=== PATIENT | female | born 1965 | race Caucasian/White ===

== ENCOUNTER 2024-01-19 21:48 | Observation (INO) ==
--- NOTE | 2024-01-19 23:55 | Emergency Department Note ---
Impression & Plan Low back pain, Lumbar radiculopathy, Hypokalemia ED Provider Note ED Provider Note NAME: SHEREEN LADD AGE:58 SEX: Female : 1965 ARRIVES VIA: EMS INFORMANT: Patient ED PROVIDER(s): Alicia Bishop DO CHIEF COMPLAINT: Back pain HPI: This is a 58-year-old female presents emergency department with complaint of worsening back pain. Patient states she has had back pain since a fall 1 year ago. It became worse, worse 3 weeks ago after carrying vacuum up steps. She did see an orthopedic doctor and had xray recently. She states has been taking ibuprofen and baclofen without any significant improvement. She states she has pain radiating down bilateral lower extremities although it is worse on the left. She occasionally has numbness into the left lower extremity additionally. She states she is able to walk although has pain with walking. She has worse pain trying to go up and down steps. She denies fevers or chills, nausea or vomiting. She states going to the bathroom has been difficult due to the pain of getting up and down. PAST MEDICAL HISTORY:See Below PAST SURGICAL HISTORY:See Below FAMILY HISTORY:See Below SOCIAL HISTORY:See Below HOME MEDICATIONS:See Below ALLERGIES:See Below VITALS:See Below PHYSICAL EXAMINATION: GENERAL: alert, well appearing, well nourished, no distress, non-toxic EYE EXAM: normal conjunctiva, PERRL and EOM's grossly intact OROPHARYNX: no exudate, no erythema, lips, buccal mucosa, and tongue normal and mucous membranes are dry NECK: supple, no nuchal rigidity, no adenopathy, non-tender LUNGS: Clear to auscultation. Normal chest wall mechanics, no w/r/r HEART: no murmurs, S1 normal and S2 normal ABDOMEN: abdomen soft, non-tender, normo-active bowel sounds, no masses, no rebound or guarding. BACK: Back is symmetrical on inspection and there is no deformity, mild left lateral lumbar tenderness, no CVA tenderness. SKIN: no rashes, petechiae, orbruising UPPER EXTREMITIES: upper extremities are grossly normal. FROM, nml pulses b/l. LOWER EXTREMITIES: No pitting edema. FROM, nml pulses b/l. 2+/4 patellar reflexes bilaterally NEURO EXAM: Normal sensorium, cranial nerves II-XII grossly intact, normal speech, no facial droop,nogross weakness of arms, no gross weakness of legs. Gross sensation intact. No ataxia. Vital Signs: reviewed and remarkable Differential Diagnosis: lumbar radiculopathy, muscle strain, facture, cauda equina, mass, and disc herniation. MEDICAL DECISION MAKING: This is a 58-year-old female who presents with concern for worsening low back pain and radicular symptoms into the lower extremities. Patient was afebrile vital signs stable. She had no acute neurologic deficits. Labs drawn and sent, IV established, patient sent for CT of the lumbar spine. Patient given IV fluids, IV Tylenol, oral gabapentin, IV Toradol, and a dose of her usual oral baclofen additionally. A Lidoderm patch was also applied to the left low back. Patient was able to ambulate to the bathroom here with an antalgic gait but otherwise reported no significant improvement in her pain. Patient states she has "bad reactions" to other stronger pain medications and wished to avoid them which I felt was reasonable. After several medications and no significant improvement, we discussed options for medications and disposition. Patient does live alone and states does not have family who could come stay with her. She has not yet seen a economic development specialist regarding her pain. Due to concern for her ability to even ambulate around her own house that she has found it hard to get to the bathroom on the second floor, and my concern for her risk of an adverse reaction if she is placed on a stronger pain medication while living alone, we discussed potential additional inpatient evaluation with spine consultation. Case discussed with hospitalist team for additional evaluation and management. Consultation: [id number]: Discussed with Dr. Zapata, [facility] hospitalist for additional evaluation and management. ER Treatment Provided: See below Diagnostics Interpreted By Me: -ECG: Normal sinus at 67, normal axis, normal intervals, no acute ST/T wave changes -Cardiac Monitoring: An order was placed for continuous cardiac monitoring. The monitor shows a rate of 56 with sinus bradycardia rhythm. -Laboratory studies: As stated above and show below. -Imaging studies: CT lumbar spine: no acute fx Triage Nursing Note Reviewed Prior/Outside Records Reviewed Past Med/Surg History Social History Smoking Status: Current every day smoker Tobacco Type: Cigarettes Preferred Language: Yoruba Feels Safe at Home: Yes Allergies Allergies Allergy/AdvReac Type Severity Reaction Status Date / Time codeine Allergy Intermediate HIVES Verified 01/20/24 00:49 meperidine AdvReac Intermediate RAPID Verified 01/20/24 00:49 HEARTRATE oxycodone AdvReac Intermediate VOMITING Verified 01/20/24 00:49 propoxyphene AdvReac Intermediate FAINTED Verified 01/20/24 00:49 STEROID INJECTION Allergy Intermediate HIVES Uncoded 01/20/24 00:49 Home Meds Home Medications Medication Instructions Recorded Confirmed albuterol sulfate 2.5 mg/3 mL 2.5 mg inhalation DIRECTED PRN 01/20/24 01/20/24 (0.083 %) solution for nebulization Shortness Of Breath Or Wheezing albuterol sulfate 90 mcg/actuation 1 puff inhalation DIRECTED PRN 01/20/24 01/20/24 aerosol inhaler Shortness Of Breath Or Wheezing baclofen 10 mg tablet 10 mg PO BID 01/20/24 01/20/24 budesonide-formoterol HFA 160 1 puff inhalation BID 01/20/24 01/20/24 mcg-4.5 mcg/actuation aerosol inhaler (Symbicort) diazepam 5 mg tablet 5 mg PO Q12H PRN Anxiety 01/20/24 01/20/24 duloxetine 60 mg capsule,delayed 60 mg PO BID 01/20/24 01/20/24 release montelukast 10 mg tablet 10 mg PO DAILY 01/20/24 01/20/24 ondansetron 4 mg disintegrating 4 mg PO Q8H PRN NAUSEA/VOMITING 01/20/24 01/20/24 tablet ropinirole 2 mg tablet 2 mg PO BID 01/20/24 01/20/24 Results & Data (ED) Vital Signs Vital Signs - 24 hr 01/19/24 21:59 01/19/24 21:59 01/19/24 21:59 Temperature 36.8 C 36.8 C Temperature Source Oral Oral Pulse Rate 67 69 Pulse Rate [Apical] 73 Pulse Rate from SpO2 Sensor Pulse Rhythm Regular Pulse Rhythm [Apical] Regular Pulse Strength Normal Pulse Strength [Apical] Normal Respiratory Rate 17 17 Respiratory Effort / Characteristics Non-Labored Spontaneous Non-Labored Spontaneous Respiratory Depth Normal Normal Respiratory Pattern Regular Regular Blood Pressure 176/98 H Blood Pressure [Right Arm] 176/98 H Blood Pressure Mean 124 Blood Pressure Mean [Right Arm] 124 Blood Pressure Position Semi-fowlers Blood Pressure Position [Right Arm] Semi-fowlers Pulse Oximetry 96 97 Oxygen Delivery Method Room Air Room Air Sepsis Recent Fever Within 48 Hours No Sepsis New/Unexplained Change in Mental Status N/A Sepsis Action Taken by Nursing No Action Required 01/19/24 22:00 01/19/24 22:30 01/19/24 23:00 Temperature Temperature Source Pulse Rate 72 73 71 Pulse Rate [Apical] Pulse Rate from SpO2 Sensor 72 74 70 Pulse Rhythm Pulse Rhythm [Apical] Pulse Strength Pulse Strength [Apical] Respiratory Rate 14 16 17 Respiratory Effort / Characteristics Respiratory Depth Respiratory Pattern Blood Pressure 176/98 H 172/101 H 163/98 H Blood Pressure [Right Arm] Blood Pressure Mean 124 124 119 Blood Pressure Mean [Right Arm] Blood Pressure Position Blood Pressure Position [Right Arm] Pulse Oximetry 97 96 95 Oxygen Delivery Method Sepsis Recent Fever Within 48 Hours Sepsis New/Unexplained Change in Mental Status Sepsis Action Taken by Nursing 01/19/24 23:30 01/20/24 00:12 01/20/24 00:30 Temperature Temperature Source Pulse Rate 75 70 64 Pulse Rate [Apical] Pulse Rate from SpO2 Sensor 77 63 Pulse Rhythm Pulse Rhythm [Apical] Pulse Strength Pulse Strength [Apical] Respiratory Rate 22 20 14 Respiratory Effort / Characteristics Respiratory Depth Respiratory Pattern Blood Pressure 152/95 H 163/81 H Blood Pressure [Right Arm] Blood Pressure Mean 114 108 Blood Pressure Mean [Right Arm] Blood Pressure Position Blood Pressure Position [Right Arm] Pulse Oximetry 98 96 Oxygen Delivery Method Sepsis Recent Fever Within 48 Hours Sepsis New/Unexplained Change in Mental Status Sepsis Action Taken by Nursing 01/20/24 01:00 01/20/24 01:31 01/20/24 01:59 Temperature Temperature Source Pulse Rate 63 83 65 Pulse Rate [Apical] Pulse Rate from SpO2 Sensor 63 84 Pulse Rhythm Pulse Rhythm [Apical] Pulse Strength Pulse Strength [Apical] Respiratory Rate 12 17 Respiratory Effort / Characteristics Respiratory Depth Respiratory Pattern Blood Pressure 149/82 H 180/103 H Blood Pressure [Right Arm] Blood Pressure Mean 104 128 Blood Pressure Mean [Right Arm] Blood Pressure Position Blood Pressure Position [Right Arm] Pulse Oximetry 96 96 Oxygen Delivery Method Sepsis Recent Fever Within 48 Hours Sepsis New/Unexplained Change in Mental Status Sepsis Action Taken by Nursing 01/20/24 02:00 01/20/24 02:30 01/20/24 03:00 Temperature Temperature Source Pulse Rate 80 63 74 Pulse Rate [Apical] Pulse Rate from SpO2 Sensor 78 63 75 Pulse Rhythm Pulse Rhythm [Apical] Pulse Strength Pulse Strength [Apical] Respiratory Rate 16 17 16 Respiratory Effort / Characteristics Respiratory Depth Respiratory Pattern Blood Pressure 156/92 H 149/87 H 159/87 H Blood Pressure [Right Arm] Blood Pressure Mean 113 107 111 Blood Pressure Mean [Right Arm] Blood Pressure Position Blood Pressure Position [Right Arm] Pulse Oximetry 97 96 97 Oxygen Delivery Method Sepsis Recent Fever Within 48 Hours Sepsis New/Unexplained Change in Mental Status Sepsis Action Taken by Nursing 01/20/24 04:00 01/20/24 04:30 01/20/24 05:00 Temperature Temperature Source Pulse Rate 54 L 74 63 Pulse Rate [Apical] Pulse Rate from SpO2 Sensor 55 L 73 54 L Pulse Rhythm Pulse Rhythm [Apical] Pulse Strength Pulse Strength [Apical] Respiratory Rate 17 15 14 Respiratory Effort / Characteristics Respiratory Depth Respiratory Pattern Blood Pressure 153/91 H 136/91 180/103 H Blood Pressure [Right Arm] Blood Pressure Mean 111 106 128 Blood Pressure Mean [Right Arm] Blood Pressure Position Blood Pressure Position [Right Arm] Pulse Oximetry 96 96 96 Oxygen Delivery Method Sepsis Recent Fever Within 48 Hours Sepsis New/Unexplained Change in Mental Status Sepsis Action Taken by Nursing 01/20/24 05:00 01/20/24 05:30 01/20/24 05:53 Temperature Temperature Source Pulse Rate 52 L 54 L Pulse Rate [Apical] Pulse Rate from SpO2 Sensor 52 L Pulse Rhythm Pulse Rhythm [Apical] Pulse Strength Pulse Strength [Apical] Respiratory Rate 17 Respiratory Effort / Characteristics Respiratory Depth Respiratory Pattern Blood Pressure 180/103 H 174/93 H Blood Pressure [Right Arm] Blood Pressure Mean 133 120 Blood Pressure Mean [Right Arm] Blood Pressure Position Blood Pressure Position [Right Arm] Pulse Oximetry 97 Oxygen Delivery Method Sepsis Recent Fever Within 48 Hours Sepsis New/Unexplained Change in Mental Status Sepsis Action Taken by Nursing 01/20/24 06:00 01/20/24 06:30 Temperature Temperature Source Pulse Rate 51 L 54 L Pulse Rate [Apical] Pulse Rate from SpO2 Sensor 51 L 54 L Pulse Rhythm Pulse Rhythm [Apical] Pulse Strength Pulse Strength [Apical] Respiratory Rate 17 16 Respiratory Effort / Characteristics Respiratory Depth Respiratory Pattern Blood Pressure 167/92 H 156/89 H Blood Pressure [Right Arm] Blood Pressure Mean 117 111 Blood Pressure Mean [Right Arm] Blood Pressure Position Blood Pressure Position [Right Arm] Pulse Oximetry 97 95 Oxygen Delivery Method Sepsis Recent Fever Within 48 Hours Sepsis New/Unexplained Change in Mental Status Sepsis Action Taken by Nursing Laboratory Data 01/19/24 22:10 01/19/24 22:10 Lab Results 01/19/24 01/20/24 Range/Units 22:10 03:35 WBC 8.86 (4.8-10.8) K/ul RBC 4.20 (4.20-5.40) M/uL Hgb 13.7 (12.0-16.0) g/dl Hct 40.0 (37.0-47.0) % MCV 95.2 (80.0-100.0) fL MCH 32.6 (25.0-34.0) pg MCHC 34.3 (32.0-36.0) g/dL RDW Std Deviation 45.2 (36.4-46.3) fL RDW Coeff of Scarlet 12.9 (11.5-14.5) % Plt Count 365 (130-400) K/uL MPV 9.2 L (9.4-12.4) fL Immature Gran % (Auto) 0.2 % Neut % (Auto) 57.2 % Lymph % (Auto) 31.6 % [place] % (Auto) 8.2 % Eos % (Auto) 1.7 % Baso % (Auto) 1.1 % Neut # (Auto) 5.06 (1.40-6.50) K/uL Lymph # (Auto) 2.80 (1.20-3.40) K/uL [place] # (Auto) 0.73 H (0.11-0.59) K/uL Eos # (Auto) 0.15 (0.00-0.50) K/uL Baso # (Auto) 0.10 (0.00-0.20) K/uL Immature Gran # (Auto) 0.02 (0.01-0.20) K/uL Sodium 139 (136-145) mmol/L Potassium 2.9 L (3.5-5.1) mmol/L Chloride 107 (98-107) mmol/L Carbon Dioxide 23 (21-32) mmol/L Anion Gap 9 (3-11) BUN 6 (6-23) mg/dl Creatinine 0.70 (0.6-1.2) mg/dl Est Cr Clr Drug Dosing 67.1 ml/min Est GFR ( Amer) 109.1 ml/min Est GFR (Non-Af Amer) 94.2 ml/min BUN/Creatinine Ratio 8.6 L (10-20) Glucose 81 (70-99(Fasting)) mg/dl Calcium 9.0 (8.6-10.3) mg/dl Magnesium 2.0 (1.7-2.4) mg/dl Total Bilirubin 0.6 (0.2-1.0) mg/dl AST 12 L (13-39) U/L ALT 8 (7-52) U/L Alkaline Phosphatase 62 (34-104) U/L Troponin I High Sens 6.1 (0-14) pg/ml Total Protein 6.3 (6.0-8.3) gm/dl Albumin 4.0 (3.4-5.0) gm/dl Globulin 2.3 L (2.5-4.0) gm/dl Albumin/Globulin Ratio 1.7 (0.9-2) Urine Color Yellow Urine Appearance Cloudy A (Clear) Urine pH 8.0 H (4.5-7.5) Ur Specific [place] 1.006 (1.000-1.030) Urine Protein Negative (Negative) Urine Glucose (UA) Negative (Negative) Urine Ketones Negative (Negative) Urine Blood Negative (Negative) Urine Nitrite Negative (Negative) Urine Bilirubin Negative (Negative) Urine Urobilinogen Negative (Negative) Ur Leukocyte Esterase Trace H (Negative) Urine WBC (Auto) 10-30 H (0-5) /hpf Urine RBC (Auto) 0-4 (0-4) /hpf U Hyaline Cast (Auto) 5-10 H (0-5) /lpf U Epithel Cells (Auto) >30 H (0-5) /lpf Urine Bacteria (Auto) 1+ H (Negative) Administered Medications Nicotine (Nicotine 21 Mg/24 Hr Tdsy) 21 mg TD QAM TOMY Stop: 02/19/24 05:59 Last Admin: 01/20/24 06:48 Dose: 21 mg Documented By: CELESTINO Discontinued Medications Baclofen (Baclofen 10 Mg Tab) 10 mg PO NOW STA Stop: 01/20/24 02:32 Last Admin: 01/20/24 02:57 Dose: 10 mg Documented By: CELESTINO Clonidine HCl (Clonidine Hcl 0.1 Mg Tab) 0.1 mg PO NOW ONE Stop: 01/20/24 05:56 Last Admin: 01/20/24 06:48 Dose: 0.1 mg Documented By: CELESTINO Dexamethasone Sodium Phosphate (DexamethasonePf 10 Mg/Ml Vial) 10 mg IV NOW ONE Stop: 01/20/24 04:23 Last Admin: 01/20/24 04:56 Dose: 10 mg Documented By: CELESTINO Gabapentin (Gabapentin 100 Mg Cap) 100 mg PO NOW STA Stop: 01/19/24 23:50 Last Admin: 01/20/24 00:25 Dose: 100 mg Documented By: CELESTINO Acetaminophen 745 mg/ EMPTY (BAG) 74.5 mls @ 298 mls/hr IV NOW STA Stop: 01/19/24 23:50 Last Infusion: 01/20/24 00:45 Dose: Infused Documented By: Admin: 01/20/24 00:25 Dose: 298 mls/hr Documented By: CELESTINO Sodium Chloride (Nss) 1,000 mls @ 125 mls/hr IV .Q8H TOMY Stop: 02/18/24 23:44 Last Infusion: 01/20/24 06:22 Dose: Infused Documented By: Admin: 01/20/24 00:26 Dose: 125 mls/hr Documented By: CELESTINO Magnesium Sulfate/Dextrose (Magnesium Sulfate / D5w) 1 gm in 100 mls @ 100 mls/hr IV NOW STA Stop: 01/20/24 01:41 Last Infusion: 01/20/24 02:01 Dose: Infused Documented By: Admin: 01/20/24 00:59 Dose: 100 mls/hr Documented By: TITO Promethazine HCl 6.25 mg/ (Sodium Chloride) 50.25 mls @ 201 mls/hr IV NOW STA Stop: 01/20/24 06:03 Last Admin: 01/20/24 06:48 Dose: 201 mls/hr Documented By: CELESTINO Ketorolac Tromethamine (Ketorolac Tromethamine 15 Mg/Ml Vial) 10 mg IV NOW ONE Stop: 01/20/24 01:28 Last Admin: 01/20/24 01:34 Dose: 10 mg Documented By: CELESTINO Ketorolac Tromethamine (Ketorolac Tromethamine 15 Mg/Ml Vial) 15 mg IV NOW ONE Stop: 01/20/24 05:51 Last Admin: 01/20/24 07:05 Dose: Not Given Documented By: TITO Lidocaine (Lidocaine 5% 1 Patch) 1 patch TD NOW STA Stop: 01/19/24 23:50 Last Admin: 01/20/24 00:25 Dose: 1 patch Documented By: CELESTINO Potassium Chloride (Potassium Chloride Crtab 20 Meq Tabcr) 40 meq PO NOW STA Stop: 01/20/24 00:43 Last Admin: 01/20/24 01:26 Dose: Not Given Documented By: CELESTINO Potassium Chloride (Potassium Chloride Pwd 20 Meq Pack) 40 meq PO NOW STA Stop: 01/20/24 01:04 Last Admin: 01/20/24 01:28 Dose: 40 meq Documented By: CELESTINO Tramadol HCl (Tramadol Hcl 50 Mg Tablet) 25 mg PO NOW STA Stop: 01/20/24 05:50 Last Admin: 01/20/24 07:05 Dose: Not Given Documented By: TITO Imaging Data Radiologist's Impression: Lumbar Spine CT 01/19/24 23:52 Exam(s): CT L SPINE EXAM: CT Lumbar Spine Without Intravenous Contrast CLINICAL HISTORY: incr low back pain. TECHNIQUE: Axial computed tomography images of the lumbar spine without intravenous contrast. CTDI is 13.36 mGy and DLP is 355.1 mGy-cm. Automated exposure control was utilized for the study. A dose lowering technique was utilized adhering to the principles of ALARA. COMPARISON: No relevant prior studies available. FINDINGS: Vertebrae: There is chronic loss of height involving the left lateral superior endplate at L3 level. There is a mild concave appearance of the superior endplates at L1 and L2 levels. No acute vertebral body fracture identified. No anterolisthesis or retrolisthesis. The pedicles, facet joints, spinous processes and transverse processes are intact. Discs/spinal canal/neural foramina: Evaluation of the central canal is limited without intrathecal contrast. However, there appears to be disc space narrowing at all levels of the lumbar spine with annular bulge at L3-L4 and L4-L5 levels. No obvious posterior disc protrusion. Facet hypertrophic changes most notable at L4-L5 and L5-S1 levels. No significant osseous neural foraminal encroachment. Soft tissues: No acute traumatic paraspinal soft tissue abnormality identified. IMPRESSION: 1. No acute osseous traumatic injury or significant abnormal alignment involving the lumbar spine. Chronic loss of height involving the left lateral superior endplate at L3 and minimally involving the superior endplates at L1 and L2 levels. 2. Diffuse and disc bulge with disc space narrowing at L3-L4 and L4-L5. No osseous central canal stenosis or significant osseous neural foraminal encroachment. Electronically signed by: Patricio Zavaleta MD 01/20/24 01:16 AM Chest X-Ray 01/20/24 05:50 XR chest 1V portable CLINICAL HISTORY: Chest pain. COMPARISON STUDY: No previous studies for comparison. FINDINGS: Postoperative findings within the spine are incidentally noted. There is no pneumothorax or pleural effusion. No consolidation is present. Pulmonary vascularity is normal. Cardiomediastinal silhouette is unremarkable. IMPRESSION: No acute cardiopulmonary findings. ACT 112: Negative or not required by law. Electronically signed by: Eduin Maguire M.D. 01/20/2024 6:39 AM Discharge Plan Visit Data Chief Complaint: Back Injury/Pain Stated Complaint: SEVERE BACK PAIN ED Provider: Alicia Bishop Discharge Problem: Low back pain, Lumbar radiculopathy, Hypokalemia Patient Disposition: Home - Self-Care Condition: Good Discharge Instructions [facility]/Other Patient Handouts: Common Spine and Disk Problems, ED Back Care Tips, ED Sciatica, ED Herniated Intervertebral Disk Activity Restrictions/Additional Instructions: Please continue your routine medications as prescribed. Please limit any heavy lifting or strenuous activity. Please call and follow-up with your family doctor to discuss your worsening symptoms and please try to arrange follow-up with a economic development specialist. It appears that you were referred to a economic development specialist. If you are unable to see them you may seek evaluation from one of our local economic development specialist. Their names are listed below. Please do not drive or consume alcohol while taking the baclofen. You may use the gabapentin as needed for your back pain additionally. Please note it can sometimes make you dizzy. Please stay well-hydrated and drink plenty of water. You may eat as tolerated. You may apply the topical lidocaine patch known by the [id number] name brand of Salonpas. Please follow the package instructions for this. You may try the supportive back belt you were previously given if you feel it provides support. If you find you have increased pain while wearing this please do not use it. If you develop worsening pain, are unable to walk, develop fevers, abdominal pain, incontinence of urine or stool, or you have any other new concerns, please return to the ER immediately. Forms Stand Alone Forms: My [facility], Important Visit Information Prescriptions Prescriptions: No Action albuterol sulfate 2.5 mg /3 mL (0.083 %) Solution For Nebulization 2.5 mg INHALATION DIRECTED PRN (Reason: Shortness Of Breath Or Wheezing) baclofen 10 mg tablet 10 mg PO BID ropinirole 2 mg tablet 2 mg PO BID montelukast 10 mg tablet 10 mg PO DAILY albuterol sulfate 90 mcg/actuation Hfa Aerosol Inhaler 1 puff INHALATION DIRECTED PRN (Reason: Shortness Of Breath Or Wheezing) ondansetron 4 mg tablet,disintegrating 4 mg PO Q8H PRN (Reason: NAUSEA/VOMITING) diazepam 5 mg tablet 5 mg PO Q12H PRN (Reason: Anxiety) duloxetine 60 mg capsule,delayed release(DR/EC) 60 mg PO BID budesonide-formoterol [Symbicort] 160-4.5 mcg/actuation Hfa Aerosol Inhaler 1 puff INHALATION BID Referrals Referrals: Samy Olmstead DO [Surgeon] - Talon Orourke MD [Outside Practitioners] - (2-3 days) Gene Tejeda MD [Surgeon] -
[2024-01-20 00:19] LABS: Albumin Globulin Ratio 1.7 (0.9-2); BUN Creatinine Ratio 8.6 (10-20); Bilirubin,Total 0.6 mg/dl (0.2-1.0); Creatinine Clr Calc Pharmacy 67.1 ml/min; Est GFR (African American) 109.1 ml/min; Est GFR (Non-African American) 94.2 ml/min; Globulin 2.3 gm/dl (2.5-4.0); Potassium 2.9 mmol/L (3.5-5.1); Total Protein 6.3 gm/dl (6.0-8.3)
[2024-01-20 00:22] LABS: Basophils % (auto) 1.1 %; Eosinophils # (auto) 0.15 K/uL (0.00-0.50); Eosinophils % (auto) 1.7 %; Hemoglobin 13.7 g/dl (12.0-16.0); Immature Granulocytes # (auto) 0.02 K/uL (0.01-0.20); Immature Granulocytes % (auto) 0.2 %; Lymphocytes % (auto) 31.6 %; Mean Corpuscular Hemoglobin 32.6 pg (25.0-34.0); Mean Corpuscular Hgb Conc 34.3 g/dL (32.0-36.0); Mean Corpuscular Volume 95.2 fL (80.0-100.0); Mean Platelet Volume 9.2 fL (9.4-12.4); Monocytes # (auto) 0.73 K/uL (0.11-0.59); Monocytes % (auto) 8.2 %; Neutrophils # (auto) 5.06 K/uL (1.40-6.50); Neutrophils % (auto) 57.2 %; Platelet Count 365 K/uL (130-400); RDW Coefficient of Variation 12.9 % (11.5-14.5); RDW Standard Deviation 45.2 fL (36.4-46.3); White Blood Count 8.86 K/ul (4.8-10.8)
[2024-01-20] MEDS: GABAPENTIN 100 MG CAP PO STA (00:25)
[2024-01-20] MEDS: LIDOCAINE 5% 1 PATCH TD STA (00:25)
[2024-01-20] MEDS: ACETAMINOPHEN IV STA (00:25)
[2024-01-20] MEDS: SODIUM CHLORIDE 0.9% 1,000 ML IV SCH (00:26)
[2024-01-20] MEDS: MAGNESIUM SULFATE / D5W 1 GM/100 ML BAG IV STA (00:59)
--- NOTE | 2024-01-20 01:17 | CT Scan Report ---
Exam(s): CT L SPINE EXAM: CT Lumbar Spine Without Intravenous Contrast CLINICAL HISTORY: incr low back pain. TECHNIQUE: Axial computed tomography images of the lumbar spine without intravenous contrast. CTDI is 13.36 mGy and DLP is 355.1 mGy-cm. Automated exposure control was utilized for the study. A dose lowering technique was utilized adhering to the principles of ALARA. COMPARISON: No relevant prior studies available. FINDINGS: Vertebrae: There is chronic loss of height involving the left lateral superior endplate at L3 level. There is a mild concave appearance of the superior endplates at L1 and L2 levels. No acute vertebral body fracture identified. No anterolisthesis or retrolisthesis. The pedicles, facet joints, spinous processes and transverse processes are intact. Discs/spinal canal/neural foramina: Evaluation of the central canal is limited without intrathecal contrast. However, there appears to be disc space narrowing at all levels of the lumbar spine with annular bulge at L3-L4 and L4-L5 levels. No obvious posterior disc protrusion. Facet hypertrophic changes most notable at L4-L5 and L5-S1 levels. No significant osseous neural foraminal encroachment. Soft tissues: No acute traumatic paraspinal soft tissue abnormality identified. IMPRESSION: 1. No acute osseous traumatic injury or significant abnormal alignment involving the lumbar spine. Chronic loss of height involving the left lateral superior endplate at L3 and minimally involving the superior endplates at L1 and L2 levels. 2. Diffuse and disc bulge with disc space narrowing at L3-L4 and L4-L5. No osseous central canal stenosis or significant osseous neural foraminal encroachment. Electronically signed by: Patricio Zavaleta MD 01/20/24 01:16 AM
[2024-01-20] MEDS: POTASSIUM CHLORIDE CRTAB 20 MEQ TABCR PO STA (01:26)
[2024-01-20] MEDS: POTASSIUM CHLORIDE PWD 20 MEQ PACK PO STA (01:28)
[2024-01-20] MEDS: KETOROLAC TROMETHAMINE 15 MG/ML VIAL IV ONE ×2 (01:34→07:05)
[2024-01-20] MEDS: BACLOFEN 10 MG TAB PO STA (02:57)
[2024-01-20 03:48] LABS: Appearance Urine Cloudy (Clear); Bacteria Urine Automated 1+ (Negative); Bilirubin Urine Negative (Negative); Blood Urine Negative (Negative); Color Urine Yellow; Epithelial Cell Urine Auto >30 /lpf (0-5); Glucose Urine UA Negative (Negative); Ketones Urine Negative (Negative); Leukocyte Esterase Urine Trace (Negative); Nitrite Urine Negative (Negative); Protein Urine Negative (Negative); RBC Urine Automated 0-4 /hpf (0-4); Specific Gravity Urine 1.006 (1.000-1.030); Urobilinogen Urine Negative (Negative)
[2024-01-20] MEDS: dexAMETHasone**PF** 10 MG/ML VIAL IV ONE (04:56)
[2024-01-20] MEDS ORDERED: KETOROLAC TROMETHAMINE 15 MG/ML VIAL IV PRN (05:02)
[2024-01-20] MEDS ORDERED: traMADol HCL 50 MG TABLET PO PRN (05:02)
--- NOTE | 2024-01-20 05:56 | History & Physical Report ---
Date of Service January 20, 2024 Assessment & Plan (1) Atypical chest pain: Plan: Possibly from situational hypertension and anxiety due to uncontrolled back pain History traumatic lumbar compression fractures Rule out PE given decreased mobility the last few weeks Hypokalemia secondary to emesis COPD, not in acute exacerbation hyperlipidemia, not on statin Rx hx fibromyalgia history of cerebral concussion anxiety/mood disorder, patient anxious and somewhat distractible during exam ongoing tobacco abuse OBS PCU Analgesia Anxiolytic as needed Clonidine as needed SBP greater than 160 CT chest PE study if D-dimer abnormal LS MRI worsening back pain, Orthopedics spine consult Further management contingent on workup results Replace potassium Nicotine patch DVT prophylaxis. SCDs Re: Possible procedure for back issues Full code Text document was generated using [employer] voice recognition software. It may contain grammatical or spelling errors. Kindly contact undersigned for clarification of any documentation item in question. History of Present Illness Chief Complaint: Worsening back pain Primary Care Provider: Krupa Hardy DO History obtained from patient and records. Medical history significant for COPD, hyperlipidemia, chronic back pain, fibromyalgia, migraine, history of cerebral concussion, IBS, anxiety/mood disorder, RLS, ongoing tobacco abuse. Patient has had low back pain for about about 2 years following a fall. Outpatient lumbar MRI April 2023 showed Mild chronic superior endplate compression fracture L3. No acute osseous abnormality. Mild multilevel degenerative changes lumbar spine. Likely active facet atrophy L4-L5. Conservative management recommended by [facility] orthopedics spine surgeon on evaluation last May 2023. Worsening back pain noted in the last 3 weeks worse on ambulation. Some radiation to the legs. No incontinence symptoms. No fever, no chills. Unquantified weight loss from the pain as per patient. Patient seen at PCPs office 3 weeks ago. Outpatient plain LS XR done at [facility] showed no acute osseous abnormality. Stable mild chronic compression deformities involving L2 and L3. No evidence of acute vertebral body compression fracture. Mild multilevel degenerative spondylosis. Patient called EMS last night due to worsening symptoms. Unable to move as much as per patient. Transient substernal pain with some SOB prior to EMS arrival which patient attributes to anxiety. Nausea, emesis at home without abdominal pain. No cough symptoms. Denies headache symptoms. Highest SBP of 180s documented at the ER. Medical History as above Surgical History : Cholecystectomy, BTL, D&C, neck surgery Family History : Breast cancer, dementia, heart disease, lung cancer, stroke, parkinsonism Personal/Social history : 2 packs daily, rare EtOH intake, disabled Allergies Allergy/AdvReac Type Severity Reaction Status Date / Time codeine Allergy Intermediate HIVES Verified 01/20/24 00:49 meperidine AdvReac Intermediate RAPID Verified 01/20/24 00:49 HEARTRATE oxycodone AdvReac Intermediate VOMITING Verified 01/20/24 00:49 propoxyphene AdvReac Intermediate FAINTED Verified 01/20/24 00:49 STEROID INJECTION Allergy Intermediate HIVES Uncoded 01/20/24 00:49 Home Medications Medication Instructions Recorded Confirmed Type albuterol sulfate 2.5 mg/3 mL 2.5 mg inhalation DIRECTED PRN 01/20/24 01/20/24 History (0.083 %) solution for nebulization Shortness Of Breath Or Wheezing albuterol sulfate 90 mcg/actuation 1 puff inhalation DIRECTED PRN 01/20/24 01/20/24 History aerosol inhaler Shortness Of Breath Or Wheezing baclofen 10 mg tablet 10 mg PO BID 01/20/24 01/20/24 History budesonide-formoterol HFA 160 1 puff inhalation BID 01/20/24 01/20/24 History mcg-4.5 mcg/actuation aerosol inhaler (Symbicort) diazepam 5 mg tablet 5 mg PO Q12H PRN Anxiety 01/20/24 01/20/24 History duloxetine 60 mg capsule,delayed 60 mg PO BID 01/20/24 01/20/24 History release montelukast 10 mg tablet 10 mg PO DAILY 01/20/24 01/20/24 History ondansetron 4 mg disintegrating 4 mg PO Q8H PRN NAUSEA/VOMITING 01/20/24 01/20/24 History tablet ropinirole 2 mg tablet 2 mg PO BID 01/20/24 01/20/24 History Past Med/Surg History Social History Smoking Status: Current every day smoker Tobacco Type: Cigarettes Preferred Language: Chinese Feels Safe at Home: Yes Review of Systems Review of Systems: As per HPI, all other systems reviewed and negative Physical Exam Physical Exam: GENERAL: uncomfortable, anxious, underweight, no respiratory distress SKIN: Normal color, warm HEENT: [place] palpebral conjunctivae, no ptosis, dry buccal mucosa NECK : Supple, no tenderness CHEST : Decreased breath sounds, no tenderness HEART : RRR, no obvious murmurs ABDOMEN: no distention, nontender BACK : Low back tenderness, negative straight leg raise test EXTREMITIES : No LE swelling/tenderness, no other conspicuous deformities noted NEUROLOGIC : Coherent, no facial asymmetry, no other gross focality Results & Data Results & Data Vital Signs (Past 12 Hours) Vital Signs Temp Pulse Pulse Resp BP BP Pulse Ox 01/20/24 04:30 74 15 136/91 96 01/20/24 04:00 54 L 17 153/91 H 96 01/20/24 03:00 74 16 159/87 H 97 01/20/24 02:30 63 17 149/87 H 96 01/20/24 02:00 80 16 156/92 H 97 01/20/24 01:59 65 01/20/24 01:31 83 17 180/103 H 96 01/20/24 01:00 63 12 149/82 H 96 01/20/24 00:30 64 14 163/81 H 96 01/20/24 00:12 70 20 01/19/24 23:30 75 22 152/95 H 98 01/19/24 23:00 71 17 163/98 H 95 01/19/24 22:30 73 16 172/101 H 96 01/19/24 22:00 72 14 176/98 H 97 01/19/24 21:59 69 01/19/24 21:59 36.8 C 73 17 176/98 H 97 01/19/24 21:59 36.8 C 67 17 176/98 H 96 O2 Del Method 01/20/24 04:30 01/20/24 04:00 01/20/24 03:00 01/20/24 02:30 01/20/24 02:00 01/20/24 01:59 01/20/24 01:31 01/20/24 01:00 01/20/24 00:30 01/20/24 00:12 01/19/24 23:30 01/19/24 23:00 01/19/24 22:30 01/19/24 22:00 01/19/24 21:59 01/19/24 21:59 Room Air 01/19/24 21:59 Room Air Laboratory Results Laboratory Results WBC 8.86 K/ul (4.8-10.8) 01/19/24 22:10 RBC 4.20 M/uL (4.20-5.40) 01/19/24 22:10 Hgb 13.7 g/dl (12.0-16.0) 01/19/24 22:10 Hct 40.0 % (37.0-47.0) 01/19/24 22:10 MCV 95.2 fL (80.0-100.0) 01/19/24 22:10 MCH 32.6 pg (25.0-34.0) 01/19/24 22:10 MCHC 34.3 g/dL (32.0-36.0) 01/19/24 22:10 RDW Std Deviation 45.2 fL (36.4-46.3) 01/19/24 22:10 RDW Coeff of Scarlet 12.9 % (11.5-14.5) 01/19/24 22:10 Plt Count 365 K/uL (130-400) 01/19/24 22:10 MPV 9.2 fL (9.4-12.4) L 01/19/24 22:10 Immature Gran % (Auto) 0.2 % 01/19/24 22:10 Neut % (Auto) 57.2 % 01/19/24 22:10 Lymph % (Auto) 31.6 % 01/19/24 22:10 [place] % (Auto) 8.2 % 01/19/24 22:10 Eos % (Auto) 1.7 % 01/19/24 22:10 Baso % (Auto) 1.1 % 01/19/24 22:10 Neut # (Auto) 5.06 K/uL (1.40-6.50) 01/19/24 22:10 Lymph # (Auto) 2.80 K/uL (1.20-3.40) 01/19/24 22:10 [place] # (Auto) 0.73 K/uL (0.11-0.59) H 01/19/24 22:10 Eos # (Auto) 0.15 K/uL (0.00-0.50) 01/19/24 22:10 Baso # (Auto) 0.10 K/uL (0.00-0.20) 01/19/24 22:10 Immature Gran # (Auto) 0.02 K/uL (0.01-0.20) 01/19/24 22:10 Sodium 139 mmol/L (136-145) 01/19/24 22:10 Potassium 2.9 mmol/L (3.5-5.1) L 01/19/24 22:10 Chloride 107 mmol/L (98-107) 01/19/24 22:10 Carbon Dioxide 23 mmol/L (21-32) 01/19/24 22:10 Anion Gap 9 (3-11) 01/19/24 22:10 BUN 6 mg/dl (6-23) 01/19/24 22:10 Creatinine 0.70 mg/dl (0.6-1.2) 01/19/24 22:10 Est Cr Clr Drug Dosing 67.1 ml/min 01/19/24 22:10 Est GFR ( Amer) 109.1 ml/min 01/19/24 22:10 Est GFR (Non-Af Amer) 94.2 ml/min 01/19/24 22:10 BUN/Creatinine Ratio 8.6 (10-20) L 01/19/24 22:10 Glucose 81 mg/dl (70-99(Fasting)) 01/19/24 22:10 Calcium 9.0 mg/dl (8.6-10.3) 01/19/24 22:10 Magnesium 2.0 mg/dl (1.7-2.4) 01/19/24 22:10 Total Bilirubin 0.6 mg/dl (0.2-1.0) 01/19/24 22:10 AST 12 U/L (13-39) L 01/19/24 22:10 ALT 8 U/L (7-52) 01/19/24 22:10 Alkaline Phosphatase 62 U/L (34-104) 01/19/24 22:10 Total Protein 6.3 gm/dl (6.0-8.3) 01/19/24 22:10 Albumin 4.0 gm/dl (3.4-5.0) 01/19/24 22:10 Globulin 2.3 gm/dl (2.5-4.0) L 01/19/24 22:10 Albumin/Globulin Ratio 1.7 (0.9-2) 01/19/24 22:10 Urine Color Yellow 01/20/24 03:35 Urine Appearance Cloudy (Clear) A 01/20/24 03:35 Urine pH 8.0 (4.5-7.5) H 01/20/24 03:35 Ur Specific [place] 1.006 (1.000-1.030) 01/20/24 03:35 Urine Protein Negative (Negative) 01/20/24 03:35 Urine Glucose (UA) Negative (Negative) 01/20/24 03:35 Urine Ketones Negative (Negative) 01/20/24 03:35 Urine Blood Negative (Negative) 01/20/24 03:35 Urine Nitrite Negative (Negative) 01/20/24 03:35 Urine Bilirubin Negative (Negative) 01/20/24 03:35 Urine Urobilinogen Negative (Negative) 01/20/24 03:35 Ur Leukocyte Esterase Trace (Negative) H 01/20/24 03:35 Urine WBC (Auto) 10-30 /hpf (0-5) H 01/20/24 03:35 Urine RBC (Auto) 0-4 /hpf (0-4) 01/20/24 03:35 U Hyaline Cast (Auto) 5-10 /lpf (0-5) H 01/20/24 03:35 U Epithel Cells (Auto) >30 /lpf (0-5) H 01/20/24 03:35 Urine Bacteria (Auto) 1+ (Negative) H 01/20/24 03:[address] 01/19/24 23:52 Exam(s): CT L SPINE EXAM: CT Lumbar Spine Without Intravenous Contrast CLINICAL HISTORY: incr low back pain. TECHNIQUE: Axial computed tomography images of the lumbar spine without intravenous contrast. CTDI is 13.36 mGy and DLP is 355.1 mGy-cm. Automated exposure control was utilized for the study. A dose lowering technique was utilized adhering to the principles of ALARA. COMPARISON: No relevant prior studies available. FINDINGS: Vertebrae: There is chronic loss of height involving the left lateral superior endplate at L3 level. There is a mild concave appearance of the superior endplates at L1 and L2 levels. No acute vertebral body fracture identified. No anterolisthesis or retrolisthesis. The pedicles, facet joints, spinous processes and transverse processes are intact. Discs/spinal canal/neural foramina: Evaluation of the central canal is limited without intrathecal contrast. However, there appears to be disc space narrowing at all levels of the lumbar spine with annular bulge at L3-L4 and L4-L5 levels. No obvious posterior disc protrusion. Facet hypertrophic changes most notable at L4-L5 and L5-S1 levels. No significant osseous neural foraminal encroachment. Soft tissues: No acute traumatic paraspinal soft tissue abnormality identified. IMPRESSION: 1. No acute osseous traumatic injury or significant abnormal alignment involving the lumbar spine. Chronic loss of height involving the left lateral superior endplate at L3 and minimally involving the superior endplates at L1 and L2 levels. 2. Diffuse and disc bulge with disc space narrowing at L3-L4 and L4-L5. No osseous central canal stenosis or significant osseous neural foraminal encroachment. Electronically signed by: Patricio Zavaleta MD 01/20/24 01:16 AM Diagnostic Findings Chest x-ray as per my interpretation no congestion EKG as per my interpretation : Rate 65, NSR, normal axis, no ischemia
[2024-01-20] MEDS ORDERED: LORazepam 0.5 MG TAB PO PRN (05:58)
[2024-01-20] MEDS ORDERED: tiZANidine HCL 4 MG TABLET PO PRN (06:01)
[2024-01-20] MEDS ORDERED: HYDROmorphone INJ 0.5 MG/0.5 ML SYR IV PRN (06:01)
[2024-01-20] MEDS ORDERED: ACETAMINOPHEN 325 MG TAB PO PRN (06:03)
[2024-01-20 06:09] LABS: Troponin I High Sensitivity 6.1 pg/ml (0-14)
--- NOTE | 2024-01-20 06:40 | XRay Report ---
XR chest 1V portable CLINICAL HISTORY: Chest pain. COMPARISON STUDY: No previous studies for comparison. FINDINGS: Postoperative findings within the spine are incidentally noted. There is no pneumothorax or pleural effusion. No consolidation is present. Pulmonary vascularity is normal. Cardiomediastinal si lhouette is unremarkable. IMPRESSION: No acute cardiopulmonary findings. ACT 112: Negative or not required by law. Electronically signed by: Eduin Maguire M.D. 01/20/2024 6:39 AM
[2024-01-20] MEDS: cloNIDine HCL 0.1 MG TAB PO ONE (06:48)
[2024-01-20] MEDS: NICOTINE 21 MG/24 HR TDSY TD SCH (06:48)
[2024-01-20] MEDS: PROMETHAZINE HCL 6.25 MG in SODIUM CHLORIDE 0.9% 50 ML IV STA (06:48)
[2024-01-20] MEDS: traMADol HCL 50 MG TABLET PO STA ×2 (07:05→07:31)
[2024-01-20 07:17] LABS: Basophils # (auto) 0.07 K/uL (0.00-0.20); Basophils % (auto) 0.7 %; Eosinophils # (auto) 0.18 K/uL (0.00-0.50); Eosinophils % (auto) 1.8 %; Hematocrit (blood only) 41.2 % (37.0-47.0); Hemoglobin 13.9 g/dl (12.0-16.0); Immature Granulocytes # (auto) 0.05 K/uL (0.01-0.20); Immature Granulocytes % (auto) 0.5 %; Lymphocytes # (auto) 1.69 K/uL (1.20-3.40); Lymphocytes % (auto) 16.7 %; Mean Corpuscular Hemoglobin 32.5 pg (25.0-34.0); Mean Corpuscular Hgb Conc 33.7 g/dL (32.0-36.0); Mean Corpuscular Volume 96.3 fL (80.0-100.0); Mean Platelet Volume 8.7 fL (9.4-12.4); Monocytes # (auto) 0.33 K/uL (0.11-0.59); Monocytes % (auto) 3.3 %; Neutrophils # (auto) 7.83 K/uL (1.40-6.50); Platelet Count 337 K/uL (130-400); RDW Standard Deviation 45.9 fL (36.4-46.3); Red Blood Count 4.28 M/uL (4.20-5.40); White Blood Count 10.15 K/ul (4.8-10.8)
[2024-01-20 07:34] LABS: Blood Urea Nitrogen 6 mg/dl (6-23); Calcium 8.7 mg/dl (8.6-10.3); Carbon Dioxide 21 mmol/L (21-32); Chloride 110 mmol/L (98-107); Creatinine Clr Calc Pharmacy 70.1 ml/min; Est GFR (African American) 110.7 ml/min; Est GFR (Non-African American) 95.5 ml/min; Glucose 92 mg/dl (70-99(Fasting))
[2024-01-20 07:36] LABS: Troponin I High Sensitivity 6.5 pg/ml (0-14)
[2024-01-20 08:17] LABS: D Dimer 380 ug/L FEU (0-500); Partial Thromboplastin Time 29 Seconds (21-31)
[2024-01-20 08:39] LABS: Potassium 3.6 mmol/L (3.5-5.1)
[2024-01-20] MEDS: NSS + 20MEQ KCL 20 MEQ/1,000 ML BAG IV ONE (09:18)
[2024-01-20] MEDS: DULoxetine HCL 60 MG CAP PO SCH (10:15)
[2024-01-20] MEDS: FLUTICASONE/VILANTEROL 100/25MCG 14 PUFFS/INHALER INH SCH (10:15)
[2024-01-20] MEDS: MONTELUKAST SODIUM 10 MG TABLET PO SCH (10:15)
[2024-01-20] MEDS: rOPINIRole HCL 2 MG TABLET PO SCH (10:16)
--- NOTE | 2024-01-20 11:44 | Magnetic Resonance Report ---
MR lumbar spine wo con CLINICAL HISTORY: worsening back pain TECHNIQUE: Multiplanar sequences through the lumbar spine were obtained, without intravenous contrast . Comparison: Comparison is made to MRI lumbar spine 05/29/[address] lumbar spine 01/20/2024 FINDINGS: Redemonstration of minimal loss of height in the superior endplate of L3 as well as the superior endp late of L1-L2. L1-L2: No significant abnormality. L2-L3: No significant abnormality. L3-L4: No significant abnormality. L4-L5: No significant abnormality. L5-S1: No significant abnormality. The spinal ligaments are intact, without evidence of disruption or abnormal signal intensity. The spi nal cord is normal in signal intensity and there is no evidence of cord contusion. There is no eviden ce of an extradural, intradural, extramedullary or intramedullary lesion. Visualized soft tissues are normal. IMPRESSION: 1. No evidence of cord compression or significant neuroforaminal narrowing. No evidence of acute fra cture. 2. Old loss of height as above. ACT 112: Negative or not required by law. Electronically signed by: Gene Olmstead M.D. 01/20/2024 11:42 AM
--- NOTE | 2024-01-20 12:55 | Communication Note ---
Date of Service: January 20, 2024 Pt was seen while still down in the emergency room. Thin on exam. Noting pain present in lower back and goes down her legs. Also left thigh. MRI spine with no acute changes Ortho spine previously consulted on admission. Pain Control. For further information related to the above, please see the History and Physical from the same date of service.
--- NOTE | 2024-01-20 13:02 | Electrocardiogram Report ---
Test Reason : Blood Pressure : / mmHG Vent. Rate : 067 BPM Atrial Rate : 067 BPM P-R Int : 140 ms QRS Dur : 088 ms QT Int : 466 ms P-R-T Axes : 069 067 059 degrees QTc Int : 492 ms Poor data quality, interpretation may be adversely affected Normal sinus rhythm Normal ECG No previous ECGs available Confirmed by Tavon Lemos ([id number]) on 01/20/2024 1:02:50 PM Referred By: REFERRED SELF Confirmed By:Tavon Lemos
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
--- OUTSIDE RECORDS SUMMARY | 2024-01-20 14:43 | External Medical Summary | Summary of Care ---
Author Name Unknown Organization [facility] Address [address] [place] [address] Phone [phone] Care Team Providers Care Gum Scoring Machine Operator Name Role Phone Krupa Hardy Primary Care Provider +1- [phone] Reason for Visit * Reason Onset Date Comments Test Results 01/06/2024 Imaging Fax 01/06/2024 Encounter Details Date Type Department Care Team (Late st Contact Info) Description 01/06/2024 Telephone Access Center, [place] [address] [facility] *DO NOT REMOVE THIS DEPARTMENT* [place], [place] [id number] Services, Scheduling [address] [place] [address] Test Results (Imaging ); Fax Allergies Active Allergy Reactions Criticality Noted Date [...] as of this encounter (statuses as of 01/13/2024) Medications Medication Sig Dispensed Refills Start Date End Date Status Budesonide-Formotero l Fumarate 160-4.5 MCG/ACT Inhalation Aerosol (Symbicort)Indicatio ns:COVID-19 Inhale 2 Puffs by mouth 2 times a day. 10.2 g 12 11/19/2021 Active Spiriva Respimat 2.5 MCG/ACT Inhalation Aerosol Solution (Tiotropium [place] Monohydrate)Indicati ons:COPD (chronic obstructive pulmonary disease) with chronic bronchitis inhale 2 puffs by mouth and INTO THE LUNGS once daily 4 g 5 06/05/2022 Active Albuterol Sulfate HFA 108 (90 Base) MCG/ACT Inhalation Aerosol SolutionIndications: Complicated acute bronchitis inhale 2 puffs by mouth four times a day if needed for wheezing 54 g 1 10/31/2022 Active Montelukast Sodium 10 MG Oral Tablet (Singulair)Indicatio ns:Allergic rhinitis,Asthma, mild persistent take 1 tablet by mouth every morning 90 Tablet 3 04/26/2023 Active Topiramate 200 MG Oral Tablet (topAMAX)Indications :Intractable migraine with aura without status migrainosus take 1 tablet by mouth twice a day 180 Tablet 1 09/01/2023 Active rOPINIRole HCl 2 MG Oral Tablet (Requip)Indications: Restless legs syndrome take 1 tablet by mouth twice a day 180 Tablet 1 09/01/2023 Active Triamcinolone Acetonide 0.1 % External Cream (Aristocort) Apply topically to affected area 2 times a day. To affected area. 15 g 5 10/29/2023 Active DULoxetine HCl 60 MG Oral Capsule Delayed Release Particles (Cymbalta)Indication s:Recurrent major depressive disorder, in partial remission (HCC),DHIRAJ (generalized anxiety disorder) Take 1 Capsule by mouth in the morning and 1 Capsule before bedtime. 60 Capsule 5 11/07/2023 Active diazePAM 5 MG Oral Tablet (Valium)Indications: DHIRAJ (generalized anxiety disorder),Recurrent major depressive disorder, in partial remission (HCC) take 1 tablet by mouth every 12 hours if needed for anxiety 60 Tablet 0 12/18/2023 Active Ondansetron 4 MG Oral Tablet Disintegrating (Zofran)Indications: Irritable bowel syndrome with diarrhea,Intractable migraine with aura without status migrainosus dissolve 1 tablet ON TONGUE every 8 hours if needed for nausea OR vomiting 30 Tablet 1 12/19/2023 Active Baclofen 10 MG Oral Tablet (Lioresal) take 1 tablet by mouth every morning and BEFORE BEDTIME 30 Tablet 0 08/26/2023 Discontinue d(Refill) documented as of this encounter (statuses as of 01/13/2024) Active Problems Problem Noted Date Diagnosed Date [...] as of this encounter (statuses as of 01/13/2024) Resolved Problems Problem Noted Date Diagnosed Date Resolved Date Food insecurity 06/04/2021 03/28/2022 Overview: Per [facility] Protocol Pleuritic chest pain 06/23/2019 019 Overview: 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 Right sided abdominal pain 10/22/2018 0 11/06/2018 Functional diarrhea 10/22/2018 11/06/19 19 DEPRESSION 08/24/2018 08/24/2018 Yeast infection 08/24/2018 10/22/2018 Bronchitis, complicated 11/03/201706/29 BPV (benign positional vertigo) 07/16/2017 10/28/2017 Cerebral [...] as of this encounter (statuses as of 01/13/2024) Immunizations Name Administration Dates Next Due Pneumococcal Conjugate Vacci ne, 20-valent ([id number]) 09/19/2023 Pneumococcal Polysaccharide PPV23 (Pneumovax) 12/17/2013 Seasonal [...] encounter Miscellaneous Notes * Telephone Encounter - Jeni Pa OSA - 01/13/2024 2:42 PM EDT This is a [employer] provider. He will have access to results. * Telephone Encounter - Sima Fermin OSA - 01/13/2024 2:36 PM EDT Caller requesting the following information to be faxed: Name/Company of caller: patient Information requested to be faxed: xray results Fax number: [phone] Attention to Name/Company: Dr. Hi Any additional information?: * Telephone Encounter - Lidia Pan LPN - 01/07/2024 4:17 PM EDT Attempted to contact patient and unable to leave voicemail. Contacted patients sister Lizzy per message below and made her aware that there are no acute changes on Xray. * Telephone Encounter - Carmen Chisholm OSA - 01/07/2024 3:45 PM EDT Patient calling in to check on the status of previous message. Patient Called within 48 hour timeframe. Reminded patient of 48 hour turn-around time. * Telephone Encounter - Pam Echols LPN - 01/07/2024 12:10 PM EDT Patient is calling. Feels like her x-rays results are taking too long to get results. She wants a phone call today and if you can't get hold of her, then call her sister. Wants called back today either way. * Telephone Encounter - Saba Wadsworth OSA - 01/07/2024 12:03 PM EDT Reason for patient's call: Pt wants her xray results now, she knows that they have been sent and does will not want to come in to review the results wants them over the phone now. Caller was transferred to Pam at the nurse line. * Telephone Encounter - Abeba Gannon OSA - 01/07/2024 9:25 AM EDT Spoke with patient, she does not want an appointment and she just wants someone to call her with results. Informed her that provider will review results and somebody would contact her. * Telephone Encounter - Lidia Pan LPN - 01/07/2024 8:34 AM EDT Imaging received and placed on providers desk for review * Telephone Encounter - Lidia Pan LPN - 01/07/2024 7:55 AM EDT Spoke with Marifer from [facility] she will be faxing over results. Please see second encounter. * Telephone Encounter - Saba Wadsworth OSA - 01/06/2024 4:06 PM EDT Who is Requesting Test Results: Socorro Avery Primary Care Provider : Krupa Hardy DO Tests Results Requested : Xrays Date of Test : 01/06/24 Location of Test: Urgent Care, [place] Ordering Provider: Dr. Hardy Please provide return call to Pt sister, Lizzy Wick [phone]; Pt is having trouble with her telephone Patient has been made aware that the turnaround time for test results are typically as follows: Laboratory results = within 2-3 days ([facility]), 3-5 days (Non[facility], ie. [facility]) Urine Cultures = within 2-3 days depending on growth within the culture Pathology results (biopsy results/PAP) = 1-2 weeks Radiology results = about 1 week Cologuard results = within 2 weeks from the shipment date COVID testing = about 24 hours documented in this encounter Plan of Treatment Upcoming Encounters Date Type Department Care Team (Late st Contact Info) Description 01/28/2024 10:30 AM EDT NeuroDiagnostic Study Neurophysiology [facility] [place] [address] [facility] [place] [address] Sp, Neurophys Tech [address] [facility] [place] [address] 03/24/2024 10:40 AM EDT Office Visit Neurology [facility] [place] [address] [place] [address] Soila Redding MD [address] [facility] [place] [address] 05/12/2024 1:20 PM EDT Office Visit Family Practice [place] [address] [place] [address] Krupa Hardy DO [address] [place] [address] 05/21/2024 1:00 PM EDT Office Visit Neurology [facility] [place] [address] [place] [address] Santo Christian, DO [address] [place] [address] Scheduled Procedures Name Priority Associated Diagnoses Date/Ti me COLONOSCOPY FLEXIBLE PROXIMA L DIAGNOSTIC Recall Special screening for malignant neoplasms, colon Health Maintenance Due Date Last Done Comments DISCUSS TOBACCO CESSATION (REFER TO SMARTSET #7801) 1963 Alpha-1 Antitrypsin 1981 HPV/Co-Test 1993 Cologuard [...] 04/11/2011 LUNG CANCER SCREENING - USE SMARTSET 89071 Completed 06/30/2020 Influenza Vaccine (FLU shot) Completed [...] this encounter Medical Devices Implanted Type Area Proposal Engineer Device Identifier Shelf Expiration Date Model / Serial / Lot Vitoss Bimodal Foam Pack 1.2cc - [id number] Implanted:Qty : 1 on 01/19/2016 by Burke Vazquez DO at OR [facility] N/A: Spine Cervical DANIEL : SPINE 11/26/2016 [id number] / / [id number] 4.0 X 8mm Self Drilling Screw Implanted:Qty : 1 on 01/19/2016 by Burke Vazquez DO at OR [facility] N/A: Spine Cervical [id number] / / Description:From set Cage Avs [id number] - [id number] Implanted:Qty : 1 on 01/19/2016 by Burke Vazquez DO at OR [facility] N/A: Spine Cervical DANIEL : SPINE [id number] / / Description:From set [place] W/Screw - [id number] Implanted:Qty : 1 on 01/19/2016 by Burke Vazquez DO at OR [facility] N/A: Spine Cervical DANIEL : SPINE [id number] / / Description:From set documented as of [...] the patient have Health Care Power of Director Sports? No Code Status History Code Status Date Activated Date Inactivated Comments Full Code 01/19/2016 6:12 AM 01/19/2016 11:06 AM This order reflects the patients wishes and were consensually agreed upon. Question Answer Comments Discussion of Advance Directives occurred with: Family Does the patient have a Living Will? No Does the patient have Health Care Power of Director Sports? No Care Teams Gum Scoring Machine Operator Relationship Specialty Start Date End Date Krupa Hardy DO [address] [facility] [place] [address] PCP - General Family Medicine 07/21/23 documented as of this encounter
--- OUTSIDE RECORDS SUMMARY | 2024-01-20 14:43 | External Medical Summary | Summary of Care ---
Author Name Unknown Organization [facility] Address [address] [place] [address] Phone [phone] Care Team Providers Care Mycologist Name Role Phone Krupa Hardy Primary Care Provider +1- [phone] Reason for Visit * Reason Onset Date Comments Test Results 01/06/2024 Imaging Encounter Details Date Type Department Care Team (Late st Contact Info) Description 01/06/2024 Telephone Access Center, [place] [address] [facility] *DO NOT REMOVE THIS DEPARTMENT* [place], [place] [id number] Services, Scheduling [address] [place] [address] Test Results (Imaging ) Allergies Active Allergy Reactions Criticality Noted Date [...] as of this encounter (statuses as of 01/07/2024) Medications Medication Sig Dispensed Refills Start Date End Date Status Budesonide-Formoterol Fumarate 160-4.5 MCG/ACT Inhalation Aerosol (Symbicort)Indication s:COVID-19 Inhale 2 Puffs by mouth 2 times a day. 10.2 g 12 11/19/2021 Active Spiriva Respimat 2.5 MCG/ACT Inhalation Aerosol Solution (Tiotropium [place] Monohydrate)Indicatio ns:COPD (chronic obstructive pulmonary disease) with [...] every morning 90 Tablet 3 04/26/2023 Active Baclofen 10 MG Oral Tablet (Lioresal) take 1 tablet by mouth every morning and BEFORE BEDTIME 30 Tablet 0 08/26/2023 Active Topiramate 200 MG Oral Tablet (topAMAX)Indications: [...] OR vomiting 30 Tablet 1 12/19/2023 Active documented as of this encounter (statuses as of 01/07/2024) Active Problems Problem Noted Date Diagnosed Date [...] as of this encounter (statuses as of 01/07/2024) Resolved Problems Problem Noted Date Diagnosed Date Resolved Date Food insecurity 06/04/2021 03/28/2022 Overview: Per [facility] Protocol Pleuritic chest pain 06/23/2019 019 Overview: 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 Right sided abdominal pain 10/22/2018 0 11/06/2018 Functional diarrhea 10/22/2018 11/06/19 19 DEPRESSION 08/24/2018 08/24/2018 Yeast infection 08/24/2018 10/22/2018 Bronchitis, complicated 11/03/2017 09/3 BPV (benign positional vertigo) 07/16/2017 10/28/2017 Cerebral [...] disc disease 11/30/2015 04/25/2016 Sacroiliac inflammation 04/26/2015 1206/2015 Overview: Bilateral Grief reaction 01/25/2015 08/02/2015 Candidal vulvovaginitis 06/14/2014 100 04/2015 Pelvic pain in female 06/14/20142014 Diverticulosis [...] as of this encounter (statuses as of 01/07/2024) Immunizations Name Administration Dates Next Due Pneumococcal Conjugate Vacci ne, 20-valent ([id number]) 09/19/2023 Pneumococcal Polysaccharide PPV23 (Pneumovax) 12/17/2013 Seasonal Influenza Virus Vac cine, Unspecified Formulation 09/18/2020,07/26/2019,11/17/2018,06/28,07/17/2016,09/02/2014,07/28/20 12,08/29/2011,08/13/2010,09/26/2009,11/12/2008 Seasonal Influenza, PF, 6 M & above, [...] encounter Miscellaneous Notes * Telephone Encounter - Carmen Chisholm OSA [...] the phone now. Caller was transferred to [facility] at the nurse line. * Telephone Encounter [...] 7:55 AM EDT Spoke with Marifer from [facility] she will be faxing over results. Please see second encounter. * Telephone Encounter - Saba Wadsworth OSA - 01/06/2024 4:06 PM EDT Who is Requesting Test Results: Socorro Avery Primary Care Provider : Krupa Hardy, DO Tests Results Requested : Xrays Date of Test : 01/06/24 Location of Test: Urgent Care, [place] Ordering Provider: Dr. Hardy Please provide return call to Pt sister, Lizzy Wick [phone]; Pt is having trouble with her telephone [...] 01/28/2024 10:30 AM EDT NeuroDiagnostic Study Neurophysiology Ile[facility] [place] [address] [place] [address] Sp, Neurophys Tech 200 [facility] [place] [address] 03/24/2024 10:40 AM EDT Office Visit Neurology [facility] [address] [place] [address] Soila Redding MD [address] [place] [address] 05/12/2024 1:20 PM EDT Office Visit Family Practice [address], [place] [address] [place] [address] Krupa Hardy, [address] [place] [address] 05/21/2024 1:00 PM EDT Office Visit Neurology [facility]le[facility] [place] [address] [place] [address] Santo Christian, DO [address] [place] [address] Scheduled Procedures Name Priority Associated Diagnoses Date/Ti me COLONOSCOPY FLEXIBLE PROXIMA L DIAGNOSTIC Recall Special screening for malignant neoplasms, colon Health Maintenance Due Date Last Done Comments DISCUSS TOBACCO CESSATION (REFER TO SMARTSET #0767) 1965 Alpha-1 Antitrypsin 1981 HPV/Co-Test 1993 Cologuard [...] 04/11/2011 LUNG CANCER SCREENING - USE SMARTSET 69169 Completed 06/30/2020 Influenza Vaccine (FLU shot) Completed [...] this encounter Medical Devices Implanted Type Area Courtesy Booth Cashier Device Identifier Shelf Expiration Date Model / Serial / Lot Vitoss Bimodal Foam Pack 1.2cc - [id number] Implanted:Qty : 1 on 01/19/2016 by Burke Vazquez DO at OR [facility] N/A: Spine Cervical DANIEL : SPINE 11/26/[id number] / / [id number] 4.0 X 8mm Self Drilling Screw Implanted:Qty : 1 on 01/19/2016 by Burke Vazquez DO at OR [facility] N/A: Spine Cervical [id number] / / Description:From set Cage Avs [id number] - [id number] Implanted:Qty : 1 on 01/19/2016 by Burke Vazquez DO at OR [facility] N/A: Spine Cervical DANIEL : SPINE [id number] / / Description:From set [place] W/Screw - [id number] Implanted:Qty : 1 on 01/19/2016 by Burke Vazquez DO at OR [facility] N/A: Spine Cervical DANIEL : SPINE [id number] / / Description:From set documented as of [...] the patient have Health Care Power of Synthetic Department Supervisor? No Code Status History Code Status Date Activated Date Inactivated Comments Full Code 01/19/2016 6:12 AM 01/19/2016 11:06 AM This order reflects the patients wishes and were consensually agreed upon. Question Answer Comments Discussion of Advance Directives occurred with: Family Does the patient have a Living Will? No Does the patient have Health Care Power of Synthetic Department Supervisor? No Care Teams Mycologist Relationship Specialty Start Date End Date Krupa Hardy DO [address] [facility] [place] [address] PCP - General Family Medicine 07/21/23 documented as of this encounter
--- OUTSIDE RECORDS SUMMARY | 2024-01-20 14:43 | External Medical Summary | Summary of Care ---
Author Name Unknown Organization [facility] Address [address] [place] [address] Phone [phone] Care Team Providers Care Hostess Party Sales Representative Name Role Phone Krupa Hardy DO Primary Care Provider +1- [phone] Encounter Details Date Type Department Care Team (Late st Contact Info) Description 01/15/2024 Telephone Family Practice [facility] [address] [place] [address] Krupa Hardy DO [address] [place] [address] Allergies Active Allergy Reactions Criticality [...] as of this encounter (statuses as of 01/15/2024) Medications Medication Sig Dispensed Refills Start Date End Date Status Budesonide-Formoterol Fumarate 160-4.5 MCG/ACT Inhalation Aerosol (Symbicort)Indication s:COVID-19 Inhale 2 Puffs by mouth 2 times a day. 10.2 g 12 11/19/2021 Active Spiriva Respimat 2.5 MCG/ACT Inhalation Aerosol Solution (Tiotropium [place] Monohydrate)Indicatio ns:COPD (chronic obstructive pulmonary disease) with [...] as of this encounter (statuses as of 01/15/2024) Active Problems Problem Noted Date Diagnosed Date [...] as of this encounter (statuses as of 01/15/2024) Resolved Problems Problem Noted Date Diagnosed Date [...] as of this encounter (statuses as of 01/15/2024) Immunizations Name Administration Dates Next Due Pneumococcal Conjugate Vacci ne, 20-valent ([id number]) 09/19/2023 Pneumococcal Polysaccharide PPV23 (Pneumovax) 12/17/2013 Seasonal [...] supposed to do. Please advise pt at [phone] or pt's sister-Lizzy Wick as alternate phone at [phone]. documented in this encounter Plan of Treatment Upcoming Encounters Date Type Department Care Team (Late st Contact Info) Description 01/28/2024 10:30 AM EDT NeuroDiagnostic Study Neurophysiology Ileana Garcia [place] [address] [place], [place] [address] Sp, Neurophys Tech [address] [place], [place] [address] 03/24/2024 10:40 AM EDT Office Visit Neurology Ile[facility] [place] [address] [place] [address] Soila Redding MD [address] [facility] [place] [address] 05/12/2024 1:20 PM EDT Office Visit Family Practice [address], [place] [address] [place] [address] Krupa Hardy, [address] [place] [address] 05/21/2024 1:00 PM EDT Office Visit Neurology [facility] [address] [place], [place] [address] Santo Christian, DO [address] [place], [place] [id number] Scheduled Procedures Name Priority Associated Diagnoses Date/Ti me COLONOSCOPY FLEXIBLE PROXIMA L DIAGNOSTIC Recall Special screening for malignant neoplasms, colon Health Maintenance Due Date Last Done Comments DISCUSS TOBACCO CESSATION (REFER TO SMARTSET #9873) 1965 Alpha-1 Antitrypsin 1981 HPV/Co-Test 1993 Cologuard [...] 04/11/2011 LUNG CANCER SCREENING - USE SMARTSET 58672 Completed 06/30/2020 Influenza Vaccine (FLU shot) Completed [...] this encounter Medical Devices Implanted Type Area Jacquard Card Cutter Device Identifier Shelf Expiration Date Model / Serial / Lot Vitoss Bimodal Foam Pack 1.2cc - [id number] Implanted:Qty : 1 on 01/19/2016 by Burke Vazquez DO at OR [facility] N/A: Spine Cervical DANIEL : SPINE 11/26/2016 [id number] / / [id number] 4.0 X 8mm Self Drilling Screw Implanted:Qty : 1 on 01/19/2016 by Burke Vazquez DO at OR [facility] N/A: Spine Cervical [id number] / / Description:From set Cage Avs [id number] - [id number] Implanted:Qty : 1 on 01/19/2016 by Burke Vazquez DO at OR [facility] N/A: Spine Cervical DANIEL : SPINE [id number] / / Description:From set [place] W/Screw - [id number] Implanted:Qty : 1 on 01/19/2016 by Burke Vazquez DO at OR [facility] N/A: Spine Cervical DANIEL : SPINE [id number] / / Description:From set documented as of [...] the patient have Health Care Power of Valet Cashier? No Code Status History Code Status Date Activated Date Inactivated Comments Full Code 01/19/2016 6:12 AM 01/19/2016 11:06 AM This order reflects the patients wishes and were consensually agreed upon. Question Answer Comments Discussion of Advance Directives occurred with: Family Does the patient have a Living Will? No Does the patient have Health Care Power of Valet Cashier? No Care Teams Hostess Party Sales Representative Relationship Specialty Start Date End Date Krupa Hardy DO [address] [facility] [place] [address] PCP - General Family Medicine 07/21/23 documented as of this encounter
--- OUTSIDE RECORDS SUMMARY | 2024-01-20 14:43 | External Medical Summary | Summary of Care ---
Author Name Unknown Organization [facility] Address [address] [place] [address] Phone [phone] Care Team Providers Care Beam Worker Name Role Phone Krupa Hardy Primary Care Provider +1- [phone] Reason for Visit * Reason Onset Date Comments Test Results 01/06/2024 Imaging Fax 01/06/2024 Encounter Details Date Type Department Care Team (Late st Contact Info) Description 01/06/2024 Telephone Access Center, [place] [address] [facility] *DO NOT REMOVE THIS DEPARTMENT* [place], [place] [id number] Services, Scheduling [address] [place] [address] Test Results (Imaging ); Fax Allergies Active [...] Respimat 2.5 MCG/ACT Inhalation Aerosol Solution (Tiotropium [place] Monohydrate)Indicati ons:COPD (chronic obstructive pulmonary disease) with [...] Next Due Pneumococcal Conjugate Vacci ne, 20-valent ([id number]) 09/19/2023 Pneumococcal Polysaccharide PPV23 (Pneumovax) 12/17/2013 Seasonal [...] encounter Miscellaneous Notes * Telephone Encounter - Sima Fermin OSA - 01/13/2024 2:36 PM EDT Caller requesting the following information to be faxed: Name/Company of caller: patient Information requested to be faxed: xray results Fax number: [phone] Attention to Name/Company: Dr. Hi Any additional [...] the phone now. Caller was transferred to [facility] at the nurse line. * Telephone Encounter - Abeba Gannon OSA - 01/07/2024 9:25 AM EDT Spoke with patient, she does not want an appointment and she just wants someone to call her with results. Informed her that provider will review results and somebody would contact her. * Telephone Encounter - Lidia Pna LPN - 01/07/2024 8:34 AM EDT Imaging received and placed on providers desk for review * Telephone Encounter - Lidia Pan LPN - 01/07/2024 7:55 AM EDT Spoke with Marifer from [facility] Radiology she will be faxing over results. Please see second encounter. * Telephone Encounter - Saba Wadsworth OSA - 01/06/2024 4:06 PM EDT Who is Requesting Test Results: Socorro Avery Primary Care Provider : Krupa Hardy, DO Tests Results Requested : Xrays Date of Test : 01/06/24 [facility]: Dr. Hardy Please provide return call to Pt sister, Lizzy Wick [phone]; Pt is having trouble with her telephone [...] 01/28/2024 10:30 AM EDT NeuroDiagnostic Study Neurophysiology [facility] [place] [address] [facility] [place] [address] Sp, Neurophys Tech [address] [facility] [place] [address] 03/24/2024 10:40 AM EDT Office Visit Neurology [facility] [place] [address] [place] [address] Soila Redidng MD [address] [facility] [place] [address] 05/12/2024 1:20 PM EDT Office Visit [facility] Denia Mckeon [address] [place] [address] Krupa Hardy, [address] [place] [address] 05/21/2024 1:00 PM EDT Office Visit Neurology [facility] [place] [address] [facility] [place] [address] Santo Christian, DO [address] [place] [address] Scheduled Procedures Name Priority Associated Diagnoses Date/Ti me COLONOSCOPY FLEXIBLE PROXIMA L DIAGNOSTIC Recall Special screening for malignant neoplasms, colon Health Maintenance Due Date Last Done Comments DISCUSS TOBACCO CESSATION (REFER TO SMARTSET #8955) 1963 Alpha-1 Antitrypsin 1981 HPV/Co-Test 1993 Cologuard [...] 04/11/2011 LUNG CANCER SCREENING - USE SMARTSET 21646 Completed 06/30/2020 Influenza Vaccine (FLU shot) Completed [...] this encounter Medical Devices Implanted Type Area Chef De Froid Device Identifier Shelf Expiration Date Model / Serial / Lot Vitoss Bimodal Foam Pack 1.2cc - [id number] Implanted:Qty : 1 on [place]19/2016 [place] [facility] [place] Spine Cervical DANIEL : SPINE 11/26/2016 [id number] / / [id number] 4.0 X 8mm Self Drilling Screw Implanted:Qty : 1 on 01/19/2016 [place] Burke Vazquez DO [place] [facility] [place]: Spine Cervical [id number] / / Description:From set Cage Avs [id number] - [id number] Implanted:Qty : 1 on 01/19/2016 [place] Burke Vaz[place] DO [place] [facility] [place] [place] Spine Cervical DANIEL : SPINE [id number] / / Description:From set [place] W/Screw - [id number] Implanted:Qty : 1 on 01/19/2016 by Burke Vazquez DO [place] [facility] [place]: Spine Cervical DANIEL : SPINE [id number] / / Description:From set documented as of [...] the patient have Health Care Power of Ginseng Farmer? No Code Status History Code Status Date Activated Date Inactivated Comments Full Code 01/19/2016 6:12 AM 01/19/2016 11:06 AM This order reflects the patients wishes and were consensually agreed upon. Question Answer Comments Discussion of Advance Directives occurred with: Family Does the patient have a Living Will? No Does the patient have Health Care Power of Ginseng Farmer? No Care Teams Beam Worker Relationship Specialty Start Date End Date Krupa Hardy DO [address] [facility] [place] [address] PCP - General Family Medicine 07/21/23 documented as of this encounter
--- OUTSIDE RECORDS SUMMARY | 2024-01-20 14:43 | External Medical Summary | Summary of Care ---
Author Name Unknown Organization [facility] Address [address] [place] [address] Phone [phone] Care Team Providers Care Generating Station Mechanic Name Role Phone Krupa Hardy DO Primary Care Provider +1- [phone] Reason for Visit * Reason Onset Date Comments Medication Refill 01/09/2024 Encounter Details Date Type Department Care Team (Late st Contact Info) Description 01/09/2024 Refill [facility] [address] [place] [address] Krupa Hardy DO [address] [place], [place] [id number] Allergies Active Allergy Reactions Criticality Noted Date [...] as of this encounter (statuses as of 01/12/2024) Medications Medication Sig Dispensed Refills Start Date End Date Status Budesonide-Formotero l Fumarate 160-4.5 MCG/ACT Inhalation Aerosol (Symbicort)Indicatio ns:COVID-19 Inhale 2 Puffs by mouth 2 times a day. 10.2 g 12 11/19/2021 Active Spiriva Respimat 2.5 MCG/ACT Inhalation Aerosol Solution (Tiotropium [place] Monohydrate)Indicati ons:COPD (chronic obstructive pulmonary disease) with [...] BEFORE BEDTIME 30 Tablet 0 01/12/2024 Active Baclofen 10 MG Oral Tablet (Lioresal) take 1 tablet by mouth every morning and BEFORE BEDTIME 30 Tablet 0 08/26/2023 Discontinue d(Refill) documented as of this encounter (statuses as of 01/12/2024) Active Problems Problem Noted Date Diagnosed Date [...] as of this encounter (statuses as of 01/12/2024) Resolved Problems Problem Noted Date Diagnosed Date [...] of disc disease 11/30/2015 04/25/2016 Sacroiliac inflammation 04/26/201506/2015 Overview: Bilateral Grief reaction 01/25/2015 08/02/2015 Candidal [...] bowel syndrome) 04/11/2013 04/25/2016 Candidal vulvovaginitis 03/25/2013 06/03/2013 Complicated acute bronchitis 03/12/2013 04/01/2013 Adhesion of [...] as of this encounter (statuses as of 01/12/2024) Immunizations Name Administration Dates Next Due Pneumococcal Conjugate Vacci ne, 20-valent ([id number]) 09/19/2023 Pneumococcal Polysaccharide PPV23 (Pneumovax) 12/17/2013 Seasonal [...] Telephone Encounter - Krupa Hardy DO - 01/12/2024 8:58 AM EDTSigned Prescriptions: Disp Refills Baclofen 10 MG Oral Tablet (Lioresal) 30 Tab*0 Sig: take 1 tablet by mouth every morning and BEFORE BEDTIME Authorizing Provider: KRUPA HARDY * Telephone Encounter - Rosy Lopez CPhT - 01/09/2024 11:38 AM EDT Did you pend patient's preferred pharmacy and medication before forwarding?yes Pharmacy: [id number] [facility] Pending Prescriptions: Disp Refills Baclofen 10 MG Oral Tablet (Lioresal) 30 Tab*0 Sig: take 1 tablet by mouth every morning and BEFORE BEDTIME Last Visit: 01/01/2024 (in office), 02/18/2020 (telemedicine) Next Visit: 05/12/2024 If no future appointments scheduled, and last appointment is greater than a year ago, please schedule patient for a follow-up appointment Last date the medication was ordered: 08/26/2023 Is this request for a controlled substance?No Urine Drug Screen: Results for orders placed or performed in visit on 09/19/23 TOXICOLOGY, URINE SCREEN W/ CONFIRMATION Result Value Amphetamines Screen, U Negative Benzodiazepines Screen, U Positive (A) Cannabinoids Screen, U Positive (A) Cocaine Metabolite Screen, U Negative Fentanyl Screen, U Negative Hydrocodone Screen, U Negative Methadone Metabolite Screen, U Negative Morphine/Codeine Screen, U Negative Oxycodone Screen, U Negative Narrative Cutoff Concentrations: Drug Level Amphetamines 500 ng/mL Benzodiazepines 100 ng/mL Cannabinoids 50 ng/mL Cocaine Metabolite 150 ng/mL Fentanyl 1 ng/mL Hydrocodone / Hydromorphone 300 ng/mL Methadone Metabolite 100 ng/mL Morphine / Codeine 300 ng/mL Oxycodone / Oxymorphone 100 ng/mL Screening results are presumptive and can only be used for medical purposes. Positive screening results are reflexed to confirmatory testing. *Note: Due to a large number of results and/or encounters for the requested time period, some results have not been displayed. A complete set of results can be found in Results Review. Patient Phone Numbers Labs: Lab Results Component Value Date/Time CREAT 0.8 12/23/2023 01:58 PM CREAT 0.8 11/21/2020 09:16 AM POTASSIUM 3.8 12/23/2023 01:58 PM POTASSIUM 4.6 11/21/2020 09:16 AM TSH 1.56 10/29/2023 01:29 PM TSH 2.02 11/21/2020 09:16 AM LDLCALC 134 (H) 12/10/2022 03:11 PM LDLCALC 144 (H) 11/21/2020 09:16 AM LDLDIRECT 97 10/29/2023 01:29 PM LDLDIRECT NOT APPLICABLE 11/21/2020 09:16 AM LDLDIRECT 104 03/04/2017 08:39 AM ALT 17 10/29/2023 01:29 PM ALT 20 11/21/2020 09:16 AM HGBA1C 5.3 12/10/2022 03:11 PM documented in this encounter Plan of Treatment Upcoming Encounters Date Type Department Care Team (Late st Contact Info) Description 01/28/2024 10:30 AM EDT NeuroDiagnostic Study Neurophysiology [facility] [address] [place], [place] [address] Sp, Neurophys Tech 200 [facility] [place] [address] 03/24/2024 10:40 AM EDT Office Visit Neurology [facility] [address] [place] [address] Soila Redding MD [address] [facility] [place] [address] 05/12/2024 1:20 PM EDT Office Visit Family Practice [address], [place] [address] [place] [address] Krupa Hardy, [address] [facility] [place] [address] 05/21/2024 1:00 PM EDT Office Visit Neurology [facility] [address] [place], [place] [address] Santo Christian, DO [address] [place] [address] Scheduled Procedures Name Priority Associated Diagnoses Date/Ti me COLONOSCOPY FLEXIBLE PROXIMA L DIAGNOSTIC Recall Special screening for malignant neoplasms, colon Health Maintenance Due Date Last Done Comments DISCUSS TOBACCO CESSATION (REFER TO SMARTSET #4840) 1965 Alpha-1 Antitrypsin 1981 HPV/Co-Test 1993 Cologuard [...] 04/11/2011 LUNG CANCER SCREENING - USE SMARTSET 61277 Completed 06/30/2020 Influenza Vaccine (FLU shot) Completed [...] this encounter Medical Devices Implanted Type Area Pugger Helper Device Identifier Shelf Expiration Date Model / Serial / Lot Vitoss Bimodal Foam Pack 1.2cc - [id number] Implanted:Qty : 1 on 01/19/2016 by Burke Vazquez DO [place] [facility] [place]/A: Spine Cervical DANIEL : SPINE 11/26/2016 [id number] / / [id number] 4.0 X 8mm Self Drilling Screw Implanted:Qty : 1 on 01/19/2016 by Burke Vazquez DO at [place] [facility] [place] N/A: Spine Cervical [id number] / / Description:From set Cage Avs [id number] - [id number] Implanted:Qty : 1 on 01/19/2016 by Burke Vazquez DO at [place] [facility] [place] N/A: Spine Cervical DANIEL : SPINE [id number] / / Description:From set [place] W/Screw - [id number] Implanted:Qty : 1 on 01/19/2016 by Burke Vazquez DO at [place] [facility] [place] N/A: Spine Cervical DANIEL : SPINE [id number] / / Description:From set documented as of [...] the patient have Health Care Power of Waterproof Bag Sewer? No Code Status History Code Status Date Activated Date Inactivated Comments Full Code 01/19/2016 6:12 AM 01/19/2016 11:06 AM This order reflects the patients wishes and were consensually agreed upon. Question Answer Comments Discussion of Advance Directives occurred with: Family Does the patient have a Living Will? No Does the patient have Health Care Power of Waterproof Bag Sewer? No Care Teams Generating Station Mechanic Relationship Specialty Start Date End Date Krupa Hardy DO [address] [facility] [place] [address] PCP - General Family Medicine 07/21/23 documented as of this encounter
--- OUTSIDE RECORDS SUMMARY | 2024-01-20 14:43 | External Medical Summary | Summary of Care ---
Author Name Unknown Organization [facility] Address [address] [place] [address] Phone [phone] Care Team Providers Care Shoe Shiner Name Role Phone Krupa Hardy DO Primary Care Provider +1- [phone] Encounter Details Date Type Department Care Team (Late st Contact Info) Description 01/15/2024 Telephone Family Practice [facility] [address] [place] [address] Krupa Hardy DO [address] [place] [address] Allergies Active Allergy Reactions Criticality [...] Respimat 2.5 MCG/ACT Inhalation Aerosol Solution (Tiotropium [place] Monohydrate)Indicatio ns:COPD (chronic obstructive pulmonary disease) with [...] Next Due Pneumococcal Conjugate Vacci ne, 20-valent ([id number]) 09/19/2023 Pneumococcal Polysaccharide PPV23 (Pneumovax) 12/17/2013 Seasonal [...] encounter Miscellaneous Notes * Telephone Encounter - Carolina Sales LPN [...] supposed to do. Please advise pt at [phone] or pt's sister-Lizzy Wick as alternate phone at [phone]. documented in this encounter Plan of Treatment Upcoming Encounters Date Type Department Care Team (Late st Contact Info) Description 01/28/2024 10:30 AM EDT NeuroDiagnostic Study Neurophysiology [facility] [address] [facility] [place] [address] Sp, Neurophys Tech [address] [facility] [place] [address] 03/24/2024 10:40 AM EDT Office Visit Neurology [facility] [place] [address] [facility] [place] [address] Soila Redding MD [address] [facility] [place] [address] 05/12/2024 1:20 PM EDT Office Visit Family Practice [address], [place] [address] [facility] [place] [address] Krupa Hardy, [address] [place] [address] 05/21/2024 1:00 PM EDT Office Visit Neurology [facility] [address] [facility] [place] [address] Santo Christian, DO [address] [place], [place] [address] Scheduled Procedures Name Priority Associated Diagnoses Date/Ti me COLONOSCOPY FLEXIBLE PROXIMA L DIAGNOSTIC Recall Special screening for malignant neoplasms, colon Health Maintenance Due Date Last Done Comments DISCUSS TOBACCO CESSATION (REFER TO SMARTSET #3291) 1965 Alpha-1 Antitrypsin 1981 HPV/Co-Test 1993 Cologuard [...] 04/11/2011 LUNG CANCER SCREENING - USE SMARTSET 22600 Completed 06/30/2020 Influenza Vaccine (FLU shot) Completed [...] this encounter Medical Devices Implanted Type Area Battery Container Inspector Device Identifier Shelf Expiration Date Model / Serial / Lot Vitoss Bimodal Foam Pack 1.2cc - [id number] Implanted:Qty : 1 [place]/19/[place] [facility] [place] Sp[place] Cervical DANIEL : SPINE 11/26/2016 [id number] / / [id number] 4.0 X 8mm Self Drilling Screw Implanted:Qty : 1 on 01/19/2016 [place] [facility] [place] Spine Cervical [id number] / / Description:From set Cage Avs [id number] - [id number] Implanted:Qty : 1 on 01/19/2016 by Burke Vazquez, [place] [facility] [place]: Spine Cervical DANIEL : SPINE [id number] / / Description:From set [place] W/Screw - [id number] Implanted:Qty : 1 on 01/19/2016 by Burke Vazquez, [place] [facility] [place]: Spine Cervical DANIEL : SPINE [id number] / / Description:From set documented as of [...] the patient have Health Care Power of Measurement Supervisor? No Code Status History Code Status Date Activated Date Inactivated Comments Full Code 01/19/2016 6:12 AM 01/19/2016 11:06 AM This order reflects the patients wishes and were consensually agreed upon. Question Answer Comments Discussion of Advance Directives occurred with: Family Does the patient have a Living Will? No Does the patient have Health Care Power of Measurement Supervisor? No Care Teams Shoe Shiner Relationship Specialty Start Date End Date Krupa Hardy DO [address] [facility] [place] [address] PCP - General Family Medicine 07/21/23 documented as of this encounter
--- OUTSIDE RECORDS SUMMARY | 2024-01-20 14:43 | External Medical Summary | Summary of Care ---
Author Name Unknown Organization [facility] Address [address] [place] [address] Phone [phone] Care Team Providers Care Payment Rep Name Role Phone Krupa Hardy Primary Care Provider +1- [phone] Reason for Visit * Reason Onset Date Comments Test Results 01/06/2024 Imaging Encounter Details Date Type Department Care Team (Late st Contact Info) Description 01/06/2024 Telephone Access Center, [place] [address] [facility] *DO NOT REMOVE THIS DEPARTMENT* [place], [place] [id number] Services, Scheduling [address] [place] [address] Test Results (Imaging ) Allergies Active Allergy [...] Respimat 2.5 MCG/ACT Inhalation Aerosol Solution (Tiotropium [place] Monohydrate)Indicatio ns:COPD (chronic obstructive pulmonary disease) with [...] Next Due Pneumococcal Conjugate Vacci ne, 20-valent ([id number]) 09/19/2023 Pneumococcal Polysaccharide PPV23 (Pneumovax) 12/17/2013 Seasonal [...] encounter Miscellaneous Notes * Telephone Encounter - Lidia Pan LPN [...] the phone now. Caller was transferred to [facility] at the nurse line. * [...] 7:55 AM EDT Spoke with Marifer from [facility] she will be faxing over results. Please see second encounter. * Telephone Encounter - Saba Wadsworth OSA - 01/06/2024 4:06 PM EDT Who is Requesting Test Results: Socorro Avery Primary Care Provider : Krupa Hardy, DO Tests Results Requested : Xrays Date of Test : 01/06/24 [facility]: Dr. Hardy Please provide return call to Pt sister, Lizzy Wick [phone]; Pt is having trouble with her telephone [...] 01/28/2024 10:30 AM EDT NeuroDiagnostic Study Neurophysiology [facility] [place] [address] [place] [address] Sp, Neurophys Tech 200 [facility] [place] [address] 03/24/2024 10:40 AM EDT Office Visit Neurology Ileana Garcia [place] [address] [place] [address] Soila Redding MD [address] [place] [address] 05/12/2024 1:20 PM EDT Office Visit Family Practice [facility] [place] [address] [place] [address] Krupa Hardy, [address] [place] [address] 05/21/2024 1:00 PM EDT [facility] [place] [address] [place] [address] Santo Christian, DO [address] [place] [address] Scheduled Procedures Name Priority Associated Diagnoses Date/Ti [...] 04/11/2011 LUNG CANCER SCREENING - USE SMARTSET 06205 Completed 06/30/2020 Influenza Vaccine (FLU shot) Completed [...] this encounter Medical Devices Implanted Type Area Trouble Dispatcher Device Identifier Shelf Expiration Date Model / Serial / Lot Vitoss Bimodal Foam Pack 1.2cc - [id number] Implanted:Qty : 1 on 01/19/2016 by Burke Vazquez DO [place] [facility] [place]A: Spine Cervical DANIEL : SPINE 11/26/2016 [id number] / / [id number] 4.0 X 8mm Self Drilling Screw Implanted:Qty : 1 on 01/19/2016 by Burke Vazquez DO [place] [facility] [place]/A: Spine Cervical [id number] / / Description:From set Cage Avs [id number] - [id number] Implanted:Qty : 1 on 01/19/2016 by Burke Vazquez DO [place] [facility] [place]/A: Spine Cervical DANIEL : SPINE [id number] / / Description:From set [place] W/Screw - [id number] Implanted:Qty : 1 on 01/19/2016 by Burke Vazquez DO [place] [facility] [place]/A: Spine Cervical DANIEL : SPINE [id number] / / Description:From set documented as of [...] the patient have Health Care Power of Body Technician/Painter? No Code Status History Code Status Date Activated Date Inactivated Comments Full Code 01/19/2016 6:12 AM 01/19/2016 11:06 AM This order reflects the patients wishes and were consensually agreed upon. Question Answer Comments Discussion of Advance Directives occurred with: Family Does the patient have a Living Will? No Does the patient have Health Care Power of Body Technician/Painter? No Care Teams Payment Rep Relationship Specialty Start Date End Date Krupa Hardy DO [address] [facility] [place] [address] PCP - General Family Medicine 07/21/23 documented as of this encounter
--- OUTSIDE RECORDS SUMMARY | 2024-01-20 14:44 | External Medical Summary | Summary of Care ---
Author Name Unknown Organization [facility] Address [address] [place] [address] Phone [phone] Care Team Providers Care Dross Skimmer Name Role Phone Krupa Hardy Primary Care Provider +1- [phone] Reason for Visit * Reason Onset Date Comments Test Results 01/06/2024 Imaging Encounter Details Date Type Department Care Team (Late st Contact Info) Description 01/06/2024 Telephone Access Center, [place] [address] [facility] *DO NOT REMOVE THIS DEPARTMENT* [place], [place] [id number] Services, Scheduling [address] [place] [address] Test Results (Imaging ) Allergies Active Allergy [...] Respimat 2.5 MCG/ACT Inhalation Aerosol Solution (Tiotropium [place] Monohydrate)Indicatio ns:COPD (chronic obstructive pulmonary disease) with [...] Next Due Pneumococcal Conjugate Vacci ne, 20-valent ([id number]) 09/19/2023 Pneumococcal Polysaccharide PPV23 (Pneumovax) 12/17/2013 Seasonal [...] encounter Miscellaneous Notes * Telephone Encounter - Saba Wadsworth OSA - 01/07/2024 12:03 PM EDT Reason for patient's call: Pt wants her xray results now, she knows that they have been sent and does will not want to come in to review the results wants them over the phone now. Caller was transferred to [facility] at the nurse line. * Telephone Encounter [...] 7:55 AM EDT Spoke with Marifer from [facility] Radiology she will be faxing over [...] return call to Pt sister, Lizzy Wick [phone]; Pt is having trouble with her telephone [...] 01/28/2024 10:30 AM EDT NeuroDiagnostic Study Neurophysiology [facility] [place] [address] [place] [address] Sp, Neurophys Tech [address] [facility] [place] [address] 03/24/2024 10:40 AM EDT Office Visit Neurology [facility] [place] [address] [facility] [place] [address] Soila Redding MD [address] [facility] [place] [address] 05/12/2024 1:20 PM EDT Office Visit Family Practice [place] Mckeon [address] [place] [address] Krupa Hardy DO [address] [place] [address] 05/21/2024 1:00 PM EDT Office Visit Neurology [facility] [address] [place] [address] Santo Christian, DO [address] [place] [address] Scheduled Procedures Name Priority Associated Diagnoses Date/Ti me COLONOSCOPY FLEXIBLE PROXIMA L DIAGNOSTIC Recall Special screening for malignant neoplasms, colon Health Maintenance Due Date Last Done Comments DISCUSS TOBACCO CESSATION (REFER TO SMARTSET #4279) 1963 Alpha-1 Antitrypsin 1981 HPV/Co-Test 1993 Cologuard [...] 04/11/2011 LUNG CANCER SCREENING - USE SMARTSET 40932 Completed 06/30/2020 Influenza Vaccine (FLU shot) Completed [...] this encounter Medical Devices Implanted Type Area Supervisor Molding Device Identifier Shelf Expiration Date Model / Serial / Lot Vitoss Bimodal Foam Pack 1.2cc - [id number] Implanted:Qty : 1 on 01/19/2016 by Burke Vazquez DO [place] [facility] [place]A: Spine Cervical DANIEL : SPINE 11/26/2016 [id number] / / [id number] 4.0 X 8mm Self Drilling Screw Implanted:Qty : 1 on 01/19/2016 by Burke Vazquez DO [place] [facility] [place]/A: Spine Cervical [id number] / / Description:From set Cage Avs [id number] - [id number] Implanted:Qty : 1 on 01/19/2016 by Burke Vazquez DO at [place] [facility] [place] N/A: Spine Cervical DANIEL : SPINE [id number] / / Description:From set [place] W/Screw - [id number] Implanted:Qty : 1 on 01/19/2016 by Burke Vazquez DO at [place] [facility] [place] N/A: Spine Cervical DANIEL : SPINE [id number] / / Description:From set documented as of [...] the patient have Health Care Power of Clinical Programmer? No Code Status History Code Status Date Activated Date Inactivated Comments Full Code 01/19/2016 6:12 AM 01/19/2016 11:06 AM This order reflects the patients wishes and were consensually agreed upon. Question Answer Comments Discussion of Advance Directives occurred with: Family Does the patient have a Living Will? No Does the patient have Health Care Power of Clinical Programmer? No Care Teams Dross Skimmer Relationship Specialty Start Date End Date Krupa Hardy DO [address] [facility] [place] [address] PCP - General Family Medicine 07/21/23 documented as of this encounter
--- OUTSIDE RECORDS SUMMARY | 2024-01-20 14:44 | External Medical Summary | Summary of Care ---
Author Name Unknown Organization [facility] Address [address] [place] [address] Phone [phone] Care Team Providers Care Fuel Cell Builder Name Role Phone Krupa Hardy Primary Care Provider +1- [phone] Reason for Visit * Reason Onset Date Comments Test Results 01/06/2024 Imaging Encounter Details Date Type Department Care Team (Late st Contact Info) Description 01/06/2024 Telephone Access Center, [place] [address] [facility] *DO NOT REMOVE THIS DEPARTMENT* [place], [place] [phone] Services, Scheduling [address] [place] [address] Test Results (Imaging ) Allergies Active Allergy [...] Respimat 2.5 MCG/ACT Inhalation Aerosol Solution (Tiotropium [place] Monohydrate)Indicatio ns:COPD (chronic obstructive pulmonary disease) with [...] Next Due Pneumococcal Conjugate Vacci ne, 20-valent ([id number]) 09/19/2023 Pneumococcal Polysaccharide PPV23 (Pneumovax) 12/17/2013 Seasonal [...] encounter Miscellaneous Notes * Telephone Encounter - Pam Echols LPN [...] the phone now. Caller was transferred to [facility] at the nurse line. * Telephone [...] 7:55 AM EDT Spoke with Marifer from [facility] Radiology she will be faxing over results. Please see second encounter. * Telephone Encounter - Saba Wadsworth OSA - 01/06/2024 4:06 PM EDT Who is Requesting Test Results: Socorro Avery Primary Care Provider : Krupa Hardy, DO Tests Results Requested : Xrays Date of Test : 01/06/24 Location of Test: Urgent Care, [place] Ordering Provider: Dr. Hardy Please provide return call to Pt sister, Lizzy Wick [phone]; Pt is having trouble with her telephone [...] 01/28/2024 10:30 AM EDT NeuroDiagnostic Study Neurophysiology [place] [address] [place] [address] Sp, Neurophys Tech [address] [place] [address] [address] 03/24/2024 10:40 AM EDT Office Visit Neurology [place] [address] [place] [address] [address] Soial Redding MD [address] [place] [address] [address] 05/12/2024 1:20 PM EDT Office Visit Family Practice [address], [place] [address] [place] [address] Krupa Hardy, [address] [place] [address] 05/21/2024 1:00 PM EDT Office Visit Neurology Ileana Garcia [place] [address] [place] [address] Santo Christian, DO [address] [place] [address] Scheduled Procedures Name Priority Associated Diagnoses Date/Ti me COLONOSCOPY FLEXIBLE PROXIMA L DIAGNOSTIC Recall Special screening for malignant neoplasms, colon Health Maintenance Due Date Last Done Comments DISCUSS TOBACCO CESSATION (REFER TO SMARTSET #8992) 1965 Alpha-1 Antitrypsin 1981 HPV/Co-Test 1993 Cologuard [...] 04/11/2011 LUNG CANCER SCREENING - USE SMARTSET 29303 Completed 06/30/2020 Influenza Vaccine (FLU shot) Completed [...] this encounter Medical Devices Implanted Type Area Warehouse Distribution Manager Device Identifier Shelf Expiration Date Model / Serial / Lot Vitoss Bimodal Foam Pack 1.2cc - [id number] Implanted:Qty : 1 on 01/19/2016 by Burke Vazquez DO at [place] [facility] [place] N/A: Spine Cervical DANIEL : SPINE 11/26/2016 [id number] / / [id number] 4.0 X 8mm Self Drilling Screw Implanted:Qty : 1 on 01/19/2016 by Burke Vazquez DO at [place] [facility] [place] N/A: Spine Cervical [id number] / / Description:From set Cage Avs [id number] - [id number] Implanted:Qty : 1 on 01/19/2016 by Burke Vazquez DO at [place] [facility] [place] N/A: Spine Cervical DANIEL : SPINE [id number] / / Description:From set [place] W/Screw - [id number] Implanted:Qty : 1 on 01/19/2016 by Burke Vazquez DO at [place] [facility] [place] N/A: Spine Cervical DANIEL : SPINE [id number] / / Description:From set documented as of [...] the patient have Health Care Power of Phlebotomy Instructor? No Code Status History Code Status Date Activated Date Inactivated Comments Full Code 01/19/2016 6:12 AM 01/19/2016 11:06 AM This order reflects the patients wishes and were consensually agreed upon. Question Answer Comments Discussion of Advance Directives occurred with: Family Does the patient have a Living Will? No Does the patient have Health Care Power of Phlebotomy Instructor? No Care Teams Fuel Cell Builder Relationship Specialty Start Date End Date Krupa Hardy DO [address] [facility] [place] [address] PCP - General Family Medicine 07/21/23 documented as of this encounter
--- OUTSIDE RECORDS SUMMARY | 2024-01-20 14:44 | External Medical Summary | Summary of Care ---
Author Name Unknown Organization [facility] Address [address] [place] [address] Phone [phone] Care Team Providers Care Counter Maker Name Role Phone Krupa Hardy Primary Care Provider +1- [phone] Reason for Visit * Reason Onset Date Comments Test Results 01/06/2024 Imaging Encounter Details Date Type Department Care Team (Late st Contact Info) Description 01/06/2024 Telephone Access Center, [place] Region [address] [facility] *DO NOT REMOVE THIS DEPARTMENT* [place], [place] [phone] Services, Scheduling [address] [place] [address] Test Results (Imaging ) Allergies Active Allergy [...] Respimat 2.5 MCG/ACT Inhalation Aerosol Solution (Tiotropium [place] Monohydrate)Indicatio ns:COPD (chronic obstructive pulmonary disease) with [...] Next Due Pneumococcal Conjugate Vacci ne, 20-valent (Hraxcwq00) 09/19/2023 Pneumococcal Polysaccharide PPV23 (Pneumovax) 12/17/2013 Seasonal [...] 7:55 AM EDT Spoke with Marifer from [facility] Radiology she will be faxing over results. Please see second encounter. * Telephone Encounter - Saba Wadsworth OSA - 01/06/2024 4:06 PM EDT Who is Requesting Test Results: Socorro Avery Primary Care Provider : Krupa Hardy, DO Tests Results Requested : Xrays Date of Test : 01/06/24 Location of Test: Urgent Care, [place] Ordering Provider: Dr. Hardy Please provide return call to Pt sister, Lizzy Wick [phone]; Pt is having trouble with her telephone [...] 01/28/2024 10:30 AM EDT NeuroDiagnostic Study Neurophysiology [facility] [place] [address] [facility] [place] [address] Sp, Neurophys Tech [address] [facility] [place] [address] 03/24/2024 10:40 AM EDT Office Visit Neurology [facility] [place] [address] [facility] [place] [address] Soila Redding MD [address] [facility] [place] [address] 05/12/2024 1:20 PM EDT Office Visit Family Practice [address], [place] [address] [place] [address] Krupa Hardy, [address] [place] [address] 05/21/2024 1:00 PM EDT Office Visit Neurology [facility] [place] [address] [facility] [place] [address] Santo Christian, DO [address] [place], [place] [address] Scheduled Procedures Name Priority Associated Diagnoses Date/Ti [...] 04/11/2011 LUNG CANCER SCREENING - USE SMARTSET 27929 Completed 06/30/2020 Influenza Vaccine (FLU shot) Completed [...] this encounter Medical Devices Implanted Type Area Law Office Manager Device Identifier Shelf Expiration Date Model / Serial / Lot Vitoss Bimodal Foam Pack 1.2cc - [id number] Implanted:Qty : 1 on 01/19/2016 [place] [facility] [place] Spine Cervical DANIEL : SPINE 11/26/2016 [id number] / / [id number] 4.0 X 8mm Self Drilling Screw Implanted:Qty : 1 on 01/19/2016 [place] Burke Vaz[place] [facility] [place]: Spine Cervical [id number] / / Description:From set Cage Avs [id number] - [id number] Implanted:Qty : 1 on 01/19/2016 by Burke Vazquez [place] [facility] [place]A: Spine Cervical DANIEL : SPINE [id number] / / Description:From set [place] W/Screw - [id number] Implanted:Qty : 1 on 01/19/2016 by Burke Vazquez [place] [facility] [place]A: Spine Cervical DANIEL : SPINE [id number] / / Description:From set documented as of [...] the patient have Health Care Power of Digital Music Instructor? No Code Status History Code Status Date Activated Date Inactivated Comments Full Code 01/19/2016 6:12 AM 01/19/2016 11:06 AM This order reflects the patients wishes and were consensually agreed upon. Question Answer Comments Discussion of Advance Directives occurred with: Family Does the patient have a Living Will? No Does the patient have Health Care Power of Digital Music Instructor? No Care Teams Counter Maker Relationship Specialty Start Date End Date Krupa Hardy DO [address] [facility] [place] [address] PCP - General Family Medicine 07/21/23 documented as of this encounter
--- OUTSIDE RECORDS SUMMARY | 2024-01-20 14:44 | External Medical Summary | Summary of Care ---
Author Name Unknown Organization [facility] Address [address] [place] [address] Phone [phone] Care Team Providers Care Floor Worker Well Service Name Role Phone Krupa Hardy Primary Care Provider +1- [phone] Reason for Visit * Reason Onset Date Comments Test Results 01/06/2024 Imaging Encounter Details Date Type Department Care Team (Late st Contact Info) Description 01/06/2024 Telephone Access Center, [place] [address] [facility] *DO NOT REMOVE THIS DEPARTMENT* [place], [place] [phone] Services, Scheduling [address] [place] [address] Test Results (Imaging ) Allergies Active Allergy [...] Respimat 2.5 MCG/ACT Inhalation Aerosol Solution (Tiotropium [place] Monohydrate)Indicatio ns:COPD (chronic obstructive pulmonary disease) with [...] Next Due Pneumococcal Conjugate Vacci ne, 20-valent (Vqcywom35) 09/19/2023 Pneumococcal Polysaccharide PPV23 (Pneumovax) 12/17/2013 Seasonal [...] encounter Miscellaneous Notes * Telephone Encounter - Abeba Gannon OSA [...] - 01/07/2024 7:55 AM EDT Spoke with Marifre from [facility] Radiology she will be faxing over results. Please see second encounter. * Telephone Encounter - Saba Wadsworth OSA - 01/06/2024 4:06 PM EDT Who is Requesting Test Results: Socorro Avery Primary Care Provider : Krupa Hardy, DO Tests Results Requested : Xrays Date of Test : 01/06/24 Location of Test: Urgent Care, [place] Ordering Provider: Dr. Hardy Please provide return call to Pt sister, Lizzy Wick [phone]; Pt is having trouble with her telephone [...] 01/28/2024 10:30 AM EDT NeuroDiagnostic Study Neurophysiology [facility] [place] [address] [facility] [place] [address] Sp, Neurophys Tech [address] [facility] [place] [address] 03/24/2024 10:40 AM EDT Office Visit Neurology [facility] [place] [address] [facility] [place] [address] Soila Redding MD [address] [facility] [place] [address] 05/12/2024 1:20 PM EDT Office Visit Family Practice [address], [place] [address] [facility] [place] [address] Krupa Hardy, [address] [facility] [place] [address] 05/21/2024 1:00 PM EDT Office Visit Neurology [facility] [address] [facility] [place] [address] aSnto Christian, DO [address] [place], [place] [address] Scheduled Procedures Name Priority Associated Diagnoses Date/Ti me COLONOSCOPY FLEXIBLE PROXIMA L DIAGNOSTIC Recall Special screening for malignant neoplasms, colon Health Maintenance Due Date Last Done Comments DISCUSS TOBACCO CESSATION (REFER TO SMARTSET #1145) 1963 Alpha-1 Antitrypsin 1981 HPV/Co-Test 1993 Cologuard [...] 04/11/2011 LUNG CANCER SCREENING - USE SMARTSET 41961 Completed 06/30/2020 Influenza Vaccine (FLU shot) Completed [...] this encounter Medical Devices Implanted Type Area Weather Forecaster Device Identifier Shelf Expiration Date Model / Serial / Lot Vitoss Bimodal Foam Pack 1.2cc - [id number] Implanted:Qty : 1 on 01/19/2016 by Burke Vazquez DO [place] [facility] [place]: Spine Cervical DANIEL : SPINE 11/26/2016 [id number] / / [id number] 4.0 X 8mm Self Drilling Screw Implanted:Qty : 1 on 01/19/2016 by Burke Vazquez DO [place] [facility] [place]/A: Spine Cervical [id number] / / Description:From set Cage Avs [id number] - [id number] Implanted:Qty : 1 on 01/19/2016 by Burke Vazquez DO [place] [facility] [place]/A: Spine Cervical DANIEL : SPINE [id number] / / Description:From set [place] W/Screw - [id number] Implanted:Qty : 1 on 01/19/2016 by Burke Vazquez, at [place] [facility] [place]/A: Spine Cervical DANIEL : SPINE [id number] / / Description:From set documented as of [...] the patient have Health Care Power of Rehanger? No Code Status History Code Status Date Activated Date Inactivated Comments Full Code 01/19/2016 6:12 AM 01/19/2016 11:06 AM This order reflects the patients wishes and were consensually agreed upon. Question Answer Comments Discussion of Advance Directives occurred with: Family Does the patient have a Living Will? No Does the patient have Health Care Power of Rehanger? No Care Teams Floor Worker Well Service Relationship Specialty Start Date End Date Krupa Hardy DO [address] [facility] [place] [address] PCP - General Family Medicine 07/21/23 documented as of this encounter
--- OUTSIDE RECORDS SUMMARY | 2024-01-20 14:44 | External Medical Summary | Summary of Care ---
Author Name Unknown Organization [facility] Address [address] [place] [address] Phone [phone] Care Team Providers Care Bias Cutting Machine Operator Name Role Phone Krupa Hardy DO Primary Care Provider +1- [phone] Reason for Visit * Reason Onset Date Comments Appointment 01/05/2024 X-ray results Encounter Details Date Type Department Care Team (Late st Contact Info) Description 01/05/2024 Telephone Family Practice [facility] [address] [place] [address] Krupa Hardy DO [address] [place] [address] Appointment (X-ray results) Allergies Active Allergy Reactions Criticality Noted Date [...] Respimat 2.5 MCG/ACT Inhalation Aerosol Solution (Tiotropium [place] Monohydrate)Indicatio ns:COPD (chronic obstructive pulmonary disease) with [...] Bilateral Grief reaction 01/25/2015 08/02/2015 Candidal vulvovaginitis 06/14/201404/2015 Pelvic pain in female 06/14/20142014 Diverticulosis of colon 06/13/201410/2014 Knee pain, left 06/01/2014 08/02/2015 BV (bacterial [...] Next Due Pneumococcal Conjugate Vacci ne, 20-valent (Bnfuopf80) 09/19/2023 Pneumococcal Polysaccharide PPV23 (Pneumovax) 12/17/2013 Seasonal [...] Encounter - Abeba Gannon OSA - 01/07/2024 9:27 AM EDT Spoke with patient, she does not want an appointment and she just wants someone to call her with results. Informed her that provider will review results and somebody would contact her. * Telephone Encounter - Jeni Pa OSA - 01/06/2024 2:58 PM EDT Requested results * Telephone Encounter - Pretty Roblero OSA - 01/05/2024 4:02 PM EDT No Appointments Available Patient declined appointments?: No What Visit Type is needed? Return If Acute Visit Type is needed, were surrounding clinics offered to patient (Yes/No)? N/A Was patient offered appointments with other available providers (Yes/No)? N/A See Call Details? (Yes or No): No Patient states she is going for xray ordered by Krupa Hardy on 01/06/24 and would like to have a scheduled follow up to review xray results documented in this encounter Plan of Treatment Upcoming Encounters Date Type Department Care Team (Late st Contact Info) Description 01/28/2024 10:30 AM EDT NeuroDiagnostic Study Neurophysiology [facility]le[facility] Garcia [place] [address] [facility] [place] [address] Sp, Neurophys Tech [address] [facility] [place] [address] 03/24/2024 10:40 AM EDT Office Visit Neurology Ileana Garcia [place] [address] [place] [address] Soila Redding MD [address] [place] [address] 05/12/2024 1:20 PM EDT Office Visit Family Practice [address], [place] [address] [place] [address] Krupa Hardy, [address] [place] [address] 05/21/2024 1:00 PM EDT Office Visit Neurology Ileana Garcia [place] [address] [place] [address] Santo Christian, DO [address] [place], [place] [address] Scheduled Procedures Name Priority Associated Diagnoses Date/Ti me COLONOSCOPY FLEXIBLE PROXIMA L DIAGNOSTIC Recall Special screening for malignant neoplasms, colon Health Maintenance Due Date Last Done Comments DISCUSS TOBACCO CESSATION (REFER TO SMARTSET #1131) 1963 Alpha-1 Antitrypsin 1981 HPV/Co-Test 1993 Cologuard [...] 04/11/2011 LUNG CANCER SCREENING - USE SMARTSET 68267 Completed 06/30/2020 Influenza Vaccine (FLU shot) Completed [...] this encounter Medical Devices Implanted Type Area Firmware Test Engineer Device Identifier Shelf Expiration Date Model / Serial / Lot Vitoss Bimodal Foam Pack 1.2cc - [id number] Implanted:Qty : 1 on 01/19/2016 by Burke Vazquez DO [place] [facility] N/A: Spine Cervical DANIEL : SPINE 11/26/2016 [id number] / / [id number] 4.0 X 8mm Self Drilling Screw Implanted:Qty : 1 on 01/19/2016 by Burke Vazquez DO at [place] [facility] N/A: Spine Cervical [id number] / / Description:From set Cage Avs [id number] - [id number] Implanted:Qty : 1 on 01/19/2016 by Burke Vazquez DO [place] [facility] [place] N/A: Spine Cervical DANIEL : SPINE [id number] / / Description:From set [place] W/Screw - [id number] Implanted:Qty : 1 on 01/19/2016 by Burke Vazquez DO at [place] [facility] N/A: Spine Cervical DANIEL : SPINE [id number] / / Description:From set documented as of [...] the patient have Health Care Power of Nurse Staff? No Code Status History Code Status Date Activated Date Inactivated Comments Full Code 01/19/2016 6:12 AM 01/19/2016 11:06 AM This order reflects the patients wishes and were consensually agreed upon. Question Answer Comments Discussion of Advance Directives occurred with: Family Does the patient have a Living Will? No Does the patient have Health Care Power of Nurse Staff? No Care Teams Bias Cutting Machine Operator Relationship Specialty Start Date End Date Krupa Hardy DO [address] [facility] [place] [address] PCP - General Family Medicine 07/21/23 documented as of this encounter
--- OUTSIDE RECORDS SUMMARY | 2024-01-20 14:45 | External Medical Summary | Summary of Care ---
Author Name Unknown Organization [facility] Address [address] [place] [address] Phone [phone] Care Team Providers Care Financial Aid Director Name Role Phone Krupa Hardy Primary Care Provider +1- [phone] Reason for Visit * Reason Onset Date Comments Test Results 01/06/2024 Encounter Details Date Type Department Care Team (Late st Contact Info) Description 01/06/2024 Telephone [facility] Practice [facility] [place] [address] [place] [address] Lynette Pablo, [place] [address] Test Results Allergies Active Allergy Reactions Criticality Noted Date [...] as of this encounter (statuses as of 01/06/2024) Medications Medication Sig Dispensed Refills Start Date End Date Status Budesonide-Formoterol Fumarate 160-4.5 MCG/ACT Inhalation Aerosol (Symbicort)Indication s:COVID-19 Inhale 2 Puffs by mouth 2 times a day. 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 Right sided abdominal pain 10/22/2018 0 11/06/2018 Functional diarrhea 10/22/2018 11/06/19 19 DEPRESSION 08/24/2018 08/24/2018 Yeast infection 08/24/2018 10/22/2018 Bronchitis, complicated 11/03/2017 09/ BPV (benign positional vertigo) 07/16/2017 10/28/2017 Cerebral [...] 012 DEPRESSION 01/08/2010 04/08/2017 CERVICAL DISC DISEASE 01/08/2010 03/28/ 2016 Overview: Laminectomy 09/15/13 FAMILY HX,CARDIOVASCULAR DISEASE 01/08/2010 04/08/2017 Tobacco user 11/05/2013 documented as of this encounter (statuses as of 01/06/2024) Immunizations Name Administration Dates Next Due Pneumococcal Conjugate Vacci ne, 20-valent ([id number]) 09/19/2023 Pneumococcal Polysaccharide PPV23 (Pneumovax) 12/17/2013 Seasonal [...] encounter Miscellaneous Notes * Telephone Encounter - Lynette Pablo RN - 01/06/2024 8:41 PM EDT This is a nurse triage encounter. If additional action is needed, do not route to nurse triage. Please route encounter to the applicable clinic pool. Pt calling to get the results of her xray. Results not in chart. Please call pt back on verónica Wick [phone] documented in this encounter Plan of Treatment Upcoming Encounters Date Type Department Care Team (Late st Contact Info) Description 01/28/2024 10:30 AM EDT NeuroDiagnostic Study Neurophysiology [facility] [place] [address] [facility] [place] [address] Sp, Neurophys Tech [address] [facility] [place] [address] 03/24/2024 10:40 AM EDT Office Visit Neurology [facility] [place] [address] [facility] [place] [address] Soila Redding MD [address] [facility] [place] [address] 05/12/2024 1:20 PM EDT Office Visit Family Practice [place] Denia Mckeon [address] [place] [address] Krupa Hardy, [address] [place] [address] 05/21/2024 1:00 PM EDT Office Visit Neurology [facility] [address] [facility] [place] [address] Santo Christian, DO [address] [place] [address] Scheduled Procedures Name Priority Associated Diagnoses Date/Ti me COLONOSCOPY FLEXIBLE PROXIMA L DIAGNOSTIC Recall Special screening for malignant neoplasms, colon Health Maintenance Due Date Last Done Comments DISCUSS TOBACCO CESSATION (REFER TO SMARTSET #9383) 1963 Alpha-1 Antitrypsin 1981 HPV/Co-Test 1993 Cologuard [...] 04/11/2011 LUNG CANCER SCREENING - USE SMARTSET 18042 Completed 06/30/2020 Influenza Vaccine (FLU shot) Completed [...] this encounter Medical Devices Implanted Type Area Boiler Room Helper Device Identifier Shelf Expiration Date Model / Serial / Lot Vitoss Bimodal Foam Pack 1.2cc - [id number] Implanted:Qty : 1 on 01/19/2016 by Burke Vazquez DO at OR [facility] N/A: Spine Cervical DANIEL : SPINE 11/26/2016 [id number] / / [id number] 4.0 X 8mm Self Drilling Screw Implanted:Qty : 1 on 01/19/2016 by Burke Vazquez DO at OR [facility] N/A: Spine Cervical [id number] / / Description:From set Cage Avs [id number] - [id number] Implanted:Qty : 1 on 01/19/2016 by Burke Vazquez DO at OR [facility] N/A: Spine Cervical DANIEL : SPINE [id number] / / Description:From set [place] W/Screw - [id number] Implanted:Qty : 1 on 01/19/2016 by Burke Vazquez DO at OR [facility] N/A: Spine Cervical DANIEL : SPINE [id number] / / Description:From set documented as of [...] the patient have Health Care Power of Core Measures Abstractor? No Code Status History Code Status Date Activated Date Inactivated Comments Full Code 01/19/2016 6:12 AM 01/19/2016 11:06 AM This order reflects the patients wishes and were consensually agreed upon. Question Answer Comments Discussion of Advance Directives occurred with: Family Does the patient have a Living Will? No Does the patient have Health Care Power of Core Measures Abstractor? No Care Teams Financial Aid Director Relationship Specialty Start Date End Date Krupa Hardy DO [address] [facility] [place] [address] PCP - General Family Medicine 07/21/23 documented as of this encounter
--- OUTSIDE RECORDS SUMMARY | 2024-01-20 14:45 | External Medical Summary | Summary of Care ---
Author Name Unknown Organization [facility] Address [address] [place] [address] Phone [phone] Care Team Providers Care Director Of Student Affairs Name Role Phone Krupa Hardy Primary Care Provider +1- [phone] Reason for Visit * Reason Onset Date Comments Test Results 01/06/2024 Encounter Details Date Type Department Care Team (Late st Contact Info) Description 01/06/2024 Telephone [facility] Practice [facility] [place] [address] [place] [address] Lynette Pablo, [place] [address] Test Results Allergies Active Allergy Reactions Criticality [...] Respimat 2.5 MCG/ACT Inhalation Aerosol Solution (Tiotropium [place] Monohydrate)Indicatio ns:COPD (chronic obstructive pulmonary disease) with [...] Next Due Pneumococcal Conjugate Vacci ne, 20-valent ([id number]) 09/19/2023 Pneumococcal Polysaccharide PPV23 (Pneumovax) 12/17/2013 Seasonal [...] 7:55 AM EDT Spoke with Marifer from Radiology, she will fax over results. Please see second encounter. * Telephone Encounter - Lynette Pablo RN - 01/06/2024 8:41 PM EDT This is a nurse triage encounter. If additional action is needed, do not route to nurse triage. Please route encounter to the applicable clinic pool. Pt calling to get the results of her xray. Results not in chart. Please call pt back on sisterniraj Wick [phone] documented in this encounter Plan of Treatment Upcoming Encounters Date Type Department Care Team (Late st Contact Info) Description 01/28/2024 10:30 AM EDT NeuroDiagnostic Study Neurophysiology [facility] [address] [facility] [place] [address] Sp, Neurophys Tech [address] [facility] [place] [address] 03/24/2024 10:40 AM EDT Office Visit Neurology [facility] [place] [address] [facility] [place] [address] Soila Redding MD [address] [facility] [place] [address] 05/12/2024 1:20 PM EDT Office Visit Family Practice [address] [place] [address] Krupa Hardy DO [address] [place] [address] 05/21/2024 1:00 PM EDT Office Visit Neurology Ileana Garcia [place] [address] [place] [address] Santo Christian Lara, DO [address] [place] [facility] [place] [address] Scheduled Procedures Name Priority Associated Diagnoses Date/Ti me COLONOSCOPY FLEXIBLE PROXIMA L DIAGNOSTIC Recall Special screening for malignant neoplasms, colon Health Maintenance Due Date Last Done Comments DISCUSS TOBACCO CESSATION (REFER TO SMARTSET #0464) 1965 Alpha-1 Antitrypsin 1981 HPV/Co-Test 1993 Cologuard [...] 04/11/2011 LUNG CANCER SCREENING - USE SMARTSET 09556 Completed 06/30/2020 Influenza Vaccine (FLU shot) Completed [...] this encounter Medical Devices Implanted Type Area Pipe Turner Device Identifier Shelf Expiration Date Model / Serial / Lot Vitoss Bimodal Foam Pack 1.2cc - [id number] Implanted:Qty : 1 on 01/19/2016 by Burke Vazquez DO [place] [facility] [place]A: Spine Cervical DANIEL : SPINE 11/26/2016 [id number] / / [id number] 4.0 X 8mm Self Drilling Screw Implanted:Qty : 1 on 01/19/2016 by Burke Vazquez DO [place] [facility] [place]/A: Spine Cervical [id number] / / Description:From set Cage Avs [id number] - [id number] Implanted:Qty : 1 on 01/19/2016 by Burke Vazquez DO [place] [facility] N/A: Spine Cervical DANIEL : SPINE [id number] / / Description:From set [place] W/Screw - [id number] Implanted:Qty : 1 on 01/19/2016 by Burke Vazquez DO at [place] [facility] N/A: Spine Cervical DANIEL : SPINE [id number] / / Description:From set documented as of [...] the patient have Health Care Power of Wallpaper Inspector And Shipper? No Code Status History Code Status Date Activated Date Inactivated Comments Full Code 01/19/2016 6:12 AM 01/19/2016 11:06 AM This order reflects the patients wishes and were consensually agreed upon. Question Answer Comments Discussion of Advance Directives occurred with: Family Does the patient have a Living Will? No Does the patient have Health Care Power of Wallpaper Inspector And Shipper? No Care Teams Director Of Student Affairs Relationship Specialty Start Date End Date Krupa Hardy DO [address] [facility] [place] [address] PCP - General Family Medicine 07/21/23 documented as of this encounter
--- OUTSIDE RECORDS SUMMARY | 2024-01-20 14:45 | External Medical Summary | Summary of Care ---
Author Name Unknown Organization [facility] Address [address] [place] [address] Phone [phone] Care Team Providers Care Rackman Name Role Phone Krupa Hardy DO Primary Care Provider +1- [phone] Reason for Visit * Reason Onset Date Comments Appointment 12/19/2023 Acute/Head, Back of neck pain Encounter Details Date Type Department Care Team (Late st Contact Info) Description 12/19/2023 Telephone Family Practice [facility] [place], [place] [address] [place] [address] Krupa Hardy DO [address] [place] [address] Appointment (Acute/Head, Back of neck pain) Allergies Active Allergy Reactions Criticality Noted Date [...] as of this encounter (statuses as of 12/25/2023) Medications Medication Sig Dispensed Refills Start Date End Date Status Budesonide-Formoterol Fumarate 160-4.5 MCG/ACT Inhalation Aerosol (Symbicort)Indication s:COVID-19 Inhale 2 Puffs by mouth 2 times a day. 10.2 g 12 11/19/2021 Active Spiriva Respimat 2.5 MCG/ACT Inhalation Aerosol Solution (Tiotropium [place] Monohydrate)Indicatio ns:COPD (chronic obstructive pulmonary disease) with [...] as of this encounter (statuses as of 12/25/2023) Active Problems Problem Noted Date Diagnosed Date [...] as of this encounter (statuses as of 12/25/2023) Resolved Problems Problem Noted Date Diagnosed Date [...] as of this encounter (statuses as of 12/25/2023) Immunizations Name Administration Dates Next Due Pneumococcal Conjugate Vacci ne, 20-valent ([id number]) 09/19/2023 Pneumococcal Polysaccharide PPV23 (Pneumovax) 12/17/2013 Seasonal [...] money to get more. Often true 10/09/2020 Sex and Gender Information Value Date Recorded Sex Assigned at Not on file Gender Identity Not on file Sexual Orientation Not on file Job Start Date Occupation Industry Not on file Not on file Not on file documented as of this encounter Miscellaneous Notes * Telephone Encounter - Jeni Pa OSA - 12/25/2023 8:13 AM EST Spoke to pts sister. Appt scheduled. * Telephone Encounter - Pushpa Gonsalves OSA - 12/25/2023 8:00 AM EST Pt called back, she can't make appt today. Can you please call her sister to re- arrange another appointment. Please advise. * Telephone Encounter - Jeni Pa OSA - 12/24/2023 9:30 AM EST Called to offer appt. No answer, no VM. * Telephone Encounter - Jeni Pa OSA - 12/22/2023 11:34 AM EST Called to offer 12/23 opening. Pt declined due to another appt. * Telephone Encounter - nAgela Beltre TECH - 12/19/2023 11:38 AM EST No Appointments Available Patient declined appointments?: No What Visit Type is needed? Acute If Acute Visit Type is needed, were surrounding clinics offered to patient (Yes/No)? Yes Was patient offered appointments with other available providers (Yes/No)? Yes See Call Details? (Yes or No): Yes documented in this encounter Plan of Treatment Upcoming Encounters Date Type Department Care Team (Late st Contact Info) Description 12/26/2023 1:00 PM EST Office Visit Family Practice Edy Altman [place] [address] [place] [address] Socorro Gutierrez PA-C [address] [facility] [place] [place] [address] 01/28/2024 10:30 AM EDT NeuroDiagnostic Study Neurophysiology [facility] [place] [address] [facility] [place] [address] Sp, Neurophys Tech [address] [facility] [place] [address] 03/24/2024 10:40 AM EDT Office Visit Neurology [facility] [place] [address] [facility] [place] [address] Soila Redding MD [address] [facility] [place] [address] 05/12/2024 1:20 PM EDT Office Visit [facility] Edy Altman [place] [address] [place] [address] Krupa Hardy DO [address] [place] [address] 05/21/2024 1:00 PM EDT Office Visit Neurology [facility] [place] [address] [facility] [place] [address] Santo Christian, DO [address] [place] [address] Scheduled Procedures Name Priority Associated Diagnoses Date/Ti me COLONOSCOPY FLEXIBLE PROXIMA L DIAGNOSTIC Recall Special screening for malignant neoplasms, colon Health Maintenance Due Date Last Done Comments DISCUSS TOBACCO CESSATION (REFER TO SMARTSET #0288) 1965 Alpha-1 Antitrypsin 1981 HPV/Co-Test 1993 Cologuard 02/21/2008 Sigmoidoscopy 02/21/2008 Zoster Vaccines (1 of 2) 2013 Mammogram 05/08/2017 05/08/2016, 12/26, 02/16/2010 Cervical Cancer Screening 05/07/2020 Pap Smear 05/07/2020 05/07/2017, 04/26, 02/08/2014 Depression Screening 10/09/2021 10/09/2020 COVID-19 Vaccine ( season) 2023 Fecal Occult Blood Test 08/26/2023 08/26/2022 Colonoscopy 07/11/2024 07/11/2014, 06/27, 10/08/2012 Colorectal Cancer Screening 07/11/2024 O2 ASSESSMENT COMPLETED IN PAST YEAR FOR COPD 12/23/2024 12/23/2023 Lipid Panel 10/29/2028 10/29/2023, 11/27, 12/07/2021, Additional history exists DTaP,Tdap,and Td Vaccines (3 - Td or Tdap) 09/19/2033 09/19/2023, 04/11/2011 LUNG CANCER SCREENING - USE SMARTSET 08311 Completed 06/30/2020 Influenza Vaccine (FLU shot) Completed [...] this encounter Medical Devices Implanted Type Area Tonal Regulator Device Identifier Shelf Expiration Date Model / Serial / Lot Vitoss Bimodal Foam Pack 1.2cc - [id number] Implanted:Qty : 1 on 01/19/2016 by Burke Vazquez DO [place] [facility] [place]/A: Spine Cervical DANIEL : SPINE 11/26/2016 [id number] / / [id number] 4.0 X 8mm Self Drilling Screw Implanted:Qty : 1 on 01/19/2016 by Burke Vazquez, DO at [place] [facility] [place] N/A: Spine Cervical [id number] / / Description:From set Cage Avs [id number] - [id number] Implanted:Qty : 1 on 01/19/2016 by Burke Vazquez, DO at [place] [facility] [place] N/A: Spine Cervical DANIEL : SPINE [id number] / / Description:From set [place] W/Screw - [id number] Implanted:Qty : 1 on 01/19/2016 by Burke Vazquez, DO at [place] [facility] [place] N/A: Spine Cervical DANIEL : SPINE [id number] / / Description:From set documented as of [...] the patient have Health Care Power of Rugby Union Footballer? No Code Status History Code Status Date Activated Date Inactivated Comments Full Code 01/19/2016 6:12 AM 01/19/2016 11:06 AM This order reflects the patients wishes and were consensually agreed upon. Question Answer Comments Discussion of Advance Directives occurred with: Family Does the patient have a Living Will? No Does the patient have Health Care Power of Rugby Union Footballer? No Care Teams Rackman Relationship Specialty Start Date End Date Krupa Hardy DO [address] [facility] [place] [address] PCP - General Family Medicine 07/21/23 documented as of this encounter
--- OUTSIDE RECORDS SUMMARY | 2024-01-20 14:45 | External Medical Summary | Summary of Care ---
Author Name Unknown Organization [facility] Address [address] [place] [address] Phone [phone] Care Team Providers Care Laborer Chemical Processing Name Role Phone Krupa Hardybozena VILLELA Primary Care Provider [phone]- [phone] Reason for Visit * Reason Onset Date Comments Test Results 01/06/2024 Imaging Encounter Details Date Type Department Care Team (Late st Contact Info) Description 01/06/2024 Telephone Family Practice [facility] [place] [address] [place] [address] Lynette Pablo, [place] [address] Test Results (Imaging ) Allergies Active Allergy [...] Respimat 2.5 MCG/ACT Inhalation Aerosol Solution (Tiotropium [place] Monohydrate)Indicatio ns:COPD (chronic obstructive pulmonary disease) with [...] Next Due Pneumococcal Conjugate Vacci ne, 20-valent ([id number]) 09/19/2023 Pneumococcal Polysaccharide PPV23 (Pneumovax) 12/17/2013 Seasonal [...] Please call pt back on sisterniraj Wick [phone] documented in this encounter Plan of Treatment Upcoming Encounters Date Type Department Care Team (Late st Contact Info) Description 01/28/2024 10:30 AM EDT NeuroDiagnostic Study Neurophysiology [facility] [place] [address] [facility] [place] [address] Sp, Neurophys Tech [address] [facility] [place] [address] 03/24/2024 10:40 AM EDT Office Visit Neurology [facility] [place] [address] [facility] [place] [address] Soila Redding MD [address] [facility] [place] [address] 05/12/2024 1:20 PM EDT Office Visit Family Practice [address], [place] [address] [place] [address] Krupa Hardy DO [address] [facility] [place] [address] 05/21/2024 1:00 PM EDT Office Visit Neurology Ileana Garcia [place] [address] [facility] [address] Santo Christian, DO [address] [place] [facility] [place] [address] Scheduled Procedures Name Priority Associated Diagnoses Date/Ti me COLONOSCOPY FLEXIBLE PROXIMA L DIAGNOSTIC Recall Special screening for malignant neoplasms, colon Health Maintenance Due Date Last Done Comments DISCUSS TOBACCO CESSATION (REFER TO SMARTSET #5243) 1965 Alpha-1 Antitrypsin 1981 HPV/Co-Test 1993 Cologuard [...] 04/11/2011 LUNG CANCER SCREENING - USE SMARTSET 86596 Completed 06/30/2020 Influenza Vaccine (FLU shot) Completed [...] this encounter Medical Devices Implanted Type Area Grievance Manager Device Identifier Shelf Expiration Date Model / Serial / Lot Vitoss Bimodal Foam Pack 1.2cc - [id number] Implanted:Qty : 1 on 01/19/2016 by Burke Vazquez, at [place] [facility] [place]/A: Spine Cervical DANIEL : SPINE 11/26/2016 [id number] / / [id number] 4.0 X 8mm Self Drilling Screw Implanted:Qty : 1 on 01/19/2016 by Burke Vazquez DO at [place] [facility] [place] N/A: Spine Cervical [id number] / / Description:From set Cage Avs [id number] - [id number] Implanted:Qty : 1 on 01/19/2016 by Burke Vazquez DO at [place] [facility] [place] N/A: Spine Cervical DANIEL : SPINE [id number] / / Description:From set [place] W/Screw - [id number] Implanted:Qty : 1 on 01/19/2016 by Burke Vazquez DO at [place] [facility] [place] N/A: Spine Cervical DANIEL : SPINE [id number] / / Description:From set documented as of [...] the patient have Health Care Power of Hydrography Teacher? No Code Status History Code Status Date Activated Date Inactivated Comments Full Code 01/19/2016 6:12 AM 01/19/2016 11:06 AM This order reflects the patients wishes and were consensually agreed upon. Question Answer Comments Discussion of Advance Directives occurred with: Family Does the patient have a Living Will? No Does the patient have Health Care Power of Hydrography Teacher? No Care Teams Laborer Chemical Processing Relationship Specialty Start Date End Date Krupa Hardy DO [address] [facility] [place] [address] PCP - General Family Medicine 07/21/23 documented as of this encounter
--- OUTSIDE RECORDS SUMMARY | 2024-01-20 14:45 | External Medical Summary | Summary of Care ---
Author Name Unknown Organization [facility] Address [address] [place] [address] Phone [phone] Care Team Providers Care Job Coaching Name Role Phone Krupa Hardy DO Primary Care Provider +1- [phone] Reason for Visit * Reason Onset Date Comments Appointment 12/19/2023 Acute/Head, Back of neck pain Encounter Details Date Type Department Care Team (Late st Contact Info) Description 12/19/[address] [facility], [place] [address] [place] [address] Krupa Hardy DO [address] [facility] [place] [address] Appointment (Acute/Head, Back of neck pain) [...] Respimat 2.5 MCG/ACT Inhalation Aerosol Solution (Tiotropium [place] Monohydrate)Indicatio ns:COPD (chronic obstructive pulmonary disease) with [...] Next Due Pneumococcal Conjugate Vacci ne, 20-valent ([id number]) 09/19/2023 Pneumococcal Polysaccharide PPV23 (Pneumovax) 12/17/2013 Seasonal [...] encounter Miscellaneous Notes * Telephone Encounter - Pushpa Gonsalves OSA [...] to another appt. * Telephone Encounter - Angela Beltre TECH - 12/19/2023 11:38 AM EST [...] AM EDT NeuroDiagnostic Study Neurophysiology Ileana Garcia [place] [address] [place] [address] Sp, Neurophys Tech [address] [facility] [place] [address] 03/24/2024 10:40 AM EDT Office Visit Neurology [facility] [address] [place] [address] Soila Redding MD [address] [facility] [place] [address] 05/12/2024 1:20 PM EDT Office Visit Family Practice [address], [place] [address] [place] [address] Krupa Hardy, [address] [facility] [place] [address] 05/21/2024 1:00 PM EDT Office Visit Neurology [facility] [address] [facility] [place] [address] Santo Christian, DO [address] [place], [place] [id number] Scheduled Procedures Name Priority Associated Diagnoses Date/Ti me COLONOSCOPY FLEXIBLE PROXIMA L DIAGNOSTIC Recall Special screening for malignant neoplasms, colon Health Maintenance Due Date Last Done Comments DISCUSS TOBACCO CESSATION (REFER TO SMARTSET #5379) 1963 Alpha-1 Antitrypsin 1981 HPV/Co-Test 1993 Cologuard [...] 04/11/2011 LUNG CANCER SCREENING - USE SMARTSET 49082 Completed 06/30/2020 Influenza Vaccine (FLU shot) Completed [...] this encounter Medical Devices Implanted Type Area Steerer Device Identifier Shelf Expiration Date Model / Serial / Lot Vitoss Bimodal Foam Pack 1.2cc - [id number] Implanted:Qty : 1 on 01/19/2016 by Burke Vazquez DO at OR [facility] [facility] N/A: Spine Cervical DANIEL : SPINE 11/26/2016 [id number] / / [id number] 4.0 X 8mm Self Drilling Screw Implanted:Qty : 1 on 01/19/2016 by Burke Vazquez DO at OR [facility] N/A: Spine Cervical [id number] / / Description:From set Cage Avs [id number] - [id number] Implanted:Qty : 1 on 01/19/2016 by Burke Vazquez DO at OR [facility] N/A: Spine Cervical DANIEL : SPINE [id number] / / Description:From set [place] W/Screw - [id number] Implanted:Qty : 1 on 01/19/2016 by Burke Vazquez DO at OR [facility] N/A: Spine Cervical DANIEL : SPINE [id number] / / Description:From set documented as of [...] the patient have Health Care Power of Vp Integration? No Code Status History Code Status Date Activated Date Inactivated Comments Full Code 01/19/2016 6:12 AM 01/19/2016 11:06 AM This order reflects the patients wishes and were consensually agreed upon. Question Answer Comments Discussion of Advance Directives occurred with: Family Does the patient have a Living Will? No Does the patient have Health Care Power of Vp Integration? No Care Teams Job Coaching Relationship Specialty Start Date End Date Krupa Hardy DO [address] [facility] [place] [address] PCP - General Family Medicine 07/21/23 documented as of this encounter
--- OUTSIDE RECORDS SUMMARY | 2024-01-20 14:45 | External Medical Summary | Summary of Care ---
Author Name Unknown Organization [facility] Address [address] [place] [address] Phone [phone] Care Team Providers Care Returned Goods Sorter Name Role Phone Krupa Hardy DO Primary Care Provider +1- [phone] Reason for Visit * Reason Onset Date Comments Appointment 01/05/2024 X-ray results Encounter Details Date Type Department Care Team (Late st Contact Info) Description 01/05/2024 Telephone Family Practice [facility] [address] [place] [address] Krupa Hardy DO [address] [place] [address] Appointment (X-ray results) Allergies Active [...] Respimat 2.5 MCG/ACT Inhalation Aerosol Solution (Tiotropium [place] Monohydrate)Indicatio ns:COPD (chronic obstructive pulmonary disease) [...] Next Due Pneumococcal Conjugate Vacci ne, 20-valent ([id number]) 09/19/2023 Pneumococcal Polysaccharide PPV23 (Pneumovax) 12/17/2013 Seasonal [...] State Jarad Rosenberg [address] [place] [address] Sp, Neurophys Tech [address] [place] [address] 03/24/2024 10:40 AM EDT Office Visit Neurology [facility] [address] [place] [address] Soila Redding MD [address] [facility] [place] [address] 05/12/2024 1:20 PM EDT Office Visit Family Practice [address], [place] [address] [place] [address] Krupa Hardy, [address] [place] [address] 05/21/2024 1:00 PM EDT Office Visit Neurology Ileana Garcia [place] [address] [place] [address] Santo Christian, DO [address] [place] [address] Scheduled Procedures Name Priority Associated Diagnoses Date/Ti me COLONOSCOPY FLEXIBLE PROXIMA L DIAGNOSTIC Recall Special screening for malignant neoplasms, colon Health Maintenance Due Date Last Done Comments DISCUSS TOBACCO CESSATION (REFER TO SMARTSET #1984) 1963 Alpha-1 Antitrypsin 1981 HPV/Co-Test 1993 Cologuard [...] 04/11/2011 LUNG CANCER SCREENING - USE SMARTSET 04635 Completed 06/30/2020 Influenza Vaccine (FLU shot) Completed [...] this encounter Medical Devices Implanted Type Area E Business Manager Device Identifier Shelf Expiration Date Model / Serial / Lot Vitoss Bimodal Foam Pack 1.2cc - [id number] Implanted:Qty : 1 on 01/19/2016 by Burke Vazquez DO at OR [facility] N/A: Spine Cervical DANIEL : SPINE 11/26/2016 [id number] / / [id number] 4.0 X 8mm Self Drilling Screw Implanted:Qty : 1 on 01/19/2016 by Burke Vazquez DO at OR [facility] N/A: Spine Cervical [id number] / / Description:From set Cage Avs [id number] - [id number] Implanted:Qty : 1 on 01/19/2016 by Burke Vazquez DO at OR [facility] N/A: Spine Cervical DANIEL : SPINE [id number] / / Description:From set [place] W/Screw - [id number] Implanted:Qty : 1 on 01/19/2016 by Burke Vazquez DO at OR [facility] N/A: Spine Cervical DANIEL : SPINE [id number] / / Description:From set documented as of [...] the patient have Health Care Power of Scientific Director? No Code Status History Code Status Date Activated Date Inactivated Comments Full Code 01/19/2016 6:12 AM 01/19/2016 11:06 AM This order reflects the patients wishes and were consensually agreed upon. Question Answer Comments Discussion of Advance Directives occurred with: Family Does the patient have a Living Will? No Does the patient have Health Care Power of Scientific Director? No Care Teams Returned Goods Sorter Relationship Specialty Start Date End Date Krupa Hardy DO [address] [facility] [place] [address] PCP - General Family Medicine 07/21/23 documented as of this encounter
--- OUTSIDE RECORDS SUMMARY | 2024-01-20 14:45 | External Medical Summary | Summary of Care ---
Author Name Unknown Organization [facility] Address [address] [place] [address] Phone [phone] Care Team Providers Care Signal Operator Linguist Name Role Phone Krupa Hardy Primary Care Provider +1- [phone] Reason for Visit * Reason Onset Date Comments Test Results 01/06/2024 Imaging Encounter Details Date Type Department Care Team (Late st Contact Info) Description 01/06/2024 Telephone Access Center, [place] [address] [facility] *DO NOT REMOVE THIS DEPARTMENT* [place], [place] [id number] Services, Scheduling [address] [place] [address] Test Results (Imaging ) Allergies Active Allergy [...] Respimat 2.5 MCG/ACT Inhalation Aerosol Solution (Tiotropium [place] Monohydrate)Indicatio ns:COPD (chronic obstructive pulmonary disease) with [...] Next Due Pneumococcal Conjugate Vacci ne, 20-valent ([id number]) 09/19/2023 Pneumococcal Polysaccharide PPV23 (Pneumovax) 12/17/2013 Seasonal [...] 7:55 AM EDT Spoke with Marifer from [facility] Radiology she will be faxing over results. Please see second encounter. * Telephone Encounter - Saba Wadsworth OSA - 01/06/2024 4:06 PM EDT Who is Requesting Test Results: Socorro Avery Primary Care Provider : Krupa Hardy, DO Tests Results Requested : Xrays Date of Test : 01/06/24 Location of Test: Urgent Care, [place] Ordering Provider: Dr. Hardy Please provide return call to Pt sister, Lizzy Wick [phone]; Pt is having trouble with her telephone [...] AM EDT NeuroDiagnostic Study Neurophysiology Ileana Garcia [place] [address] [place] [address] Sp, Neurophys Tech [address] [facility] [place] [address] 03/24/2024 10:40 AM EDT Office Visit Neurology [facility] [address] [place] [address] Soila Redding MD [address] [place] [address] 05/12/2024 1:20 PM EDT Office Visit Family Practice [address], [place] [address] [place] [address] Krupa Hardy, [address] [place] [address] 05/21/2024 1:00 PM EDT Office Visit Neurology Ileana Garcia [place] [address] [place] [address] Santo Christian, DO [address] [place] [address] Scheduled Procedures Name Priority Associated Diagnoses Date/Ti me COLONOSCOPY FLEXIBLE PROXIMA L DIAGNOSTIC Recall Special screening for malignant neoplasms, colon Health Maintenance Due Date Last Done Comments DISCUSS TOBACCO CESSATION (REFER TO SMARTSET #5160) 1963 Alpha-1 Antitrypsin 1981 HPV/Co-Test 1993 Cologuard [...] 04/11/2011 LUNG CANCER SCREENING - USE SMARTSET 16376 Completed 06/30/2020 Influenza Vaccine (FLU shot) Completed [...] this encounter Medical Devices Implanted Type Area Life Agent Device Identifier Shelf Expiration Date Model / Serial / Lot Vitoss Bimodal Foam Pack 1.2cc - [id number] Implanted:Qty : 1 on 01/19/2016 by Burke Vazquez DO at [place] [facility] N/A: Spine Cervical DANIEL : SPINE 11/26/2016 [id number] / / [id number] 4.0 X 8mm Self Drilling Screw Implanted:Qty : 1 on 01/19/2016 by Burke Vazquez DO at [place] [facility] N/A: Spine Cervical [id number] / / Description:From set Cage Avs [id number] - [id number] Implanted:Qty : 1 on 01/19/2016 by Burke Vazquez DO at OR [facility] N/A: Spine Cervical DANIEL : SPINE [id number] / / Description:From set [place] W/Screw - [id number] Implanted:Qty : 1 on 01/19/2016 by Burke Vazquez DO at OR [facility] N/A: Spine Cervical DANIEL : SPINE [id number] / / Description:From set documented as of [...] the patient have Health Care Power of Audiovisual Production Specialist? No Code Status History Code Status Date Activated Date Inactivated Comments Full Code 01/19/2016 6:12 AM 01/19/2016 11:06 AM This order reflects the patients wishes and were consensually agreed upon. Question Answer Comments Discussion of Advance Directives occurred with: Family Does the patient have a Living Will? No Does the patient have Health Care Power of Audiovisual Production Specialist? No Care Teams Signal Operator Linguist Relationship Specialty Start Date End Date Krupa Hardy DO [address] [facility] [place] [address] PCP - General Family Medicine 07/21/23 documented as of this encounter
--- OUTSIDE RECORDS SUMMARY | 2024-01-20 14:46 | External Medical Summary | Summary of Care ---
Author Name Unknown Organization [facility] Address [address] [place] [address] Phone [phone] Care Team Providers Care Estimator Jewelry Name Role Phone HardyKrupa Primary Care Provider +1- [phone] Reason for Visit * Reason Onset Date Comments Test Results Lab 12/24/2023 Encounter Details Date Type Department Care Team (Late st Contact Info) Description 12/24/2023 Telephone Neurology [facility] [address] [facility] [place] [address] Soila Redding MD [address] [place] [address] Test Results Lab Allergies Active Allergy Reactions Criticality Noted Date [...] as of this encounter (statuses as of 12/24/2023) Medications Medication Sig Dispensed Refills Start Date End Date Status Budesonide-Formoterol Fumarate 160-4.5 MCG/ACT Inhalation Aerosol (Symbicort)Indication s:COVID-19 Inhale 2 Puffs by mouth 2 times a day. 10.2 g 12 11/19/2021 Active Spiriva Respimat 2.5 MCG/ACT Inhalation Aerosol Solution (Tiotropium [place] Monohydrate)Indicatio ns:COPD (chronic obstructive pulmonary disease) with [...] as of this encounter (statuses as of 12/24/2023) Active Problems Problem Noted Date Diagnosed Date [...] as of this encounter (statuses as of 12/24/2023) Resolved Problems Problem Noted Date Diagnosed Date [...] as of this encounter (statuses as of 12/24/2023) Immunizations Name Administration Dates Next Due Pneumococcal Conjugate Vacci ne, 20-valent ([id number]) 09/19/2023 Pneumococcal Polysaccharide PPV23 (Pneumovax) 12/17/2013 Seasonal Influenza Virus Vac cine, Unspecified Formulation 09/18/2020,07/26/2019,11/17/2018,06/28,07/17/2016,09/02/2014,07/28/20,08/29/2011,08/13/2010,09/26/2009,1 11/12/2008 Seasonal Influenza, PF, 6 M & [...] encounter Miscellaneous Notes * Telephone Encounter - Soila Redding MD - 12/24/2023 11:21 AM EST Call pt/sister; bw nl documented in this encounter Plan of Treatment Upcoming Encounters Date Type Department Care Team (Late st Contact Info) Description 01/28/2024 10:30 AM EDT NeuroDiagnostic Study Neurophysiology [facility] [place] [address] [facility] [place] [address] Sp, Neurophys Tech [address] [place] [address] [place] [address] 03/24/2024 10:40 AM EDT Office Visit Neurology [facility] [place] [address] [place] [address] Soila Redding MD [address] [facility] [place] [address] 05/12/2024 1:20 PM EDT Office Visit Family Practice [place] [address] [place] [address] Krupa Hardy, [address] [place] [address] 05/21/2024 1:00 PM EDT Office Visit Neurology [facility] [place] [address] [place] [place] [address] Santo Christian, DO [address] [place] [address] Scheduled Procedures Name Priority Associated Diagnoses Date/Ti me COLONOSCOPY FLEXIBLE PROXIMA L DIAGNOSTIC Recall Special screening for malignant neoplasms, colon Health Maintenance Due Date Last Done Comments DISCUSS TOBACCO CESSATION (REFER TO SMARTSET #0390) 1963 Alpha-1 Antitrypsin 1981 HPV/Co-Test 1993 Cologuard [...] 04/11/2011 LUNG CANCER SCREENING - USE SMARTSET 86500 Completed 06/30/2020 Influenza Vaccine (FLU shot) Completed [...] this encounter Medical Devices Implanted Type Area Pen Rider Device Identifier Shelf Expiration Date Model / Serial / Lot Vitoss Bimodal Foam Pack 1.2cc - [id number] Implanted:Qty : 1 on 01/19/2016 by Burke Vazquez DO at OR [facility] [place] N/A: Spine Cervical DANIEL : SPINE 11/26/2016 [id number] / / [id number] 4.0 X 8mm Self Drilling Screw Implanted:Qty : 1 on 01/19/2016 by Burke Vazquez DO at OR [facility] N/A: Spine Cervical [id number] / / Description:From set Cage Avs [id number] - [id number] Implanted:Qty : 1 on 01/19/2016 by Burke Vazquez DO at OR [facility] N/A: Spine Cervical DANIEL : SPINE [id number] / / Description:From set [place] W/Screw - [id number] Implanted:Qty : 1 on 01/19/2016 by Burke Vazquez DO at OR [facility] N/A: Spine Cervical DANIEL : SPINE [id number] / / Description:From set documented as of [...] the patient have Health Care Power of Emergency Department Nurse? No Code Status History Code Status Date Activated Date Inactivated Comments Full Code 01/19/2016 6:12 AM 01/19/2016 11:06 AM This order reflects the patients wishes and were consensually agreed upon. Question Answer Comments Discussion of Advance Directives occurred with: Family Does the patient have a Living Will? No Does the patient have Health Care Power of Emergency Department Nurse? No Care Teams Estimator Jewelry Relationship Specialty Start Date End Date Krupa Hardy DO [address] [facility] [place] [address] PCP - General Family Medicine 07/21/23 documented as of this encounter
--- OUTSIDE RECORDS SUMMARY | 2024-01-20 14:46 | External Medical Summary | Summary of Care ---
Author Name Unknown Organization [facility] Address [address] [facility] [place] [address] Phone [phone] Care Team Providers Care Cue Worker Name Role Phone Antony Krupa Elly DO Primary Care Provider +1- [phone] Reason for Visit * Reason Comments Outpatient Testing Encounter Details Date Type Department Care Team (Late st Contact Info) Description 12/23/2023 12:40 PM EST [facility] [address] [place] [address] [facility] [address] [place] [address] My[employer] Research Other*[id number]; Hypokalemia Allergies Active Allergy Reactions Criticality Noted Date [...] as of this encounter (statuses as of 12/23/2023) Medications Medication Sig Dispensed Refills Start Date End Date Status Budesonide-Formoterol Fumarate 160-4.5 MCG/ACT Inhalation Aerosol (Symbicort)Indication s:COVID-19 Inhale 2 Puffs by mouth 2 times a day. 10.2 g 12 11/19/2021 Active Spiriva Respimat 2.5 MCG/ACT Inhalation Aerosol Solution (Tiotropium [place] Monohydrate)Indicatio ns:COPD (chronic obstructive pulmonary disease) with [...] as of this encounter (statuses as of 12/23/2023) Active Problems Problem Noted Date Diagnosed Date [...] as of this encounter (statuses as of 12/23/2023) Resolved Problems Problem Noted Date Diagnosed Date [...] as of this encounter (statuses as of 12/23/2023) Immunizations Name Administration Dates Next Due Pneumococcal Conjugate Vacci ne, 20-valent ([id number]) 09/19/2023 Pneumococcal Polysaccharide PPV23 (Pneumovax) 12/17/2013 Seasonal [...] on file documented as of this encounter Plan of Treatment Upcoming Encounters Date Type Department Care Team (Late st Contact Info) Description 01/28/2024 10:30 AM EDT NeuroDiagnostic Study Neurophysiology [facility] [address] [facility] [place] [address] Sp, Neurophys Tech [address] [facility] [place] [address] 03/24/2024 10:40 AM EDT Office Visit Neurology [facility] [address] [place] [address] Soila Redding MD [address] [facility] [place] [address] 05/12/2024 1:20 PM EDT Office Visit Family Practice [address], [place] [address] [place] [address] Krupa Hardy, [address] [place] [address] 05/21/2024 1:00 PM EDT Office Visit Neurology [facility] [address] [place] [address] Santo Christian, DO [address] [place] [address] Pending Results Name Type Priority Associated Diagnoses Date /Time MYCODE SUBSEQUENT ADULT Lab Routine MyCode [employer] Other*[id number] 12/23/2023 1:58 PM EST BASIC METABOLIC PANEL Lab Routine Hypokalemia 12/23/2023 1:58 PM EST MYCODE SST1 Lab Routine My[employer] Other*[id number] 12/23/2023 1:58 PM EST MYCODE SST2 Lab Routine MyCode [employer] Other*[id number] 12/23/2023 1:58 PM EST Scheduled Procedures Name Priority Associated Diagnoses Date/Ti me COLONOSCOPY FLEXIBLE PROXIMA L DIAGNOSTIC Recall Special screening for malignant neoplasms, colon Health Maintenance Due Date Last Done Comments DISCUSS TOBACCO CESSATION (REFER TO SMARTSET #1251) 1963 Alpha-1 Antitrypsin 1981 HPV/Co-Test 1993 Cologuard 02/21/2008 Sigmoidoscopy 02/21/2008 Zoster Vaccines (1 of 2) 2013 Mammogram 05/08/2017 05/08/2016, 12/26, 02/16/2010 Cervical Cancer Screening 05/07/2020 Pap Smear 05/07/2020 05/07/2017, 04/26, 02/08/2014 Depression Screening 10/09/2021 10/09/2020 COVID-19 Vaccine ( season) 2023 Fecal Occult Blood Test 08/26/2023 08/26/2022 Colonoscopy 07/11/2024 07/11/2014, 06/27, 10/08/2012 Colorectal Cancer Screening 07/11/2024 O2 ASSESSMENT COMPLETED IN PAST YEAR FOR COPD 10/29/2024 10/29/2023 Lipid Panel 10/29/2028 10/29/2023, 11/27, 12/07/2021, Additional history exists DTaP,Tdap,and Td Vaccines (3 - Td or Tdap) 09/19/2033 09/19/2023, 04/11/2011 LUNG CANCER SCREENING - USE SMARTSET 49085 Completed 06/30/2020 Influenza Vaccine (FLU shot) Completed [...] this encounter Medical Devices Implanted Type Area Local Operator Device Identifier Shelf Expiration Date Model / Serial / Lot Vitoss Bimodal Foam Pack 1.2cc - [id number] Implanted:Qty : 1 on 01/19/2016 [place] Burke Vazquez [place] [facility]: Spine Cervical DANIEL : SPINE 11/26/2016 [id number] / / [id number] 4.0 X 8mm Self Drilling Screw Implanted:Qty : 1 on 01/19/2016 by Burke Vazquez DO [place] [facility] [place]/A: Spine Cervical [id number] / / Description:From set Cage Avs [id number] - [id number] Implanted:Qty : 1 on 01/19/2016 by Burke Vazquez DO [place] [facility] N/A: Spine Cervical DANIEL : SPINE [id number] / / Description:From set [place] W/Screw - [id number] Implanted:Qty : 1 on 01/19/2016 by Burke Vazquez DO [place] [facility] N/A: Spine Cervical DANIEL : SPINE [id number] / / Description:From set documented as of this encounter Visit Diagnoses Diagnosis My[employer] Other*[id number] Hypokalemia Hypopotassemia documented in this encounter Advance Directives Latest Code Status on File Code Status Date Activated Date Inactivated Comments Full Code 01/19/2016 11:06 AM 01/21/2016 4:21 PM This order reflects the patients wishes and were consensually agreed upon. Question Answer Comments Discussion of Advance Directives occurred with: Patient Does the patient have a Living Will? No Does the patient have Health Care Power of Manager Credit Risk? No Code Status History Code Status Date Activated Date Inactivated Comments Full Code 01/19/2016 6:12 AM 01/19/2016 11:06 AM This order reflects the patients wishes and were consensually agreed upon. Question Answer Comments Discussion of Advance Directives occurred with: Family Does the patient have a Living Will? No Does the patient have Health Care Power of Manager Credit Risk? No Care Teams Cue Worker Relationship Specialty Start Date End Date Krupa Hardy DO [address] [facility] [place] [id number] PCP - General Family Medicine 9/25/23 documented as of this encounter
--- OUTSIDE RECORDS SUMMARY | 2024-01-20 14:46 | External Medical Summary | Summary of Care ---
Author Name Unknown Organization [facility] Address [address] [place] [address] Phone [phone] Care Team Providers Care Veterinarian Small Animal Name Role Phone Krupa Hardy DO Primary Care Provider +1- [phone] Reason for Visit * Reason Onset Date Comments Appointment 12/19/2023 Acute/Head, Back of neck pain Encounter Details Date Type Department Care Team (Late st Contact Info) Description 12/19/2023 Telephone Family Practice [facility], [place] [address] [place] [address] Krupa Hardy DO [address] [place] [address] Appointment (Acute/Head, Back of neck pain) [...] Respimat 2.5 MCG/ACT Inhalation Aerosol Solution (Tiotropium [place] Monohydrate)Indicatio ns:COPD (chronic obstructive pulmonary disease) with [...] Next Due Pneumococcal Conjugate Vacci ne, 20-valent ([id number]) 09/19/2023 Pneumococcal Polysaccharide PPV23 (Pneumovax) 12/17/2013 Seasonal [...] State Jarad Rosenberg [address] [place] [address] Sp, Neurophys Tech [address] [place] [address] 03/24/2024 10:40 AM EDT Office Visit Neurology [facility] [address] [place] [address] Soila Redding MD [address] [place] [address] 05/12/2024 1:20 PM EDT Office Visit Family Practice [address], [place] [address] [place] [address] Krupa Hardy DO [address] [place] [address] 05/21/2024 1:00 PM EDT Office Visit Neurology Ileana Garcia Fred [address] [place] [address] Santo Christian, DO [address] [place] [address] Scheduled Procedures Name Priority Associated Diagnoses Date/Ti me COLONOSCOPY FLEXIBLE PROXIMA L DIAGNOSTIC Recall Special screening for malignant neoplasms, colon Health Maintenance Due Date Last Done Comments DISCUSS TOBACCO CESSATION (REFER TO SMARTSET #9998) 1963 Alpha-1 Antitrypsin 1981 HPV/Co-Test 1993 Cologuard [...] 04/11/2011 LUNG CANCER SCREENING - USE SMARTSET 88397 Completed 06/30/2020 Influenza Vaccine (FLU shot) Completed [...] this encounter Medical Devices Implanted Type Area Quality Assurance Coach Device Identifier Shelf Expiration Date Model / Serial / Lot Vitoss Bimodal Foam Pack 1.2cc - [id number] Implanted:Qty : 1 on [place]/19/2016 [place] Vaz[place] [facility] [place] Spine Cervical DANIEL : SPINE 11/26/2016 [id number] / / [id number] 4.0 X 8mm Self Drilling Screw Implanted:Qty : 1 on 01/19/2016 by Burke Vazquez DO [place] [facility] [place] Spine Cervical [id number] / / Description:From set Cage Avs [id number] - [id number] Implanted:Qty : 1 on 01/19/2016 by Burke Vazquez DO [place] [facility] [place] Spine Cervical DANIEL : SPINE [id number] / / Description:From set [place]ati W/Screw - [id number] Implanted:Qty : 1 on 01/19/2016 by Burke Vazquez DO [place] [facility] [place]: Spine Cervical DANIEL : SPINE [id number] / / Description:From set documented as of [...] the patient have Health Care Power of Movie Machine Operator? No Code Status History Code Status Date Activated Date Inactivated Comments Full Code 01/19/2016 6:12 AM 01/19/2016 11:06 AM This order reflects the patients wishes and were consensually agreed upon. Question Answer Comments Discussion of Advance Directives occurred with: Family Does the patient have a Living Will? No Does the patient have Health Care Power of Movie Machine Operator? No Care Teams Veterinarian Small Animal Relationship Specialty Start Date End Date Krupa Hardy DO [address] [facility] [place] [address] PCP - General Family Medicine 07/21/23 documented as of this encounter
--- OUTSIDE RECORDS SUMMARY | 2024-01-20 14:46 | External Medical Summary | Summary of Care ---
Author Name Unknown Organization [facility] Address [address] [place] [address] Phone [phone] Care Team Providers Care Snowmobile Mechanic Name Role Phone HardyKrupa Primary Care Provider +1- [phone] Reason for Visit * Reason Onset Date Comments Test Results Lab 12/24/2023 Encounter Details Date Type Department Care Team (Late st Contact Info) Description 12/24/2023 Telephone Neurology [facility] [address] [facility] [place] [address] Soila Redding MD [address] [place] [address] Test Results Lab Allergies Active Allergy Reactions [...] Respimat 2.5 MCG/ACT Inhalation Aerosol Solution (Tiotropium [place] Monohydrate)Indicatio ns:COPD (chronic obstructive pulmonary disease) with [...] Next Due Pneumococcal Conjugate Vacci ne, 20-valent ([id number]) 09/19/2023 Pneumococcal Polysaccharide PPV23 (Pneumovax) 12/17/2013 Seasonal [...] encounter Miscellaneous Notes * Telephone Encounter - Bonnie March LPN - 12/24/2023 2:05 PM EST Pt's sister, Lizzy, made aware. No further questions/concerns at this time. * Telephone Encounter - Soila Redding MD - 12/24/2023 11:21 AM EST Call pt/sister; bw nl documented in this encounter Plan of Treatment Upcoming Encounters Date Type Department Care Team (Late st Contact Info) Description 01/28/2024 10:30 AM EDT NeuroDiagnostic Study Neurophysiology [facility] [address] [facility] [place] [address] Sp, Neurophys Tech [address] [facility] [place] [address] 03/24/2024 10:40 AM EDT Office Visit Neurology [facility] [address] [facility] [place] [address] Soila Redding MD [address] [place] [address] 05/12/2024 1:20 PM EDT Office Visit Family Practice [address] [place] [address] [place] [address] Krupa Hardy DO [address] [place] [address] 05/21/2024 1:00 PM EDT Office Visit Neurology Ileana Garcia [place] [address] [place] [address] Santo Christian, DO [address] [place] [address] Scheduled Procedures Name Priority Associated Diagnoses Date/Ti me COLONOSCOPY FLEXIBLE PROXIMA L DIAGNOSTIC Recall Special screening for malignant neoplasms, colon Health Maintenance Due Date Last Done Comments DISCUSS TOBACCO CESSATION (REFER TO SMARTSET #8606) 1965 Alpha-1 Antitrypsin 1981 HPV/Co-Test 1993 Cologuard [...] 04/11/2011 LUNG CANCER SCREENING - USE SMARTSET 67835 Completed 06/30/2020 Influenza Vaccine (FLU shot) Completed [...] this encounter Medical Devices Implanted Type Area Hot Air Furnace Installer And Repairer Device Identifier Shelf Expiration Date Model / Serial / Lot Vitoss Bimodal Foam Pack 1.2cc - [id number] Implanted:Qty : 1 on 01/19/2016 by Burke Vazquez DO at [place] [facility] [place]/A: Spine Cervical DANIEL : SPINE 11/26/2016 [id number] / / [id number] 4.0 X 8mm Self Drilling Screw Implanted:Qty : 1 on 01/19/2016 by Burke Vazquez DO at [place] [facility] [place] N/A: Spine Cervical [id number] / / Description:From set Cage Avs [id number] - [id number] Implanted:Qty : 1 on 01/19/2016 by Burke Vazquez DO at [place] [facility] [place] N/A: Spine Cervical DANIEL : SPINE [id number] / / Description:From set [place] W/Screw - [id number] Implanted:Qty : 1 on 01/19/2016 by Burke Vazquez DO at [place] [facility] [place] N/A: Spine Cervical DANIEL : SPINE [id number] / / Description:From set documented as of [...] the patient have Health Care Power of Vice President Payer? No Code Status History Code Status Date Activated Date Inactivated Comments Full Code 01/19/2016 6:12 AM 01/19/2016 11:06 AM This order reflects the patients wishes and were consensually agreed upon. Question Answer Comments Discussion of Advance Directives occurred with: Family Does the patient have a Living Will? No Does the patient have Health Care Power of Vice President Payer? No Care Teams Snowmobile Mechanic Relationship Specialty Start Date End Date Krupa Hardy DO [address] [facility] [place] [address] PCP - General Family Medicine 07/21/23 documented as of this encounter
--- OUTSIDE RECORDS SUMMARY | 2024-01-20 14:47 | External Medical Summary ---
Author Name Unknown Address Unknown Organization K01:[facility] - [address] [place] [address] Laboratory Report Ordering Provider Test Date Status CRISTY CROW 12/23/2023 13:58:21 Final Observation Date Value Abnormality Reference (Units ) Status Vitamin B12 12/23/2023 13:58:21 [phone] (pg/mL) Final Performing Location [facility] - [address] [place] [address]
--- OUTSIDE RECORDS SUMMARY | 2024-01-20 14:47 | External Medical Summary | Summary of Care ---
Author Name Unknown Organization [facility] Address [address] [place] [address] Phone [phone] Care Team Providers Care Sport Intern Name Role Phone Krupa Hardy DO Primary Care Provider +1- [phone] Reason for Visit * Reason Onset Date Comments Medication Refill 12/19/2023 Encounter Details Date Type Department Care Team (Late st Contact Info) Description 12/19/2023 Refill Family [facility], [place] [address] [place], [place] [id number] Krupa Hardy DO [address] [place], [place] [phone] Irritable bowel syndrome with diarrhea; Intractable migraine with aura without status migrainosus Allergies Active Allergy Reactions Criticality Noted Date [...] as of this encounter (statuses as of 12/19/2023) Medications Medication Sig Dispensed Refills Start Date End Date Status Budesonide-Formotero l Fumarate 160-4.5 MCG/ACT Inhalation Aerosol (Symbicort)Indicatio ns:COVID-19 Inhale 2 Puffs by mouth 2 times a day. 10.2 g 12 11/19/2021 Active Spiriva Respimat 2.5 MCG/ACT Inhalation Aerosol Solution (Tiotropium Strang Monohydrate)Indicati ons:COPD (chronic obstructive pulmonary disease) with [...] 08/26/2023 Active Topiramate 200 MG Oral Tablet (topAMAX)Indications [...] OR vomiting 30 Tablet 1 12/19/2023 Active Ondansetron 4 MG Oral Tablet Disintegrating (Zofran)Indications: Irritable bowel syndrome with diarrhea,Intractable migraine with aura without status migrainosus dissolve 1 tablet ON TONGUE every 8 hours if needed for nausea OR vomiting 30 Tablet 1 11/06/2023 4 Discontinue d(Refill) documented as of this encounter (statuses as of 12/19/2023) Active Problems Problem Noted Date Diagnosed Date [...] as of this encounter (statuses as of 12/19/2023) Resolved Problems Problem Noted Date Diagnosed Date [...] in female 06/14/20142014 Diverticulosis of colon 06/13/2014 04/0 10/2014 Knee pain, left 06/01/2014 08/02/2015 BV (bacterial vaginosis) 01/11/2014 Neck pain 12/17/2013 04/25/2016 Overview: Post surgery Serous otitis media 08/27/2013 11/05/19 14 Diverticulosis 04/12/2013 08/02/2015 Colon polyp 04/12/2013 07/07/2013 Irritable bowel syndrome (IBS) 04/12/2013 07/07/2013 Overview: Much Diarrhea IBS (irritable bowel syndrome) 04/11/2013 04/25/2016 Candidal vulvovaginitis 03/25/2013 0603/2013 Complicated acute bronchitis 03/12/2013 04/01/2013 Adhesion of [...] as of this encounter (statuses as of 12/19/2023) Immunizations Name Administration Dates Next Due Pneumococcal Conjugate Vacci ne, 20-valent ([id number]) 09/19/2023 Pneumococcal Polysaccharide PPV23 (Pneumovax) 12/17/2013 Seasonal [...] encounter Miscellaneous Notes * Telephone Encounter - Vinod Gutierrez [facility] - 12/19/2023 11:49 AM EST Signed Prescriptions: Disp Refills Ondansetron 4 MG Oral Tablet Disintegratin*30 Tab*1 Sig: dissolve 1 tablet ON TONGUE every 8 hours if needed for nausea OR vomitingAuthorizing Provider: EDWINA NGO User: VINOD GUTIERREZ * Telephone Encounter - Ernestina Morrison CPhT - 12/19/2023 11:32 AM EST Pt is asking high priority. Did you pend patient's preferred pharmacy and medication before forwarding?yes Pharmacy: [id number] [facility] Pending Prescriptions: Disp Refills Ondansetron 4 MG Oral Tablet Disintegrati*30 Tab*1 Sig: dissolve 1 tablet ON TONGUE every 8 hours if needed for nausea OR vomiting Last Visit: 10/29/2023 (in office), 02/18/2020 (telemedicine) Next Visit: 05/12/2024 If no future appointments scheduled, and last appointment is greater than a year ago, please schedule patient for a follow-up appointment Last date the medication was ordered: 11/06/2023 Is this request for a controlled substance?No [...] found in Results Review. Patient Phone Numbers [facility] [phone] Labs: Lab Results Component Value Date/Time CREAT 0.8 10/29/2023 01:29 PM CREAT 0.8 11/21/2020 09:16 AM POTASSIUM 3.3 (L) 10/29/2023 01:29 PM POTASSIUM 4.6 11/21/2020 09:16 AM TSH [...] Team (Late st Contact Info) Description 12/23/2023 1:00 PM EST Office Visit Neurology [facility] [address] [place] [address] Soila Redding MD [address] [place] [address] 05/12/2024 1:20 PM EDT Office Visit Family Practice [address], [place] [address] [place] [address] Krupa Hardy, [address] [place] [address] 05/21/2024 1:00 PM EDT Office Visit Neurology [facility] [address] [place] [address] Santo Christian, DO [address] [place] [address] Scheduled Procedures Name Priority Associated Diagnoses Date/Ti me COLONOSCOPY FLEXIBLE PROXIMA L DIAGNOSTIC Recall Special screening for malignant neoplasms, colon Health Maintenance Due Date Last Done Comments DISCUSS TOBACCO CESSATION (REFER TO SMARTSET #6124) 1965 Alpha-1 Antitrypsin 1981 HPV/Co-Test 1993 Cologuard [...] 04/11/2011 LUNG CANCER SCREENING - USE SMARTSET 34681 Completed 06/30/2020 Influenza Vaccine (FLU shot) Completed [...] this encounter Medical Devices Implanted Type Area Hair Or Beauty Salon Assistant Device Identifier Shelf Expiration Date Model / Serial / Lot Vitoss Bimodal Foam Pack 1.2cc - [id number] Implanted:Qty : 1 on 01/19/2016 by Burke Vazquez DO [place] [facility] [place]: Spine Cervical DANIEL : SPINE 11/26/[id number] / / [id number] 4.0 X 8mm Self Drilling Screw Implanted:Qty : 1 on 01/19/2016 by Burke Vazquez DO [place] [facility] [place]A: Spine Cervical [id number] / / Description:From set Cage Avs [id number] - [id number] Implanted:Qty : 1 on 01/19/2016 by Burke Vazquez DO [place] [facility] [place]/A: Spine Cervical DANIEL : SPINE [id number] / / Description:From set [place] W/Screw - [id number] Implanted:Qty : 1 on 01/19/2016 by Burke Vazquez DO [place] [facility] [place]/A: Spine Cervical DANIEL : SPINE [id number] / / Description:From set documented as of this encounter Visit Diagnoses Diagnosis Irritable bowel syndrome with diarrhea Irritable bowel syndrome Intractable migraine with aura without status migrainosus Migraine with aura, with intractable migraine, so stated, without mention of status migrainosus documented in this encounter Advance Directives Latest Code Status on File Code Status Date Activated Date Inactivated Comments Full Code 01/19/2016 11:06 AM 01/21/2016 4:21 PM This order reflects the patients wishes and were consensually agreed upon. Question Answer Comments Discussion of Advance Directives occurred with: Patient Does the patient have a Living Will? No Does the patient have Health Care Power of Buyer Planner? No Code Status History Code Status Date Activated Date Inactivated Comments Full Code 01/19/2016 6:12 AM 01/19/2016 11:06 AM This order reflects the patients wishes and were consensually agreed upon. Question Answer Comments Discussion of Advance Directives occurred with: Family Does the patient have a Living Will? No Does the patient have Health Care Power of Buyer Planner? No Care Teams Sport Intern Relationship Specialty Start Date End Date Krupa Hardy DO [address] [facility] [place] [address] PCP - General Family Medicine 07/21/23 documented as of this encounter
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
--- OUTSIDE RECORDS SUMMARY | 2024-01-20 14:47 | External Medical Summary | Summary of Care ---
Author Name Unknown Organization [facility] Address [address] [place] [address] Phone [phone] Care Team Providers Care Optometry Doctor Name Role Phone Krupa Hardy DO Primary Care Provider +1- [phone] Reason for Visit * Reason Onset Date Comments Advice 12/17/2023 Encounter Details Date Type Department Care Team (Late st Contact Info) Description 12/17/[address] [facility] [place] [place] [address] [place] [address] Krupa Hardy DO [address] [place] [address] Advice Allergies Active Allergy Reactions Criticality Noted Date [...] as of this encounter (statuses as of 12/18/2023) Medications Medication Sig Dispensed Refills Start Date End Date Status Budesonide-Formoterol Fumarate 160-4.5 MCG/ACT Inhalation Aerosol (Symbicort)Indication s:COVID-19 Inhale 2 Puffs by mouth 2 times a day. 10.2 g 12 11/19/2021 Active Spiriva Respimat 2.5 MCG/ACT Inhalation Aerosol Solution (Tiotropium Ramona Monohydrate)Indicatio ns:COPD (chronic obstructive pulmonary disease) with [...] affected area. 15 g 5 10/29/2023 Active Ondansetron 4 MG Oral Tablet Disintegrating (Zofran)Indications:I rritable bowel syndrome with diarrhea,Intractable migraine with aura without status migrainosus dissolve 1 tablet ON TONGUE every 8 hours if needed for nausea OR vomiting 30 Tablet 1 11/06/2023 Active DULoxetine HCl 60 MG Oral Capsule Delayed Release Particles (Cymbalta)Indications :Recurrent major depressive disorder, in partial remission (HCC),DHIRAJ (generalized anxiety disorder) Take 1 Capsule by mouth in the morning and 1 Capsule before bedtime. 60 Capsule 5 11/07/2023 Active documented as of this encounter (statuses as of 12/18/2023) Active Problems Problem Noted Date Diagnosed Date [...] as of this encounter (statuses as of 12/18/2023) Resolved Problems Problem Noted Date Diagnosed Date [...] as of this encounter (statuses as of 12/18/2023) Immunizations Name Administration Dates Next Due Pneumococcal Conjugate Vacci ne, 20-valent ([id number]) 09/19/2023 Pneumococcal Polysaccharide PPV23 (Pneumovax) 12/17/2013 Seasonal [...] Telephone Encounter - Carolina Sales LPN - 12/18/2023 1:41 PM EST Please verify upcoming appt with pt * Telephone Encounter - Krupa Hardy DO - 12/18/2023 1:06 PM EST Pt is scheduled in April for routine appt * Telephone Encounter - Lidia Pan LPN - 12/17/2023 12:46 PM EST FYI * Telephone Encounter - Valerie Garcia OSA - 12/17/2023 12:41 PM EST Pt said she didn't have a phone and wants to let pcp know that she still wants her to know that sheshe wants her as to pcp and question for pt or need to schedule appts please call pt back at [phone]. documented in this encounter Plan of Treatment Upcoming Encounters Date Type Department Care Team (Late st Contact Info) Description 12/23/2023 1:00 PM EST Office Visit Neurology [facility] [place] [address] [place] [address] Soila Redding MD [address] [place] [address] 05/12/2024 1:20 PM EDT Office Visit Family Practice [address] [place] [address] Krupa Hardy DO [address] [place] [address] 05/21/2024 1:00 PM EDT Office Visit Neurology [facility] [place] [address] [place] [address] Santo Christian, DO [address] [facility] [address] Scheduled Procedures Name Priority Associated Diagnoses Date/Ti me COLONOSCOPY FLEXIBLE PROXIMA L DIAGNOSTIC Recall Special screening for malignant neoplasms, colon Health Maintenance Due Date Last Done Comments DISCUSS TOBACCO CESSATION (REFER TO SMARTSET #4791) 1965 Alpha-1 Antitrypsin 1981 HPV/Co-Test 1993 Cologuard [...] 04/11/2011 LUNG CANCER SCREENING - USE SMARTSET 59038 Completed 06/30/2020 Influenza Vaccine (FLU shot) Completed [...] this encounter Medical Devices Implanted Type Area Guitar Repairer Device Identifier Shelf Expiration Date Model / Serial / Lot Vitoss Bimodal Foam Pack 1.2cc - [id number] Implanted:Qty : 1 on 01/19/2016 by Burke Vazquez DO at [place] [facility] N/A: Spine Cervical DANIEL : SPINE 11/26/2016 [id number] / / [id number] 4.0 X 8mm Self Drilling Screw Implanted:Qty : 1 on 01/19/2016 by Burke Vazquez DO at [facility] N/A: Spine Cervical [id number] / / Description:From set Cage Avs [id number] - [id number] Implanted:Qty : 1 on 01/19/2016 by Burke Vazquez DO at [facility] N/A: Spine Cervical DANIEL : SPINE [id number] / / Description:From set [place] W/Screw - [id number] Implanted:Qty : 1 on 01/19/2016 by Burke Vazquez DO at [facility] N/A: Spine Cervical DANIEL : SPINE [id number] / / Description:From set documented as of [...] the patient have Health Care Power of Social Worker Clinical? No Code Status History Code Status Date Activated Date Inactivated Comments Full Code 01/19/2016 6:12 AM 01/19/2016 11:06 AM This order reflects the patients wishes and were consensually agreed upon. Question Answer Comments Discussion of Advance Directives occurred with: Family Does the patient have a Living Will? No Does the patient have Health Care Power of Social Worker Clinical? No Care Teams Optometry Doctor Relationship Specialty Start Date End Date Krupa Hardy DO [address] [place] [address] PCP - General Family Medicine 07/21/23 documented as of this encounter
--- OUTSIDE RECORDS SUMMARY | 2024-01-20 14:47 | External Medical Summary | Summary of Care ---
Author Name Unknown Organization [facility] Address [address] [place] [address] Phone [phone] Care Team Providers Care Vertical Mill Operator Name Role Phone Krupa Hardy DO Primary Care Provider +1- [phone] Reason for Visit * Reason Onset Date Comments Advice 12/17/2023 Encounter Details Date Type Department Care Team (Late st Contact Info) Description 12/17/2023 Telephone Family Practice [facility], [place] [address] [place] [address] Krupa Hardy DO [address] [place] [address] Advice Allergies Active Allergy Reactions [...] Respimat 2.5 MCG/ACT Inhalation Aerosol Solution (Tiotropium [place] Monohydrate)Indicatio ns:COPD (chronic obstructive pulmonary disease) with [...] Next Due Pneumococcal Conjugate Vacci ne, 20-valent ([id number]) 09/19/2023 Pneumococcal Polysaccharide PPV23 (Pneumovax) 12/17/2013 Seasonal [...] Telephone Encounter - Jeni Pa OSA - 12/19/2023 8:56 AM EST Phone is disconnected. * Telephone Encounter - Carolina Sales LPN [...] schedule appts please call pt back at [phone]. documented in this encounter Plan of Treatment Upcoming Encounters Date Type Department Care Team (Late st Contact Info) Description 12/23/2023 1:00 PM EST Office Visit Neurology [facility] [address] [place] [address] Soila Redding MD [address] [place] [address] 05/12/2024 1:20 PM EDT Office Visit Family Practice [address] [place] [address] Antony Krupa Sanabria, DO [address] [facility] [place] [address] 05/21/2024 1:00 PM EDT Office Visit Neurology Ileana Garcia [place] [address] [place] [address] Santo Christian, DO [address] [place] [address] Scheduled Procedures Name Priority Associated Diagnoses Date/Ti me COLONOSCOPY FLEXIBLE PROXIMA L DIAGNOSTIC Recall Special screening for malignant neoplasms, colon Health Maintenance Due Date Last Done Comments DISCUSS TOBACCO CESSATION (REFER TO SMARTSET #8124) 1963 Alpha-1 Antitrypsin 1981 HPV/Co-Test 1993 Cologuard [...] 04/11/2011 LUNG CANCER SCREENING - USE SMARTSET 00179 Completed 06/30/2020 Influenza Vaccine (FLU shot) Completed [...] this encounter Medical Devices Implanted Type Area Account Engineer Device Identifier Shelf Expiration Date Model / Serial / Lot Vitoss Bimodal Foam Pack 1.2cc - [id number] Implanted:Qty : 1 on 01/19/2016 by Burke Vazquez DO [place] [facility] [place]: Spine Cervical DANIEL : SPINE 11/26/2016 [id number] / / [id number] 4.0 X 8mm Self Drilling Screw Implanted:Qty : 1 on 01/19/2016 by Burke Vazquez DO [place] [facility] [place]/A: Spine Cervical [id number] / / Description:From set Cage Avs [id number] - [id number] Implanted:Qty : 1 on 01/19/2016 by Burke Vazquez DO [place] [facility] [place]/A: Spine Cervical DANIEL : SPINE [id number] / / Description:From set [place] W/Screw - [id number] Implanted:Qty : 1 on 01/19/2016 by Burke Vazquez DO [place] [facility] [place]/A: Spine Cervical DANIEL : SPINE [id number] / / Description:From set documented as of [...] the patient have Health Care Power of Puller Through? No Code Status History Code Status Date Activated Date Inactivated Comments Full Code 01/19/2016 6:12 AM 01/19/2016 11:06 AM This order reflects the patients wishes and were consensually agreed upon. Question Answer Comments Discussion of Advance Directives occurred with: Family Does the patient have a Living Will? No Does the patient have Health Care Power of Puller Through? No Care Teams Vertical Mill Operator Relationship Specialty Start Date End Date Krupa Hardy DO [address] [facility] [place] [address] PCP - General Family Medicine 07/21/23 documented as of this encounter
--- OUTSIDE RECORDS SUMMARY | 2024-01-20 14:47 | External Medical Summary ---
Author Name Unknown Address Unknown Organization [id number]:LABORATORY [facility] [place] - [address] [place] [address] Laboratory Report Ordering Provider Test Date Status CRISTY CROW 12/23/2023 13:58:21 Final Observation Date Value Abnormality Reference (Units ) Status Erythrocyte sedimentation rate by Photometric method 12/23/2023 13:58:21 <1 <30 (mm/hour) Final Performing Location LABORATORY C - [address] [place] [address]
--- OUTSIDE RECORDS SUMMARY | 2024-01-20 14:47 | External Medical Summary ---
Author Name Unknown Address Unknown Organization [id number]:[facility] [place] [address] [place] [address] Laboratory Report Ordering Provider Test Date Status HINA FARAH 12/23/2023 13:58:21 Final Observation Date Value Abnormality Reference (Units ) Status MYCODE SPECIMEN-SST 12/23/2023 13:58:21 Freezing of extracted DNA, whole blood and/or serum. Final Performing Location LABORATORY C - [address] [place] [address]
--- OUTSIDE RECORDS SUMMARY | 2024-01-20 14:47 | External Medical Summary ---
Author Name Unknown Address Unknown Organization K09:LABORATORY [place] [address] Laboratory Report Ordering Provider Test Date Status HUBER BLAND 12/23/2023 13:58:21 Final Observation Date Value Abnormality Reference (Units ) Status BUN 12/23/2023 13:58:21 7 6-20 (mg/dL) Final Creatinine 12/23/2023 13:58:21 0.8 0.5-1.0 (mg/dL) Final Glomerular filtration rate/1.73 sq M.predicted [Volume Rate/Area] in Serum, Plasma or Blood by Creatinine-based formula (CKD-EPI) 12/23/2023 13:58:21 87 >=60 (mL/min) Final eGFR is calculated based on the CKD-EPI 2020 equation SODIUM 12/23/2023 13:58:21 142 135-146 (m mol/L) Final Potassium 12/23/2023 13:58:21 3.8 3.5-5.1 (m mol/L) Final Cl 12/23/2023 13:58:21 105 98-107 (mm ol/L) Final CO2 12/23/2023 13:58:21 26 22-32 (mmo l/L) Final Anion gap 12/23/2023 13:58:21 11 7-15 (mmol /L) Final Glucose 12/23/2023 13:58:21 81 70-120 (mg /dL) Final Calcium 12/23/2023 13:58:21 9.6 8.4-10.2 ( mg/dL) Final Performing Location LABORATORY [place] [address]
--- OUTSIDE RECORDS SUMMARY | 2024-01-20 14:47 | External Medical Summary | Summary of Care ---
Author Name Unknown Organization [facility] Address [address] [place] [address] Phone [phone] Care Team Providers Care Insurance Compliance Analyst Name Role Phone Krupa Hardy DO Primary Care Provider +1- [phone] Reason for Visit * Reason Onset Date Comments Appointment 12/19/2023 Acute/Head, Back of neck pain Encounter Details Date Type Department Care Team (Late st Contact Info) Description 12/19/2023 Telephone Family Practice [facility] [place] [address] [place] [address] Krupa Hardy DO [address] [place] [address] Appointment (Acute/Head, Back of neck pain) [...] Respimat 2.5 MCG/ACT Inhalation Aerosol Solution (Tiotropium [place] Monohydrate)Indicatio ns:COPD (chronic obstructive pulmonary disease) with [...] Next Due Pneumococcal Conjugate Vacci ne, 20-valent ([id number]) 09/19/2023 Pneumococcal Polysaccharide PPV23 (Pneumovax) 12/17/2013 Seasonal [...] 12/23/2023 1:00 PM EST Office Visit Neurology [facility] [address] [place] [address] Soila Redding MD [address] [facility] [place] [address] 05/12/2024 1:20 PM EDT Office Visit Family Practice [place] [facility]ke[address] [place] [address] Krupa Hardy, [address] [place] [address] 05/21/2024 1:00 PM EDT Office Visit Neurology [facility] [address] [place] [address] Santo Christian, DO [address] [address] Scheduled Procedures Name Priority Associated Diagnoses Date/Ti me COLONOSCOPY FLEXIBLE PROXIMA L DIAGNOSTIC Recall Special screening for malignant neoplasms, colon Health Maintenance Due Date Last Done Comments DISCUSS TOBACCO CESSATION (REFER TO SMARTSET #4130) 1965 Alpha-1 Antitrypsin 1981 HPV/Co-Test 1993 Cologuard [...] 04/11/2011 LUNG CANCER SCREENING - USE SMARTSET 09810 Completed 06/30/2020 Influenza Vaccine (FLU shot) Completed [...] this encounter Medical Devices Implanted Type Area Director Of Quality Improvement Device Identifier Shelf Expiration Date Model / Serial / Lot Vitoss Bimodal Foam Pack 1.2cc - [id number] Implanted:Qty : 1 on 01/19/2016 by Burke Vazquez DO [place] [facility] [place]: Spine Cervical DANIEL : SPINE 11/26/2016 [id number] / / [id number] 4.0 X 8mm Self Drilling Screw Implanted:Qty : 1 on 01/19/2016 by Burke Vazquez DO [place] [facility] [place]: Spine Cervical [id number] / / Description:From set Cage Avs [id number] - [id number] Implanted:Qty : 1 on 01/19/2016 by Burke Vazquez DO [place] [facility] [place]A: Spine Cervical DANIEL : SPINE [id number] / / Description:From set [place] W/Screw - [id number] Implanted:Qty : 1 on 01/19/2016 by Burke Vazquez DO [place] [facility] [place]A: Spine Cervical DANIEL : SPINE [id number] / / Description:From set documented as of [...] the patient have Health Care Power of Customs Director? No Code Status History Code Status Date Activated Date Inactivated Comments Full Code 01/19/2016 6:12 AM 01/19/2016 11:06 AM This order reflects the patients wishes and were consensually agreed upon. Question Answer Comments Discussion of Advance Directives occurred with: Family Does the patient have a Living Will? No Does the patient have Health Care Power of Customs Director? No Care Teams Insurance Compliance Analyst Relationship Specialty Start Date End Date Krupa Hardy DO [address] [facility] [place] [address] PCP - General Family Medicine 07/21/23 documented as of this encounter
--- OUTSIDE RECORDS SUMMARY | 2024-01-20 14:47 | External Medical Summary ---
Author Name Unknown Address Unknown Organization K01:LABORATORY [address] [facility] [address] Laboratory Report Ordering Provider Test Date Status CRISTY CROW 12/23/2023 13:58:21 Final Observation Date Value Abnormality Reference (Units ) Status Nuclear IgG Ab [Ratio] in Serum by Immunoassay 12/23/2023 13:58:21 Negative Negative Final DNA double strand Ab [Presence] in Serum 12/23/2023 13:58:21 Negative Negative Final DOUBLE STRANDED DNA VALUE - [facility] 12/23/2023 13:58:21 9.8 <20 (IU/mL) Final Extractable nuclear Ab [Presence] in Serum 12/23/2023 13:58:21 Negative Negative Final Nuclear IgG Ab [Ratio] in Serum by Immunoassay 12/23/2023 13:58:21 <0.1 <0.7 (Ratio) Final Screening is based on detect ion of the following antibodies: dsDNA, U1-DESK PENS ASSEMBLER (RNP70, A, C), SS-A/Ro, SS-B / La, Chiquita-1, Scl-70, Centromere B proteins and Sm proteins. In conjunction with clinical findings, this can aid in the diagnosis of systemic lupus erythematosous (SLE), mixed connective tissue disease (MCTD), Sjogren's syndrome, scleroderma and polymyositis/dermatomyositis.
However, a negative result does not rule out systemic rheumatic or other autoimmune disease. If clinically suspected, further evaluation and testing may be necessary. Please consult with Rheumatology Department.
Methodology: Fluorescent Enzyme Immunoassay. Performing Location LABORATORY [address] [facility] [address]
--- OUTSIDE RECORDS SUMMARY | 2024-01-20 14:47 | External Medical Summary ---
Author Name Unknown Address Unknown Organization K01:LABORATORY [facility] [place] - [address] [place] [address] [place] [address] Laboratory Report Ordering Provider Test Date Status CRISTY CROW 12/23/2023 13:58:21 Final Observation Date Value Abnormality Reference (Units ) Status Borrelia burgdorferi IgG and IgM [Interpretation] in Serum by Immunoassay 12/23/2023 13:58:21 Negative Negative Final Performing Location LABORATORY [facility] - [address] [place] [address]
--- OUTSIDE RECORDS SUMMARY | 2024-01-20 14:47 | External Medical Summary | Summary of Care ---
Author Name Unknown Organization [facility] Address [address] [place] [address] Phone [phone] Care Team Providers Care Meteorologist Liaison Name Role Phone Krupa Hardy DO Primary Care Provider +1- [phone] Reason for Visit * Reason Onset Date Comments Appointment 12/19/2023 Acute/Head, Back of neck pain Encounter Details Date Type Department Care Team (Late st Contact Info) Description 12/19/2023 Telephone Family Practice [facility] [place] [address] [place] [address] Krupa Hardy DO [address] [place] [address] Appointment (Acute/Head, Back of neck [...] as of this encounter (statuses as of 12/22/2023) Medications Medication Sig Dispensed Refills Start Date End Date Status Budesonide-Formoterol Fumarate 160-4.5 MCG/ACT Inhalation Aerosol (Symbicort)Indication s:COVID-19 Inhale 2 Puffs by mouth 2 times a day. 10.2 g 12 11/19/2021 Active Spiriva Respimat 2.5 MCG/ACT Inhalation Aerosol Solution (Tiotropium [place] Monohydrate)Indicatio ns:COPD (chronic obstructive pulmonary disease) with [...] as of this encounter (statuses as of 12/22/2023) Active Problems Problem Noted Date Diagnosed Date [...] as of this encounter (statuses as of 12/22/2023) Resolved Problems Problem Noted Date Diagnosed Date [...] as of this encounter (statuses as of 12/22/2023) Immunizations Name Administration Dates Next Due Pneumococcal Conjugate Vacci ne, 20-valent (Pfabidv12) 09/19/2023 Pneumococcal Polysaccharide PPV23 (Pneumovax) 12/17/2013 Seasonal [...] 12/22/2023 11:34 AM EST Called to offer opening. Pt declined due to another appt. [...] 12/23/2023 1:00 PM EST Office Visit Neurology [facility] [address] [facility] [place] [address] Soila Redding MD [address] [place] [address] 05/12/2024 1:20 PM EDT [facility] [address] [place] [address] [address] Krupa Hardy DO [address] [place] [address] 05/21/2024 1:00 PM EDT Office Visit Neurology [facility] [address] [place] [address] Santo Christian, DO [address] [facility] [address] Scheduled Procedures Name Priority Associated Diagnoses Date/Ti me COLONOSCOPY FLEXIBLE PROXIMA L DIAGNOSTIC Recall Special screening for malignant neoplasms, colon Health Maintenance Due Date Last Done Comments DISCUSS TOBACCO CESSATION (REFER TO SMARTSET #2467) 1965 Alpha-1 Antitrypsin 1981 HPV/Co-Test 1993 Cologuard [...] 04/11/2011 LUNG CANCER SCREENING - USE SMARTSET 37447 Completed 06/30/2020 Influenza Vaccine (FLU shot) Completed [...] this encounter Medical Devices Implanted Type Area Despatch Clerk Device Identifier Shelf Expiration Date Model / Serial / Lot Vitoss Bimodal Foam Pack 1.2cc - [id number] Implanted:Qty : 1 on 01/19/2016 by Burke Vazquez DO [place] [facility] [place] N/A: Spine Cervical DANIEL : SPINE 11/26/2016 [id number] / / [id number] 4.0 X 8mm Self Drilling Screw Implanted:Qty : 1 on 01/19/2016 by Burke Vazquez DO [place] [facility] [place] N/A: Spine Cervical [id number] / / Description:From set Cage Avs [id number] - [id number] Implanted:Qty : 1 on 01/19/2016 by Burke Vazquez DO [place] [facility] [place] N/A: Spine Cervical DANIEL : SPINE [id number] / / Description:From set [place] W/Screw - [id number] Implanted:Qty : 1 on 01/19/2016 by Burke Vazquez DO [place] [facility] [place] N/A: Spine Cervical DANIEL : SPINE [id number] / / Description:From set documented as of [...] the patient have Health Care Power of Vocational Education Teacher? No Code Status History Code Status Date Activated Date Inactivated Comments Full Code 01/19/2016 6:12 AM 01/19/2016 11:06 AM This order reflects the patients wishes and were consensually agreed upon. Question Answer Comments Discussion of Advance Directives occurred with: Family Does the patient have a Living Will? No Does the patient have Health Care Power of Vocational Education Teacher? No Care Teams Meteorologist Liaison Relationship Specialty Start Date End Date Krupa Hardy DO [address] [facility] [place] [address] PCP - General Family Medicine 07/21/23 documented as of this encounter
--- OUTSIDE RECORDS SUMMARY | 2024-01-20 14:47 | External Medical Summary ---
Author Name Unknown Address Unknown Organization K01[place] [facility] [place] [address] [place] [address] Laboratory Report Ordering Provider Test Date Status HINA FARAH 12/23/2023 13:58:21 Final Observation Date Value Abnormality Reference (Units ) Status MYCODE SPECIMEN-SST 12/23/2023 13:58:21 Freezing of extracted DNA, whole blood and/or serum. Final Performing Location LABORATORY C - [address] [place] [address]
--- OUTSIDE RECORDS SUMMARY | 2024-01-20 14:48 | External Medical Summary | Summary of Care ---
Author Name Unknown Organization [facility] Address [address] [place] [address] Phone [phone] Care Team Providers Care Eeg Tech Name Role Phone Krupa Hardy DO Primary Care Provider [phone]- [phone] Reason for Visit * Reason Onset Date Comments Med Request 11/12/2023 Acute/Cough Update 11/12/2023 Status Check 11/12/2023 Encounter Details Date Type Department Care Team (Late st Contact Info) Description 11/12/2023 Telephone Family Practice [facility] [place] [address] [place] [address] Krupa Hardy DO [address] [place] [address] Med Request (Acute/Cough); Update; Status ... Allergies Active Allergy Reactions Criticality Noted Date [...] as of this encounter (statuses as of 11/17/2023) Medications Medication Sig Dispensed Refills Start Date End Date Status Budesonide-Formoterol Fumarate 160-4.5 MCG/ACT Inhalation Aerosol (Symbicort)Indication s:COVID-19 Inhale 2 Puffs by mouth 2 times a day. 10.2 g 12 11/19/2021 Active Spiriva Respimat 2.5 MCG/ACT Inhalation Aerosol Solution (Tiotropium [place] Monohydrate)Indicatio ns:COPD (chronic obstructive pulmonary disease) with [...] affected area. 15 g 5 10/29/2023 Active diazePAM 5 MG Oral Tablet (Valium)Indications:G AD (generalized anxiety disorder),Recurrent major depressive disorder, in partial remission (HCC) take 1 tablet by mouth every 12 hours if needed for anxiety 60 Tablet 0 11/06/2023 Active Ondansetron 4 MG Oral Tablet Disintegrating [...] as of this encounter (statuses as of 11/17/2023) Active Problems Problem Noted Date Diagnosed Date [...] as of this encounter (statuses as of 11/17/2023) Resolved Problems Problem Noted Date Diagnosed Date [...] in female 06/14/20142014 Diverticulosis of colon 06/13/2014 0410/2014 Knee pain, left 06/01/2014 08/02/2015 BV (bacterial [...] as of this encounter (statuses as of 11/17/2023) Immunizations Name Administration Dates Next Due Pneumococcal Conjugate Vacci ne, 20-valent ([id number]) 09/19/2023 Pneumococcal Polysaccharide PPV23 (Pneumovax) 12/17/2013 Seasonal [...] Telephone Encounter - Jeni Pa OSA - 11/17/2023 9:35 AM EST Pt sts she did not request an appointment. Advised of need for appt to prescribe abx. Pt sts she has no way to get here and that she'll "be fine". * Telephone Encounter - Abeba Gannon OSA - 11/13/2023 4:47 PM EST Called to offer opening at clinic. Patient declined due to having no transportation. * Telephone Encounter - Carolina Sales LPN - 11/13/2023 3:27 PM EST Pt notified that will need to be evaluated for antibiotic to be prescribed, verbalized understanding, no appt at office noted at this time but let her know a walk in clinic would also be an option, please assist with scheduling, agreeable to cancellation list * Telephone Encounter - Jacoby Feldman MD - 11/13/2023 3:04 PM EST Chart reviewed. Behavior warning sent. She has not checked MyG in a year, so will likely wait out in purgatory until it triggers a physical mailing. No antibiotic indicated without an appointment. She has been given appropriate advice so far. Urgent care is also an option. Jacoby Feldman MD, ZAIDA [place] Associate Maintenance Supervisor 2Nd Shift * Telephone Encounter - Yuko Young LPN - 11/13/2023 1:06 PM EST Patient calling in stating that she is requesting an antibiotic, she stated that she needs something more than Mucinex. Patient stated that she was just seen on 10/29/2023 with a cough and now she is having a productive cough with yellow/green phlegm and she has been having yellow green sinus drainage as well. She does not have a thermometer but she thinks that she has a fever as she has been waking up drenched with sweat in the mornings for almost the last week. She stated that she is also getting chills. She stated that her sister is sick but drank from her cup and she wiped the straw off not thinking anything about it. She is using her prescribed inhalers. She did not try anything OTC as she did not want to mix any medications as she did not know if it was safe. She would like to have an antibiotic prescribed. Please advise. * Telephone Encounter - Janis Hawley CPhT - 11/13/2023 1:01 PM EST Pt calling to check on status of an antibiotic. Pt states she is really annoyed and would like to speak with a nurse from the office, she is sick and tired of getting the run around. Caller states she spoke with a nurse yesterday at the office and was told that an antibiotic would be called in not Mucinex. Transferred pt to dedicated nurse line for further assistance. Caller can be reached at [phone]. Thank you, Courtney Hawley Quality Cloth Tester I [facility] ([facility]) (Formerly [facility]) 11/13/2023,1:01 PM * Telephone Encounter - Krupa Hardy DO - 11/13/2023 9:[address] feldman Please see message about patient cursing at staff over the phone after given directions from provider. Thank you * Telephone Encounter - Eric Patel OSA - 11/12/2023 3:20 PM EST Pt called back. I tried to read message from Dr. Irwin stated the nurse will send an abx. I tried to advise the message from stating Mucinex. She got upset and cursed at me. Call d/c. * Telephone Encounter - Lidia Pan LPN - 11/12/2023 2:25 PM EST Left voicemail for patient to return call. * Telephone Encounter - Juliane Bradshaw MD - 11/12/2023 1:52 PM EST If no fever: start mucinex 600mg bid ( avail otc) Ensure she is taking her symbicort twice daily * Telephone Encounter - Lidia Pan LPN - 11/12/2023 11:08 AM EST Spoke with patient, her symptoms started at the time of her last office visit 10/29, cough was dry.She was recently around her sister who was sick, her cough is now productive with discolored mucous. She is having discolored sinus drainage. She does not have transportation for an appointment. She would like an antibiotic sent to [facility] in [place]. She is taking inhalers as prescribed. * Telephone Encounter - Liliana Garcia OSA - 11/12/2023 10:58 AM EST [place] says her cough has gotten worse from when you saw her last night says shes coughing up green.No appt open with anyone in office and she declined video * Telephone Encounter - Kanwal Lopez CPhT - 11/12/2023 10:46 AM EST Pt calling with complaints of having Bronchitis and is requesting a medication be prescribed. Pt did not want to schedule an appointment at this time. Call details was not completed because pt only wanted to speak with a nurse. Please advise. Thank you, Kanwal Lopez Steam Drier Tender [facility] 11/12/2023, 10:48 AM documented in this encounter Plan of Treatment Upcoming Encounters Date Type Department Care Team (Late st Contact Info) Description 12/11/2023 1:40 PM EST Office Visit Neurology [facility] [address] [facility] [place] [address] Soila Redding MD [address] [facility] [place] [address] 05/12/2024 1:20 PM EDT Office Visit Family [facility] [address] [place] [address] Krupa Hardy DO [address] [place] [address] 05/21/2024 1:00 PM EDT Office Visit Neurology [facility] [address] [facility] [place] [address] Santo Christian, DO [address] [place] [address] Scheduled Procedures Name Priority Associated Diagnoses Date/Ti me COLONOSCOPY FLEXIBLE PROXIMA L DIAGNOSTIC Recall Special screening for malignant neoplasms, colon Health Maintenance Due Date Last Done Comments DISCUSS TOBACCO CESSATION (REFER TO SMARTSET #3298) 1963 COVID-19 Vaccine (#1) 1963 Alpha-1 Antitrypsin 1981 HPV/Co-Test 1993 Cologuard 02/21/2008 Sigmoidoscopy 02/21/2008 Zoster Vaccines (1 of 2) 2013 Mammogram 05/08/2017 05/08/2016, 12/26, 02/16/2010 Cervical Cancer Screening 05/07/2020 Pap Smear 05/07/2020 05/07/2017, 04/26, 02/08/2014 Depression Screening 10/09/2021 10/09/2020 Fecal Occult Blood Test 08/26/2023 08/26/2022 Colonoscopy 07/11/2024 07/11/2014, 06/27, 10/08/2012 Colorectal Cancer Screening 07/11/2024 O2 ASSESSMENT COMPLETED IN PAST YEAR FOR COPD 10/29/2024 10/29/2023 Lipid Panel 10/29/2028 10/29/2023, 11/27, 12/07/2021, Additional history exists DTaP,Tdap,and Td Vaccines (3 - Td or Tdap) 09/19/2033 09/19/2023, 04/11/2011 LUNG CANCER SCREENING - USE SMARTSET 06199 Completed 06/30/2020 Influenza Vaccine (FLU shot) Completed [...] this encounter Medical Devices Implanted Type Area Driving School Instructor Device Identifier Shelf Expiration Date Model / Serial / Lot [place] W/Screw - [id number] Implanted:Qty : 1 on 01/19/2016 by Burke Vazquez, at [place] [facility] N/A: Spine Cervical DANIEL : SPINE [id number] / / Description:From set documented as of [...] the patient have Health Care Power of Senior Datastage Developer? No Code Status History Code Status Date Activated Date Inactivated Comments Full Code 01/19/2016 6:12 AM 01/19/2016 11:06 AM This order reflects the patients wishes and were consensually agreed upon. Question Answer Comments Discussion of Advance Directives occurred with: Family Does the patient have a Living Will? No Does the patient have Health Care Power of Senior Datastage Developer? No Care Teams Eeg Tech Relationship Specialty Start Date End Date Krupa Hardy DO [address] [facility] [place] [address] PCP - General Family Medicine 07/21/23 documented as of this encounter
--- OUTSIDE RECORDS SUMMARY | 2024-01-20 14:48 | External Medical Summary | Summary of Care ---
Author Name Unknown Organization [facility] Address [address] [place] [address] Phone [phone] Care Team Providers Care Microbiology Laboratory Manager Name Role Phone Krupa Hardy DO Primary Care Provider +1- [phone] Reason for Visit * Reason Onset Date Comments Med Request 11/12/2023 [facility] 11/12 Update 11/12/2023 Status Check 11/12/2023 Encounter Details Date Type Department Care Team (Late st Contact Info) Description 11/12/2023 Telephone Family Practice [facility], [place] [address] [facility] [place] [address] Krupa Hardy DO [address] [place] [address] Med Request ([facility] 11/12); Update; Status Check Allergies Active Allergy Reactions Criticality Noted Date [...] as of this encounter (statuses as of 11/13/2023) Medications Medication Sig Dispensed Refills Start Date End Date Status Budesonide-Formoterol Fumarate 160-4.5 MCG/ACT Inhalation Aerosol (Symbicort)Indication s:COVID-19 Inhale 2 Puffs by mouth 2 times a day. 10.2 g 12 11/19/2021 Active Spiriva Respimat 2.5 MCG/ACT Inhalation Aerosol Solution (Tiotropium [place] Monohydrate)Indicatio ns:COPD (chronic obstructive pulmonary disease) with [...] as of this encounter (statuses as of 11/13/2023) Active Problems Problem Noted Date Diagnosed Date [...] as of this encounter (statuses as of 11/13/2023) Resolved Problems Problem Noted Date Diagnosed Date [...] as of this encounter (statuses as of 11/13/2023) Immunizations Name Administration Dates Next Due Pneumococcal Conjugate Vacci ne, 20-valent ([id number]) 09/19/2023 Pneumococcal Polysaccharide PPV23 (Pneumovax) 12/17/2013 Seasonal [...] the money to buy more. Often true 12/14/20 20 Within the past 12 months, t [...] also an option. Jacoby Feldman MD, [facility] [place] Associate Laborer Adjustable Steel Joist * Telephone Encounter - Yuko Young LPN [...] further assistance. Caller can be reached at [phone]. Thank you, Courtney Hawley [place]atra Opener I [facility] ([facility]) (Formerly [...] return call. * Telephone Encounter - Juliane Bradsahw MD - 11/12/2023 1:52 PM EST If [...] She would like an antibiotic sent to [facility] in [place]. She is taking inhalers as prescribed. * [...] nurse. Please advise. Thank you, Kanwal Lopez Pocket Setter [facility] 11/12/2023, 10:48 AM documented in this encounter Plan of Treatment Upcoming Encounters Date Type Department Care Team (Late st Contact Info) Description 12/11/2023 1:40 PM EST Office Visit Neurology [facility] [address] [place] [address] Soila Redding MD [address] [place] [address] 05/12/2024 1:20 PM EDT [facility] [address] [facility] [place] [address] Krupa Hardy DO [address] [facility] [place] [address] 05/21/2024 1:00 PM EDT Office Visit Neurology [facility] [address] [place] [address] Santo Christian DO [address] [place] [address] Scheduled Procedures Name Priority Associated Diagnoses Date/Ti me COLONOSCOPY FLEXIBLE PROXIMA L DIAGNOSTIC Recall Special screening for malignant neoplasms, colon Health Maintenance Due Date Last Done Comments DISCUSS TOBACCO CESSATION (REFER TO SMARTSET #0041) 1965 COVID-19 Vaccine (#1) 1963 Alpha-1 Antitrypsin [...] 04/11/2011 LUNG CANCER SCREENING - USE SMARTSET 87099 Completed 06/30/2020 Influenza Vaccine (FLU shot) Completed [...] this encounter Medical Devices Implanted Type Area Leak Hunter Device Identifier Shelf Expiration Date Model / Serial / Lot [place] W/Screw - [id number] Implanted:Qty : 1 on 01/19/2016 by Burke Vazquez DO at [place] [facility] [place] N/A: Spine Cervical DANIEL : SPINE [id number] / / Description:From set documented as of [...] the patient have Health Care Power of Professor Of Marketing? No Code Status History Code Status Date Activated Date Inactivated Comments Full Code 01/19/2016 6:12 AM 01/19/2016 11:06 AM This order reflects the patients wishes and were consensually agreed upon. Question Answer Comments Discussion of Advance Directives occurred with: Family Does the patient have a Living Will? No Does the patient have Health Care Power of Professor Of Marketing? No Care Teams Microbiology Laboratory Manager Relationship Specialty Start Date End Date Krupa Hardy DO [address] [facility] [place] [address] PCP - General Family Medicine 07/21/23 documented as of this encounter
--- OUTSIDE RECORDS SUMMARY | 2024-01-20 14:48 | External Medical Summary | Summary of Care ---
Author Name Unknown Organization [facility] Address [address] [place] [address] Phone [phone] Care Team Providers Care Blower Blast Furnace Name Role Phone Krupa Hardy DO Primary Care Provider +1- [phone] Reason for Visit * Reason Onset Date Comments Medication Question 12/01/2023 Encounter Details Date Type Department Care Team (Late st Contact Info) Description 12/01/2023 Telephone Family Practice [facility] [place] [address] [place] [address] Krupa Hardy DO [address] [place] [address] Medication Question Allergies Active Allergy Reactions Criticality Noted Date [...] as of this encounter (statuses as of 12/01/2023) Medications Medication Sig Dispensed Refills Start Date End Date Status Budesonide-Formoterol Fumarate 160-4.5 MCG/ACT Inhalation Aerosol (Symbicort)Indication s:COVID-19 Inhale 2 Puffs by mouth 2 times a day. 10.2 g 12 11/19/2021 Active Spiriva Respimat 2.5 MCG/ACT Inhalation Aerosol Solution (Tiotropium [place] Monohydrate)Indicatio ns:COPD (chronic obstructive pulmonary disease) with [...] before bedtime. 60 Capsule 5 11/07/2023 Active Fluconazole 150 MG Oral Tablet (Diflucan) Take 1 Tablet by mouth once for 1 dose. 1 Tablet 0 12/01/2023 12/01/2023 Active documented as of this encounter (statuses as of 12/01/2023) Active Problems Problem Noted Date Diagnosed Date [...] as of this encounter (statuses as of 12/01/2023) Resolved Problems Problem Noted Date Diagnosed Date [...] as of this encounter (statuses as of 12/01/2023) Immunizations Name Administration Dates Next Due Pneumococcal Conjugate Vacci ne, 20-valent ([id number]) 09/19/2023 Pneumococcal Polysaccharide PPV23 (Pneumovax) 12/17/2013 Seasonal [...] Telephone Encounter - Krupa Hardy DO - 12/01/2023 6:15 PM EST Diflucan sent * Telephone Encounter - Lidia Pan LPN - 12/01/2023 3:10 PM EST Please advise on medication request. Should patient contact [facility] * Telephone Encounter - Jeni Pa OSA - 12/01/2023 2:58 PM EST Pt stopped in office. She is requesting Diflucan. She is having yeast infection symptoms after being on an antibiotic from [facility]. She [email or web address]. Pt sts her phone is not working and she doesn't use her Mychart. documented in this encounter Plan of Treatment Upcoming Encounters Date Type Department Care Team (Late st Contact Info) Description 12/11/2023 1:40 PM EST Office Visit Neurology [facility]le[facility] [place] [address] [place] [address] [place] [address] Soila Redding MD [address] [place] [address] [place] [address] 05/12/2024 1:20 PM EDT Office Visit Family [facility] Denia Mckeon [address] [place] [address] Krupa Hardy DO [address] [place] [address] 05/21/2024 1:00 PM EDT Office Visit Neurology Ileana Garcia [place] [address] [place] [address] Santo Christian, DO [address] [facility] [place] [address] Scheduled Procedures Name Priority Associated Diagnoses Date/Ti me COLONOSCOPY FLEXIBLE PROXIMA L DIAGNOSTIC Recall Special screening for malignant neoplasms, colon Health Maintenance Due Date Last Done Comments DISCUSS TOBACCO CESSATION (REFER TO SMARTSET #0136) 1965 COVID-19 Vaccine (#1) 1963 Alpha-1 Antitrypsin [...] 04/11/2011 LUNG CANCER SCREENING - USE SMARTSET 23650 Completed 06/30/2020 Influenza Vaccine (FLU shot) Completed [...] this encounter Medical Devices Implanted Type Area Home Health Cna Device Identifier Shelf Expiration Date Model / Serial / Lot [place] W/Screw - [id number] Implanted:Qty : 1 on 01/19/2016 by Burke Vazquez DO at [place] [facility] [place] N/A: Spine Cervical DANIEL : SPINE [id number] / / Description:From set documented as of [...] the patient have Health Care Power of Welding Machine Operator/Tender? No Code Status History Code Status Date Activated Date Inactivated Comments Full Code 01/19/2016 6:12 AM 01/19/2016 11:06 AM This order reflects the patients wishes and were consensually agreed upon. Question Answer Comments Discussion of Advance Directives occurred with: Family Does the patient have a Living Will? No Does the patient have Health Care Power of Welding Machine Operator/Tender? No Care Teams Blower Blast Furnace Relationship Specialty Start Date End Date Krupa Hardy DO [address] [facility] [place] [address] PCP - General Family Medicine 07/21/23 documented as of this encounter
--- OUTSIDE RECORDS SUMMARY | 2024-01-20 14:48 | External Medical Summary | Summary of Care ---
Author Name Unknown Organization [facility] Address [address] [place] [address] Phone [phone] Care Team Providers Care Assembly Line Worker Name Role Phone Krupa Hardy DO Primary Care Provider +1- [phone] Reason for Visit * Reason Onset Date Comments Medication Refill 11/07/2023 Encounter Details Date Type Department Care Team (Late st Contact Info) Description 11/07/2023 Refill [facility] [place] [address] [place] [address] Krupa Hardy DO [address] [place], [place] [id number] Recurrent major depressive disorder, in partial remission (HCC)*; DHIRAJ (generalized anxiety disorder) Allergies Active Allergy Reactions Criticality Noted Date [...] as of this encounter (statuses as of 11/24/2023) Medications Medication Sig Dispensed Refills Start Date End Date Status Budesonide-Formotero l Fumarate 160-4.5 MCG/ACT Inhalation Aerosol (Symbicort)Indicatio ns:COVID-19 Inhale 2 Puffs by mouth 2 times a day. 10.2 g 12 11/19/2021 Active Spiriva Respimat 2.5 MCG/ACT Inhalation Aerosol Solution (Tiotropium [place] Monohydrate)Indicati ons:COPD (chronic obstructive pulmonary disease) with [...] 10/29/2023 Active diazePAM 5 MG Oral Tablet (Valium)Indications: [...] before bedtime. 60 Capsule 5 11/07/2023 Active DULoxetine HCl 60 MG Oral Capsule Delayed Release Particles (Cymbalta)Indication s:Recurrent major depressive disorder, in partial remission (HCC),DHIRAJ (generalized anxiety disorder) Take 1 Capsule by mouth in the morning and 1 Capsule before bedtime. 60 Capsule 5 04/16/2023 4 Discontinue d(Refill) documented as of this encounter (statuses as of 11/24/2023) Active Problems Problem Noted Date Diagnosed Date [...] as of this encounter (statuses as of 11/24/2023) Resolved Problems Problem Noted Date Diagnosed Date [...] as of this encounter (statuses as of 11/24/2023) Immunizations Name Administration Dates Next Due Pneumococcal Conjugate Vacci ne, 20-valent ([id number]) 09/19/2023 Pneumococcal Polysaccharide PPV23 (Pneumovax) 12/17/2013 Seasonal [...] encounter Miscellaneous Notes * Telephone Encounter - Suman Mcguire MD - 11/07/2023 12:50 PM ESTSigned Prescriptions: Disp Refills DULoxetine HCl 60 MG Oral Capsule Delayed *60 Cap*5 Sig: Take 1 Capsule by mouth in the morning and 1 Capsule before bedtime. Authorizing Provider: SUMAN MCGUIRE * Telephone Encounter - Marleen Stockton LPN - 11/07/2023 9:03 AM EST No prescriptions requested or ordered in this encounter Last Visit: 10/29/2023 (in office), 02/18/2020 (telemedicine) Next Visit: 05/12/2024 Last date the medication was ordered: 03/27/23 Patient Active Problem List Diagnosis Code Smoker F17.200 Persistent insomnia G47.00 Family history of breast cancer in mother Z80.3 DHIRAJ (generalized anxiety disorder) F41.1 Fibromyalgia M79.7 Restless legs syndrome G25.81 Diverticulosis of large intestine without hemorrhage K57.30 Migraine with aura and without status migrainosus, not intractable G43.109 S/P cervical spinal fusion Z98.1 Irritable bowel syndrome with diarrhea K58.0 Bilateral occipital neuralgia M54.81 Spinal stenosis of cervical region M48.02 Primary osteoarthritis of both knees M17.0 II A HLP (goal LDL below 100) E78.5 Panic disorder without agoraphobia F41.0 COPD (chronic obstructive pulmonary disease) with chronic bronchitis J44.89 History of 2019 novel coronavirus disease (COVID-19) Z86.16 COVID-19 vaccination refused Z28.21 MDD (major depressive disorder), recurrent episode, moderate (HCC) F33.1 Medical marijuana use Z79.899 Labs: Lab Results Component Value Date/Time CREATININE - [facility] 0.8 10/29/2023 01:29 PM CREATININE - [facility] 0.8 11/21/2020 09:16 AM CREATININE, RANDOM URINE - [facility] 12 12/10/2022 03:11 PM CREATININE-OUTSIDE LAB 0.70 07/26/2015 12:00 AM Lab Results Component Value Date/Time POTASSIUM - [facility] 3.3 (L) 10/29/2023 01:29 PM POTASSIUM - [facility] 4.6 11/21/2020 09:16 AM POTASSIUM-OUTSIDE LAB 3.9 07/26/2015 12:00 AM Lab Results Component Value Date/Time TSH - [facility] 1.56 10/29/2023 01:29 PM TSH - [facility] 2.02 11/21/2020 09:16 AM Lab Results Component Value Date/Time LDL (CALCULATED)-OUTSIDE LAB 112 07/25/2015 12:00 AM LDL CHOLESTEROL (CALCULATED) - [facility] 134 (H) 12/10/2022 03:11 PM LDL CHOLESTEROL (CALCULATED) - [facility] 135 (H) 12/07/2021 08:41 AM LDL CHOLESTEROL (CALCULATED) - [facility] 144 (H) 11/21/2020 09:16 AM LDL CHOLESTEROL (CALCULATED) - [facility] 154 (H) 12/06/2019 11:01 AM LDL CHOLESTEROL (DIRECT MEASURE) - [facility] 97 10/29/2023 01:29 PM LDL CHOLESTEROL (DIRECT MEASURE) - [facility] NOT APPLICABLE 11/21/2020 09:16 AM LDL CHOLESTEROL (DIRECT MEASURE) - [facility] NOT APPLICABLE 12/06/2019 11:01 AM LDL CHOLESTEROL (DIRECT MEASURE) - [facility] 104 03/04/2017 08:39 AM LDL CHOLESTEROL (DIRECT MEASURE) - [facility] 87 04/17/2016 07:38 AM Lab Results Component Value Date/Time ALT - [facility] 17 10/29/2023 01:29 PM ALT - [facility] 20 11/21/2020 09:16 AM Hemoglobin AIC Results: Lab Results Component Value Date/Time HEMOGLOBIN A1C - [facility] 5.3 12/10/2022 03:11 PM HEMOGLOBIN A1C - [facility] 5.2 08/23/2022 10:07 AM documented in this encounter Plan of Treatment Upcoming Encounters Date Type Department Care Team (Late st Contact Info) Description 12/11/2023 1:40 PM EST Office Visit Neurology [facility] [address] [facility] [place] [address] Soila Redding MD [address] [facility] [place] [address] 05/12/2024 1:20 PM EDT [facility] [address] [place] [address] Krupa Hardy DO [address] [facility] [address] 05/21/2024 1:00 PM EDT Office Visit Neurology [facility] [address] [place] [address] Santo Christian, DO [address] [place], [place] [id number] Scheduled Procedures Name Priority Associated Diagnoses Date/Ti me COLONOSCOPY FLEXIBLE PROXIMA L DIAGNOSTIC Recall Special screening for malignant neoplasms, colon Health Maintenance Due Date Last Done Comments DISCUSS TOBACCO CESSATION (REFER TO SMARTSET #6271) 1965 COVID-19 Vaccine (#1) 1965 Alpha-1 Antitrypsin [...] 04/11/2011 LUNG CANCER SCREENING - USE SMARTSET 40602 Completed 06/30/2020 Influenza Vaccine (FLU shot) Completed [...] this encounter Medical Devices Implanted Type Area Insurance Claims Specialist Device Identifier Shelf Expiration Date Model / Serial / Lot [place] W/Screw - [id number] Implanted:Qty : 1 on 01/19/2016 [place] Burke Vazquez[place] [facility] [place]: Spine Cervical DANIEL : SPINE [id number] / / Description:From set documented as of this encounter Visit Diagnoses Diagnosis Recurrent major depressive disorder, in partial remission (HCC)- Primary DHIRAJ (generalized anxiety disorder) Generalized anxiety disorder documented in this encounter Advance Directives Latest Code Status on File Code Status Date Activated Date Inactivated Comments Full Code 01/19/2016 11:06 AM 01/21/2016 4:21 PM This order reflects the patients wishes and were consensually agreed upon. Question Answer Comments Discussion of Advance Directives occurred with: Patient Does the patient have a Living Will? No Does the patient have Health Care Power of Pumper Helper? No Code Status History Code Status Date Activated Date Inactivated Comments Full Code 01/19/2016 6:12 AM 01/19/2016 11:06 AM This order reflects the patients wishes and were consensually agreed upon. Question Answer Comments Discussion of Advance Directives occurred with: Family Does the patient have a Living Will? No Does the patient have Health Care Power of Pumper Helper? No Care Teams Assembly Line Worker Relationship Specialty Start Date End Date Krupa Hardy DO [address] [facility] [place] [address] PCP - General Family Medicine 07/21/23 documented as of this encounter
--- OUTSIDE RECORDS SUMMARY | 2024-01-20 14:48 | External Medical Summary | Summary of Care ---
Author Name Unknown Organization [facility] Address [address] [place] [address] Phone [phone] Care Team Providers Care Property Staff Accountant Name Role Phone Kurpa Hardy DO Primary Care Provider +1- [phone] Reason for Visit * Reason Onset Date Comments Med Request 11/12/2023 [facility] 11/12 Update 11/12/2023 Status Check 11/12/2023 Encounter Details Date Type Department Care Team (Late st Contact Info) Description 11/12/[address] [facility] [place] [address] [facility] [place] [address] Krupa Hardy DO [address] [place] [address] Med Request ([facility] 11/12); Update; Status Check Allergies Active Allergy [...] Respimat 2.5 MCG/ACT Inhalation Aerosol Solution (Tiotropium [place] Monohydrate)Indicatio ns:COPD (chronic obstructive pulmonary disease) with [...] Next Due Pneumococcal Conjugate Vacci ne, 20-valent ([id number]) 09/19/2023 Pneumococcal Polysaccharide PPV23 (Pneumovax) 12/17/2013 Seasonal [...] an option. Jacoby Feldman MD, ZAIDA Heber [place] Associate Logistics Officer * Telephone Encounter - Yuko Young LPN [...] further assistance. Caller can be reached at [phone]. Thank you, Courtney Hawley Vacuum Drum Drier Operator I [facility] Pharm[facility] Services (CCPS) (Formerly [...] I tried to advise the message from Dr stating Mucinex. She got upset and cursed [...] She would like an antibiotic sent to [facility] in [place]. She is taking inhalers as prescribed. * [...] nurse. Please advise. Thank you, Kanwal Lopez Accredited Legal Secretary [facility] 11/12/2023, 10:48 AM documented in this encounter Plan of Treatment Upcoming Encounters Date Type Department Care Team (Late st Contact Info) Description 12/11/2023 1:40 PM EST Office Visit Neurology [facility] [address] [place] [address] Soila Redding MD [address] [facility] [place] [address] 05/12/2024 1:20 PM EDT Office Visit Family Practice [facility] [place] [address] [place] [address] Krupa Hardy, [address] [place] [address] 05/21/2024 1:00 PM EDT Office Visit Neurology [facility] [address] [place] [address] Santo Christian, DO [address] [place] [address] Scheduled Procedures Name Priority Associated Diagnoses Date/Ti me COLONOSCOPY FLEXIBLE PROXIMA L DIAGNOSTIC Recall Special screening for malignant neoplasms, colon Health Maintenance Due Date Last Done Comments DISCUSS TOBACCO CESSATION (REFER TO SMARTSET #1365) 1965 COVID-19 Vaccine (#1) 1965 Alpha-1 Antitrypsin [...] 04/11/2011 LUNG CANCER SCREENING - USE SMARTSET 30100 Completed 06/30/2020 Influenza Vaccine (FLU shot) Completed [...] this encounter Medical Devices Implanted Type Area Ceramist Device Identifier Shelf Expiration Date Model / Serial / Lot [place] W/Screw - [id number] Implanted:Qty : 1 on 01/19/2016 by Burke Vazquez DO at [place] [facility] [place] N/A: Spine Cervical DANIEL : SPINE [id number] / / Description:From set documented as of [...] the patient have Health Care Power of Network Systems Engineer? No Code Status History Code Status Date Activated Date Inactivated Comments Full Code 01/19/2016 6:12 AM 01/19/2016 11:06 AM This order reflects the patients wishes and were consensually agreed upon. Question Answer Comments Discussion of Advance Directives occurred with: Family Does the patient have a Living Will? No Does the patient have Health Care Power of Network Systems Engineer? No Care Teams Property Staff Accountant Relationship Specialty Start Date End Date Krupa Hardy DO [address] [facility] [place] [address] PCP - General Family Medicine 07/21/23 documented as of this encounter
--- OUTSIDE RECORDS SUMMARY | 2024-01-20 14:48 | External Medical Summary | Summary of Care ---
Author Name Unknown Organization [facility] Address [address] [place] [address] Phone [phone] Care Team Providers Care Catholic Priest Name Role Phone Krupa Hardy DO Primary Care Provider +1- [phone] Reason for Visit * Reason Onset Date Comments Medication Refill 12/08/2023 Encounter Details Date Type Department Care Team (Late st Contact Info) Description 12/08/2023 Refill [facility] [place] [address] [place], [place] [phone] Krupa Hardy DO [address] [place] [address] DHIRAJ (generalized anxiety disorder); Recurrent major depressive disorder, in partial remission (HCC) Allergies Active Allergy Reactions Criticality Noted Date [...] Respimat 2.5 MCG/ACT Inhalation Aerosol Solution (Tiotropium [place] Monohydrate)Indicati ons:COPD (chronic obstructive pulmonary disease) with [...] for anxiety 60 Tablet 0 12/18/2023 Active diazePAM 5 MG Oral Tablet (Valium)Indications: DHIRAJ (generalized anxiety disorder),Recurrent major depressive disorder, in partial remission (HCC) take 1 tablet by mouth every 12 hours if needed for anxiety 60 Tablet 0 11/06/2023 Discontinue d(Refill) documented as of this encounter [...] (irritable bowel syndrome) 04/11/2013 04/25/2016 Candidal vulvovaginitis 03/25/201303/2013 Complicated acute bronchitis 03/12/2013 04/01/2013 Adhesion of [...] Next Due Pneumococcal Conjugate Vacci ne, 20-valent ([id number]) 09/19/2023 Pneumococcal Polysaccharide PPV23 (Pneumovax) 12/17/2013 Seasonal [...] encounter Miscellaneous Notes * Telephone Encounter - Magnolia Blackwood MD - 12/18/2023 8:54 AM ESTSigned Prescriptions: Disp Refills diazePAM 5 MG Oral Tablet (Valium) 60 Tab*0 Sig: take 1 tablet by mouth every 12 hours if needed for anxiety Authorizing Provider: MAGNOLIA BLACKWOOD * Telephone Encounter - Magnolia Blackwood MD - 12/18/2023 8:54 AM ESTSigned Prescriptions: Disp Refills diazePAM 5 MG Oral Tablet (Valium) 60 Tab*0 Sig: take 1 tablet by mouth every 12 hours if needed for anxiety Authorizing Provider: MAGNOLIA BLACKWOOD * Telephone Encounter - Kanwal Lopez CPhT - 12/17/2023 12:36 PM EST Patient calling to check on status of diazePAM 5 MG Oral Tablet (Valium) . Caller can be reached [phone] . Thank you, Kanwal Lopez District [facility] 12/17/2023, 12:36 PM * Telephone Encounter - Kwame Sanders, [facility] - 12/09/2023 12:58 PM ESTPending Prescriptions: Disp Refills diazePAM 5 MG Oral Tablet (Valium) 60 Tab*0 Sig: take 1 tablet by mouth every 12 hours if needed for anxiety * Telephone Encounter - Kwame Sanders, [facility] - 12/09/2023 12:57 PM EST I have reviewed the patients controlled substance dispensing history in the Prescription Drug Monitoring Program in compliance with the [facility] regulations before prescribing a controlled substance. PDMP checked on 12/09/2023. Pending Prescriptions: Disp Refills diazePAM 5 MG Oral Tablet (Valium) 60 Tab*0 Sig: take 1 tablet by mouth every 12 hours if needed for anxiety Last Visit: 10/29/2023 (in office), 02/18/2020 (telemedicine) Next Visit: 05/12/2024 Date medication was last filled: 11/06/23 Date medication is due for refill: 12/05/23 Pharmacy: [facility] #[id number] [facility] Is this request for a controlled substance? Yes and Urine Drug Screen was completed Toxicology results: Results for orders placed or performed in [...] results can be found in Results Review. Please approve if appropriate. Thank You, Kwame Wood [facility] Clinical Pharmacist Centralized Clinical Pharmacy Services (CCPS) (formerly Telepharmacy) 12/09/2023, 12:57 PM * Telephone Encounter - Mayela Downs [facility] - 12/08/2023 2:23 PM EST Did you pend patient's preferred pharmacy and medication before forwarding?yes Pharmacy: [facility] #[id number] [facility] Pending Prescriptions: Disp Refills diazePAM 5 MG Oral Tablet (Valium) 60 Tab*0 Sig: take 1 tablet by mouth every 12 hours if needed for anxiety Last Visit: 10/29/2023 (in office), 02/18/2020 (telemedicine) Next Visit: 05/12/2024 If no future appointments scheduled, and last appointment is greater than a year ago, please schedule patient for a follow-up appointment Last date the medication was ordered: 11/06/23 Is this request for a controlled substance?Yes, What was the last refill date 11/06/23 w/ quantity 60 and dosage 5mg and Urine Drug Screen was completed Urine Drug Screen: Results for orders placed [...] State Jarad Rosenberg [address] [place] [address] Soila Redding MD [address] [place] [address] 05/12/2024 1:20 PM EDT Office Visit Family Practice [address], [place] [address] [place] [address] Krupa Hardy, [address] [place] [address] 05/21/2024 1:00 PM EDT Office Visit Neurology [facility] [place] [address] [place] [address] Snato Christian, DO [address] [place] [address] Scheduled Procedures Name Priority Associated Diagnoses Date/Ti me COLONOSCOPY FLEXIBLE PROXIMA L DIAGNOSTIC Recall Special screening for malignant neoplasms, colon Health Maintenance Due Date Last Done Comments DISCUSS TOBACCO CESSATION (REFER TO SMARTSET #7507) 1965 Alpha-1 Antitrypsin 1981 HPV/Co-Test 1993 Cologuard [...] 04/11/2011 LUNG CANCER SCREENING - USE SMARTSET 30274 Completed 06/30/2020 Influenza Vaccine (FLU shot) Completed [...] this encounter Medical Devices Implanted Type Area Materials Planner Device Identifier Shelf Expiration Date Model / Serial / Lot [place]oss Bimodal Foam Pack 1.2cc - [id number] Implanted:Qty : 1 on 01/19/2016 by Burke Vazquez DO at [place] [facility] [place] N/A: Spine Cervical DANIEL : SPINE 11/26/2016 [id number] / / [id number] 4.0 X 8mm Self Drilling Screw Implanted:Qty : 1 on 01/19/2016 by Burke Vazquez DO at OR [facility] [place] N/A: Spine Cervical [id number] / / Description:From set Cage Avs [id number] - [id number] Implanted:Qty : 1 on 01/19/2016 by Burke Vazquez DO at OR [facility] [place] N/A: Spine Cervical DANIEL : SPINE [id number] / / Description:From set [place] W/Screw - [id number] Implanted:Qty : 1 on 01/19/2016 by Burke Vazquez DO at OR [facility] [place] N/A: Spine Cervical DANIEL : SPINE [id number] / / Description:From set documented as of this encounter Visit Diagnoses Diagnosis DHIRAJ (generalized anxiety disorder) Generalized anxiety disorder Recurrent major depressive disorder, in partial remission (HCC) documented in this encounter Advance Directives Latest [...] patient have Health Care Power of Core Machine Tender? No Code Status History Code Status Date Activated Date Inactivated Comments Full Code 01/19/2016 6:12 AM 01/19/2016 11:06 AM This order reflects the patients wishes and were consensually agreed upon. Question Answer Comments Discussion of Advance Directives occurred with: Family Does the patient have a Living Will? No Does the patient have Health Care Power of Core Machine Tender? No Care Teams Catholic Priest Relationship Specialty Start Date End Date Krupa Hardy DO [address] [facility] [place] [address] PCP - General Family Medicine 07/21/23 documented as of this encounter
--- OUTSIDE RECORDS SUMMARY | 2024-01-20 14:48 | External Medical Summary | Summary of Care ---
Author Name Unknown Organization [facility] Address [address] [place] [address] Phone [phone] Care Team Providers Care Parachute Inspector Name Role Phone Krupa aHrdy DO Primary Care Provider +1- [phone] Reason for Visit * Reason Onset Date Comments Med Request 11/12/2023 Acute/Cough Update 11/12/2023 Status Check 11/12/2023 Encounter Details Date Type Department Care Team (Late st Contact Info) Description 11/12/[address] [facility] [place] [address] [place] [address] Krupa Hardy DO [address] [place] [address] Med Request (Acute/Cough); Update; Status [...] as of this encounter (statuses as of 11/14/2023) Medications Medication Sig Dispensed Refills Start Date End Date Status Budesonide-Formoterol Fumarate 160-4.5 MCG/ACT Inhalation Aerosol (Symbicort)Indication s:COVID-19 Inhale 2 Puffs by mouth 2 times a day. 10.2 g 12 11/19/2021 Active Spiriva Respimat 2.5 MCG/ACT Inhalation Aerosol Solution (Tiotropium [place] Monohydrate)Indicatio ns:COPD (chronic obstructive pulmonary disease) with [...] as of this encounter (statuses as of 11/14/2023) Active Problems Problem Noted Date Diagnosed Date [...] as of this encounter (statuses as of 11/14/2023) Resolved Problems Problem Noted Date Diagnosed Date [...] as of this encounter (statuses as of 11/14/2023) Immunizations Name Administration Dates Next Due Pneumococcal Conjugate Vacci ne, 20-valent ([id number]) 09/19/2023 Pneumococcal Polysaccharide PPV23 (Pneumovax) 12/17/2013 Seasonal [...] an option. Jacoby Feldman MD, ZAIDA Heber [place] Associate Major Assembler * Telephone Encounter - Yuko Young LPN [...] further assistance. Caller can be reached at [phone]. Thank you, Courtney Hawley Assistant Professor Of Radiology I Centralized Clinical Pharmacy Services (CCPS) (Formerly [...] She would like an antibiotic sent to [facility] in [place]. She is taking inhalers as prescribed. * [...] nurse. Please advise. Thank you, Kanwal Lopez Community Educator [facility] 11/12/2023, 10:48 AM documented in this encounter Plan of Treatment Upcoming Encounters Date Type Department Care Team (Late st Contact Info) Description 12/11/2023 1:40 PM EST Office Visit Neurology [facility] [address] [place] [address] Soila Redding MD [address] [place] [address] 05/12/2024 1:20 PM EDT Office Visit Family Practice [facility] [place] [address] [facility] [place] [address] Krupa Hardy, [address] [place] [address] 05/21/2024 1:00 PM EDT Office Visit Neurology [facility] [address] [place] [address] Santo Christian, DO [address] [place] [address] Scheduled Procedures Name Priority Associated Diagnoses Date/Ti me COLONOSCOPY FLEXIBLE PROXIMA L DIAGNOSTIC Recall Special screening for malignant neoplasms, colon Health Maintenance Due Date Last Done Comments DISCUSS TOBACCO CESSATION (REFER TO SMARTSET #2212) 1965 COVID-19 Vaccine (#1) 1965 Alpha-1 Antitrypsin [...] 04/11/2011 LUNG CANCER SCREENING - USE SMARTSET 19561 Completed 06/30/2020 Influenza Vaccine (FLU shot) Completed [...] this encounter Medical Devices Implanted Type Area Manager Human Resources Device Identifier Shelf Expiration Date Model / Serial / Lot [place] W/Screw - [id number] Implanted:Qty : 1 on 01/19/2016 [place]azquez [place] [facility] [place]A: Spine Cervical DANIEL : SPINE [id number] / / Description:From set documented as of [...] the patient have Health Care Power of Orthotic/Prosthetic Practitioner? No Code Status History Code Status Date Activated Date Inactivated Comments Full Code 01/19/2016 6:12 AM 01/19/2016 11:06 AM This order reflects the patients wishes and were consensually agreed upon. Question Answer Comments Discussion of Advance Directives occurred with: Family Does the patient have a Living Will? No Does the patient have Health Care Power of Orthotic/Prosthetic Practitioner? No Care Teams Parachute Inspector Relationship Specialty Start Date End Date Krupa Hardy DO [address] [facility] [place] [id number] PCP - General Family Medicine 07/21/23 documented as of this encounter
--- OUTSIDE RECORDS SUMMARY | 2024-01-20 14:48 | External Medical Summary | Summary of Care ---
Author Name Unknown Organization [facility] Address [address] [place] [address] Phone [phone] Care Team Providers Care Imagery Intelligence Name Role Phone Krupa Hardy DO Primary Care Provider +1- [phone] Reason for Visit * Reason Onset Date Comments Advice 12/17/2023 Encounter Details Date Type Department Care Team (Late st Contact Info) Description 12/17/2023 Telephone Family Practice [facility] [place] [address] [place] [address] Krupa Hardy DO [address] [place] [address] Advice Allergies Active Allergy Reactions [...] Respimat 2.5 MCG/ACT Inhalation Aerosol Solution (Tiotropium [place] Monohydrate)Indicatio ns:COPD (chronic obstructive pulmonary disease) with [...] Next Due Pneumococcal Conjugate Vacci ne, 20-valent ([id number]) 09/19/2023 Pneumococcal Polysaccharide PPV23 (Pneumovax) 12/17/2013 Seasonal [...] schedule appts please call pt back at [phone]. documented in this encounter Plan of Treatment Upcoming Encounters Date Type Department Care Team (Late st Contact Info) Description 12/23/2023 1:00 PM EST Office Visit Neurology [facility] [address] [facility] [place] [address] Soila Redding MD [address] [facility] [place] [address] 05/12/2024 1:20 PM EDT Office Visit Family Practice [place] Denia Mckeon [address] [place] [address] Krupa Hardy DO [address] [place] [address] 05/21/2024 1:00 PM EDT Office Visit Neurology [facility] [address] [facility] [place] [address] Santo Christian DO [address] [place] [address] Scheduled Procedures Name Priority Associated Diagnoses Date/Ti me COLONOSCOPY FLEXIBLE PROXIMA L DIAGNOSTIC Recall Special screening for malignant neoplasms, colon Health Maintenance Due Date Last Done Comments DISCUSS TOBACCO CESSATION (REFER TO SMARTSET #9103) 1963 Alpha-1 Antitrypsin 1981 HPV/Co-Test 1993 Cologuard [...] 04/11/2011 LUNG CANCER SCREENING - USE SMARTSET 63444 Completed 06/30/2020 Influenza Vaccine (FLU shot) Completed [...] Medical Devices Implanted Type Area Home Health Billing Specialist Device Identifier Shelf Expiration Date Model / Serial / Lot Vitoss Bimodal Foam Pack 1.2cc - [id number] Implanted:Qty : 1 on 01/19/2016 by Burke Vazquez DO at OR [facility] N/A: Spine Cervical DANIEL : SPINE 11/26/2016 [id number] / / [id number] 4.0 X 8mm Self Drilling Screw Implanted:Qty : 1 on 01/19/2016 by Burke Vazquez, at OR [facility] N/A: Spine Cervical [id number] / / Description:From set Cage Avs [id number] - [id number] Implanted:Qty : 1 on 01/19/2016 by Burke Vazquez, at OR [facility] N/A: Spine Cervical DANIEL : SPINE [id number] / / Description:From set [place] W/Screw - [id number] Implanted:Qty : 1 on 01/19/2016 by Burke Vazquez DO at OR [facility] N/A: Spine Cervical DANIEL : SPINE [id number] / / Description:From set documented as of [...] patient have Health Care Power of Manager Traffic? No Code Status History Code Status Date Activated Date Inactivated Comments Full Code 01/19/2016 6:12 AM 01/19/2016 11:06 AM This order reflects the patients wishes and were consensually agreed upon. Question Answer Comments Discussion of Advance Directives occurred with: Family Does the patient have a Living Will? No Does the patient have Health Care Power of Manager Traffic? No Care Teams Imagery Intelligence Relationship Specialty Start Date End Date Krupa Hardy DO [address] [facility] [place] [address] PCP - General Family Medicine 07/21/23 documented as of this encounter
--- OUTSIDE RECORDS SUMMARY | 2024-01-20 14:49 | External Medical Summary | Summary of Care ---
Author Name Unknown Organization [facility] Address [address] [place] [address] Phone [phone] Care Team Providers Care Cherry Picker Operator Name Role Phone Krupa Hardy DO Primary Care Provider +1- [phone] Reason for Visit * Reason Onset Date Comments Med Request 11/12/2023 [facility] 11/12 Update 11/12/2023 Encounter Details Date Type Department Care Team (Late st Contact Info) Description 11/12/[address] [facility] [address] [place] [address] Krupa Hardy DO [address] [place], [place] [id number] Med Request ([facility] 11/12); Update Allergies Active Allergy Reactions Criticality Noted Date [...] as of this encounter (statuses as of 11/12/2023) Medications Medication Sig Dispensed Refills Start Date End Date Status Budesonide-Formoterol Fumarate 160-4.5 MCG/ACT Inhalation Aerosol (Symbicort)Indication s:COVID-19 Inhale 2 Puffs by mouth 2 times a day. 10.2 g 12 11/19/2021 Active Spiriva Respimat 2.5 MCG/ACT Inhalation Aerosol Solution (Tiotropium [place] Monohydrate)Indicatio ns:COPD (chronic obstructive pulmonary disease) with [...] as of this encounter (statuses as of 11/12/2023) Active Problems Problem Noted Date Diagnosed Date [...] as of this encounter (statuses as of 11/12/2023) Resolved Problems Problem Noted Date Diagnosed Date [...] as of this encounter (statuses as of 11/12/2023) Immunizations Name Administration Dates Next Due Pneumococcal Conjugate Vacci ne, 20-valent (Pghbasa22) 09/19/2023 Pneumococcal Polysaccharide PPV23 (Pneumovax) 12/17/2013 Seasonal [...] She would like an antibiotic sent to [facility] in [place]. She is taking inhalers as prescribed. * [...] nurse. Please advise. Thank you, Kanwal Lopez Lastex Operator [email or web address] 11/12/2023, 10:48 AM documented in this encounter Plan of Treatment Upcoming Encounters Date Type Department Care Team (Late st Contact Info) Description 12/11/2023 1:40 PM EST Office Visit Neurology [facility] [address] [facility] [place] [address] Soila Redding MD [address] [facility] [place] [address] 05/12/2024 1:20 PM EDT [facility] [address] [place] [address] Krupa Hardy, [address] [place] [address] 05/21/2024 1:00 PM EDT Office Visit Neurology [facility] [address] [place] [address] Santo Christian, DO [address] [place] [address] Scheduled Procedures Name Priority Associated Diagnoses Date/Ti me COLONOSCOPY FLEXIBLE PROXIMA L DIAGNOSTIC Recall Special screening for malignant neoplasms, colon Health Maintenance Due Date Last Done Comments DISCUSS TOBACCO CESSATION (REFER TO SMARTSET #6536) 1965 COVID-19 Vaccine (#1) 1963 Alpha-1 Antitrypsin [...] 04/11/2011 LUNG CANCER SCREENING - USE SMARTSET 94454 Completed 06/30/2020 Influenza Vaccine (FLU shot) Completed [...] this encounter Medical Devices Implanted Type Area Fur Scraper Device Identifier Shelf Expiration Date Model / Serial / Lot [place] W/Screw - [id number] Implanted:Qty : 1 on 01/19/2016 by Burke Vazquez, at [place] [facility] [place] N/A: Spine Cervical DANIEL : SPINE [id number] / / Description:From set documented as of [...] the patient have Health Care Power of B Operator? No Code Status History Code Status Date Activated Date Inactivated Comments Full Code 01/19/2016 6:12 AM 01/19/2016 11:06 AM This order reflects the patients wishes and were consensually agreed upon. Question Answer Comments Discussion of Advance Directives occurred with: Family Does the patient have a Living Will? No Does the patient have Health Care Power of B Operator? No Care Teams Cherry Picker Operator Relationship Specialty Start Date End Date Krupa Hardy DO [address] [facility] [place] [address] PCP - General Family Medicine 07/21/23 documented as of this encounter
--- OUTSIDE RECORDS SUMMARY | 2024-01-20 14:49 | External Medical Summary | Summary of Care ---
Author Name Unknown Organization [facility] Address [address] [place] [address] Phone [phone] Care Team Providers Care Sewer Hand Name Role Phone Krupa Hardy DO Primary Care Provider +1- [phone] Reason for Visit * Reason Onset Date Comments Med Request 11/12/2023 [facility] 11/12 Update 11/12/2023 Status Check 11/12/2023 Encounter Details Date Type Department Care Team (Late st Contact Info) Description 11/12/2023 Telephone Family Practice [facility] [place] [address] [facility] [place] [address] Krupa Hardy DO [address] [facility] [place] [address] Med Request ([facility] 11/12); Update; Status Check Allergies Active Allergy [...] Respimat 2.5 MCG/ACT Inhalation Aerosol Solution (Tiotropium [place] Monohydrate)Indicatio ns:COPD (chronic obstructive pulmonary disease) with [...] Next Due Pneumococcal Conjugate Vacci ne, 20-valent ([id number]) 09/19/2023 Pneumococcal Polysaccharide PPV23 (Pneumovax) 12/17/2013 Seasonal [...] encounter Miscellaneous Notes * Telephone Encounter - Jacoby Feldman MD - 11/13/2023 3:04 PM EST Chart reviewed. Behavior warning sent. She has not checked MyG in a year, so will likely wait out in purgatory until it triggers a physical mailing. No antibiotic indicated without an appointment. She has been given appropriate advice so far. Urgent care is also an option. Jacoby Feldman MD, ZAIDA [place] Associate Vault Service Mechanic * Telephone Encounter - Yuko Young LPN [...] further assistance. Caller can be reached at [phone]. Thank you, Courtney Hawley Appointment Specialist I Centralized Clinical Pharmacy Services (CCPS) (Formerly [...] She would like an antibiotic sent to [facility] in [place]. She is taking inhalers as prescribed. * [...] nurse. Please advise. Thank you, Kanwal Lopez Printing Film Stripper [facility] 11/12/2023, 10:48 AM documented in this encounter Plan of Treatment Upcoming Encounters Date Type Department Care Team (Late st Contact Info) Description 12/11/2023 1:40 PM EST Office Visit [facility] [address] [facility] [place] [address] Soila Redding MD [address] [facility] [place] [address] 05/12/2024 1:20 PM EDT Office Visit Family Practice [place] [facility] [place] [address] [place] [address] Krupa Hardy, [address] [facility] [place] [address] 05/21/2024 1:00 PM EDT Office Visit Neurology [facility] [place] [address] [place] [address] Santo Christian, DO [address] [place] [address] Scheduled Procedures Name Priority Associated Diagnoses Date/Ti me COLONOSCOPY FLEXIBLE PROXIMA L DIAGNOSTIC Recall Special screening for malignant neoplasms, colon Health Maintenance Due Date Last Done Comments DISCUSS TOBACCO CESSATION (REFER TO SMARTSET #7222) 1965 COVID-19 Vaccine (#1) 1963 Alpha-1 Antitrypsin [...] 04/11/2011 LUNG CANCER SCREENING - USE SMARTSET 61794 Completed 06/30/2020 Influenza Vaccine (FLU shot) Completed [...] this encounter Medical Devices Implanted Type Area Emts Device Identifier Shelf Expiration Date Model / Serial / Lot Marshall W/Screw - [id number] Implanted:Qty : 1 on 01/19/2016 by Burke Vazquez DO at OR [facility] N/A: Spine Cervical DANIEL : SPINE [id number] / / Description:From set documented as of [...] the patient have Health Care Power of Hoop Punch And Coiler Operator Helper? No Code Status History Code Status Date Activated Date Inactivated Comments Full Code 01/19/2016 6:12 AM 01/19/2016 11:06 AM This order reflects the patients wishes and were consensually agreed upon. Question Answer Comments Discussion of Advance Directives occurred with: Family Does the patient have a Living Will? No Does the patient have Health Care Power of Hoop Punch And Coiler Operator Helper? No Care Teams Sewer Hand Relationship Specialty Start Date End Date Krupa Hardy DO [address] [facility] [place] [id number] PCP - General Family Medicine 07/21/23 documented as of this encounter
--- OUTSIDE RECORDS SUMMARY | 2024-01-20 14:49 | External Medical Summary | Summary of Care ---
Author Name Unknown Organization [facility] Address [address] [place] [address] Phone [phone] Care Team Providers Care Computer Networker Name Role Phone Krupa Hardy DO Primary Care Provider +1- [phone] Reason for Visit * Reason Onset Date Comments Med Request 11/12/2023 [facility] 11/12 Update 11/12/2023 Status Check 11/12/2023 Encounter Details Date Type Department Care Team (Late st Contact Info) Description 11/12/2023 Telephone Family Practice [facility] [place] [address] [facility] [place] [address] Krupa Hardy DO [address] [place] [address] Med Request ([facility] 11/12); Update; Status Check Allergies [...] Respimat 2.5 MCG/ACT Inhalation Aerosol Solution (Tiotropium [place] Monohydrate)Indicatio ns:COPD (chronic obstructive pulmonary disease) with [...] Next Due Pneumococcal Conjugate Vacci ne, 20-valent ([id number]) 09/19/2023 Pneumococcal Polysaccharide PPV23 (Pneumovax) 12/17/2013 Seasonal [...] encounter Miscellaneous Notes * Telephone Encounter - Janis Hawley CPhT [...] further assistance. Caller can be reached at [phone]. Thank you, Courtney Hawley Education Department Registrar I Centralized Clinical Pharmacy Services (CCPS) (Formerly [...] She would like an antibiotic sent to [facility] in [place]. She is taking inhalers as prescribed. * [...] nurse. Please advise. Thank you, Kanwal Lopez Abstractor [email or web address] 11/12/2023, 10:48 AM documented in this encounter Plan of Treatment Upcoming Encounters Date Type Department Care Team (Late st Contact Info) Description 12/11/2023 1:40 PM EST Office Visit Neurology [facility] [address] [place] [address] Soila Redding MD [address] [place] [address] 05/12/2024 1:20 PM EDT Office Visit Family Practice [place] Denia Mckeon [address] [place] [address] Krupa Hardy DO [address] [place] [address] 05/21/2024 1:00 PM EDT Office Visit Neurology [facility] [address] [place] [address] Santo Christian DO [address] [place], [place] [address] Scheduled Procedures Name Priority Associated Diagnoses Date/Ti me COLONOSCOPY FLEXIBLE PROXIMA L DIAGNOSTIC Recall Special screening for malignant neoplasms, colon Health Maintenance Due Date Last Done Comments DISCUSS TOBACCO CESSATION (REFER TO SMARTSET #1837) 1965 COVID-19 Vaccine (#1) 1965 Alpha-1 Antitrypsin [...] 04/11/2011 LUNG CANCER SCREENING - USE SMARTSET 22895 Completed 06/30/2020 Influenza Vaccine (FLU shot) Completed [...] this encounter Medical Devices Implanted Type Area Day Trader Device Identifier Shelf Expiration Date Model / Serial / Lot [place] W/Screw - [id number] Implanted:Qty : 1 on 01/19/2016 by Burke Vazquez DO at [place] [facility] [facility] N/A: Spine Cervical DANIEL : SPINE [id number] / / Description:From set documented as of [...] the patient have Health Care Power of Chucking And Sawing Machine Operator? No Code Status History Code Status Date Activated Date Inactivated Comments Full Code 01/19/2016 6:12 AM 01/19/2016 11:06 AM This order reflects the patients wishes and were consensually agreed upon. Question Answer Comments Discussion of Advance Directives occurred with: Family Does the patient have a Living Will? No Does the patient have Health Care Power of Chucking And Sawing Machine Operator? No Care Teams Computer Networker Relationship Specialty Start Date End Date Kruap Hardy DO [address] [facility] [place] [address] PCP - General Family Medicine 07/21/23 documented as of this encounter
--- OUTSIDE RECORDS SUMMARY | 2024-01-20 14:49 | External Medical Summary | Summary of Care ---
Author Name Unknown Organization [facility] Address [address] [place] [address] Phone [phone] Care Team Providers Care Digital Music Instructor Name Role Phone Krupa Hardy DO Primary Care Provider +1- [phone] Reason for Visit * Reason Onset Date Comments Med Request 11/12/2023 [facility] 11/12 Update 11/12/2023 Status Check 11/12/2023 Encounter Details Date Type Department Care Team (Late st Contact Info) Description 11/12/2023 Telephone Family Practice [facility] [place] [address] [facility] [place] [address] Krupa Hardy DO [address] [place] [address] Med Request ([facility] 11/12); Update; Status Check Allergies Active Allergy [...] Respimat 2.5 MCG/ACT Inhalation Aerosol Solution (Tiotropium [place] Monohydrate)Indicatio ns:COPD (chronic obstructive pulmonary disease) with [...] Next Due Pneumococcal Conjugate Vacci ne, 20-valent ([id number]) 09/19/2023 Pneumococcal Polysaccharide PPV23 (Pneumovax) 12/17/2013 Seasonal [...] encounter Miscellaneous Notes * Telephone Encounter - Yuko Young LPN [...] further assistance. Caller can be reached at [phone]. Thank you, Courtney Hawley Clerical Coordinator I Centralized Clinical Pharmacy Services (CCPS) (Formerly [...] She would like an antibiotic sent to [facility] in [place]. She is taking inhalers as prescribed. * [...] nurse. Please advise. Thank you, Kanwal Lopez Acute Care Occupational Therapist [facility] 11/12/2023, 10:48 AM documented in this encounter Plan of Treatment Upcoming Encounters Date Type Department Care Team (Late st Contact Info) Description 12/11/2023 1:40 PM EST Office Visit Neurology [facility] [address] [facility] [place] [address] Soila Redding MD [address] [facility] [place] [address] 05/12/2024 1:20 PM EDT [facility] [address] [place] [address] Krupa Hardy DO [address] [place] [address] 05/21/2024 1:00 PM EDT Office Visit Neurology [facility] [address] [place] [address] Santo Christian, DO [address] [place] [address] Scheduled Procedures Name Priority Associated Diagnoses Date/Ti me COLONOSCOPY FLEXIBLE PROXIMA L DIAGNOSTIC Recall Special screening for malignant neoplasms, colon Health Maintenance Due Date Last Done Comments DISCUSS TOBACCO CESSATION (REFER TO SMARTSET #8205) 1965 COVID-19 Vaccine (#1) 1965 Alpha-1 Antitrypsin [...] 04/11/2011 LUNG CANCER SCREENING - USE SMARTSET 89290 Completed 06/30/2020 Influenza Vaccine (FLU shot) Completed [...] this encounter Medical Devices Implanted Type Area Music Researcher Device Identifier Shelf Expiration Date Model / Serial / Lot [place] W/Screw - [id number] Implanted:Qty : 1 on 01/19/2016 by Burke Vazquez DO at OR [facility] N/A: Spine Cervical DANIEL : SPINE [id number] / / Description:From set documented as of [...] the patient have Health Care Power of Piano Mover? No Code Status History Code Status Date Activated Date Inactivated Comments Full Code 01/19/2016 6:12 AM 01/19/2016 11:06 AM This order reflects the patients wishes and were consensually agreed upon. Question Answer Comments Discussion of Advance Directives occurred with: Family Does the patient have a Living Will? No Does the patient have Health Care Power of Piano Mover? No Care Teams Digital Music Instructor Relationship Specialty Start Date End Date Krupa Hardy DO [address] [facility] [place] [address] PCP - General Family Medicine 07/21/23 documented as of this encounter
--- OUTSIDE RECORDS SUMMARY | 2024-01-20 14:49 | External Medical Summary | Summary of Care ---
Author Name Unknown Organization [facility] Address [address] [place] [address] Phone [phone] Care Team Providers Care Spanish Translator Name Role Phone Krupa Hardy DO Primary Care Provider +1- [phone] Reason for Visit * Reason Onset Date Comments Medication Refill 11/05/2023 Encounter Details Date Type Department Care Team (Late st Contact Info) Description 11/05/2023 Refill [facility], [place] [address] [place], [place] [id number] Krupa Hardy DO [address] [place], [place] [phone] DHIRAJ (generalized anxiety disorder); Recurrent major depressive disorder, in partial remission (HCC); Irritable bowel syndrome with diarrhea; Intractable migraine [...] as of this encounter (statuses as of 11/10/2023) Medications Medication Sig Dispensed Refills Start Date End Date Status Budesonide-Formotero l Fumarate 160-4.5 MCG/ACT Inhalation Aerosol (Symbicort)Indicatio ns:COVID-19 Inhale 2 Puffs by mouth 2 times a day. 10.2 g 12 11/19/2021 Active Spiriva Respimat 2.5 MCG/ACT Inhalation Aerosol Solution (Tiotropium [place] Monohydrate)Indicati ons:COPD (chronic obstructive pulmonary disease) with [...] 60 Capsule 5 04/16/2023 4 Discontinue d(Refill) Ondansetron 4 MG Oral Tablet Disintegrating (Zofran)Indications: Irritable bowel syndrome with diarrhea,Intractable migraine with aura without status migrainosus dissolve 1 tablet ON TONGUE every 8 hours if needed for nausea OR vomiting 30 Tablet 1 09/24/2023 4 Discontinue d(Refill) diazePAM 5 MG Oral Tablet (Valium)Indications: DHIRAJ (generalized anxiety disorder),Recurrent major depressive disorder, in partial remission (HCC) take 1 tablet by mouth every 12 hours if needed for anxiety 60 Tablet 0 10/06/2023 4 Discontinue d(Refill) documented as of this encounter (statuses as of 11/10/2023) Active Problems Problem Noted Date Diagnosed Date [...] as of this encounter (statuses as of 11/10/2023) Resolved Problems Problem Noted Date Diagnosed Date [...] as of this encounter (statuses as of 11/10/2023) Immunizations Name Administration Dates Next Due Pneumococcal Conjugate Vacci ne, 20-valent ([id number]) 09/19/2023 Pneumococcal Polysaccharide PPV23 (Pneumovax) 12/17/2013 Seasonal [...] encounter Miscellaneous Notes * Telephone Encounter - Tierney Rodriguez LPN - 11/10/2023 9:59 AM EST MyG sent to pt * Telephone Encounter - Toro Gutierrez PA-C - 11/06/2023 1:25 PM EST Signed Prescriptions: Disp Refills diazePAM 5 MG Oral Tablet (Valium) 60 Tab*0 Sig: take 1 tablet by mouth every 12 hours if needed for anxietyAuthorizing Provider: TORO GUTIERREZ Ondansetron4 MG Oral Tablet Disintegratin*30 Tab*1 Sig: dissolve 1 tablet ON TONGUE every 8 hours if needed for nausea OR vomitingAuthorizing Provider: TORO GUTIERREZ * Telephone Encounter - Claribel Gutierrez MD - 11/06/2023 11:44 AM ESTPending Prescriptions: Disp Refills diazePAM 5 MG Oral Tablet (Valium) 60 Tab*0 Sig: take 1 tablet by mouth every 12 hours if needed for anxiety Ondansetron 4 MG Oral Tablet Disintegratin*30 Tab*1 Sig: dissolve 1 tablet ON TONGUE every 8 hours if needed for nausea OR vomiting * Telephone Encounter - Alexia Garcia [facility] - 11/06/2023 11:19 AM ESTPending Prescriptions: Disp Refills diazePAM 5 MG Oral Tablet (Valium) 60 Tab*0 Sig: take 1 tablet by mouth every 12 hours if needed for anxiety Ondansetron 4 MG Oral Tablet Disintegratin*30 Tab*1 Sig: dissolve 1 tablet ON TONGUE every 8 hours if needed for nausea OR vomiting * Telephone Encounter - Alexia Garcia [facility] - 11/06/2023 11:19 AM EST I have reviewed the patients controlled substance dispensing history in the Prescription Drug Monitoring Program in compliance with the [facility] regulations before prescribing a controlled substance. PDMP checked on 11/06/2023. Pending Prescriptions: Disp Refills diazePAM 5 MG Oral Tablet (Valium) 60 Tab*0 Sig: take 1 tablet by mouth every 12 hours if needed for anxiety Ondansetron 4 MG Oral Tablet Disintegrati*30 Tab*1 Sig: dissolve 1 tablet ON TONGUE every 8 hours if needed for nausea OR vomiting Last Visit: 10/29/2023 (in office), 02/18/2020 (telemedicine) Next Visit: 05/12/2024 Date medication was last filled: 10/06/23 Date medication is due for refill: 11/04/23 Pharmacy: [facility] #[id number] [facility] Is this request for a controlled substance? [...] in Results Review. Please approve if appropriate. Thanks, Alexia Garcia Clinical Pharmacist [facility] ([facility]) (Formerly Telepharmacy) [phone] 11/06/2023, 11:19 AM * Telephone Encounter - Nallely Garcia CPhT - 11/05/2023 1:38 PM EST Did you pend patient's preferred pharmacy and medication before forwarding?yes Pharmacy: [facility] #[id number] [facility] Pending Prescriptions: Disp Refills diazePAM 5 MG Oral Tablet (Valium) 60 Tab*0 Sig: take 1 tablet by mouth every 12 hours if needed for anxiety Ondansetron 4 MG Oral Tablet Disintegrati*30 Tab*1 Sig: dissolve 1 tablet ON TONGUE every 8 hours if needed for nausea OR vomiting Last Visit: 10/29/2023 (in office), 02/18/2020 (telemedicine) Next Visit: 05/12/2024 If no future appointments scheduled, and last appointment is greater than a year ago, please schedule patient for a follow-up appointment Last date the medication was ordered: 10/06/2023 Is this request for a controlled substance?Yes, What was the last refill date 10/06/2023 w/ quantity 60 and dosage 5 and Urine Drug Screen was completed Urine [...] found in Results Review. Patient Phone Numbers mobile [phone] Labs: Lab Results Component Value Date/Time CREAT [...] 12/11/2023 1:40 PM EST Office Visit Neurology [facility] [address] [place] [address] Soila Redding MD [address] [place] [address] 05/12/2024 1:20 PM EDT Office Visit Family Practice [address], [place] [address] [place] [address] Krupa Hardy, [address] [place] [address] 05/21/2024 1:00 PM EDT Office Visit Neurology [facility] [address] [place] [address] Santo Christian, DO [address] [place] [address] Scheduled Procedures Name Priority Associated Diagnoses Date/Ti me COLONOSCOPY FLEXIBLE PROXIMA L DIAGNOSTIC Recall Special screening for malignant neoplasms, colon Health Maintenance Due Date Last Done Comments DISCUSS TOBACCO CESSATION (REFER TO SMARTSET #1297) 1965 COVID-19 Vaccine (#1) 1963 Alpha-1 Antitrypsin 1981 HPV/Co-Test 1993 Cologuard 02/21/2008 Sigmoidoscopy 02/21/2008 Zoster Vaccines (1 of 2) 2013 Mammogram 05/08/2017 05/08/2016, 03/2 03/2014, 02/16/2010 Cervical Cancer Screening 05/07/2020 Pap Smear [...] 04/11/2011 LUNG CANCER SCREENING - USE SMARTSET 55122 Completed 06/30/2020 Influenza Vaccine (FLU shot) Completed [...] this encounter Medical Devices Implanted Type Area Taping Supervisor Device Identifier Shelf Expiration Date Model / Serial / Lot [place] W/Screw - [id number] Implanted:Qty : 1 on 01/19/2016 by Burke Vazquez DO at OR [facility] N/A: Spine Cervical DANIEL : SPINE [id number] / / Description:From set documented as of this encounter Visit Diagnoses Diagnosis DHIRAJ (generalized anxiety disorder) Generalized anxiety disorder Recurrent major depressive disorder, in partial remission (HCC) Irritable bowel syndrome with diarrhea Irritable bowel [...] the patient have Health Care Power of Cell Tender Helper? No Code Status History Code Status Date Activated Date Inactivated Comments Full Code 01/19/2016 6:12 AM 01/19/2016 11:06 AM This order reflects the patients wishes and were consensually agreed upon. Question Answer Comments Discussion of Advance Directives occurred with: Family Does the patient have a Living Will? No Does the patient have Health Care Power of Cell Tender Helper? No Care Teams Spanish Translator Relationship Specialty Start Date End Date Krupa Hardy DO [address] [facility] [place] [address] PCP - General Family Medicine 07/21/23 documented as of this encounter
--- OUTSIDE RECORDS SUMMARY | 2024-01-20 14:49 | External Medical Summary | Summary of Care ---
Author Name Unknown Organization [facility] Address [address] [place] [address] Phone [phone] Care Team Providers Care Presiding Steward Name Role Phone Kurpa Hardy DO Primary Care Provider +1- [phone] Reason for Visit * Reason Onset Date Comments Med Request 11/12/2023 [facility] 11/12 Update 11/12/2023 Encounter Details Date Type Department Care Team (Late st Contact Info) Description 11/12/2023 Telephone [facility] [address] [place] [address] Krupa Hardy DO [address] [place], [place] [phone] Med Request ([facility] 11/12); Update Allergies Active Allergy Reactions Criticality [...] Respimat 2.5 MCG/ACT Inhalation Aerosol Solution (Tiotropium [place] Monohydrate)Indicatio ns:COPD (chronic obstructive pulmonary disease) with [...] Next Due Pneumococcal Conjugate Vacci ne, 20-valent ([id number]) 09/19/2023 Pneumococcal Polysaccharide PPV23 (Pneumovax) 12/17/2013 Seasonal [...] She would like an antibiotic sent to [facility] in [place]. She is taking inhalers as prescribed. * [...] nurse. Please advise. Thank you, Kanwal Lopez Econometrics Professor [employer] 11/12/2023, 10:48 AM documented in this encounter Plan of Treatment Upcoming Encounters Date Type Department Care Team (Late st Contact Info) Description 12/11/2023 1:40 PM EST Office Visit Neurology [facility] [address] [facility] [place] [address] Soila Redding MD [address] [facility] [place] [address] 05/12/2024 1:20 PM EDT Office Visit Family Practice [facility] [place] [address] [place] [address] Krupa Hardy DO [address] [place] [address] 05/21/2024 1:00 PM EDT Office Visit Neurology [facility] [address] [place] [address] Santo Christian, DO [address] [place] [address] Scheduled Procedures Name Priority Associated Diagnoses Date/Ti me COLONOSCOPY FLEXIBLE PROXIMA L DIAGNOSTIC Recall Special screening for malignant neoplasms, colon Health Maintenance Due Date Last Done Comments DISCUSS TOBACCO CESSATION (REFER TO SMARTSET #1112) 1965 COVID-19 Vaccine (#1) 1965 Alpha-1 Antitrypsin [...] 04/11/2011 LUNG CANCER SCREENING - USE SMARTSET [id number] Completed 06/30/2020 Influenza Vaccine (FLU shot) Completed [...] this encounter Medical Devices Implanted Type Area Band Straightener Device Identifier Shelf Expiration Date Model / Serial / Lot [place] W/Screw - [id number] Implanted:Qty : 1 on 01/19/2016 by Burke Vazquez DO at [place] [facility] N/A: Spine Cervical DANIEL : SPINE [id number] / / Description:From set documented as of [...] the patient have Health Care Power of Varnish Finisher? No Code Status History Code Status Date Activated Date Inactivated Comments Full Code 01/19/2016 6:12 AM 01/19/2016 11:06 AM This order reflects the patients wishes and were consensually agreed upon. Question Answer Comments Discussion of Advance Directives occurred with: Family Does the patient have a Living Will? No Does the patient have Health Care Power of Varnish Finisher? No Care Teams Presiding Steward Relationship Specialty Start Date End Date Krupa Hardy DO [address] [facility] [place] [address] PCP - General Family Medicine 07/21/23 documented as of this encounter
--- OUTSIDE RECORDS SUMMARY | 2024-01-20 14:49 | External Medical Summary | Summary of Care ---
Author Name Unknown Organization [facility] Address [address] [place] [address] Phone [phone] Care Team Providers Care Construction Carpenters Helper Name Role Phone Krupa Hardy DO Primary Care Provider +1- [phone] Reason for Visit * Reason Onset Date Comments Med Request 11/12/2023 [facility] 11/12 Update 11/12/2023 Encounter Details Date Type Department Care Team (Late st Contact Info) Description 11/12/2023 Telephone [facility] [address] [place] [address] Krupa Hardy DO [address] [place], [place] [phone] Med Request ([facility] 11/12); Update Allergies Active Allergy Reactions [...] Respimat 2.5 MCG/ACT Inhalation Aerosol Solution (Tiotropium [place] Monohydrate)Indicatio ns:COPD (chronic obstructive pulmonary disease) with [...] Next Due Pneumococcal Conjugate Vacci ne, 20-valent ([id number]) 09/19/2023 Pneumococcal Polysaccharide PPV23 (Pneumovax) 12/17/2013 Seasonal [...] encounter Miscellaneous Notes * Telephone Encounter - Eric Patel OSA [...] sent to [facility] in [place]. She is taking inhalers as prescribed. * [...] nurse. Please advise. Thank you, Kanwal Lopez Events Traffic Controller [employer] 11/12/2023, 10:48 AM documented in this encounter Plan of Treatment Upcoming Encounters Date Type Department Care Team (Late st Contact Info) Description 12/11/2023 1:40 PM EST Office Visit Neurology [facility] [address] [facility] [place] [address] Soila Redding MD [address] [facility] [place] [address] 05/12/2024 1:20 PM EDT [facility] [address] [place] [address] Krupa Hardy, [address] [facility] [place] [address] 05/21/2024 1:00 PM EDT Office Visit Neurology [facility] [address] [facility] [place] [address] Santo Christian, DO [address] [place] [address] Scheduled Procedures Name Priority Associated Diagnoses Date/Ti me COLONOSCOPY FLEXIBLE PROXIMA L DIAGNOSTIC Recall Special screening for malignant neoplasms, colon Health Maintenance Due Date Last Done Comments DISCUSS TOBACCO CESSATION (REFER TO SMARTSET #3849) 1965 COVID-19 Vaccine (#1) 1965 Alpha-1 Antitrypsin [...] 04/11/2011 LUNG CANCER SCREENING - USE SMARTSET [id number] Completed 06/30/2020 Influenza Vaccine (FLU shot) Completed [...] this encounter Medical Devices Implanted Type Area Oracle Hrms Consultant Device Identifier Shelf Expiration Date Model / Serial / Lot [place] W/Screw - [id number] Implanted:Qty : 1 on 01/19/2016 by Burke Vazquez DO at [place] [facility] [place] N/A: Spine Cervical DANIEL : SPINE [id number] / / Description:From set documented as of [...] the patient have Health Care Power of Radio Intelligence Operator? No Code Status History Code Status Date Activated Date Inactivated Comments Full Code 01/19/2016 6:12 AM 01/19/2016 11:06 AM This order reflects the patients wishes and were consensually agreed upon. Question Answer Comments Discussion of Advance Directives occurred with: Family Does the patient have a Living Will? No Does the patient have Health Care Power of Radio Intelligence Operator? No Care Teams Construction Carpenters Helper Relationship Specialty Start Date End Date Krupa Hardy DO [address] [facility] [place] [address] PCP - General Family Medicine 07/21/23 documented as of this encounter
--- OUTSIDE RECORDS SUMMARY | 2024-01-20 14:50 | External Medical Summary | Summary of Care ---
Author Name Unknown Organization [facility] Address [address] [place] [address] Phone [phone] Care Team Providers Care Chief Of Pediatric Urology Name Role Phone Nereida Hardy DO Primary Care Provider [phone]- [phone] Reason for Referral * Evaluate & Treat - Unlimited Visits (Within 10 days (routine)) - Pending Review Specialty Diagnoses / Procedures Referred By Brent gracia Referred To Contact Neurology Diagnoses Migraine with aura and without status migrainosus, not intractable Nereida Hardy DO [address] [place] [address] Soila Redding MD [address] [place] [address] Referral ID Status Reason Start Date Expiration Date Visits Requested Visits Authorized [id number] Pending Review Specialty Services Required 10/29/[phone] Question Answer Referral Priority Within 10 days (routine) Where should this appointment be scheduled? [facility] This patient already has care established with Neurology. Do not place this order. Please use Ask A Doc to expedite care. Acknowledge CAD NEUROLOGY REFERRAL QUESTIONS Other Conditions Reason for Visit * Reason Comments Routine Exam Routine exam, has op en sore area behind the ears bilateral, on the back of the scalp, much worse behind the left ear Encounter Details Date Type Department Care Team (Late st Contact Info) Description 10/29/2023 12:40 PM EST Office Visit [facility] Denia Mckeon [address] [facility] [place] [place] [address] Nereida Hardy DO [address] [facility] [facility] [address] COPD (chronic obstructive pulmonary disease) with chronic bronchitis*; Migraine with aura and without status migrainosus, not intractable; Eczema, unspecified type; Persistent insomnia; II A HLP (goal LDL below 100); MDD (major depressive disorder), recurrent episode, moderate (HCC); DHIRAJ (generalized anxiety disorder) Allergies Active Allergy [...] as of this encounter (statuses as of 10/29/2023) Medications Medication Sig Dispensed Refills Start Date End Date Status Budesonide-Formoterol Fumarate 160-4.5 MCG/ACT Inhalation Aerosol (Symbicort)Indication s:COVID-19 Inhale 2 Puffs by mouth 2 times a day. 10.2 g 12 11/19/2021 Active Spiriva Respimat 2.5 MCG/ACT Inhalation Aerosol Solution (Tiotropium Melvin Monohydrate)Indicatio ns:COPD (chronic obstructive pulmonary disease) with chronic bronchitis inhale 2 puffs by mouth and INTO THE LUNGS once daily 4 g 5 06/05/2022 Active Albuterol Sulfate HFA 108 (90 Base) MCG/ACT Inhalation Aerosol SolutionIndications:C omplicated acute bronchitis inhale 2 puffs by mouth four times a day if needed for wheezing 54 g 1 10/31/2022 Active DULoxetine HCl 60 MG Oral Capsule Delayed Release Particles (Cymbalta)Indications :Recurrent major depressive disorder, in partial remission (HCC),DHIRAJ (generalized anxiety disorder) Take 1 Capsule by mouth in the morning and 1 Capsule before bedtime. 60 Capsule 5 04/16/2023 Active Montelukast Sodium 10 MG Oral Tablet [...] a day 180 Tablet 1 09/01/2023 Active Ondansetron 4 MG Oral Tablet Disintegrating (Zofran)Indications:I rritable bowel syndrome with diarrhea,Intractable migraine with aura without status migrainosus dissolve 1 tablet ON TONGUE every 8 hours if needed for nausea OR vomiting 30 Tablet 1 09/24/2023 Active diazePAM 5 MG Oral Tablet (Valium)Indications:G AD (generalized anxiety disorder),Recurrent major depressive disorder, in partial remission (HCC) take 1 tablet by mouth every 12 hours if needed for anxiety 60 Tablet 0 10/06/2023 Active Triamcinolone Acetonide 0.1 % External Cream (Aristocort) Apply topically to affected area 2 times a day. To affected area. 15 g 5 10/29/2023 Active documented as of this encounter (statuses as of 10/29/2023) Active Problems Problem Noted Date Diagnosed Date [...] as of this encounter (statuses as of 10/29/2023) Resolved Problems Problem Noted Date Diagnosed Date [...] as of this encounter (statuses as of 10/29/2023) Immunizations Name Administration Dates Next Due Pneumococcal Conjugate Vacci ne, 20-valent ([id number]) 09/19/2023 Pneumococcal Polysaccharide PPV23 (Pneumovax) 12/17/2013 Seasonal [...] Day Cigarettes 1 40 Smokeless Tobacco: Never Tobacco Cessation:Ready to Q uit: No; Counseling Given: No Alcohol Use Standard Drinks/Week Comments No 0 [...] Sign Reading Time Taken Comments Blood Pressure 122/68 10/29/2023 12:20 PM EST Pulse 87 10/29/2023 12:20 PM EST Temperature 36.5 C (97.7 F) 10/29/2023 12:[address] Respiratory Rate 20 10/29/2023 12:20 PM EST Oxygen Saturation 99% 10/29/2023 12:20 PM EST Inhaled Oxygen Concentration - - Weight 52.2 kg (115 lb) 10/29/2023 12:20 PM EST Height 165.1 cm (5' 5") 10/29/2023 12:20 PM EST Body Mass Index 19.14 10/29/2023 12:20 PM EST documented in this encounter Progress Notes * Nereida Hardy, DO - 10/29/2023 12:53 PM EST Subjective Socorro Avery is a 58 year old female. Chief Complaint Patient presents with Routine Exam Routine exam, has open sore area behind the ears bilateral, on the back of the scalp, much worse behind the left ear HPI: 58-year-old female here today for routine visit Chart reviewed Overall no major significant changes It seems like the biggest issue recently is her anxiety, she does have a lot of significant stress going on in her life, seems to be stemming from a lot of family dynamic issues She is on Cymbalta, as well as Valium She states that she had a TeleMed appointment with [facility] however she would difficulties with connection for her phone Patient uses medical marijuana for her pain She has had some increased issues with migraines, she would prefer to go back to see Dr. Redding who had seen her in the past She has a very sore itchy rash in the back of her ears, worse on the left, also has some of the base of her neck along her scalp PMH: Patient Active Problem List Diagnosis Code Smoker [...] moderate (HCC) F33.1 Medical marijuana use Z79.899 Current Outpatient Medications Medication Sig Dispense Refill Budesonide-Formoterol Fumarate 160-4.5 MCG/ACT Inhalation Aerosol (Symbicort) Inhale 2 Puffs by mouth 2 times a day. 10.2 g 12 Spiriva Respimat 2.5 MCG/ACT Inhalation Aerosol Solution (Tiotropium Melvin Monohydrate) inhale 2 puffs by mouth and INTO THE LUNGS once daily 4 g 5 Albuterol Sulfate HFA 108 (90 Base) MCG/ACT Inhalation Aerosol Solution inhale 2 puffs by mouth four times a day if needed for wheezing 54 g 1 DULoxetine HCl 60 MG Oral Capsule Delayed Release Particles (Cymbalta) Take 1 Capsule by mouth in the morning and 1 Capsule before bedtime. 60 Capsule 5 Montelukast Sodium 10 MG Oral Tablet (Singulair) [...] mouth twice a day 180 Tablet 1 Ondansetron 4 MG Oral Tablet Disintegrating (Zofran) dissolve 1 tablet ON TONGUE every 8 hours if needed for nausea OR vomiting 30 Tablet 1 diazePAM 5 MG Oral Tablet (Valium) take 1 tablet by mouth every 12 hours if needed for anxiety 60 Tablet 0 Triamcinolone Acetonide 0.1 % External Cream (Aristocort) Apply topically to affected area 2 times a day. To affected area. 15 g 5 No current facility-administered medications for this visit. Past Medical History: Diagnosis Date Adhesion of [...] performed by Flo Ivy MD at ENDOSCOPY [facility] ENTEROLYSIS, LAPAROSCOPIC 10/07 Multiple pelvic and abdominal adhesions LAMINECTOMY/LAMINOTOMY, CERV THORACIC,GUIDE 09/15/2013 Cervical 09/15/13 MICROSURGERY ADD-ON N/A 01/19/2016 MICROSURGICAL SURGERY REQUIRING MICROSCOPE LISTED SEPARATELY performed by Burke Vazquez DO at [facility] NECK SPINE FUSION (CERV, BELOW C2) N/A 01/19/2016 ARTHRODESIS SPINE ANTERIOR CERVICAL performed by Burke Vazquez DO at OR [facility] REMOVE NECK SPINE DISK, SINGLE N/A 01/19/2016 DISKECTOMY ANTERIOR CERVICAL performed by Burke Vazquez DO at OR [facility] REMOVE SPINE FIXATION DEV, ANTERIOR N/A 01/19/2016 REMOVAL OF ANTERIOR SPINAL INSTRUMENTATION performed by Burke Vazquez DO at OR [facility] Review of patient's allergies indicates: Allergen Reactions [...] [Oxycodone-Acetaminophen] Hives Sulfa Antibiotics Hives Trazodone Hives Family History Problem Relation Age of Onset Cancer Mother Breast Stroke Father Parkinsonism Father Dementia Father Lung cancer Father age 80 No Known Problems Brother Hypertension Brother No Known Problems Sister Cancer Grandmother (Maternal) Intestines Diabetes Grandmother (Paternal) Stroke Grandmother (Paternal) Other (TRACTOR ACCIDENT) Grandfather (Paternal) Heart Disorder Daughter murmur Family Status Relation Status Mo Alive Fa Bro Alive Bro Alive Sis Alive Shirley Alive Shirley Alive Son Alive MGMA MGFA PGMA PGFA Shirley (Not Specified) Social History Socioeconomic History Marital status: Spouse name: Not on file Number of children: Not on file Years of education: Not on file Highest education level: Not on file Occupational History Occupation: disabled Tobacco Use Smoking status: Every Day Packs/day: 1.00 Years: 40.00 Additional pack years: 0.00 Total pack years: 40.00 Types: Cigarettes Smokeless tobacco: Never Vaping Use [...] on file Housing Stability: Not on file Objective BP 122/68 | Pulse 87 | Temp 36.5 C (97.7 F) (Temporal Artery) | Resp 20 | Ht 1.651 m (5' 5") | Wt 52.2 kg (115 lb) | LMP (LMP Unknown) | SpO2 99% | BMI 19.14 kg/m | BSA 1.55 m Physical Exam Vitals and nursing note reviewed. Constitutional: General: She is not in acute distress. Appearance: Normal appearance. She is well-developed. She is not ill-appearing or diaphoretic. HENT: Head: Normocephalic and atraumatic. Right Ear: External ear normal. Left Ear: External ear normal. Mouth/Throat: Mouth: Mucous membranes are moist. Eyes: General: No scleral icterus. Right eye: No discharge. Left eye: No discharge. Cardiovascular: Rate and Rhythm: Normal rate and regular rhythm. Heart sounds: Normal heart sounds. No murmur heard. Pulmonary: Effort: Pulmonary effort is normal. No respiratory distress. Breath sounds: Normal breath sounds. No wheezing, rhonchi or rales. Abdominal: General: Bowel sounds are normal. There is no distension. Palpations: Abdomen is soft. Musculoskeletal: General: No deformity. Cervical back: Neck supple. Right lower leg: No edema. Left lower leg: No edema. Skin: General: Skin is warm and dry. Findings: Rash present. Comments: Excoriated dry almost plaque-like lesion behind left ear, on 2 [place] of ear, more mildon right ear, also has some excoriated dry lesions on base of neck Neurological: Mental Status: She is alert and oriented to person, place, and time. Psychiatric: Mood and Affect: Mood is anxious. Speech: Speech is tangential. Behavior: Behavior normal. Thought Content: Thought content normal. Judgment: Judgment normal. ASSESSMENT/PLAN: COPD (chronic obstructive pulmonary disease) with chronic bronchitis (Primary) Migraine with aura and without status migrainosus, not intractable - NEUROLOGY REFERRAL OP Eczema, unspecified type Persistent insomnia II A HLP (goal LDL below 100) MDD (major depressive disorder), recurrent episode, moderate (HCC) DHIRAJ (generalized anxiety disorder) Other orders - Triamcinolone Acetonide 0.1 % External Cream (Aristocort); Apply topically to affected area 2 times a day. To affected area. No major changes Continue all medications Will get patient set up with Neurology that she is requesting, Dr. Ida barragan Patient needs to follow with Psychiatry Will try triamcinolone cream on her ear and along her scalp lying, I think it is either a significant eczema or possible psoriasis Follow-up in 6 months or earlier as needed Follow Up: Return in about 6 months (around 04/28/2024) for Labs today. | For: Labs today Nereida Hardy DO documented in this encounter Nursing Notes * Tierney Rodriguez LPN - 10/29/2023 12:18 PM EST Chief Complaint Patient presents with Routine Exam Routine exam, has open sore area behind the ears bilateral, on the back of the scalp, much worse behind the left ear documented in this encounter Miscellaneous Notes * Addendum Note - Nereida Hardy DO - 10/29/2023 3:41 PM ESTAddended by: NEREIDA HARDY on: 10/29/2023 03:41 PM Modules accepted: Level of Service documented in this encounter Plan of Treatment Upcoming Encounters Date Type Department Care Team (Late st Contact Info) Description 05/12/2024 1:20 PM EDT Office Visit [facility] [address] [place] [address] Nereida Hardy DO [address] [facility] [place] [address] 05/21/2024 1:00 PM EDT Office Visit Neu[facility]leana [facility] [place] [address] [facility] [address] Santo Christian, DO [address] [facility] [place] [address] Scheduled Procedures Name Priority Associated Diagnoses Date/Ti me COLONOSCOPY FLEXIBLE PROXIMA L DIAGNOSTIC Recall Special screening for malignant neoplasms, colon Scheduled Referrals Name Type Priority Associated Diagnoses Orde r Schedule NEUROLOGY REFERRAL OP Referral Within 10 days (routine) Migraine with aura and without status migrainosus, not intractable Ordered: 10/29/2023 Health Maintenance Due Date Last Done Comments DISCUSS TOBACCO CESSATION (REFER TO SMARTSET #2521) 1965 COVID-19 Vaccine (#1) 1965 Alpha-1 Antitrypsin [...] YEAR FOR COPD 10/29/2024 10/29/2023 Lipid Panel 12/10/2027 12/10/2022, 11/27, 11/21/2020, Additional history exists DTaP,Tdap,and Td Vaccines (3 - Td or Tdap) 09/19/2033 09/19/2023, 04/11/2011 LUNG CANCER SCREENING - USE SMARTSET 13904 Completed 06/30/2020 Influenza Vaccine (FLU shot) Completed [...] this encounter Medical Devices Implanted Type Area Associate Consulting Engineer Device Identifier Shelf Expiration Date Model / Serial / Lot [place] W/Screw - [id number] Implanted:Qty : 1 on 01/19/2016 by Burke Vazquez DO at [facility] N/A: Spine Cervical DANIEL : SPINE [id number] / / Description:From set documented as of this encounter Visit Diagnoses Diagnosis COPD (chronic obstructive pulmonary disease) with chronic bronchitis- Primary Obstructive chronic bronchitis without exacerbation Migraine with aura and without status migrainosus, not intractable Migraine with aura, without mention of intractable migraine without mention of status migrainosus Eczema, unspecified type Persistent insomnia Persistent disorder of initiating or maintaining sleep II A HLP (goal LDL below 100) Other and unspecified hyperlipidemia MDD (major depressive disorder), recurrent episode, moderate (HCC) Major depressive disorder, recurrent episode, moderate DHIRAJ (generalized anxiety disorder) Generalized anxiety disorder [...] the patient have Health Care Power of Division Chief? No Code Status History Code Status Date Activated Date Inactivated Comments Full Code 01/19/2016 6:12 AM 01/19/2016 11:06 AM This order reflects the patients wishes and were consensually agreed upon. Question Answer Comments Discussion of Advance Directives occurred with: Family Does the patient have a Living Will? No Does the patient have Health Care Power of Division Chief? No Care Teams Chief Of Pediatric Urology Relationship Specialty Start Date End Date Nereida Hardy DO [address] [facility] [place] [address] PCP - General Family Medicine 07/21/23 documented as of this encounter
--- OUTSIDE RECORDS SUMMARY | 2024-01-20 14:50 | External Medical Summary | Summary of Care ---
Author Name Unknown Organization [facility] Address [address] [place] [address] Phone [phone] Care Team Providers Care Sanitary Napkin Machine Tender Name Role Phone Nereida Hardy DO Primary Care Provider [phone]- [phone] Reason for Referral * Evaluate & Treat - Unlimited Visits (Within 10 days (routine)) - Pending Review Specialty Diagnoses / Procedures Referred By Brent gracia Referred To Contact Neurology Diagnoses Migraine with aura and without status migrainosus, not intractable Nereida Hardy DO [address] [place] [address] Soila Redding MD [address] [place] [address] Referral ID Status Reason Start Date Expiration Date Visits Requested Visits Authorized [id number] Pending Review Specialty Services Required 10/29/2023 999 [...] 10/29/2023 12:40 PM EST Office Visit Family [facility] Denia Mckeon [address] [facility] [place] [address] Nereida [facility] DO [address] [facility] [address] COPD (chronic obstructive pulmonary disease) with chronic [...] Respimat 2.5 MCG/ACT Inhalation Aerosol Solution (Tiotropium [place] Monohydrate)Indicatio ns:COPD (chronic obstructive pulmonary disease) with [...] Next Due Pneumococcal Conjugate Vacci ne, 20-valent ([id number]) 09/19/2023 Pneumococcal Polysaccharide PPV23 (Pneumovax) 12/17/2013 Seasonal [...] Respimat 2.5 MCG/ACT Inhalation Aerosol Solution (Tiotropium [place] Monohydrate) inhale 2 puffs by mouth and [...] performed by Flo Ivy MD at ENDOSCOPY [facility] ENTEROLYSIS, LAPAROSCOPIC 10/07 Multiple pelvic and abdominal adhesions LAMINECTOMY/LAMINOTOMY, CERV THORACIC,GUIDE 09/15/2013 Cervical 09/15/13 MICROSURGERY ADD-ON N/A 01/19/2016 MICROSURGICAL SURGERY REQUIRING MICROSCOPE LISTED SEPARATELY performed by Burke Vazquez DO [place] [facility] N[place]K SPINE FUSION (CERV, BELOW C2) N/A 01/19/2016 ARTHRODESIS SPINE ANTERIOR CERVICAL performed by Burke Vazquez DO [place] [facility] REMOVE NECK SPINE DISK, SINGLE N/A 01/19/2016 DISKECTOMY ANTERIOR CERVICAL performed by Burke Vazquez DO [place] [facility] REMOVE SPINE FIXATION DEV, ANTERIOR N/A 01/19/2016 REMOVAL OF ANTERIOR SPINAL INSTRUMENTATION performed by Burke Vazquez DO [place] [facility] Review of patient's allergies indicates: Allergen Reactions [...] plaque-like lesion behind left ear, on 2 [place] of ear, more mildon right ear, also [...] Description 05/12/2024 1:20 PM EDT [facility] [address] [place] [address] Nereida Hardy DO [address] [facility] [place] [address] 05/21/2024 1:00 PM EDT Office Visit [facility]leana Garcia [place] [address] [facility] [address] Santo Christian, DO [address] [place] [facility] [address] Scheduled Procedures Name Priority Associated Diagnoses Date/Ti me COLONOSCOPY FLEXIBLE PROXIMA L DIAGNOSTIC Recall Special screening for malignant neoplasms, colon Scheduled Referrals Name Type Priority Associated Diagnoses Orde r Schedule NEUROLOGY REFERRAL OP Referral Within 10 days (routine) Migraine with aura and without status migrainosus, not intractable Ordered: 10/29/2023 Health Maintenance Due Date Last Done Comments DISCUSS TOBACCO CESSATION (REFER TO SMARTSET #6920) 1965 COVID-19 Vaccine (#1) 1965 Alpha-1 Antitrypsin [...] 04/11/2011 LUNG CANCER SCREENING - USE SMARTSET 73883 Completed 06/30/2020 Influenza Vaccine (FLU shot) Completed [...] this encounter Medical Devices Implanted Type Area Board Certified Music Therapist Device Identifier Shelf Expiration Date Model / Serial / Lot [place] W/Screw - [id number] Implanted:Qty : 1 on 01/19/2016 by Burke Vazquez DO [place] [facility] N/A: Spine Cervical DANIEL : SPINE [id number] / / Description:From set documented as of [...] the patient have Health Care Power of Overlay Operator? No Code Status History Code Status Date Activated Date Inactivated Comments Full Code 01/19/2016 6:12 AM 01/19/2016 11:06 AM This order reflects the patients wishes and were consensually agreed upon. Question Answer Comments Discussion of Advance Directives occurred with: Family Does the patient have a Living Will? No Does the patient have Health Care Power of Overlay Operator? No Care Teams Sanitary Napkin Machine Tender Relationship Specialty Start Date End Date Nereida Hardy DO [address] [facility] [place] [address] PCP - General Family Medicine 07/21/23 documented as of this encounter
--- OUTSIDE RECORDS SUMMARY | 2024-01-20 14:50 | External Medical Summary | Summary of Care ---
Author Name Unknown Organization [facility] Address [address] [place] [address] Phone [phone] Care Team Providers Care Body Joiner Name Role Phone AntonyKrupabozena VILLELA Primary Care Provider +1- [phone] Encounter Details Date Type Department Care Team (Late st Contact Info) Description 10/31/2023 Telephone Family Practice [facility], [place] [address] [facility] [place] [address] Toro Gutierrez [facility]-C [address] [facility] [place] [address] Allergies Active Allergy Reactions Criticality Noted [...] as of this encounter (statuses as of 11/03/2023) Medications Medication Sig Dispensed Refills Start Date End Date Status Budesonide-Formoterol Fumarate 160-4.5 MCG/ACT Inhalation Aerosol (Symbicort)Indication s:COVID-19 Inhale 2 Puffs by mouth 2 times a day. 10.2 g 12 11/19/2021 Active Spiriva Respimat 2.5 MCG/ACT Inhalation Aerosol Solution (Tiotropium [place] Monohydrate)Indicatio ns:COPD (chronic obstructive pulmonary disease) with [...] as of this encounter (statuses as of 11/03/2023) Active Problems Problem Noted Date Diagnosed Date [...] as of this encounter (statuses as of 11/03/2023) Resolved Problems Problem Noted Date Diagnosed Date [...] as of this encounter (statuses as of 11/03/2023) Immunizations Name Administration Dates Next Due Pneumococcal Conjugate Vacci ne, 20-valent ([id number]) 09/19/2023 Pneumococcal Polysaccharide PPV23 (Pneumovax) 12/17/2013 Seasonal [...] encounter Miscellaneous Notes * Telephone Encounter - Toro Gutierrez PA-C - 11/03/2023 8:23 PM EST Great. Thank you, Lidia * Telephone Encounter - Lidia Pan LPN - 11/03/2023 1:54 PM EST Patient made aware of lab results. She has not had any medication changes. She will repeat lab workin two weeks. * Telephone Encounter - Toro Gutierrez PA-C - 10/31/2023 2:14 PM EST Her potassium is low at 3.3, which is new for her. Please just ask if she has had any recent medication changes. I would recommend repeating labs in 2weeks prior to changing meds. Order placed. Please inform. documented in this encounter Plan of Treatment Upcoming Encounters Date Type Department Care Team (Late st Contact Info) Description 11/06/2023 1:00 PM EST Office Visit Neurology [facility] [address] [place] [address] Soila Redding MD 200 [facility] [place] [address] 05/12/2024 1:20 PM EDT Office Visit Family Practice [facility] [address] [place] [address] Krupa Hardy DO [address] [place] [address] 05/21/2024 1:00 PM EDT Office Visit Neurology [facility] [address] [place] [address] Santo Christian, DO [address] [place] [address] Scheduled Orders Name Type Priority Associated Diagnoses Orde r Schedule BASIC METABOLIC PANEL Lab Routine Hypokalemia Expected: 11/14/2023 (Approximate), Expires: 10/30/2024 Scheduled Procedures Name Priority Associated Diagnoses Date/Ti me COLONOSCOPY FLEXIBLE PROXIMA L DIAGNOSTIC Recall Special screening for malignant neoplasms, colon Health Maintenance Due Date Last Done Comments DISCUSS TOBACCO CESSATION (REFER TO SMARTSET #2399) 1965 COVID-19 Vaccine (#1) 1965 Alpha-1 Antitrypsin [...] 04/11/2011 LUNG CANCER SCREENING - USE SMARTSET [id number] Completed 06/30/2020 Influenza Vaccine (FLU shot) Completed [...] this encounter Medical Devices Implanted Type Area Acute Care Surgeon Device Identifier Shelf Expiration Date Model / Serial / Lot [place] W/Screw - [id number] Implanted:Qty : 1 on 01/19/2016 by Burke Vazquez DO at OR [facility] [place] N/A: Spine Cervical DANIEL : SPINE [id number] / / Description:From set documented as of this encounter Visit Diagnoses Diagnosis Hypokalemia- Primary Hypopotassemia documented in this encounter Advance Directives [...] the patient have Health Care Power of Career Technical Education Teacher? No Code Status History Code Status Date Activated Date Inactivated Comments Full Code 01/19/2016 6:12 AM 01/19/2016 11:06 AM This order reflects the patients wishes and were consensually agreed upon. Question Answer Comments Discussion of Advance Directives occurred with: Family Does the patient have a Living Will? No Does the patient have Health Care Power of Career Technical Education Teacher? No Care Teams Body Joiner Relationship Specialty Start Date End Date Krupa Hardy DO [address] [facility] [place] [address] PCP - General Family Medicine 07/21/23 documented as of this encounter
--- OUTSIDE RECORDS SUMMARY | 2024-01-20 14:50 | External Medical Summary | Summary of Care ---
Author Name Unknown Organization [facility] Address [address] [place] [address] Phone [phone] Care Team Providers Care Acid Operator Name Role Phone Krupa Hardy DO Primary Care Provider +1- [phone] Reason for Visit * Reason Onset Date Comments Referral 10/29/2023 Neuro Encounter Details Date Type Department Care Team (Late st Contact Info) Description 10/29/2023 Telephone Family Practice [facility], [place] [address] [place] [address] Krupa Hardy DO [address] [place] [address] Referral (Neuro) Allergies Active Allergy Reactions Criticality Noted Date [...] as of this encounter (statuses as of 10/31/2023) Medications Medication Sig Dispensed Refills Start Date End Date Status Budesonide-Formoterol Fumarate 160-4.5 MCG/ACT Inhalation Aerosol (Symbicort)Indication s:COVID-19 Inhale 2 Puffs by mouth 2 times a day. 10.2 g 12 11/19/2021 Active Spiriva Respimat 2.5 MCG/ACT Inhalation Aerosol Solution (Tiotropium [place] Monohydrate)Indicatio ns:COPD (chronic obstructive pulmonary disease) with [...] as of this encounter (statuses as of 10/31/2023) Active Problems Problem Noted Date Diagnosed Date [...] as of this encounter (statuses as of 10/31/2023) Resolved Problems Problem Noted Date Diagnosed Date [...] as of this encounter (statuses as of 10/31/2023) Immunizations Name Administration Dates Next Due Pneumococcal Conjugate Vacci ne, 20-valent ([id number]) 09/19/2023 Pneumococcal Polysaccharide PPV23 (Pneumovax) 12/17/2013 Seasonal Influenza Virus Vac cine, Unspecified Formulation 09/18/2020,07/26/2019,11/17/2018,06/28,07/17/2016,09/02/2014,07/28/20,08/29/2011,08/13/2010,09/26/2009,11/12/2008 Seasonal Influenza, PF, 6 M & above, [...] encounter Miscellaneous Notes * Telephone Encounter - Lesly Sim OSA - 10/31/2023 12:12 PM EST Neuro appt felisha'd with Dr. Redding * Telephone Encounter - Maria Luz Holden CPhT - 10/30/2023 1:13 PM EST Pt calling back regarding on VM left today at 9:41 am .Transfer Pt to scheduling to schedule appt. With Dr. Redding. Thank you, Maria Luz Holden CPhT [facility] ([facility]) (Formerly Telepharmacy) 10/30/2023,1:14 PM * Telephone Encounter - Lesly Sim OSA - 10/30/2023 9:41 AM EST LMOM. When pt returns call, please schedule neurology appt with Dr. Redding at [facility]. * Telephone Encounter - Jeni Pa OSA - 10/29/2023 1:13 PM EST Please assist in scheduling with Dr Redding documented in this encounter Plan of Treatment Upcoming Encounters Date Type Department Care Team (Late st Contact Info) Description 11/06/2023 1:00 PM EST Office Visit Neurology [employer] [address] [facility] [place] [address] Soila Redding MD 200 [facility] [place] [address] 05/12/2024 1:20 PM EDT Office Visit Family Practice [address], [place] [address] [place] [address] Krupa Hardy DO [address] [place] [address] 05/21/2024 1:00 PM EDT Office Visit Neurology [facility] [place] [address] [place] [address] Santo Christian, DO [address] [place] [address] Scheduled Procedures Name Priority Associated Diagnoses Date/Ti me COLONOSCOPY FLEXIBLE PROXIMA L DIAGNOSTIC Recall Special screening for malignant neoplasms, colon Health Maintenance Due Date Last Done Comments DISCUSS TOBACCO CESSATION (REFER TO SMARTSET #1301) 1965 COVID-19 Vaccine (#1) 1965 Alpha-1 Antitrypsin [...] 04/11/2011 LUNG CANCER SCREENING - USE SMARTSET [id number] Completed 06/30/2020 Influenza Vaccine (FLU shot) Completed [...] this encounter Medical Devices Implanted Type Area Traffic Signal Technician Device Identifier Shelf Expiration Date Model / Serial / Lot [place] W/Screw - [id number] Implanted:Qty : 1 on 01/19/2016 by Burke Vazquez DO at OR [facility] [place] [place] N/A: Spine Cervical DANIEL : SPINE [id number] / / Description:From set documented as of [...] the patient have Health Care Power of Rental Car Deliverer? No Code Status History Code Status Date Activated Date Inactivated Comments Full Code 01/19/2016 6:12 AM 01/19/2016 11:06 AM This order reflects the patients wishes and were consensually agreed upon. Question Answer Comments Discussion of Advance Directives occurred with: Family Does the patient have a Living Will? No Does the patient have Health Care Power of Rental Car Deliverer? No Care Teams Acid Operator Relationship Specialty Start Date End Date Krupa Hardy DO [address] [facility] [place] [address] PCP - General Family Medicine 07/21/23 documented as of this encounter
--- OUTSIDE RECORDS SUMMARY | 2024-01-20 14:50 | External Medical Summary | Summary of Care ---
Author Name Unknown Organization [facility] Address [address] [place] [address] Phone [phone] Care Team Providers Care Shake Loader Name Role Phone AntonyKrupabozena VILLELA Primary Care Provider +1- [phone] Encounter Details Date Type Department Care Team (Late st Contact Info) Description 10/31/[address] [facility] [place] [place] [address] [facility] [place] [place] [address] Toro Gutierrez [facility]-C [address] [facility] [place] [address] Allergies Active Allergy Reactions Criticality [...] Respimat 2.5 MCG/ACT Inhalation Aerosol Solution (Tiotropium [place] Monohydrate)Indicatio ns:COPD (chronic obstructive pulmonary disease) with [...] Next Due Pneumococcal Conjugate Vacci ne, 20-valent ([id number]) 09/19/2023 Pneumococcal Polysaccharide PPV23 (Pneumovax) 12/17/2013 Seasonal [...] 11/06/2023 1:00 PM EST Office Visit Neurology [facility] [address] [place] [address] Soila Redding MD 200 [facility] [place] [address] 05/12/2024 1:20 PM EDT Office Visit Family Practice [address], [place] [address] [place] [address] Krupa Hardy DO [address] [facility] [address] 05/21/2024 1:00 PM EDT Office Visit Neurology [facility] [address] [place] [address] Santo Christian, DO [address] [place] [address] Scheduled Orders Name Type Priority Associated Diagnoses Orde r Schedule BASIC METABOLIC PANEL Lab Routine Hypokalemia Expected: 11/14/2023 (Approximate), Expires: 10/30/2024 Scheduled Procedures Name Priority Associated Diagnoses Date/Ti me COLONOSCOPY FLEXIBLE PROXIMA L DIAGNOSTIC Recall Special screening for malignant neoplasms, colon Health Maintenance Due Date Last Done Comments DISCUSS TOBACCO CESSATION (REFER TO SMARTSET #7321) 1965 COVID-19 Vaccine (#1) 1965 Alpha-1 Antitrypsin [...] 04/11/2011 LUNG CANCER SCREENING - USE SMARTSET 51348 Completed 06/30/2020 Influenza Vaccine (FLU shot) Completed [...] this encounter Medical Devices Implanted Type Area Gathering Machine Feeder Device Identifier Shelf Expiration Date Model / Serial / Lot [place] W/Screw - [id number] Implanted:Qty : 1 on 01/19/2016 by Burke Vazquez, at OR [facility] [place] N/A: Spine Cervical DANIEL : SPINE [id number] / / Description:From set documented as of [...] the patient have Health Care Power of Animal Daycare Provider? No Code Status History Code Status Date Activated Date Inactivated Comments Full Code 01/19/2016 6:12 AM 01/19/2016 11:06 AM This order reflects the patients wishes and were consensually agreed upon. Question Answer Comments Discussion of Advance Directives occurred with: Family Does the patient have a Living Will? No Does the patient have Health Care Power of Animal Daycare Provider? No Care Teams Shake Loader Relationship Specialty Start Date End Date Krupa Hardy DO [address] [facility] [place] [place] [address] PCP - General Family Medicine 07/21/23 documented as of this encounter
--- OUTSIDE RECORDS SUMMARY | 2024-01-20 14:50 | External Medical Summary | Summary of Care ---
Author Name Unknown Organization [facility] Address [address] [place] [address] Phone [phone] Care Team Providers Care Feather Cutting Machine Feeder Name Role Phone AntonyKrupabozena VILLELA Primary Care Provider +1- [phone] Encounter Details Date Type Department Care Team (Late st Contact Info) Description 10/31/2023 Telephone Family Practice [facility], [place] [address] [facility] [place] [address] Toro Gutierrez [facility]-C [address] [facility] [place] [address] Allergies Active Allergy Reactions [...] Respimat 2.5 MCG/ACT Inhalation Aerosol Solution (Tiotropium [place] Monohydrate)Indicatio ns:COPD (chronic obstructive pulmonary disease) with [...] Next Due Pneumococcal Conjugate Vacci ne, 20-valent ([id number]) 09/19/2023 Pneumococcal Polysaccharide PPV23 (Pneumovax) 12/17/2013 Seasonal [...] 11/06/2023 1:00 PM EST Office Visit Neurology [facility] [address] [place] [address] Soila Redding MD [address] [facility] [place] [address] 05/12/2024 1:20 PM EDT Office Visit [facility] [place] Mcke[place] [address] [place] [address] Krupa Hardy, [address] [place] [address] 05/21/2024 1:00 PM EDT Office Visit Neurology [facility] [address] [place] [address] Santo Christian, DO [address] [place] [address] Scheduled Orders Name Type Priority Associated Diagnoses Orde r Schedule BASIC METABOLIC PANEL Lab Routine Hypokalemia Expected: 11/14/2023 (Approximate), Expires: 10/30/2024 Scheduled Procedures Name Priority Associated Diagnoses Date/Ti me COLONOSCOPY FLEXIBLE PROXIMA L DIAGNOSTIC Recall Special screening for malignant neoplasms, colon Health Maintenance Due Date Last Done Comments DISCUSS TOBACCO CESSATION (REFER TO SMARTSET #4106) 1965 COVID-19 Vaccine (#1) 1965 Alpha-1 Antitrypsin [...] 04/11/2011 LUNG CANCER SCREENING - USE SMARTSET 35766 Completed 06/30/2020 Influenza Vaccine (FLU shot) Completed [...] this encounter Medical Devices Implanted Type Area Debrander Device Identifier Shelf Expiration Date Model / Serial / Lot [place] W/Screw - [id number] Implanted:Qty : 1 on 01/19/2016 by Burke Vazquez DO at OR [facility] [place] N/A: Spine Cervical DANIEL : SPINE [id number] / / Description:From set documented as of [...] the patient have Health Care Power of Supreme Court Judge? No Code Status History Code Status Date Activated Date Inactivated Comments Full Code 01/19/2016 6:12 AM 01/19/2016 11:06 AM This order reflects the patients wishes and were consensually agreed upon. Question Answer Comments Discussion of Advance Directives occurred with: Family Does the patient have a Living Will? No Does the patient have Health Care Power of Supreme Court Judge? No Care Teams Feather Cutting Machine Feeder Relationship Specialty Start Date End Date Krupa Hardy DO [address] [facility] [place] [address] PCP - General Family Medicine 07/21/23 documented as of this encounter
--- OUTSIDE RECORDS SUMMARY | 2024-01-20 14:50 | External Medical Summary | Summary of Care ---
Author Name Unknown Organization [facility] Address [address] [place] [address] Phone [phone] Care Team Providers Care Hall Worker Name Role Phone Krupa Hardy DO Primary Care Provider +1- [phone] Reason for Visit * Reason Onset Date Comments Medication Refill 11/05/2023 Encounter Details Date Type Department Care Team (Late st Contact Info) Description 11/05/2023 [facility]ill [facility] [place] [address] [place], [place] [id number] Krupa Haryd DO [address] [place], [place] [phone] DHIRAJ (generalized anxiety disorder); Recurrent major depressive [...] as of this encounter (statuses as of 11/06/2023) Medications Medication Sig Dispensed Refills Start Date End Date Status Budesonide-Formotero l Fumarate 160-4.5 MCG/ACT Inhalation Aerosol (Symbicort)Indicatio ns:COVID-19 Inhale 2 Puffs by mouth 2 times a day. 10.2 g 12 11/19/2021 Active Spiriva Respimat 2.5 MCG/ACT Inhalation Aerosol Solution (Tiotropium [place] Monohydrate)Indicati ons:COPD (chronic obstructive pulmonary disease) with [...] OR vomiting 30 Tablet 1 11/06/2023 Active Ondansetron 4 MG Oral Tablet [...] as of this encounter (statuses as of 11/06/2023) Active Problems Problem Noted Date Diagnosed Date [...] as of this encounter (statuses as of 11/06/2023) Resolved Problems Problem Noted Date Diagnosed Date [...] Grief reaction 01/25/2015 08/02/2015 Candidal vulvovaginitis 06/14/2014 1004/2015 Pelvic pain in female 06/14/20142014 Diverticulosis of [...] as of this encounter (statuses as of 11/06/2023) Immunizations Name Administration Dates Next Due Pneumococcal Conjugate Vacci ne, 20-valent ([id number]) 09/19/2023 Pneumococcal Polysaccharide PPV23 (Pneumovax) 12/17/2013 Seasonal [...] vomiting * Telephone Encounter - Alexia Garcia [facility] - 11/06/2023 11:19 AM ESTPending Prescriptions: Disp Refills diazePAM 5 MG Oral Tablet (Valium) 60 Tab*0 Sig: take 1 tablet by mouth every 12 hours if needed for anxiety Ondansetron 4 MG Oral Tablet Disintegratin*30 Tab*1 Sig: dissolve 1 tablet ON TONGUE every 8 hours if needed for nausea OR vomiting * Telephone Encounter - Alexia Garcia [facility] - 11/06/2023 11:19 AM EST I have reviewed the patients controlled substance dispensing history in the Prescription Drug Monitoring Program in compliance with the [facility] regulations before prescribing a controlled substance. [...] is due for refill: 11/04/23 Pharmacy: [facility] #[id number] [address] [facility] Is this request for a controlled [...] Centralized Clinical Pharmacy Services (CCPS) (Formerly Telepharmacy) [phone] 11/06/2023, 11:19 AM * Telephone Encounter - Nallely Garcia CPhT - 11/05/2023 1:38 PM EST Did you pend patient's preferred pharmacy and medication before forwarding?yes Pharmacy: [facility] #[id number] [address] [facility] Pending Prescriptions: Disp Refills diazePAM 5 [...] in Results Review. Patient Phone Numbers mobile [phone] Labs: Lab Results Component Value Date/Time CREAT [...] 12/11/2023 1:40 PM EST Office Visit [facility] [address] [place] [address] Soila Redding MD [address] [place] [address] 05/12/2024 1:20 PM EDT Office Visit Family Practice [address], [place] [address] [place] [address] Krupa Hardy DO [address] [place] [address] 05/21/2024 1:00 PM EDT Office Visit Neurology [facility] [address] [place] [address] Santo Christian, DO [address] [place] [address] Scheduled Procedures Name Priority Associated Diagnoses Date/Ti me COLONOSCOPY FLEXIBLE PROXIMA L DIAGNOSTIC Recall Special screening for malignant neoplasms, colon Health Maintenance Due Date Last Done Comments DISCUSS TOBACCO CESSATION (REFER TO SMARTSET #0291) 1965 COVID-19 Vaccine (#1) 1965 Alpha-1 Antitrypsin [...] 04/11/2011 LUNG CANCER SCREENING - USE SMARTSET 36162 Completed 06/30/2020 Influenza Vaccine (FLU shot) Completed [...] this encounter Medical Devices Implanted Type Area Certified Vehicle Fire Investigator Device Identifier Shelf Expiration Date Model / Serial / Lot [place] W/Screw - [id number] Implanted:Qty : 1 on 01/19/2016 by Burke Vazquez DO at OR [facility] [place] N/A: Spine Cervical DANIEL : SPINE [id number] / / Description:From set documented as of [...] the patient have Health Care Power of Warehouse Traffic Supervisor? No Code Status History Code Status Date Activated Date Inactivated Comments Full Code 01/19/2016 6:12 AM 01/19/2016 11:06 AM This order reflects the patients wishes and were consensually agreed upon. Question Answer Comments Discussion of Advance Directives occurred with: Family Does the patient have a Living Will? No Does the patient have Health Care Power of Warehouse Traffic Supervisor? No Care Teams Hall Worker Relationship Specialty Start Date End Date Krupa Hardy DO [address] [facility] [place] [address] PCP - General Family Medicine 07/21/23 documented as of this encounter
--- OUTSIDE RECORDS SUMMARY | 2024-01-20 14:51 | External Medical Summary ---
Author Name Unknown Address Unknown Organization K01:[facility] - [address] [facility] [place] [place] [address] Laboratory Report Ordering Provider Test Date Status HUBER BLAND 10/29/2023 13:29:59 Final Observation Date Value Abnormality Reference (Units ) Status BUN 10/29/2023 13:29:59 5 Below low normal 6-20 (mg/dL) Final Creatinine 10/29/2023 13:29:59 0.8 0.5-1.0 (mg/dL) Final Glomerular filtration rate/1.73 sq M.predicted [Volume Rate/Area] in Serum, Plasma or Blood by Creatinine-based formula (CKD-EPI) 10/29/2023 13:29:59 >90 >=60 (mL/min) Final eGFR is calculated based on the CKD-EPI 2020 equation SODIUM 10/29/2023 13:29:59 141 135-146 (m mol/L) Final Potassium 10/29/2023 13:29:59 3.3 Below low normal 3.5 -5.1 (mmol/L) Final Cl 10/29/2023 13:29:59 102 98-107 (mm ol/L) Final CO2 10/29/2023 13:29:59 26 22-32 (mmo l/L) Final Anion gap 10/29/2023 13:29:59 13 7-15 (mmol /L) Final Glucose 10/29/2023 13:29:59 78 70-120 (mg /dL) Final Albumin 10/29/2023 13:29:59 4.4 3.8-5.0 (g /dL) Final AST (Aspartate aminotransferase) 10/29/2023 13:29:59 16 10-35 (U/L) Fin al Alk Phos 10/29/2023 13:29:59 80 35-130 (U/ L) Final Bilirubin, Total 10/29/2023 13:29:59 <0.2 <=1 .2 (mg/dL) Final Calcium 10/29/2023 13:29:59 9.1 8.4-10.2 ( mg/dL) Final Protein 10/29/2023 13:29:59 6.2 6.0-8.3 (g /dL) Final ALT (Alanine aminotransferase) 10/29/2023 13:29:59 17 10-35 (U/L) Gui chapman Performing Location [facility] [facility] [address] [facility] [address]
--- OUTSIDE RECORDS SUMMARY | 2024-01-20 14:51 | External Medical Summary ---
Author Name Unknown Address Unknown Organization K01:LABORATORY [facility] [place] - [address] [place] [address] Laboratory Report Ordering Provider Test Date Status HUBER BLAND 10/29/2023 13:29:59 Final Observation Date Value Abnormality Reference (Units ) Status TSH 10/29/2023 13:29:59 1.56 0.27-4.20 (uIU/mL) Final Performing Location [facility] - [address] [place] [address]
--- OUTSIDE RECORDS SUMMARY | 2024-01-20 14:51 | External Medical Summary | Summary of Care ---
Author Name Unknown Organization [facility] Address [address] [place] [address] Phone [phone] Care Team Providers Care Senior Health Educator Name Role Phone Krupa Hardy DO Primary Care Provider +1- [phone] Reason for Visit * Reason Onset Date Comments Other 09/24/2023 Encounter Details Date Type Department Care Team (Late st Contact Info) Description 09/24/2023 Telephone Family Practice [facility], [place] [address] [place] [address] Krupa Hardy DO [address] [place] [address] Other (/) Allergies Active Allergy Reactions Criticality Noted Date [...] as of this encounter (statuses as of 09/24/2023) Medications Medication Sig Dispensed Refills Start Date End Date Status Budesonide-Formoterol Fumarate 160-4.5 MCG/ACT Inhalation Aerosol (Symbicort)Indications :COVID-19 Inhale 2 Puffs by mouth 2 times a day. 10.2 g 12 11/19/2021 Active Spiriva Respimat 2.5 MCG/ACT Inhalation Aerosol Solution (Tiotropium [place] Monohydrate)Indication s:COPD (chronic obstructive pulmonary disease) with chronic bronchitis inhale 2 puffs by mouth and INTO THE LUNGS once daily 4 g 5 06/05/2022 Active Albuterol Sulfate HFA 108 (90 Base) MCG/ACT Inhalation Aerosol SolutionIndications:Co mplicated acute bronchitis inhale 2 puffs by mouth four times a day if needed for wheezing 54 g 1 10/31/2022 Active DULoxetine HCl 60 MG Oral Capsule Delayed Release Particles (Cymbalta)Indications: Recurrent major depressive disorder, in partial remission (HCC),DHIRAJ (generalized anxiety disorder) Take 1 Capsule by mouth in the morning and 1 Capsule before bedtime. 60 Capsule 5 04/16/2023 Active Montelukast Sodium 10 MG Oral Tablet (Singulair)Indications :Allergic rhinitis,Asthma, mild persistent take 1 tablet by mouth every morning 90 Tablet 3 04/26/2023 Active Ondansetron 4 MG Oral Tablet Disintegrating (Zofran)Indications:Ir ritable bowel syndrome with diarrhea,Intractable migraine with aura without status migrainosus dissolve 1 tablet ON TONGUE every 8 hours if needed for nausea OR vomiting 30 Tablet 1 08/15/2023 Active Baclofen 10 MG Oral Tablet (Lioresal) take 1 tablet by mouth every morning and BEFORE BEDTIME 30 Tablet 0 08/26/2023 Active Topiramate 200 MG Oral Tablet (topAMAX)Indications:I ntractable migraine with aura without status migrainosus take 1 tablet by mouth twice a day 180 Tablet 1 09/01/2023 Active rOPINIRole HCl 2 MG Oral Tablet (Requip)Indications:Re stless legs syndrome take 1 tablet by mouth twice a day 180 Tablet 1 09/01/2023 Active diazePAM 5 MG Oral Tablet (Valium)Indications:GA D (generalized anxiety disorder),Recurrent major depressive disorder, in partial remission (HCC) take 1 tablet by mouth every 12 hours if needed for anxiety 60 Tablet 0 09/04/2023 Active documented as of this encounter (statuses as of 09/24/2023) Active Problems Problem Noted Date Diagnosed Date History of 2018 novel coronavirus disease (COVID -19) 11/28/2021 Overview: 11/15/21. No COVID vaccines. COVID-19 vaccination refused 11/28/2021 COPD (chronic obstructive pu lmonary disease) with chronic bronchitis 11/21/2020 Primary osteoarthritis of both knees 01/20/2018 Recurrent major depressive disorder, in partial remission 06/17/2017 Bilateral occipital neuralgia 08/09/2016 Irritable bowel syndrome [...] as of this encounter (statuses as of 09/24/2023) Resolved Problems Problem Noted Date Diagnosed Date [...] on steps 06/25/17. Dazed but no LOC. Depression with anxiety 04/08/201705/28 Monilial vaginitis 11/07/2016 [...] as of this encounter (statuses as of 09/24/2023) Immunizations Name Administration Dates Next Due Pneumococcal Conjugate Vacci ne, 20-valent ([id number]) 09/19/2023 Pneumococcal Polysaccharide PPV23 (Pneumovax) 12/17/2013 SEASONAL INFLUENZA, PF, 6 M & Above, IM , (FLULAVAL or FLUZONE) 09/19/2023,09/27/2022,09/18/2020,06/29,11/17/2018 Seasonal Influenza Virus Vac cine, Unspecified Formulation 09/18/2020,07/26/2019,11/17/2018,06/28,07/17/2016,09/02/2014,07/28/20 12,08/29/2011,08/13/2010,09/26/2009,1 11/12/2008 Seasonal Influenza, Quadriva lent, No Preserve, IM [...] Telephone Encounter - Lesly Sim OSA - 09/24/2023 12:47 PM EST Tried to call pt. NA. MyG message sent * Telephone Encounter - Lidia Pan LPN - 09/24/2023 12:35 PM EST Spoke with patient and made her aware of results. Patient states that she missed appointment with Psychiatry and would like assistance in rescheduling. * Telephone Encounter - Bo Sheppard PHARM Tech - 09/24/2023 12:03 PM EST Pt calling asking for someone to please contact her back regarding her recent test results Pt can be reached: [phone] Bo Alvarez, t Supervisor [facility] ([facility] (formerly Telepharmacy). 09/24/2023,12:03 PM documented in this encounter Plan of Treatment Upcoming Encounters Date Type Department Care Team (Late st Contact Info) Description 10/07/2023 2:00 PM EST Office Visit Family Practice [facility], [place] [address] [place] [address] Krupa Hardy, [address] [place] [address] 10/08/2023 1:00 PM EST Telemedicine Psychology, [place] [address] [place] [address] Claus Navarro, LAY MIDWIFE [address] [place], [place] [phone] 05/21/2024 1:00 PM EDT Office Visit Neurology [facility] [place] [address] [place] [address] Santo Christian, DO [address] [place], [place] [phone] Scheduled Procedures Name Priority Associated Diagnoses Date/Ti me COLONOSCOPY FLEXIBLE PROXIMA L DIAGNOSTIC Recall Special screening for malignant neoplasms, colon Health Maintenance Due Date Last Done Comments DISCUSS TOBACCO CESSATION (REFER TO SMARTSET #1470) 1963 COVID-19 Vaccine (#1) 1963 Alpha-1 Antitrypsin 1981 HPV/Co-Test 1993 Cologuard 02/21/2008 Sigmoidoscopy 02/21/2008 Zoster Vaccines (1 of 2) 2013 Mammogram 05/08/2017 05/08/2016, 12/26, 02/16/2010 Cervical Cancer Screening 05/07/2020 Pap Smear 05/07/2020 05/07/2017, 04/26, 02/08/2014 Depression Screening 10/09/2021 10/09/2020 Fecal Occult Blood Test 08/26/2023 08/26/2022 Colonoscopy 07/11/2024 07/11/2014, 06/27, 10/08/2012 Colorectal Cancer Screening 07/11/2024 O2 ASSESSMENT COMPLETED IN PAST YEAR FOR COPD 09/19/2024 09/19/2023 Lipid Panel 12/10/2027 12/10/2022, 11/27, 11/21/2020, Additional history exists DTaP,Tdap,and Td Vaccines (3 - Td or Tdap) 09/19/2033 09/19/2023, 04/11/2011 LUNG CANCER SCREENING - USE SMARTSET [id number] Completed 06/30/2020 Influenza Vaccine (FLU shot) Completed [...] this encounter Medical Devices Implanted Type Area Rewinder Operator Helper Device Identifier Shelf Expiration Date Model / Serial / Lot [place] W/Screw - [id number] Implanted:Qty : 1 on 01/19/2016 [place] Vaz[place] [facility] [place] Spine Cervical DANIEL : SPINE [id number] / / Description:From set documented as of [...] the patient have Health Care Power of Cms Expert? No Code Status History Code Status Date Activated Date Inactivated Comments Full Code 01/19/2016 6:12 AM 01/19/2016 11:06 AM This order reflects the patients wishes and were consensually agreed upon. Question Answer Comments Discussion of Advance Directives occurred with: Family Does the patient have a Living Will? No Does the patient have Health Care Power of Cms Expert? No Care Teams Senior Health Educator Relationship Specialty Start Date End Date Krupa Hardy DO [address] [facility] [place] [address] PCP - General Family Medicine 07/21/23 documented as of this encounter
--- OUTSIDE RECORDS SUMMARY | 2024-01-20 14:51 | External Medical Summary | Summary of Care ---
Author Name Unknown Organization [facility] Address [address] [place] [address] Phone [phone] Care Team Providers Care High School Science Teacher Name Role Phone Krupa Hardy DO Primary Care Provider +1- [phone] Reason for Visit * Reason Onset Date Comments Medication Refill 09/24/2023 Encounter Details Date Type Department Care Team (Late st Contact Info) Description 09/24/2023 Refill [facility], [place] [address] [place], [place] [phone] Krupa Hardy DO [address] [place], [place] [phone] Irritable bowel syndrome with diarrhea; Intractable migraine [...] Respimat 2.5 MCG/ACT Inhalation Aerosol Solution (Tiotropium [place] Monohydrate)Indicati ons:COPD (chronic obstructive pulmonary disease) with [...] 09/01/2023 Active diazePAM 5 MG Oral Tablet (Valium)Indications: DHIRAJ (generalized anxiety disorder),Recurrent major depressive disorder, in partial remission (HCC) take 1 tablet by mouth every 12 hours if needed for anxiety 60 Tablet 0 09/04/2023 Active Ondansetron 4 MG Oral Tablet Disintegrating (Zofran)Indications: Irritable bowel syndrome with diarrhea,Intractable migraine with aura without status migrainosus dissolve 1 tablet ON TONGUE every 8 hours if needed for nausea OR vomiting 30 Tablet 1 09/24/2023 Active Ondansetron 4 MG Oral Tablet Disintegrating (Zofran)Indications: Irritable bowel syndrome with diarrhea,Intractable migraine with aura without status migrainosus dissolve 1 tablet ON TONGUE every 8 hours if needed for nausea OR vomiting 30 Tablet 1 08/15/2023 3 Discontinue d(Refill) documented as of this encounter (statuses as of 09/24/2023) Active Problems Problem Noted Date Diagnosed Date History of 2019 novel coronavirus disease (COVID [...] Next Due Pneumococcal Conjugate Vacci ne, 20-valent ([id number]) 09/19/2023 Pneumococcal Polysaccharide PPV23 (Pneumovax) 12/17/2013 SEASONAL [...] encounter Miscellaneous Notes * Telephone Encounter - Magaly Rush RPh - 09/24/2023 3:59 PM ESTSigned Prescriptions: Disp Refills Ondansetron 4 MG Oral Tablet Disintegratin*30 Tab*1 Sig: dissolve 1 tablet ON TONGUE every 8 hours if needed for nausea OR vomiting Authorizing Provider: KRUPA HARDY Ordering User: MAGALY RUSH * Telephone Encounter - Bo Sheppard crew leader gluing - 09/24/2023 12:00 PM EST Did you pend patient's preferred pharmacy and medication before forwarding?yes Pharmacy: [id number] [facility] Pending Prescriptions: Disp Refills Ondansetron 4 MG Oral Tablet Disintegrati*30 Tab*1 Sig: dissolve 1 tablet ON TONGUE every 8 hours if needed for nausea OR vomiting Last Visit: 09/19/2023 (in office), 02/18/2020 (telemedicine) Next Visit: 10/07/2023 If no future appointments scheduled, and last appointment is greater than a year ago, please schedule patient for a follow-up appointment Last date the medication was ordered: 08/15/2023 Is this request for a controlled substance?No Urine Drug Screen: Results for orders placed or performed in visit on 09/19/23 TOXICOLOGY, URINE SCREEN W/ CONFIRMATION Result Value Amphetamine Negative Benzodiazepines Positive (A) Cannabinoids Positive (A) Cocaine Metabolite Negative Fentanyl Negative Hydrocodone / Hydromorphone Negative Methadone Metabolite Negative Morphine / Codeine Negative Oxycodone / Oxymorphone Negative Narrative Cutoff Concentrations: Drug Level Amphetamines [...] Lab Results Component Value Date/Time CREAT 0.8 12/10/2022 03:11 PM CREAT 0.8 11/21/2020 09:16 AM POTASSIUM 4.0 12/10/2022 03:11 PM POTASSIUM 4.6 11/21/2020 09:16 AM TSH 2.33 12/10/2022 03:11 PM TSH 2.02 11/21/2020 09:16 AM LDLCALC 134 (H) 12/10/2022 03:11 PM LDLCALC 144 (H) 11/21/2020 09:16 AM LDLDIRECT NOT APPLICABLE 11/21/2020 09:16 AM LDLDIRECT 104 03/04/2017 08:39 AM ALT 14 12/10/2022 03:11 PM ALT 20 11/21/2020 09:16 AM HGBA1C 5.3 12/10/2022 03:11 PM documented in this encounter Plan of Treatment Upcoming Encounters Date Type Department Care Team (Late st Contact Info) Description 10/07/2023 2:00 PM EST Office Visit Family Practice [address] [place] [address] Krupa Hardy DO [address] [place] [address] 10/08/2023 1:00 PM EST Telemedicine [address] [address] Claus Navarro, EXCHANGE FLOOR MANAGER [address] [place] [address] 05/21/2024 1:00 PM EDT Office Visit Neurology [facility] Radha Hawthorne [address] [place] [address] Santo Christian, DO [address] [place] [address] Scheduled Procedures Name Priority Associated Diagnoses Date/Ti me COLONOSCOPY FLEXIBLE PROXIMA L DIAGNOSTIC Recall Special screening for malignant neoplasms, colon Health Maintenance Due Date Last Done Comments DISCUSS TOBACCO CESSATION (REFER TO SMARTSET #8125) 1965 COVID-19 Vaccine (#1) 1965 Alpha-1 Antitrypsin [...] 04/11/2011 LUNG CANCER SCREENING - USE SMARTSET [id number] Completed 06/30/2020 Influenza Vaccine (FLU shot) Completed [...] this encounter Medical Devices Implanted Type Area Three Knife Trimmer Device Identifier Shelf Expiration Date Model / Serial / Lot [place] W/Screw - [id number] Implanted:Qty : 1 on 01/19/2016 by Burke Vazquez DO [place] [facility] [place]A: Spine Cervical DANIEL : SPINE [id number] / / Description:From set documented as of [...] the patient have Health Care Power of Diesel Tractor Operator? No Code Status History Code Status Date Activated Date Inactivated Comments Full Code 01/19/2016 6:12 AM 01/19/2016 11:06 AM This order reflects the patients wishes and were consensually agreed upon. Question Answer Comments Discussion of Advance Directives occurred with: Family Does the patient have a Living Will? No Does the patient have Health Care Power of Diesel Tractor Operator? No Care Teams High School Science Teacher Relationship Specialty Start Date End Date Krupa Hardy DO [address] [facility] [place] [phone] PCP - General Family Medicine 07/21/23 documented as of this encounter
--- OUTSIDE RECORDS SUMMARY | 2024-01-20 14:51 | External Medical Summary | Summary of Care ---
Author Name Unknown Organization [facility] Address [address] [place] [address] Phone [phone] Care Team Providers Care Director Strategic Planning Name Role Phone Krupa Hardy Primary Care Provider +1- [phone] Reason for Visit * Reason Onset Date Comments No Show 10/08/2023 Encounter Details Date Type Department Care Team (Late st Contact Info) Description 10/08/2023 Telephone Psychiatry, [place] [address] [place] [address] Claus Navarro, [facility] [address] [place] [address] No Show Allergies Active Allergy Reactions Criticality Noted Date [...] as of this encounter (statuses as of 10/08/2023) Medications Medication Sig Dispensed Refills Start Date End Date Status Budesonide-Formoterol Fumarate 160-4.5 MCG/ACT Inhalation Aerosol (Symbicort)Indications :COVID-19 Inhale 2 Puffs by mouth 2 times a day. 10.2 g 12 11/19/2021 Active Spiriva Respimat 2.5 MCG/ACT Inhalation Aerosol Solution (Tiotropium [place] Monohydrate)Indication s:COPD (chronic obstructive pulmonary disease) with [...] 09/24/2023 Active diazePAM 5 MG Oral Tablet (Valium)Indications:GA D (generalized anxiety disorder),Recurrent major depressive disorder, in partial remission (HCC) take 1 tablet by mouth every 12 hours if needed for anxiety 60 Tablet 0 10/06/2023 Active documented as of this encounter (statuses as of 10/08/2023) Active Problems Problem Noted Date Diagnosed Date [...] as of this encounter (statuses as of 10/08/2023) Resolved Problems Problem Noted Date Diagnosed Date [...] as of this encounter (statuses as of 10/08/2023) Immunizations Name Administration Dates Next Due Pneumococcal Conjugate Vacci ne, 20-valent ([id number]) 09/19/2023 Pneumococcal Polysaccharide PPV23 (Pneumovax) 12/17/2013 Seasonal [...] 10/29/2023 12:40 PM EST Office Visit Family Practice [address] [place] [address] Antony Krupa Elly, DO [address] [place] [address] 05/21/2024 1:00 PM EDT Office Visit [place] [facility] [place] [address] [place] [address] Santo Christian, DO [address] [place] [address] Scheduled Procedures Name Priority Associated Diagnoses Date/Ti me COLONOSCOPY FLEXIBLE PROXIMA L DIAGNOSTIC Recall Special screening for malignant neoplasms, colon Health Maintenance Due Date Last Done Comments DISCUSS TOBACCO CESSATION (REFER TO SMARTSET #5765) 1965 COVID-19 Vaccine (#1) 1965 Alpha-1 Antitrypsin [...] 04/11/2011 LUNG CANCER SCREENING - USE SMARTSET [id number] Completed 06/30/2020 Influenza Vaccine (FLU shot) Completed [...] this encounter Medical Devices Implanted Type Area Sales Director Device Identifier Shelf Expiration Date Model / Serial / Lot [place] W/Screw - [id number] Implanted:Qty : 1 on 01/19/2016 by Burke Vazquez DO at [place] [facility] [place] N/A: Spine Cervical DANIEL : SPINE [id number] / / Description:From set documented as of [...] the patient have Health Care Power of Dam Worker? No Code Status History Code Status Date Activated Date Inactivated Comments Full Code 01/19/2016 6:12 AM 01/19/2016 11:06 AM This order reflects the patients wishes and were consensually agreed upon. Question Answer Comments Discussion of Advance Directives occurred with: Family Does the patient have a Living Will? No Does the patient have Health Care Power of Dam Worker? No Care Teams Director Strategic Planning Relationship Specialty Start Date End Date Krupa Hardy DO [address] [facility] [place] [address] PCP - General Family Medicine 07/21/23 documented as of this encounter
--- OUTSIDE RECORDS SUMMARY | 2024-01-20 14:51 | External Medical Summary | Summary of Care ---
Author Name Unknown Organization [facility] Address [address] [place] [address] Phone [phone] Care Team Providers Care Business Teacher Name Role Phone AntonyKrupa Elly VILLELA Primary Care Provider +1- [phone] Reason for Visit * Reason Comments Outpatient Testing Encounter Details Date Type Department Care Team (Late st Contact Info) Description 10/29/2023 1:30 PM EST Laboratory Laboratory [facility] [address] [place] [address] [facility] [address] [place], [place] [phone] Panic disorder without agoraphobia; DHIRAJ (generalized anxiety disorder); Persistent insomnia; Smoker; MDD (major depressive disorder), recurrent episode, moderate (HCC) Allergies Active Allergy Reactions Criticality Noted [...] Respimat 2.5 MCG/ACT Inhalation Aerosol Solution (Tiotropium [place] Monohydrate)Indicatio ns:COPD (chronic obstructive pulmonary disease) with [...] Next Due Pneumococcal Conjugate Vacci ne, 20-valent ([id number]) 09/19/2023 Pneumococcal Polysaccharide PPV23 (Pneumovax) 12/17/2013 Seasonal [...] Description 05/12/2024 1:20 PM EDT Office Visit Family Practice [facility] [place] [address] [place] [address] Krupa Hardy, [address] [place] [address] 05/21/2024 1:00 PM EDT Office Visit Neurology [facility] [address] [place], [place] [phone] Santo Christian, DO [address] [place] [address] Pending Results Name Type Priority Associated Diagnoses Date /Time CBC WITH WBC DIFFERENTIAL Lab Routine Panic disorder without agoraphobia DHIRAJ (generalized anxiety disorder) Persistent insomnia Smoker MDD (major depressive disorder), recurrent episode, moderate (HCC) 10/29/2023 1:29 PM EST LIPID PANEL WITH DIRECT LDL IF TG IS HIGH Lab Routine Panic disorder without agoraphobia DHIRAJ (generalized anxiety disorder) Persistent insomnia Smoker MDD (major depressive disorder), recurrent episode, moderate (HCC) 10/29/2023 1:29 PM EST TSH WITH FREE T4 IF INDICATED Lab Routine Panic disorder without agoraphobia DHIRAJ (generalized anxiety disorder) Persistent insomnia Smoker MDD (major depressive disorder), recurrent episode, moderate (HCC) 10/29/2023 1:29 PM EST COMPREHENSIVE METABOLIC PANEL Lab Routine Panic disorder without agoraphobia DHIRAJ (generalized anxiety disorder) Persistent insomnia Smoker MDD (major depressive disorder), recurrent episode, moderate (HCC) 10/29/2023 1:29 PM EST CBC Lab Routine Panic disorder without agoraphobia DHIRAJ (generalized anxiety disorder) Persistent insomnia Smoker MDD (major depressive disorder), recurrent episode, moderate (HCC) 10/29/2023 1:29 PM EST DIFFERENTIAL, AUTOMATED Lab Routine Panic disorder without agoraphobia DHIRAJ (generalized anxiety disorder) Persistent insomnia Smoker MDD (major depressive disorder), recurrent episode, moderate (HCC) 10/29/2023 1:29 PM EST Scheduled Procedures Name Priority Associated Diagnoses Date/Ti me COLONOSCOPY FLEXIBLE PROXIMA L DIAGNOSTIC Recall Special screening for malignant neoplasms, colon Health Maintenance Due Date Last Done Comments DISCUSS TOBACCO CESSATION (REFER TO SMARTSET #2607) 1965 COVID-19 Vaccine (#1) 1965 Alpha-1 Antitrypsin [...] 04/11/2011 LUNG CANCER SCREENING - USE SMARTSET [id number] Completed 06/30/2020 Influenza Vaccine (FLU shot) Completed [...] this encounter Medical Devices Implanted Type Area Nursing Aide Device Identifier Shelf Expiration Date Model / Serial / Lot [place] W/Screw - [id number] Implanted:Qty : 1 on 01/19/2016 by Burke Vazquez DO at [place] [facility] [place]/A: Spine Cervical DANIEL : SPINE [id number] / / Description:From set documented as of this encounter Visit Diagnoses Diagnosis Panic disorder without agoraphobia DHIRAJ (generalized anxiety disorder) Generalized anxiety disorder Persistent insomnia Persistent disorder of initiating or maintaining sleep Smoker Tobacco use disorder MDD (major depressive disorder), recurrent episode, moderate (HCC) Major depressive disorder, recurrent episode, moderate documented in this encounter Advance Directives Latest Code Status on File Code Status Date Activated Date Inactivated Comments Full Code 01/19/2016 11:06 AM 01/21/2016 4:21 PM This order reflects the patients wishes and were consensually agreed upon. Question Answer Comments Discussion of Advance Directives occurred with: Patient Does the patient have a Living Will? No Does the patient have Health Care Power of Family Consumer Science Fcs Teacher? No Code Status History Code Status Date Activated Date Inactivated Comments Full Code 01/19/2016 6:12 AM 01/19/2016 11:06 AM This order reflects the patients wishes and were consensually agreed upon. Question Answer Comments Discussion of Advance Directives occurred with: Family Does the patient have a Living Will? No Does the patient have Health Care Power of Family Consumer Science Fcs Teacher? No Care Teams Business Teacher Relationship Specialty Start Date End Date Krupa Hardy DO [address] [facility] [place] [address] PCP - General Family Medicine 07/21/23 documented as of this encounter
--- OUTSIDE RECORDS SUMMARY | 2024-01-20 14:51 | External Medical Summary ---
Author Name Unknown Address Unknown Organization K01:[facility] [place] [address] [place] [address] Laboratory Report Ordering Provider Test Date Status EDWINAHUBER 10/29/2023 13:29:59 Final Observation Date Value Abnormality Reference (Units ) Status WBC, Total 10/29/2023 13:29:59 9.31 4.00-10.80 (K/uL) Final RBC 10/29/2023 13:29:59 4.26 3.85-5.15 (M/uL) Final Hemoglobin 10/29/2023 13:29:59 14.0 12.0-15.3 (g/dL) Final HCT 10/29/2023 13:29:59 43.5 36.0-45.2 (%) Final MCV 10/29/2023 13:29:59 102.1 81.5-97.5 (fL) Final MCH 10/29/2023 13:29:59 32.9 27.0-34.0 (pg) Final MCHC 10/29/2023 13:29:59 32.2 32.0-36.0 (g/dL) Final RDW 10/29/2023 13:29:59 12.4 11.5-15.5 (%) Final Platelets 10/29/2023 13:29:59 331 140-400 (K/uL) Final MPV 10/29/2023 13:29:59 9.6 6.6-11.1 (fL) Final Nucleated erythrocytes/100 leukocytes [Ratio] in Blood by Automated count 10/29/2023 13:29:59 0 <=0 (/100 WBCs) Final Performing Location [facility] [place] [address] [place] [address]
--- OUTSIDE RECORDS SUMMARY | 2024-01-20 14:51 | External Medical Summary ---
Author Name Unknown Address Unknown Organization K01[place] [facility] [place] [address] [place] [address] Laboratory Report Ordering Provider Test Date Status HUBER BLAND 10/29/2023 13:29:59 Final Observation Date Value Abnormality Reference (Units ) Status LDL, (direct) 10/29/2023 13:29:59 97 <=129 (mg/dL) Final LDL Cholesterol Reference Ra nges (mg/dL):
<70 Target level for high risk ASCVD patient
<100 Optimal for general population
100-129 Near optimal for general population
130-159 Borderline high
160-189 High
>=190 Very high Performing Location LABORATORY [facility] - [address] [place] [address]
--- OUTSIDE RECORDS SUMMARY | 2024-01-20 14:51 | External Medical Summary | Summary of Care ---
Author Name Unknown Organization [facility] Address [address] [place] [address] Phone [phone] Care Team Providers Care Telegraphic Service Dispatcher Name Role Phone AntonyKrupabozena VILLELA Primary Care Provider +1- [phone] Encounter Details Date Type Department Care Team (Late st Contact Info) Description 09/24/[address] [facility] [place] [address] [facility] [place] [address] Toro Gutierrez [facility]-C [address] [facility] [place] [address] Allergies Active Allergy Reactions [...] Respimat 2.5 MCG/ACT Inhalation Aerosol Solution (Tiotropium [place] Monohydrate)Indication s:COPD (chronic obstructive pulmonary disease) with [...] Next Due Pneumococcal Conjugate Vacci ne, 20-valent ([id number]) 09/19/2023 Pneumococcal Polysaccharide PPV23 (Pneumovax) 12/17/2013 SEASONAL [...] Telephone Encounter - Toro Gutierrez PA-C - 09/24/2023 10:45 AM EST These findings are appropriate with the patient's prescribed diazepam, which metabolizes to all 3 of these compounds. documented in this encounter Plan of Treatment Upcoming Encounters Date Type Department Care Team (Late st Contact Info) Description 10/07/2023 2:00 PM EST Office Visit Family Practice [place] [facility], [place] [address] [place] [address] Krupa Hardy, [address] [facility] [address] 05/21/2024 1:00 PM EDT Office Visit Neurology [facility] [address] [place] [address] Santo Christian, DO [address] [place] [address] Scheduled Procedures Name Priority Associated Diagnoses Date/Ti me COLONOSCOPY FLEXIBLE PROXIMA L DIAGNOSTIC Recall Special screening for malignant neoplasms, colon Health Maintenance Due Date Last Done Comments DISCUSS TOBACCO CESSATION (REFER TO SMARTSET #1842) 1965 COVID-19 Vaccine (#1) 1965 Alpha-1 Antitrypsin [...] 04/11/2011 LUNG CANCER SCREENING - USE SMARTSET 77167 Completed 06/30/2020 Influenza Vaccine (FLU shot) Completed [...] this encounter Medical Devices Implanted Type Area Laboratory Engineer Device Identifier Shelf Expiration Date Model / Serial / Lot [place]ign W/Screw - [id number] Implanted:Qty : 1 on 01/19/2016 by Burke Vazquez DO at OR [facility] N/A: Spine Cervical DANIEL : SPINE [id number] / / Description:From set documented as of [...] the patient have Health Care Power of Stock Lifter? No Code Status History Code Status Date Activated Date Inactivated Comments Full Code 01/19/2016 6:12 AM 01/19/2016 11:06 AM This order reflects the patients wishes and were consensually agreed upon. Question Answer Comments Discussion of Advance Directives occurred with: Family Does the patient have a Living Will? No Does the patient have Health Care Power of Stock Lifter? No Care Teams Telegraphic Service Dispatcher Relationship Specialty Start Date End Date Krupa Hardy DO [address] [facility] [place] [address] PCP - General Family Medicine 07/21/23 documented as of this encounter
--- OUTSIDE RECORDS SUMMARY | 2024-01-20 14:51 | External Medical Summary | Summary of Care ---
Author Name Unknown Organization [facility] Address [address] [place] [address] Phone [phone] Care Team Providers Care Telephone Operators Supervisor Name Role Phone Krupa Hardy Primary Care Provider +1- [phone] Reason for Visit * Reason Onset Date Comments No Show 09/23/2023 Encounter Details Date Type Department Care Team (Late st Contact Info) Description 09/23/2023 Telephone Psychiatry, [place] [address] [place] [address] Claus Navarro, [facility] [address] [place] [address] No Show Allergies Active Allergy [...] as of this encounter (statuses as of 09/23/2023) Medications Medication Sig Dispensed Refills Start Date End Date Status Budesonide-Formoterol Fumarate 160-4.5 MCG/ACT Inhalation Aerosol (Symbicort)Indications :COVID-19 Inhale 2 Puffs by mouth 2 times a day. 10.2 g 12 11/19/2021 Active Spiriva Respimat 2.5 MCG/ACT Inhalation Aerosol Solution (Tiotropium [place] Monohydrate)Indication s:COPD (chronic obstructive pulmonary disease) with [...] as of this encounter (statuses as of 09/23/2023) Active Problems Problem Noted Date Diagnosed Date [...] as of this encounter (statuses as of 09/23/2023) Resolved Problems Problem Noted Date Diagnosed Date [...] as of this encounter (statuses as of 09/23/2023) Immunizations Name Administration Dates Next Due Pneumococcal Conjugate Vacci ne, 20-valent ([id number]) 09/19/2023 Pneumococcal Polysaccharide PPV23 (Pneumovax) 12/17/2013 SEASONAL [...] Office Visit Family Practice [address] [place] [address] Antony Krupa Elly, DO [address] [place] [address] 05/21/2024 1:00 PM EDT [facility] [place] [address] [place] [address] Santo Christian, DO [address] [place] [address] Scheduled Procedures Name Priority Associated Diagnoses Date/Ti me COLONOSCOPY FLEXIBLE PROXIMA L DIAGNOSTIC Recall Special screening for malignant neoplasms, colon Health Maintenance Due Date Last Done Comments DISCUSS TOBACCO CESSATION (REFER TO SMARTSET #1756) 1965 COVID-19 Vaccine (#1) 1965 Alpha-1 Antitrypsin [...] 04/11/2011 LUNG CANCER SCREENING - USE SMARTSET [id number] Completed 06/30/2020 Influenza Vaccine (FLU shot) Completed [...] encounter Medical Devices Implanted Type Area Associate Creative Director Device Identifier Shelf Expiration Date Model / Serial / Lot [place] W/Screw - [id number] Implanted:Qty : 1 on 01/19/2016 by Burke Vazquez DO at OR [facility] N/A: Spine Cervical DANIEL : SPINE [id number] / / Description:From set documented as of [...] the patient have Health Care Power of University Controller? No Code Status History Code Status Date Activated Date Inactivated Comments Full Code 01/19/2016 6:12 AM 01/19/2016 11:06 AM This order reflects the patients wishes and were consensually agreed upon. Question Answer Comments Discussion of Advance Directives occurred with: Family Does the patient have a Living Will? No Does the patient have Health Care Power of University Controller? No Care Teams Telephone Operators Supervisor Relationship Specialty Start Date End Date Krupa Hardy DO [address] [facility] [place] [address] PCP - General Family Medicine 07/21/23 documented as of this encounter
--- OUTSIDE RECORDS SUMMARY | 2024-01-20 14:51 | External Medical Summary ---
Author Name Unknown Address Unknown Organization K01:[facility] [address] [facility] [place] [address] Laboratory Report Ordering Provider Test Date Status EDWINAHUBER 10/29/2023 13:29:59 Final Observation Date Value Abnormality Reference (Units ) Status Triglyceride 10/29/2023 13:29:59 227 Above high normal <=174 (mg/dL) Final Triglyceride Reference Range s (mg/dL):
<150 Acceptable
150-174 Borderline high
175-499 High
>=500 Very high Cholesterol 10/29/2023 13:29:59 186 <200 (mg /dL) Final Total Cholesterol Reference Ranges (mg/dL):
<200 Desirable
200-239 Borderline high
>=240 High HDL 10/29/2023 13:29:59 54 >49 (mg/dL ) Final HDL Cholesterol Reference Ra nges (mg/dL):
>=60 High (Desirable)
<50 Low (Undesirable) For Females
<40 Low (Undesirable) For Males NON-HDL CHOLESTEROL 10/29/2023 13:29:59 132 <=159 (mg/dL) Final Non-HDL Cholesterol Referenc e Range (mg/dL):
<100 Target level for high risk ASCVD patient
<130 Optimal for general population
130-159 Near optimal for general population
160-189 Borderline High
190-219 High
>=220 Very High Performing Location [facility] - [address] [place] [address]
--- OUTSIDE RECORDS SUMMARY | 2024-01-20 14:51 | External Medical Summary | Summary of Care ---
Author Name Unknown Organization [facility] Address [address] [place] [address] Phone [phone] Care Team Providers Care Fructose Loader Name Role Phone Krupa Hardy DO Primary Care Provider +1- [phone] Reason for Visit * Reason Onset Date Comments Medication Refill 10/02/2023 Encounter Details Date Type Department Care Team (Late st Contact Info) Description 10/02/2023 Refill [facility] [place] [address] [place] [address] Krupa Hardy DO [address] [place] [address] DHIRAJ (generalized anxiety disorder); Recurrent [...] as of this encounter (statuses as of 10/06/2023) Medications Medication Sig Dispensed Refills Start Date End Date Status Budesonide-Formotero l Fumarate 160-4.5 MCG/ACT Inhalation Aerosol (Symbicort)Indicatio ns:COVID-19 Inhale 2 Puffs by mouth 2 times a day. 10.2 g 12 11/19/2021 Active Spiriva Respimat 2.5 MCG/ACT Inhalation Aerosol Solution (Tiotropium [place] Monohydrate)Indicati ons:COPD (chronic obstructive pulmonary disease) with [...] 09/24/2023 Active diazePAM 5 MG Oral Tablet (Valium)Indications: DHIRAJ (generalized anxiety disorder),Recurrent major depressive disorder, in partial remission (HCC) take 1 tablet by mouth every 12 hours if needed for anxiety 60 Tablet 0 10/06/2023 Active diazePAM 5 MG Oral Tablet (Valium)Indications: DHIRAJ (generalized anxiety disorder),Recurrent major depressive disorder, in partial remission (HCC) take 1 tablet by mouth every 12 hours if needed for anxiety 60 Tablet 0 09/04/2023 3 Discontinue d(Refill) documented as of this encounter (statuses as of 10/06/2023) Active Problems Problem Noted Date Diagnosed Date [...] as of this encounter (statuses as of 10/06/2023) Resolved Problems Problem Noted Date Diagnosed Date [...] as of this encounter (statuses as of 10/06/2023) Immunizations Name Administration Dates Next Due Pneumococcal Conjugate Vacci ne, 20-valent ([id number]) 09/19/2023 Pneumococcal Polysaccharide PPV23 (Pneumovax) 12/17/2013 SEASONAL [...] encounter Miscellaneous Notes * Telephone Encounter - Claribel Gutierrez MD - 10/06/2023 2:34 PM ESTSigned Prescriptions: Disp Refills diazePAM 5 MG Oral Tablet (Valium) 60 Tab*0 Sig: take 1 tablet by mouth every 12 hours if needed for anxietyAuthorizing Provider: EDWINA NGO * Telephone Encounter - Claribel Gutierrez MD - 10/06/2023 2:34 PM ESTSigned Prescriptions: Disp Refills diazePAM 5 MG Oral Tablet (Valium) 60 Tab*0 Sig: take 1 tablet by mouth every 12 hours if needed for anxietyAuthorizing Provider: EDWINA NGO * Telephone Encounter - Mayela Downs CPhT - 10/06/2023 1:15 PM EST Pt calling to check the status of Diazepam, pt out of med, asking high priority. Thank you, Mayela Downs CPhT Orthotist Prosthetist Soil Tester [facility] Services ([facility]PS) (Formerly Telepharmacy) 10/06/2023,1:15 PM * Telephone Encounter - Aye Storm [facility] - 10/02/2023 5:24 PM EST Pending Prescriptions: Disp Refills diazePAM 5 MG Oral Tablet (Valium) 60 Tab*0 Sig: take 1 tablet by mouth every 12 hours if needed for anxiety * Telephone Encounter - Aye Storm [facility] - 10/02/2023 5:23 PM EST I have reviewed the patients controlled substance dispensing history in the Prescription Drug Monitoring Program in compliance with the [facility] regulations before prescribing a controlled substance. PDMP checked on 10/02/2023. Pending Prescriptions: Disp Refills diazePAM 5 MG Oral Tablet (Valium) 60 Tab*0 Sig: take 1 tablet by mouth every 12 hours if needed for anxiety Last Visit: 09/19/2023 (in office), 02/18/2020 (telemedicine) Next Visit: 10/29/2023 Date medication was last filled: 09/04/23 Date medication is due for refill: 10/03/23 Pharmacy: [facility] #[id number] [facility] Is this request for a controlled substance? [...] Results Review. Please approve if appropriate. Thank you, Aye Storm PharmD, ZAIDA Clinical Pharmacist Centralized Clinical Pharmacy Services (CCPS) (formerly Telepharmacy) 10/02/23 5:23 PM [phone] * Telephone Encounter - Cristy Quintanilla PHARM Tech - 10/02/2023 3:09 PM EST Did you pend patient's preferred pharmacy and medication before forwarding?yes Pharmacy: [facility] #[id number] [address] [facility] Pending Prescriptions: Disp Refills diazePAM 5 MG Oral Tablet (Valium) 60 Tab*0 Sig: take 1 tablet by mouth every 12 hours if needed for anxiety Last Visit: 09/19/2023 (in office), 02/18/2020 (telemedicine) Next Visit: 10/29/2023 If no future appointments scheduled, and last appointment is greater than a year ago, please schedule patient for a follow-up appointment Last date the medication was ordered: 09/04/2023 Is this request for a controlled substance?Yes, What was the last refill date 09/04/2023 w/ quantity 60 and dosage 5 mg and Urine Drug Screen was completed Urine [...] Team (Late st Contact Info) Description 10/08/2023 1:00 PM EST Telemedicine [facility] [address] [place] [address] Claus [facility] [address] [place] [address] 10/29/2023 12:40 PM EST [facility] [place] [address] [place] [address] Krupa Hardy DO [address] [place] [address] 05/21/2024 1:00 PM EDT Office Visit Neurology [facility] [place] [address] [facility] [place] [address] Santo Christian, DO [address] [place] [address] Scheduled Procedures Name Priority Associated Diagnoses Date/Ti me COLONOSCOPY FLEXIBLE PROXIMA L DIAGNOSTIC Recall Special screening for malignant neoplasms, colon Health Maintenance Due Date Last Done Comments DISCUSS TOBACCO CESSATION (REFER TO SMARTSET #1622) 1965 COVID-19 Vaccine (#1) 1965 Alpha-1 Antitrypsin [...] 04/11/2011 LUNG CANCER SCREENING - USE SMARTSET [id number] Completed 06/30/2020 Influenza Vaccine (FLU shot) Completed [...] encounter Medical Devices Implanted Type Area Manager English Device Identifier Shelf Expiration Date Model / Serial / Lot [place] W/Screw - [id number] Implanted:Qty : 1 on 01/19/2016 by Burke Vazquez DO at OR [facility] N/A: Spine Cervical DANIEL : SPINE [id number] / / Description:From set documented as of [...] the patient have Health Care Power of Hand Rounder? No Code Status History Code Status Date Activated Date Inactivated Comments Full Code 01/19/2016 6:12 AM 01/19/2016 11:06 AM This order reflects the patients wishes and were consensually agreed upon. Question Answer Comments Discussion of Advance Directives occurred with: Family Does the patient have a Living Will? No Does the patient have Health Care Power of Hand Rounder? No Care Teams Fructose Loader Relationship Specialty Start Date End Date Krupa Hardy DO [address] [facility] [place] [address] PCP - General Family Medicine 07/21/23 documented as of this encounter
--- OUTSIDE RECORDS SUMMARY | 2024-01-20 14:51 | External Medical Summary ---
Author Name Unknown Address Unknown Organization K01:[facility] [address] [facility] [place] [address] Laboratory Report Ordering Provider Test Date Status HUBER BLAND 10/29/2023 13:29:59 Final Observation Date Value Abnormality Reference (Units ) Status SYNC LEUKOCYTES IN BLOOD BY AUTOMATED COUNT 10/29/2023 13:29:59 9.31 4.00-10.80 (K/uL) Final Segs 10/29/2023 13:29:59 63.7 40.0-75.0 (%) Final Lymphs % 10/29/2023 13:29:59 25.0 18.0-42.0 (%) Final Monos 10/29/2023 13:29:59 8.4 1.0-11.0 (%) Final Eosinophils 10/29/2023 13:29:59 1.5 0.0-6.0 (%) Final Basos 10/29/2023 13:29:59 1.2 0.0-2.0 (%) Final Immature Granulocyte, Percent 10/29/2023 13:29:59 0.2 0.0-2.0 (%) Final Absolute Segs 10/29/2023 13:29:59 5.93 1.80-7.70 (K/uL) Final Lymphs, absolute 10/29/2023 13:29:59 2.33 1.00-4.80 (K/ul) Final Monos, Abs 10/29/2023 13:29:59 0.78 0.00-1.10 (K/uL) Final Eos, Abs 10/29/2023 13:29:59 0.14 0.00-0.70 (K/uL) Final Basos, Abs 10/29/2023 13:29:59 0.11 0.00-0.20 (K/uL) Final Immature Granulocytes, Number 10/29/2023 13:29:59 0.02 0.00-0.20 (K/uL) Final Performing Location [facility] - [address] [facility] [address]
--- OUTSIDE RECORDS SUMMARY | 2024-01-20 14:52 | External Medical Summary | Summary of Care ---
Author Name Unknown Organization [facility] Address [address] [place] [address] Phone [phone] Care Team Providers Care Recreation Therapy Teacher Name Role Phone Krupa Hardy DO Primary Care Provider +1- [phone] Reason for Visit * Reason Onset Date Comments Advice 09/08/2023 Status Check 09/08/2023 Appointment 09/08/2023 Bronchitis Encounter Details Date Type Department Care Team (Late st Contact Info) Description 09/08/2023 Telephone [facility] [place] [address] [place] [address] Krupa Hardy DO [address] [place] [address] Advice; Status Check; Appointment (Bronchi... Allergies Active Allergy Reactions Criticality Noted Date [...] complications 08/03/2012 suicidal Oxycodone-Acetaminophen Hives Low 01/08/2010 Sulfa Antibiotics Hives Low 01/08/2010 Ketorolac Tromethamine 05/07/2017 Causes bruising Trazodone Hives Low 01/11/2014 Bupropion Hcl Psych complications 08/03/2012 Suicidal documented as of this encounter (statuses as of 09/10/2023) Medications Medication Sig Dispensed Refills Start Date End Date Status Budesonide-Formoterol Fumarate 160-4.5 MCG/ACT Inhalation Aerosol (Symbicort)Indications :COVID-19 Inhale 2 Puffs by mouth 2 times a day. 10.2 g 12 11/19/2021 Active Spiriva Respimat 2.5 MCG/ACT Inhalation Aerosol Solution (Tiotropium [place] Monohydrate)Indication s:COPD (chronic obstructive pulmonary disease) with chronic bronchitis inhale 2 puffs by mouth and INTO THE LUNGS once daily 4 g 5 06/05/2022 Active Albuterol Sulfate HFA 108 (90 Base) MCG/ACT Inhalation Aerosol SolutionIndications:Co mplicated acute bronchitis inhale 2 puffs by mouth four times a day if needed for wheezing 54 g 1 10/31/2022 Active Doxycycline Hyclate 100 MG Oral Capsule take 1 capsule by mouth twice a day for 7 days 0 04/14/2023 Active DULoxetine HCl 60 MG Oral Capsule [...] for anxiety 60 Tablet 0 09/04/2023 Active Hospital, Clinic, or Other Facility Administered Medication Ordered Dose Route Frequency Start Date End Date Status lidocaine 2 % inj 40 mgIndications:Primary osteoarthritis of both knees 40 mg IJ TWICE PER PROTOCOL 01/07/2023 Active documented as of this encounter (statuses as of 09/10/2023) Active Problems Problem Noted Date Diagnosed Date [...] as of this encounter (statuses as of 09/10/2023) Resolved Problems Problem Noted Date Diagnosed Date [...] as of this encounter (statuses as of 09/10/2023) Immunizations Name Administration Dates Next Due Pneumococcal Polysaccharide PPV23 (Pneumovax) 12/17/2013 SEASONAL INFLUENZA, PF, 6 M & Above, IM , (FLULAVAL or FLUZONE) 09/27/2022,09/18/2020,07/26/2019,10/28 Seasonal Influenza Virus Vac cine, Unspecified Formulation 09/18/2020,07/26/2019,11/17/2018,06/28,07/17/2016,09/02/2014,07/28/20 12,08/29/2011,08/13/2010,09/26/2009,1 11/12/2008 Seasonal Influenza, Quadriva lent, No Preserve, IM 07/16/2017,07/17/2016,08/02/2015 Seasonal Influenza, Split, I IV3, With Preserve, Inj 09/02/2014,07/28/2012,08/29/2011,07/27,09/26/2009 09/02/2015 TDAP (age 11 and older)(Adacel) 04/11/2011 documented [...] Telephone Encounter - Jeni Pa OSA - 09/10/2023 6:41 AM EST Tentatively scheduled 09/11 appt * Telephone Encounter - Janis Hawley CPhT - 09/09/2023 1:56 PM EST Pt calling to check on status of an antibiotic. Caller can be reached at [phone]. Thank you, Courtney Hawley Deep Submergence Vehicle Crewmember I [facility] Services (CCPS) (Formerly Telepharmacy) 09/09/2023,1:56 PM * Telephone Encounter - Krupa Hardy DO - 09/09/2023 12:41 PM EST Patient should be seen * Telephone Encounter - Tierney Rodriguez LPN - 09/09/2023 11:42 AM EST Treat? Appt? * Telephone Encounter - Ernestina Morrison CPhT - 09/09/2023 10:47 AM EST Pt is calling to check on previous message. Pt stating she has been coughing up green mucus which started a week ago. Pt can be reached at [phone]. Please advise Thank you, Rhoda Morrison Animal Trainer Supervisor I [facility] (Formerly Telepharmacy) 09/09/2023,10:48 AM * Telephone Encounter - Ary Mansfield OSA - 09/08/2023 1:11 PM EST Pt is requesting an antibiotic be called in for bronchitis she get every year, it was clear now it's green. Also taking benadryl due to hives from taking senocot in it. Please call t discuss treatment. documented in this encounter Plan of Treatment Upcoming Encounters Date Type Department Care Team (Late st Contact Info) Description 09/11/2023 2:20 PM EST Office Visit Family Practice [address], [place] [address] [place] [address] Krupa Hardy, DO [address] [facility] [address] 10/07/2023 2:00 PM EST Office Visit [facility] [address], [place] [address] [place] [address] Krupa Hardy, DO [address] [place] [address] 05/21/2024 1:00 PM EDT Office Visit Neurology [facility] [address] [place] [address] Santo Christian, DO [address] [place] [address] Scheduled Procedures Name Priority Associated Diagnoses Date/Ti me COLONOSCOPY FLEXIBLE PROXIMA L DIAGNOSTIC Recall Special screening for malignant neoplasms, colon Health Maintenance Due Date Last Done Comments DISCUSS TOBACCO CESSATION (REFER TO SMARTSET #2003) 1965 COVID-19 Vaccine (#1) 1965 Alpha-1 Antitrypsin 1981 HPV/Co-Test 1993 Cologuard 02/21/2008 Sigmoidoscopy 02/21/2008 Zoster Vaccines (1 of 2) 2013 Pneumococcal Vaccine: Pediatrics (0 to 5 Years) and At-Risk Patients (6 to 64 Years) (2 - PCV) 12/17/2014 12/17/2013 Mammogram 05/08/2017 05/08/2016, 12/26, 02/16/2010 Cervical Cancer Screening 05/07/2020 Pap Smear 05/07/2020 05/07/2017, 04/26, 02/08/2014 DTaP,Tdap,and Td Vaccines (2 - Td or Tdap) 04/11/2021 04/11/2011 Depression Screening 10/09/2021 10/09/2020 Influenza Vaccine (FLU shot) (#1) 2023 09/27/2022, 09/18/2020, 09/18/2020, Additional history exists Fecal Occult Blood Test 08/26/2023 08/26/2022 O2 ASSESSMENT COMPLETED IN PAST YEAR FOR COPD 04/16/2024 04/16/2023 Colonoscopy 07/11/2024 07/11/2014, 06/27, 10/08/2012 Colorectal Cancer Screening 07/11/2024 Lipid Panel 12/10/2027 12/10/2022, 11/27, 11/21/2020, Additional history exists LUNG CANCER SCREENING - USE SMARTSET 06609 Completed 06/30/2020 GARDASIL-HPV IMMUNIZATION SERIES Aged Out No longer eligible based on patient's age to complete this topic Hepatitis B Aged Out No longer eligi ble based on patient's age to complete this topic MENINGOCOCCAL (MENACTRA/MENVEO) Aged Out No longer eligible based on patient's age to complete this topic documented as of this encounter Medical Devices Implanted Type Area Cath Lab Radiology Technician Device Identifier Shelf Expiration Date Model / Serial / Lot [place] W/Screw - [id number] Implanted:Qty : 1 on 01/19/2016 by Burke Vazquez DO at [place] [facility] N/A: Spine Cervical DANIEL : SPINE [id number] / / Description:From set documented as of [...] the patient have Health Care Power of Chief Deputy? No Code Status History Code Status Date Activated Date Inactivated Comments Full Code 01/19/2016 6:12 AM 01/19/2016 11:06 AM This order reflects the patients wishes and were consensually agreed upon. Question Answer Comments Discussion of Advance Directives occurred with: Family Does the patient have a Living Will? No Does the patient have Health Care Power of Chief Deputy? No Care Teams Recreation Therapy Teacher Relationship Specialty Start Date End Date Krupa Hardy DO [address] [facility] [place] [id number] PCP - General Family Medicine 07/21/23 documented as of this encounter
--- OUTSIDE RECORDS SUMMARY | 2024-01-20 14:52 | External Medical Summary ---
Author Name Unknown Address Unknown Organization [id number]:[facility] [place] - [facility] [address] [facility] [address] [facility] [id number] Laboratory Report Ordering Provider Test Date Status HUBER BLAND 09/19/2023 13:01:03 Final Cutoff Concentration:
D rug Level
THC-COOH 10 ng/mL

This test was developed and its performance characteristics determined by [employer]. It has not been cleared or approved by the [place] Food and Drug Administration.
null Observation Date Value Abnormality Reference (Units ) Status METHODOLOGY 09/19/2023 13:01:03 LC-MS/MS Final Cannabinoids, Urine confirmatory 09/19/2023 13:01:03 101 Above high normal Negative (ng/mL) Final Performing Location [facility] [place] - [address] [facility] [id number]
--- OUTSIDE RECORDS SUMMARY | 2024-01-20 14:52 | External Medical Summary ---
Author Name Unknown Address Unknown Organization [id number]:[facility] [place] - [facility] [address] [facility] [address] [place] [id number] Laboratory Report Ordering Provider Test Date Status HUBER BLAND 09/19/2023 13:01:03 Final Cutoff Concentrations:
Drug Level
Amphetamines 500 ng/mL
Benzodiazepines 100 ng/mL
Cannabinoids 50 ng/mL
Cocaine Metabolite 150 ng/mL
Fentanyl 1 ng/mL
Hydrocodone / Hydromorphone 300 ng/mL
Methadone Metabolite 100 ng/mL
Morphine / Codeine 300 ng/mL
Oxycodone / Oxymorphone 100 ng/mL

Screening results are presumptive and can only be used for medical purposes. Positive screening results are reflexed to confirmatory testing. Observation Date Value Abnormality Reference (Units ) Status Amphetamines, Urine screen 09/19/2023 13:01:03 Negative Negative Final Benzodiazepines, Urine screen 09/19/2023 13:01:03 Positive Abnormal Negative Final Cannabinoids, Urine screen 09/19/2023 13:01:03 Positive Abnormal Negative Final Cocaine Metabolite, Urine screen 09/19/2023 13:01:03 Negative Negative Final fentaNYL [Presence] in Urine by Screen method 09/19/2023 13:01:03 Negative Negative Final HYDROcodone [Presence] in Urine by Screen method 09/19/2023 13:01:03 Negative Negative Final 4-Lhbrpmhxnb-7,5-Dimeth yl-3,3-Diphenylpyrrolid ine (EDDP) [Presence] in Urine 09/19/2023 13:01:03 Negative Negative Final Opiates, Urine screen 09/19/2023 13:01:03 Negative Negative Final oxyCODONE [Presence] in Urine by Screen method 09/19/2023 13:01:03 Negative Negative Final Performing Location [facility] - [address] [facility] [id number]
--- OUTSIDE RECORDS SUMMARY | 2024-01-20 14:52 | External Medical Summary | Summary of Care ---
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 Hardy DO [address] [place] [address] PCP - General Family Medicine 07/21/23 documented as of this encounter
--- OUTSIDE RECORDS SUMMARY | 2024-01-20 14:52 | External Medical Summary | Summary of Care ---
Author Name Unknown Organization [facility] Address [address] [place] [address] Phone [phone] Care Team Providers Care Abrasive Worker Name Role Phone AntonyKrupabozena VILLELA Primary Care Provider +1- [phone] Encounter Details Date Type Department Care Team (Late st Contact Info) Description 09/22/2023 Telephone Family Practice [facility] [place] [address] [facility] [place] [address] Toro Gutierrez PA-C [address] [facility] [place] [address] Allergies Active Allergy Reactions [...] as of this encounter (statuses as of 09/22/2023) Medications Medication Sig Dispensed Refills Start Date End Date Status Budesonide-Formoterol Fumarate 160-4.5 MCG/ACT Inhalation Aerosol (Symbicort)Indications :COVID-19 Inhale 2 Puffs by mouth 2 times a day. 10.2 g 12 11/19/2021 Active Spiriva Respimat 2.5 MCG/ACT Inhalation Aerosol Solution (Tiotropium [place] Monohydrate)Indication s:COPD (chronic obstructive pulmonary disease) with [...] as of this encounter (statuses as of 09/22/2023) Active Problems Problem Noted Date Diagnosed Date [...] as of this encounter (statuses as of 09/22/2023) Resolved Problems Problem Noted Date Diagnosed Date [...] as of this encounter (statuses as of 09/22/2023) Immunizations Name Administration Dates Next Due Pneumococcal Conjugate Vacci ne, 20-valent ([id number]) 09/19/2023 Pneumococcal Polysaccharide PPV23 (Pneumovax) 12/17/2013 SEASONAL [...] Telephone Encounter - Toro Gutierrez PA-C - 09/22/2023 6:51 PM EST Expected results. documented in this encounter Plan of Treatment Upcoming Encounters Date Type Department Care Team (Late st Contact Info) Description 09/23/2023 2:30 PM EST Telemedicine [facility], [place] [address], [place] [id number] Claus Navarro, [facility] [address], [place] [id number] 10/07/2023 2:00 PM EST Office Visit Family Practice [facility] [place] [address] [place] [address] Krupa Hardy, DO [address] [place], [place] [id number] 05/21/2024 1:00 PM EDT Office Visit Neurology [facility] [address] [place] [address] Santo Christian [address] [place] [address] Scheduled Procedures Name Priority Associated Diagnoses Date/Ti me COLONOSCOPY FLEXIBLE PROXIMA L DIAGNOSTIC Recall Special screening for malignant neoplasms, colon Health Maintenance Due Date Last Done Comments DISCUSS TOBACCO CESSATION (REFER TO SMARTSET #1204) 1965 COVID-19 Vaccine (#1) 1965 Alpha-1 Antitrypsin [...] 04/11/2011 LUNG CANCER SCREENING - USE SMARTSET 61793 Completed 06/30/2020 Influenza Vaccine (FLU shot) Completed [...] this encounter Medical Devices Implanted Type Area Conductor Freight Device Identifier Shelf Expiration Date Model / Serial / Lot [place] W/Screw - [id number] Implanted:Qty : 1 on 01/19/2016 by Burke Vazquez DO at [place] [facility] [place] N/A: Spine Cervical DANIEL : SPINE [id number] / / Description:From set documented as of [...] the patient have Health Care Power of Track Repair Supervisor? No Code Status History Code Status Date Activated Date Inactivated Comments Full Code 01/19/2016 6:12 AM 01/19/2016 11:06 AM This order reflects the patients wishes and were consensually agreed upon. Question Answer Comments Discussion of Advance Directives occurred with: Family Does the patient have a Living Will? No Does the patient have Health Care Power of Track Repair Supervisor? No Care Teams Abrasive Worker Relationship Specialty Start Date End Date Krupa Hardy DO [address] [facility] [place] [address] PCP - General Family Medicine 07/21/23 documented as of this encounter
--- OUTSIDE RECORDS SUMMARY | 2024-01-20 14:52 | External Medical Summary | Summary of Care ---
Author Name Unknown Organization [facility] Address [address] [place] [address] Phone [phone] Care Team Providers Care Lace And Textiles Restorer Name Role Phone Krupa Hardy DO Primary Care Provider +1- [phone] Reason for Visit * Reason Onset Date Comments Advice 09/08/2023 Status Check 09/08/2023 Appointment 09/08/2023 Bronchitis Encounter Details Date Type Department Care Team (Late st Contact Info) Description 09/08/2023 Telephone [facility] [address] [place] [address] Krupa Hardy DO [address] [place] [address] Advice; Status Check; Appointment (Bronchi... [...] Respimat 2.5 MCG/ACT Inhalation Aerosol Solution (Tiotropium [place] Monohydrate)Indication s:COPD (chronic obstructive pulmonary disease) with [...] PES ANSERINUS BURSITIS LEFT KNEE 04/13/2010 03/02/2012 AEBL SPINTS LEFT LEG 04/13/2010 012 SCREENING MAMMOGRAM [...] Encounter - Jeni Pa OSA - 09/10/2023 9:56 AM EST Pt sts she is on her way to the walk in clinic. * Telephone Encounter - Jeni Pa OSA - 09/10/2023 6:41 AM EST Tentatively scheduled 09/11 appt * Telephone Encounter - Janis Hawley CPhT - 09/09/2023 1:56 PM EST Pt calling to check on status of an antibiotic. Caller can be reached at [phone]. Thank you, Courtney Hawley Clinical Admissions Manager I Centralized Clinical Pharmacy Services (CCPS) (Formerly [...] week ago. Pt can be reached at [phone]. Please advise Thank you, Rhoda Morrison Blind Hanger I Centralized Clinical Pharmacy Services (Formerly Telepharmacy) [...] Description 09/11/2023 2:20 PM EST [facility] [address] [place] [address] Krupa Hardy, [address] [place] [address] 10/07/2023 2:00 PM EST Office Visit [facility] [place] [address] [place] [address] Krupa Hardy, [address] [place] [address] 05/21/2024 1:00 PM EDT Office Visit Neurology [facility] [address] [place] [address] Santo Christian, DO [address] [place] [address] Scheduled Procedures Name Priority Associated Diagnoses Date/Ti me COLONOSCOPY FLEXIBLE PROXIMA L DIAGNOSTIC Recall Special screening for malignant neoplasms, colon Health Maintenance Due Date Last Done Comments DISCUSS TOBACCO CESSATION (REFER TO SMARTSET #9826) 1965 COVID-19 Vaccine (#1) 1965 Alpha-1 Antitrypsin [...] exists LUNG CANCER SCREENING - USE SMARTSET 64851 Completed 06/30/2020 GARDASIL-HPV IMMUNIZATION SERIES Aged Out No longer eligible based on patient's age to complete this topic Hepatitis B Aged Out No longer eligi ble based on patient's age to complete this topic MENINGOCOCCAL (MENACTRA/MENVEO) Aged Out No longer eligible based on patient's age to complete this topic documented as of this encounter Medical Devices Implanted Type Area Data Operations Leader Device Identifier Shelf Expiration Date Model / Serial / Lot [place] W/Screw - [id number] Implanted:Qty : 1 on 01/19/2016 by Burke Vazquez DO [place] [facility] [place]: Spine Cervical DANIEL : SPINE [id number] / / Description:From set documented as of [...] the patient have Health Care Power of Package Line Operator? No Code Status History Code Status Date Activated Date Inactivated Comments Full Code 01/19/2016 6:12 AM 01/19/2016 11:06 AM This order reflects the patients wishes and were consensually agreed upon. Question Answer Comments Discussion of Advance Directives occurred with: Family Does the patient have a Living Will? No Does the patient have Health Care Power of Package Line Operator? No Care Teams Lace And Textiles Restorer Relationship Specialty Start Date End Date Krupa Hardy DO [address] [facility] [place] [address] PCP - General Family Medicine 07/21/23 documented as of this encounter
--- OUTSIDE RECORDS SUMMARY | 2024-01-20 14:52 | External Medical Summary | Summary of Care ---
Author Name Unknown Organization [facility] Address [address] [place] [address] Phone [phone] Care Team Providers Care Car Designer Name Role Phone Krupa Hardy DO Primary Care Provider +1- [phone] Reason for Visit * Reason Onset Date Comments Advice 09/08/2023 Status Check 09/08/2023 Appointment 09/08/2023 Bronchitis Encounter Details Date Type Department Care Team (Late st Contact Info) Description 09/08/2023 Telephone [facility] [place] [address] [place] [address] Krupa Hardy DO [address] [place] [address] Advice; Status Check; Appointment (Bronchi... [...] as of this encounter (statuses as of 09/09/2023) Medications Medication Sig Dispensed Refills Start Date End Date Status Budesonide-Formoterol Fumarate 160-4.5 MCG/ACT Inhalation Aerosol (Symbicort)Indications :COVID-19 Inhale 2 Puffs by mouth 2 times a day. 10.2 g 12 11/19/2021 Active Spiriva Respimat 2.5 MCG/ACT Inhalation Aerosol Solution (Tiotropium [place] Monohydrate)Indication s:COPD (chronic obstructive pulmonary disease) with [...] as of this encounter (statuses as of 09/09/2023) Active Problems Problem Noted Date Diagnosed Date [...] as of this encounter (statuses as of 09/09/2023) Resolved Problems Problem Noted Date Diagnosed Date [...] as of this encounter (statuses as of 09/09/2023) Immunizations Name Administration Dates Next Due Pneumococcal [...] an antibiotic. Caller can be reached at [phone]. Thank you, Courtney Hawley Millinery Department Manager I Centralized Clinical Pharmacy Services (CCPS) [...] week ago. Pt can be reached at [phone]. Please advise Thank you, Rhoda Morrison Police [employer] I Centralized Clinical Pharmacy Services (Formerly Telepharmacy) [...] 2:00 PM EST Office Visit Family Practice [address], [place] [address] [place] [address] Krupa Hardy, [address] [place] [address] 05/21/2024 1:00 PM EDT Office Visit Neurology [facility] [place] [address] [place] [address] Santo Christian, DO [address] [place] [address] Scheduled Procedures Name Priority Associated Diagnoses Date/Ti me COLONOSCOPY FLEXIBLE PROXIMA L DIAGNOSTIC Recall Special screening for malignant neoplasms, colon Health Maintenance Due Date Last Done Comments DISCUSS TOBACCO CESSATION (REFER TO SMARTSET #9600) 1965 COVID-19 Vaccine (#1) 1965 Alpha-1 Antitrypsin [...] exists LUNG CANCER SCREENING - USE SMARTSET 87629 Completed 06/30/2020 GARDASIL-HPV IMMUNIZATION SERIES Aged Out No longer eligible based on patient's age to complete this topic Hepatitis B Aged Out No longer eligi ble based on patient's age to complete this topic MENINGOCOCCAL (MENACTRA/MENVEO) Aged Out No longer eligible based on patient's age to complete this topic documented as of this encounter Medical Devices Implanted Type Area Slabber Device Identifier Shelf Expiration Date Model / Serial / Lot [place] W/Screw - [id number] Implanted:Qty : 1 on 01/19/2016 [place] Burke Vazquez [place] [facility] [place] Spine Cervical DANIEL : SPINE [id number] / / Description:From set documented as of [...] the patient have Health Care Power of Vulcanizer? No Code Status History Code Status Date Activated Date Inactivated Comments Full Code 01/19/2016 6:12 AM 01/19/2016 11:06 AM This order reflects the patients wishes and were consensually agreed upon. Question Answer Comments Discussion of Advance Directives occurred with: Family Does the patient have a Living Will? No Does the patient have Health Care Power of Vulcanizer? No Care Teams Car Designer Relationship Specialty Start Date End Date Krupa Hardy DO [address] [facility] [place] [address] PCP - General Family Medicine 07/21/23 documented as of this encounter
--- OUTSIDE RECORDS SUMMARY | 2024-01-20 14:52 | External Medical Summary ---
Author Name Unknown Address Unknown Organization K01:[facility] - [address] [facility] [facility] [address] Laboratory Report Ordering Provider Test Date Status HUBER BLAND 09/19/2023 13:01:03 Final Observation Date Value Abnormality Reference (Units ) Status Color of Urine by Auto 09/19/2023 13:01:03 Colorless Colorless, Light Yellow, Yellow, Dark Yellow Final Clarity, Urine 09/19/2023 13:01:03 Clear Clear Final Glucose [Mass/volume] in Urine by Automated test strip 09/19/2023 13:01:03 Negative Negative (mg/dL) Final Bilirubin.total [Presence] in Urine by Automated test strip 09/19/2023 13:01:03 Negative Negative Final Ketones [Mass/volume] in Urine by Automated test strip 09/19/2023 13:01:03 Negative Negative (mg/dL) Final Specific gravity, Urine 09/19/2023 13:01:03 1.006 1.003-1.030 Final Hemoglobin [Presence] in Urine by Automated test strip 09/19/2023 13:01:03 Negative Negative Final pH, Urine 09/19/2023 13:01:03 7.0 5.0-7.5 (Units) Final Protein [Mass/volume] in Urine by Automated test strip 09/19/2023 13:01:03 Negative Negative (mg/dL) Final Urobilinogen [Mass/volume] in Urine by Automated test strip 09/19/2023 13:01:03 Normal Normal (mg/dL) Final Nitrite [Presence] in Urine by Automated test strip 09/19/2023 13:01:03 Negative Negative Final Leukocyte esterase [Presence] in Urine by Automated test strip 09/19/2023 13:01:03 Negative Negative Final RBC, Urine 09/19/2023 13:01:03 0-2 0-2 (/HPF) Final WBC, Urine 09/19/2023 13:01:03 0-2 0-2 (/HPF) Final Bacteria [#/area] in Urine sediment by Microscopy high power field 09/19/2023 13:01:03 0-25 0-25 (/HPF) Final Performing Location LABORATORY [facility] [place] - [facility] [address]. [facility] [address]
--- OUTSIDE RECORDS SUMMARY | 2024-01-20 14:52 | External Medical Summary | Summary of Care ---
Author Name Unknown Organization [facility] Address [address] [place] [address] Phone [phone] Care Team Providers Care Reservoir Engineering Advisor Name Role Phone Krupa Hardy Primary Care Provider +1- [phone] Encounter Details Date Type Department Care Team (Late st Contact Info) Description 09/23/2023 Orders Only Outcomes Research Department [address] [place] [address] Codie Macedo CHRA MyCode Research Other*[id number] Allergies Active Allergy Reactions Criticality Noted Date [...] Respimat 2.5 MCG/ACT Inhalation Aerosol Solution (Tiotropium [place] Monohydrate)Indication s:COPD (chronic obstructive pulmonary disease) with [...] Next Due Pneumococcal Conjugate Vacci ne, 20-valent (Aorijzs22) 09/19/2023 Pneumococcal Polysaccharide PPV23 (Pneumovax) 12/17/2013 SEASONAL [...] Info) Description 09/23/2023 2:30 PM EST Telemedicine [facility] [place] [address] [place] [address] Claus Navarro, [facility] [address] [place] [address] 10/07/2023 2:00 PM EST Office Visit Family Practice [place] [facility], [place] [address] [place] [place] [address] Krupa Hardy DO [address] [place] [address] 05/21/2024 1:00 PM EDT Office Visit Neurology [facility] [place] [address] [place], [place] [address] Santo Christian, DO [address] [place] [address] Scheduled Orders Name Type Priority Associated Diagnoses Orde r Schedule MYCODE SUBSEQUENT ADULT Lab Routine MyCode Research Other*[id number] Every 6 Months for 2 Occurrences starting 09/23/2023 until 10/12/2024 Scheduled Procedures Name Priority Associated Diagnoses Date/Ti me COLONOSCOPY FLEXIBLE PROXIMA L DIAGNOSTIC Recall Special screening for malignant neoplasms, colon Health Maintenance Due Date Last Done Comments DISCUSS TOBACCO CESSATION (REFER TO SMARTSET #3291) 1965 COVID-19 Vaccine (#1) 1965 Alpha-1 Antitrypsin [...] 04/11/2011 LUNG CANCER SCREENING - USE SMARTSET 39993 Completed 06/30/2020 Influenza Vaccine (FLU shot) Completed [...] Medical Devices Implanted Type Area Director Of Research And Development Device Identifier Shelf Expiration Date Model / Serial / Lot [place] W/Screw - [id number] Implanted:Qty : 1 on 01/19/2016 by Burke Vazquez DO at OR [facility] [place] N/A: Spine Cervical DANIEL : SPINE [id number] / / Description:From set documented as of this encounter Visit Diagnoses Diagnosis MyCode Research Other*[id number] documented in this encounter Advance Directives Latest Code Status on File Code Status Date Activated Date Inactivated Comments Full Code 01/19/2016 11:06 AM 01/21/2016 4:21 PM This order reflects the patients wishes and were consensually agreed upon. Question Answer Comments Discussion of Advance Directives occurred with: Patient Does the patient have a Living Will? No Does the patient have Health Care Power of Machinist Class B? No Code Status History Code Status Date Activated Date Inactivated Comments Full Code 01/19/2016 6:12 AM 01/19/2016 11:06 AM This order reflects the patients wishes and were consensually agreed upon. Question Answer Comments Discussion of Advance Directives occurred with: Family Does the patient have a Living Will? No Does the patient have Health Care Power of Machinist Class B? No Care Teams Reservoir Engineering Advisor Relationship Specialty Start Date End Date Krupa Hardy DO [address] [facility] [place] [address] PCP - General Family Medicine 07/21/23 documented as of this encounter
--- OUTSIDE RECORDS SUMMARY | 2024-01-20 14:52 | External Medical Summary ---
Author Name Unknown Address Unknown Organization K01:[facility] [place] [facility] [address] [place] [address] Laboratory Report Ordering Provider Test Date Status HUBER BLAND 09/19/2023 13:01:03 Final Cutoff Concentrations:
D rug Level
Alpha-Hydroxyalprazolam 10 ng/mL
7-Aminoclonazepam 20 ng/mL
Nordiazepam 20 ng/mL
Oxazepam 20 ng/mL
Temazepam 20 ng/mL
Lorazepam 10 ng/mL

This test was developed and its performance characteristics determined by [employer]. It has not been cleared or approved by the [place] Food and Drug Administration. Observation Date Value Abnormality Reference (Units) Status METHODOLOGY 09/19/2023 13:01:03 LC-MS/MS Final Alpha hydroxyalprazolam cutoff [Mass/volume] in Urine for Confirmatory method 09/19/2023 13:01:03 Negative Negative Final 7-Aminoclonazepam [Mass/volume] in Urine by Confirmatory method 09/19/2023 13:01:03 Negative Negative Final Nordiazepam cutoff [Mass/volume] in Urine for Confirmatory method 09/19/2023 13:01:03 268 Above high normal Negative (ng/mL) Final Oxazepam cutoff [Mass/volume] in Urine for Confirmatory method 09/19/2023 13:01:03 550 Above high normal Negative (ng/mL) Final Temazepam cutoff [Mass/volume] in Urine for Confirmatory method 09/19/2023 13:01:03 506 Above high normal Negative (ng/mL) Final LORazepam cutoff [Mass/volume] in Urine for Confirmatory method 09/19/2023 13:01:03 Negative Negative Final Performing Location LABORATORY [address] [place] [address]
--- OUTSIDE RECORDS SUMMARY | 2024-01-20 14:53 | External Medical Summary | Summary of Care ---
Author Name Unknown Organization [facility] Address [address] [place] [address] Phone [phone] Care Team Providers Care Equip Maint Eng Name Role Phone Krupa Hardy DO Primary Care Provider +1- [phone] Reason for Visit * Reason Onset Date Comments Advice 09/08/2023 Encounter Details Date Type Department Care Team (Late st Contact Info) Description 09/08/2023 Telephone Family Practice [facility], [place] [address] [place] [address] Krupa Hardy DO [address] [place] [address] Advice Allergies Active Allergy Reactions [...] Respimat 2.5 MCG/ACT Inhalation Aerosol Solution (Tiotropium [place] Monohydrate)Indication s:COPD (chronic obstructive pulmonary disease) with [...] week ago. Pt can be reached at [phone]. Please advise Thank you, Rhoda Morrison Clock Repair Technician I Centralized Clinical Pharmacy Services (Formerly Telepharmacy) [...] Office Visit Family Practice [address] [place] [address] Krupa Hardy DO [address] [place] [address] 05/21/2024 1:00 PM EDT Office Visit Neurology [facility] [place] [address] [place] [address] Santo Christian, DO [address] [place] [address] Scheduled Procedures Name Priority Associated Diagnoses Date/Ti me COLONOSCOPY FLEXIBLE PROXIMA L DIAGNOSTIC Recall Special screening for malignant neoplasms, colon Health Maintenance Due Date Last Done Comments DISCUSS TOBACCO CESSATION (REFER TO SMARTSET #6961) 1965 COVID-19 Vaccine (#1) 1965 Alpha-1 Antitrypsin [...] exists LUNG CANCER SCREENING - USE SMARTSET 93535 Completed 06/30/2020 GARDASIL-HPV IMMUNIZATION SERIES Aged Out No longer eligible based on patient's age to complete this topic Hepatitis B Aged Out No longer eligi ble based on patient's age to complete this topic MENINGOCOCCAL (MENACTRA/MENVEO) Aged Out No longer eligible based on patient's age to complete this topic documented as of this encounter Medical Devices Implanted Type Area Lens Shaper Grinder Device Identifier Shelf Expiration Date Model / Serial / Lot [place] W/Screw - [id number] Implanted:Qty : 1 on 01/19/2016 by Burke Vazquez DO at [place] [facility] [place] N/A: Spine Cervical DANIEL : SPINE [id number] / / Description:From set documented as of [...] the patient have Health Care Power of Looping Machine Operator? No Code Status History Code Status Date Activated Date Inactivated Comments Full Code 01/19/2016 6:12 AM 01/19/2016 11:06 AM This order reflects the patients wishes and were consensually agreed upon. Question Answer Comments Discussion of Advance Directives occurred with: Family Does the patient have a Living Will? No Does the patient have Health Care Power of Looping Machine Operator? No Care Teams Equip Maint Eng Relationship Specialty Start Date End Date Krupa Hardy DO [address] [facility] [place] [address] PCP - General Family Medicine 07/21/23 documented as of this encounter
--- OUTSIDE RECORDS SUMMARY | 2024-01-20 14:53 | External Medical Summary | Summary of Care ---
Author Name Unknown Organization [facility] Address [address] [place] [address] Phone [phone] Care Team Providers Care Product Managent Intern Name Role Phone Krupa Hardy DO Primary Care Provider +1- [phone] Reason for Visit * Reason Onset Date Comments Advice 09/08/2023 Encounter Details Date Type Department Care Team (Late st Contact Info) Description 09/08/2023 Telephone Family Practice [facility], [place] [address] [place] [address] Krupa Hardy DO [address] [place] [address] Advice Allergies Active Allergy Reactions [...] Respimat 2.5 MCG/ACT Inhalation Aerosol Solution (Tiotropium [place] Monohydrate)Indication s:COPD (chronic obstructive pulmonary disease) with [...] week ago. Pt can be reached at [phone]. Please advise Thank you, Rhoda Morrison Nuclear Weapons Custodian I Centralized Clinical Pharmacy Services (Formerly Telepharmacy) [...] Office Visit Family Practice [address] [place] [address] Krupa Hardy DO [address] [place] [address] 05/21/2024 1:00 PM EDT Office Visit Neurology [facility] [place] [address] [place] [address] Santo Christian, DO [address] [place] [address] Scheduled Procedures Name Priority Associated Diagnoses Date/Ti me COLONOSCOPY FLEXIBLE PROXIMA L DIAGNOSTIC Recall Special screening for malignant neoplasms, colon Health Maintenance Due Date Last Done Comments DISCUSS TOBACCO CESSATION (REFER TO SMARTSET #4733) 1965 COVID-19 Vaccine (#1) 1965 Alpha-1 Antitrypsin [...] exists LUNG CANCER SCREENING - USE SMARTSET 40453 Completed 06/30/2020 GARDASIL-HPV IMMUNIZATION SERIES Aged Out No longer eligible based on patient's age to complete this topic Hepatitis B Aged Out No longer eligi ble based on patient's age to complete this topic MENINGOCOCCAL (MENACTRA/MENVEO) Aged Out No longer eligible based on patient's age to complete this topic documented as of this encounter Medical Devices Implanted Type Area Concrete Pointer Device Identifier Shelf Expiration Date Model / Serial / Lot [place] W/Screw - [id number] Implanted:Qty : 1 on 01/19/2016 by Burke Vazquez DO [place] [facility] [place]: Spine Cervical DANIEL : SPINE [id number] / / Description:From set documented as of [...] the patient have Health Care Power of Rod Hanger? No Code Status History Code Status Date Activated Date Inactivated Comments Full Code 01/19/2016 6:12 AM 01/19/2016 11:06 AM This order reflects the patients wishes and were consensually agreed upon. Question Answer Comments Discussion of Advance Directives occurred with: Family Does the patient have a Living Will? No Does the patient have Health Care Power of Rod Hanger? No Care Teams Product Managent Intern Relationship Specialty Start Date End Date Krupa Hardy DO [address] [facility] [place] [address] PCP - General Family Medicine 07/21/23 documented as of this encounter
--- OUTSIDE RECORDS SUMMARY | 2024-01-20 14:53 | External Medical Summary | Summary of Care ---
Author Name Unknown Organization [facility] Address [address] [place] [address] Phone [phone] Care Team Providers Care Client Advisor Name Role Phone Krupa Hardy DO Primary Care Provider +1- [phone] Reason for Visit * Reason Onset Date Comments Medication Refill 09/03/2023 Encounter Details Date Type Department Care Team (Late st Contact Info) Description 09/03/2023 Refill [facility] [place], [place] [address] [place] [address] Krupa Hardy DO [address] [place] [address] DHIRAJ (generalized anxiety disorder); Recurrent [...] as of this encounter (statuses as of 09/04/2023) Medications Medication Sig Dispensed Refills Start Date End Date Status Budesonide-Formotero l Fumarate 160-4.5 MCG/ACT Inhalation Aerosol (Symbicort)Indicatio ns:COVID-19 Inhale 2 Puffs by mouth 2 times a day. 10.2 g 12 11/19/2021 Active Spiriva Respimat 2.5 MCG/ACT Inhalation Aerosol Solution (Tiotropium [place] Monohydrate)Indicati ons:COPD (chronic obstructive pulmonary disease) with [...] for anxiety 60 Tablet 0 09/04/2023 Active diazePAM 5 MG Oral Tablet (Valium)Indications: DHIRAJ (generalized anxiety disorder),Recurrent major depressive disorder, in partial remission (HCC) take 1 tablet by mouth every 12 hours if needed for anxiety 60 Tablet 0 08/05/2023 3 Discontinue d(Refill) Hospital, Clinic, or Other Facility Administered Medication Ordered Dose Route Frequency Start Date End Date Status lidocaine 2 % inj 40 mgIndications:Primary osteoarthritis of both knees 40 mg IJ TWICE PER PROTOCOL 01/07/2023 Active documented as of this encounter (statuses as of 09/04/2023) Active Problems Problem Noted Date Diagnosed Date [...] as of this encounter (statuses as of 09/04/2023) Resolved Problems Problem Noted Date Diagnosed Date [...] pain in female 06/14/20142014 Diverticulosis of colon 06/13/20140 10/2014 Knee pain, left 06/01/2014 08/02/2015 BV [...] as of this encounter (statuses as of 09/04/2023) Immunizations Name Administration Dates Next Due Pneumococcal [...] Telephone Encounter - Krupa Hardy DO - 09/04/2023 4:49 PM ESTSigned Prescriptions: Disp Refills diazePAM 5 MG Oral Tablet (Valium) 60 Tab*0 Sig: take 1 tablet by mouth every 12 hours if needed for anxiety Authorizing Provider: KRUPA HARDY * Telephone Encounter - Aye Storm [facility] - 09/04/2023 10:43 AM EST Pending Prescriptions: Disp Refills diazePAM 5 MG Oral Tablet (Valium) 60 Tab*0 Sig: take 1 tablet by mouth every 12 hours if needed for anxiety * Telephone Encounter - Aye Storm [facility] - 09/04/2023 10:43 AM EST I have reviewed the patients controlled substance dispensing history in the Prescription Drug Monitoring Program in compliance with the [facility] regulations before prescribing a controlled substance. PDMP checked on 09/04/2023. Pending Prescriptions: Disp Refills diazePAM 5 MG Oral Tablet (Valium) 60 Tab*0 Sig: take 1 tablet by mouth every 12 hours if needed for anxiety Last Visit: 04/16/2023 (in office), 02/18/2020 (telemedicine) Next Visit: 10/07/2023 Date medication was last filled: 08/05/23 Date medication is due for refill: 09/03/23 [facility]acy: [id number] [facility] Is this request for a controlled substance? Yes and Urine Drug Screen Not completed Toxicology results: No results found. However, due to the size of the patient record, not all encounters were searched.Please check Results Review for a complete set of results. Please approve if appropriate. Thank you, Aye Storm, PharmD, ZAIDA Clinical Pharmacist Centralized Clinical Pharmacy Services (CCPS) (formerly Telepharmacy) 09/04/23 10:43 AM [phone] * Telephone Encounter - Yuko Peña CPhT - 09/03/2023 12:32 PM EST Did you pend patient's preferred pharmacy and medication before forwarding?yes Pharmacy: [facility] #[id number] [facility] Pending Prescriptions: Disp Refills diazePAM 5 MG Oral Tablet (Valium) 60 Tab*0 Sig: take 1 tablet by mouth every 12 hours if needed for anxiety Last Visit: 04/16/2023 (in office), 02/18/2020 (telemedicine) Next Visit: 10/07/2023 If no future appointments scheduled, and last appointment is greater than a year ago, please schedule patient for a follow-up appointment Last date the medication was ordered: 08/05/23 Is this request for a controlled substance?Yes, What was the last refill date 08/05/23 w/ quantity 60 and dosage 5 mg and Urine Drug Screen Not completed Urine Drug Screen:No results found. However, due to the size of the patient record, not all encounters were searched. Please check Results Review for a complete set of results. Patient Phone Numbers Labs: Lab Results Component [...] 2:00 PM EST Office Visit Family Practice [place] [facility] [address] [place] [address] Krupa Hardy DO [address] [place] [address] 05/21/2024 1:00 PM EDT Office Visit Neurology [facility] [address] [place], [place] [id number] Santo Christian, DO [address] [place] [address] Scheduled Procedures Name Priority Associated Diagnoses Date/Ti me COLONOSCOPY FLEXIBLE PROXIMA L DIAGNOSTIC Recall Special screening for malignant neoplasms, colon Health Maintenance Due Date Last Done Comments DISCUSS TOBACCO CESSATION (REFER TO SMARTSET #5548) 1965 COVID-19 Vaccine (#1) 1965 Alpha-1 Antitrypsin [...] exists LUNG CANCER SCREENING - USE SMARTSET 57713 Completed 06/30/2020 GARDASIL-HPV IMMUNIZATION SERIES Aged Out No longer eligible based on patient's age to complete this topic Hepatitis B Aged Out No longer eligi ble based on patient's age to complete this topic MENINGOCOCCAL (MENACTRA/MENVEO) Aged Out No longer eligible based on patient's age to complete this topic documented as of this encounter Medical Devices Implanted Type Area Patient Accounting Representative Device Identifier Shelf Expiration Date Model / Serial / Lot [place] W/Screw - [id number] Implanted:Qty : 1 on 01/19/2016 by Burke Vazquez DO at OR [facility] [place] N/A: Spine Cervical DANIEL : SPINE [id number] / / Description:From set documented as of [...] the patient have Health Care Power of Life Science Technical Officer? No Code Status History Code Status Date Activated Date Inactivated Comments Full Code 01/19/2016 6:12 AM 01/19/2016 11:06 AM This order reflects the patients wishes and were consensually agreed upon. Question Answer Comments Discussion of Advance Directives occurred with: Family Does the patient have a Living Will? No Does the patient have Health Care Power of Life Science Technical Officer? No Care Teams Client Advisor Relationship Specialty Start Date End Date Krupa Hardy DO [address] [facility] [place] [address] PCP - General Family Medicine 07/21/23 documented as of this encounter
--- OUTSIDE RECORDS SUMMARY | 2024-01-20 14:53 | External Medical Summary | Summary of Care ---
Author Name Unknown Organization [facility] Address [address] [place] [address] Phone [phone] Care Team Providers Care Environmental Coordinator Name Role Phone Krupa Hardy DO Primary Care Provider +1- [phone] Reason for Visit * Reason Onset Date Comments Advice 09/08/2023 Status Check 09/08/2023 Encounter Details Date Type Department Care Team (Late st Contact Info) Description 09/08/2023 Telephone [facility] Practice [facility] [place] [address] [place] [address] Krupa Hardy DO [address] [place] [address] Advice; Status Check Allergies Active Allergy Reactions Criticality [...] Respimat 2.5 MCG/ACT Inhalation Aerosol Solution (Tiotropium [place] Monohydrate)Indication s:COPD (chronic obstructive pulmonary disease) with [...] encounter Miscellaneous Notes * Telephone Encounter - HawleyJanis conroy CPhT - 09/09/2023 1:56 PM EST Pt calling to check on status of an antibiotic. Caller can be reached at [phone]. Thank you, Courtney Hawley Typing Teacher I Centralized Clinical Pharmacy Services (CCPS) (Formerly [...] week ago. Pt can be reached at [phone]. Please advise Thank you, Rhoda Morrison Director Of Pharmacy I Centralized Clinical Pharmacy Services (Formerly Telepharmacy) [...] 2:00 PM EST Office Visit Family Practice [address], [place] [address] [place] [address] Krupa Hardy, [address] [place] [address] 05/21/2024 1:00 PM EDT [facility] [place] [address] [place] [address] Santo Christian, DO [address] [place] [address] Scheduled Procedures Name Priority Associated Diagnoses Date/Ti me COLONOSCOPY FLEXIBLE PROXIMA L DIAGNOSTIC Recall Special screening for malignant neoplasms, colon Health Maintenance Due Date Last Done Comments DISCUSS TOBACCO CESSATION (REFER TO SMARTSET #0967) 1965 COVID-19 Vaccine (#1) 1965 Alpha-1 Antitrypsin [...] exists LUNG CANCER SCREENING - USE SMARTSET 02451 Completed 06/30/2020 GARDASIL-HPV IMMUNIZATION SERIES Aged Out No longer eligible based on patient's age to complete this topic Hepatitis B Aged Out No longer eligi ble based on patient's age to complete this topic MENINGOCOCCAL (MENACTRA/MENVEO) Aged Out No longer eligible based on patient's age to complete this topic documented as of this encounter Medical Devices Implanted Type Area Instructional Systems Designer Device Identifier Shelf Expiration Date Model / Serial / Lot [place] W/Screw - [id number] Implanted:Qty : 1 on 01/19/2016 [place] Burke Vaz[place] [facility] [place] Spine Cervical DANIEL : SPINE [id number] / / Description:From set documented as of [...] the patient have Health Care Power of Document Control Manager? No Code Status History Code Status Date Activated Date Inactivated Comments Full Code 01/19/2016 6:12 AM 01/19/2016 11:06 AM This order reflects the patients wishes and were consensually agreed upon. Question Answer Comments Discussion of Advance Directives occurred with: Family Does the patient have a Living Will? No Does the patient have Health Care Power of Document Control Manager? No Care Teams Environmental Coordinator Relationship Specialty Start Date End Date Krupa Hardy DO [address] [facility] [place] [address] PCP - General Family Medicine 07/21/23 documented as of this encounter
--- OUTSIDE RECORDS SUMMARY | 2024-01-20 14:54 | External Medical Summary | Summary of Care ---
Author Name Unknown Organization [facility] Address [address] [place] [address] Phone [phone] Care Team Providers Care Php Mysql Developer Name Role Phone Krupa Hardy DO Primary Care Provider +1- [phone] Reason for Visit * Reason Onset Date Comments Test Results 09/03/2023 Encounter Details Date Type Department Care Team (Late st Contact Info) Description 09/03/2023 Telephone Family Practice [facility] [place] [address] [place] [address] Krupa Hardy DO [address] [place] [address] Test Results Allergies Active Allergy Reactions Criticality [...] Respimat 2.5 MCG/ACT Inhalation Aerosol Solution (Tiotropium [place] Monohydrate)Indication s:COPD (chronic obstructive pulmonary disease) with [...] every morning 90 Tablet 3 04/26/2023 Active diazePAM 5 MG Oral Tablet (Valium)Indications:GA D (generalized anxiety disorder),Recurrent major depressive disorder, in partial remission (HCC) take 1 tablet by mouth every 12 hours if needed for anxiety 60 Tablet 0 08/05/2023 Active Ondansetron 4 MG Oral Tablet Disintegrating [...] a day 180 Tablet 1 09/01/2023 Active Hospital, Clinic, or Other Facility Administered [...] Encounter - Krupa Hardy DO - 09/04/2023 8:23 AM EST Xray ordered by outside provider Shows chronic compression fracture and degeneration/arthritis No new findings * Telephone Encounter - Carolina Sales LPN - 09/03/2023 1:55 PM EST Please advise * Telephone Encounter - Susanna Vazquez OSA - 09/03/2023 12:36 PM EST Who is Requesting Test Results: PT Primary Care Provider : Krupa Hardy DO Tests Results Requested : Xray Date of Test : 09/02/23 Location of Test: [place] Ordering Provider: Dr. Shubham Hardy Callback Number: [phone] Patient has been made aware that the [...] 2:00 PM EST Office Visit Family Practice [place] [facility] [place] [address] Krupa Hardy DO [address] [place] [address] 05/21/2024 1:00 PM EDT Office Visit Neurology [facility] Garcia [place] [address] [facility] [place] [address] Santo Christian DO [address] [place] [address] Scheduled Procedures Name Priority Associated Diagnoses Date/Ti me COLONOSCOPY FLEXIBLE PROXIMA L DIAGNOSTIC Recall Special screening for malignant neoplasms, colon Health Maintenance Due Date Last Done Comments DISCUSS TOBACCO CESSATION (REFER TO SMARTSET #7572) 1965 COVID-19 Vaccine (#1) 1965 Alpha-1 Antitrypsin [...] exists LUNG CANCER SCREENING - USE SMARTSET 32529 Completed 06/30/2020 GARDASIL-HPV IMMUNIZATION SERIES Aged Out No longer eligible based on patient's age to complete this topic Hepatitis B Aged Out No longer eligi ble based on patient's age to complete this topic MENINGOCOCCAL (MENACTRA/MENVEO) Aged Out No longer eligible based on patient's age to complete this topic documented as of this encounter Medical Devices Implanted Type Area Principal Research Economist Device Identifier Shelf Expiration Date Model / Serial / Lot [place] W/Screw - [id number] Implanted:Qty : 1 on 01/19/2016 by Burke Vazquez DO at [place] [facility] [place]/A: Spine Cervical DANIEL : SPINE [id number] / / Description:From set documented as of [...] the patient have Health Care Power of Fiberglass Boat Parts Finisher? No Code Status History Code Status Date Activated Date Inactivated Comments Full Code 01/19/2016 6:12 AM 01/19/2016 11:06 AM This order reflects the patients wishes and were consensually agreed upon. Question Answer Comments Discussion of Advance Directives occurred with: Family Does the patient have a Living Will? No Does the patient have Health Care Power of Fiberglass Boat Parts Finisher? No Care Teams Php Mysql Developer Relationship Specialty Start Date End Date Krupa Hardy DO [address] [facility] [place] [address] PCP - General Family Medicine 07/21/23 documented as of this encounter
--- OUTSIDE RECORDS SUMMARY | 2024-01-20 14:54 | External Medical Summary | Summary of Care ---
Author Name Unknown Organization [facility] Address [address] [place] [address] Phone [phone] Care Team Providers Care Logging Crew Foreman Name Role Phone Krupa Hardy DO Primary Care Provider +1- [phone] Reason for Visit * Reason Onset Date Comments Med Request 08/25/2023 Advice 08/25/2023 Encounter Details Date Type Department Care Team (Late st Contact Info) Description 08/25/2023 Telephone [facility] Practice [facility] [place] [address] [place] [address] Krupa Hardy DO [address] [place] [address] Med Request; Advice Allergies Active Allergy Reactions Criticality Noted [...] as of this encounter (statuses as of 09/01/2023) Medications Medication Sig Dispensed Refills Start Date End Date Status Budesonide-Formotero l Fumarate 160-4.5 MCG/ACT Inhalation Aerosol (Symbicort)Indicatio ns:COVID-19 Inhale 2 Puffs by mouth 2 times a day. 10.2 g 12 11/19/2021 Active Spiriva Respimat 2.5 MCG/ACT Inhalation Aerosol Solution (Tiotropium [place] Monohydrate)Indicati ons:COPD (chronic obstructive pulmonary disease) with chronic bronchitis inhale 2 puffs by mouth and INTO THE LUNGS once daily 4 g 5 06/05/2022 Active Albuterol Sulfate HFA 108 (90 Base) MCG/ACT Inhalation Aerosol SolutionIndications: Complicated acute bronchitis inhale 2 puffs by mouth four times a day if needed for wheezing 54 g 1 10/31/2022 Active Topiramate 200 MG Oral Tablet (topAMAX)Indications :Intractable migraine with aura without status migrainosus take 1 tablet by mouth twice a day 180 Tablet 1 02/18/2023 Active rOPINIRole HCl 2 MG Oral Tablet (Requip)Indications: Restless legs syndrome take 1 tablet by mouth twice a day 60 Tablet 4 03/25/2023 Active Doxycycline Hyclate 100 MG Oral Capsule [...] 04/26/2023 Active diazePAM 5 MG Oral Tablet (Valium)Indications: [...] BEFORE BEDTIME 30 Tablet 0 08/26/2023 Active Baclofen 10 MG Oral Tablet (Lioresal) take 1 tablet by mouth every morning and BEFORE BEDTIME 30 Tablet 0 05/09/2023 3 Discontinue d(Refill) Hospital, Clinic, or Other Facility Administered Medication Ordered Dose Route Frequency Start Date End Date Status lidocaine 2 % inj 40 mgIndications:Primary osteoarthritis of both knees 40 mg IJ TWICE PER PROTOCOL 01/07/2023 Active documented as of this encounter (statuses as of 09/01/2023) Active Problems Problem Noted Date Diagnosed Date [...] as of this encounter (statuses as of 09/01/2023) Resolved Problems Problem Noted Date Diagnosed Date [...] as of this encounter (statuses as of 09/01/2023) Immunizations Name Administration Dates Next Due Pneumococcal [...] Telephone Encounter - Lidia Pan LPN - 09/01/2023 12:06 PM EST Patient made aware and verbalized understanding she is going to reach out to Ortho for recommendations. She would like to have them order imaging. * Telephone Encounter - Krupa Hardy DO - 08/29/2023 1:46 PM EDT Patient has a history of a chronic compression fracture in her lumbar spine She has seen spinal Orthopedics, last seen by them in May If she has a new injury or new problems needs to be seen, or can contact her spinal surgeon * Telephone Encounter - Janett Choudhury OSA - 08/29/2023 11:19 AM EDT Pt calling in stating she has a fractured back she has a brace pt feels she has refractured her back please advise next steps pt is taking her medication and wearing her brace is there anything else she can do. * Telephone Encounter - Anastasia Caceres PHARM Tech - 08/26/2023 5:24 PM EDT Pt calling to request baclofen. Informed pt that RX is available at their pharmacy. Pt verbalized understanding and stated they will check with their pharmacy regarding this medication. Thank You, Anastasia Caceres [facility] Rules Examiner III Centralized Clinical Pharmacy Services (CCPS) (Formerly Telepharmacy) 08/26/2023, 5:24 PM * Addendum Note - Krupa Hardy DO - 08/26/2023 2:06 PM EDTAddended by: KRUPA HARDY on: 08/26/2023 02:06 PM Modules accepted: Orders * Telephone Encounter - Krupa Hardy DO - 08/26/2023 2:06 PM EDT Refill baclofen sent to pharmacy * Telephone Encounter - Edwige Mcgill CPhT - 08/26/2023 1:09 PM EDT pt calling to check on status of muscle relaxer medication . Thank you, Edwige Mcgill CPhT II Rules Examiner Centralized Clinical Pharmacy Services (CCPS) (Formerly Telepharmacy) 08/26/2023, 1:09 PM * Telephone Encounter - Betito John CMA - 08/26/2023 11:50 AM EDT Call Details Pain and/or Headache Pain Level: 05/05 Describe the Pain: Dull ache,Shooting Location of Pain: Back Does the pain radiate? No Is there a clear cause for the pain? No Has the pain changed? No Fever: No Patient's Action(s) What have you done or taken for this problem? Ibuprofen Patient Request Patient Requesting: Advice,Medication Prescribed * Telephone Encounter - Esther Mcginnis CPhT - 08/25/2023 5:50 PM EDT Pt checking status of a muscle relaxer to be called in for her back Please advise Thank you, Esther Mcginnis [facility] Rules Examiner III Centralized Clinical Pharmacy Services(CCPS) (formerly Telepharmacy) 08/25/2023,5:50 PM * Telephone Encounter - Vanessa Viveros CPhT - 08/25/2023 1:40 PM EDT Pt calling with complaints of and is requesting a medication be prescribed. Pt did want to schedulean appointment at this time. Call details was completed, please refer to this for further information. Thank you, Vanessa Viveros Barrel Drum Cutter Centralized Clinical Pharmacy Services (CCPS) (Formerly Telepharmacy) 08/25/2023,1:44 PM documented in this encounter Plan of Treatment Upcoming Encounters Date Type Department Care Team (Late st Contact Info) Description 10/07/2023 2:00 PM EST Office Visit [facility] [address] [place] [address] Krupa Hardy, [address] [place] [address] 05/21/2024 1:00 PM EDT Office Visit Neurology [facility] [address] [place], [place] [id number] Santo Christian, DO [address] [place] [address] Scheduled Procedures Name Priority Associated Diagnoses Date/Ti me COLONOSCOPY FLEXIBLE PROXIMA L DIAGNOSTIC Recall Special screening for malignant neoplasms, colon Health Maintenance Due Date Last Done Comments DISCUSS TOBACCO CESSATION (REFER TO SMARTSET #6411) 1965 COVID-19 Vaccine (#1) 1965 Alpha-1 Antitrypsin [...] exists LUNG CANCER SCREENING - USE SMARTSET 35356 Completed 06/30/2020 GARDASIL-HPV IMMUNIZATION SERIES Aged Out No longer eligible based on patient's age to complete this topic Hepatitis B Aged Out No longer eligi ble based on patient's age to complete this topic MENINGOCOCCAL (MENACTRA/MENVEO) Aged Out No longer eligible based on patient's age to complete this topic documented as of this encounter Medical Devices Implanted Type Area Digital Advertising Analyst Device Identifier Shelf Expiration Date Model / Serial / Lot [place] W/Screw - [id number] Implanted:Qty : 1 on 01/19/2016 by Burke Vazquez DO at OR [facility] N/A: Spine Cervical DANIEL : SPINE [id number] / / Description:From set documented as of [...] the patient have Health Care Power of Electrical Products Engineer? No Code Status History Code Status Date Activated Date Inactivated Comments Full Code 01/19/2016 6:12 AM 01/19/2016 11:06 AM This order reflects the patients wishes and were consensually agreed upon. Question Answer Comments Discussion of Advance Directives occurred with: Family Does the patient have a Living Will? No Does the patient have Health Care Power of Electrical Products Engineer? No Care Teams Logging Crew Foreman Relationship Specialty Start Date End Date Krupa Hardy DO [address] [facility] [place] [address] PCP - General Family Medicine 07/21/23 documented as of this encounter
--- OUTSIDE RECORDS SUMMARY | 2024-01-20 14:54 | External Medical Summary | Summary of Care ---
Author Name Unknown Organization [facility] Address [address] [place] [address] Phone [phone] Care Team Providers Care Outboard Motor Mechanic Name Role Phone Nereida Hardy DO Primary Care Provider +1- [phone] Reason for Visit * Reason Onset Date Comments Med Request 08/25/2023 Advice 08/25/2023 Encounter Details Date Type Department Care Team (Late st Contact Info) Description 08/25/2023 Telephone [facility] Practice [facility], [place] [address] [place] [address] Nereida Hardy DO [address] [place] [address] Med Request; Advice Allergies Active [...] as of this encounter (statuses as of 08/29/2023) Medications Medication Sig Dispensed Refills Start Date End Date Status Budesonide-Formotero l Fumarate 160-4.5 MCG/ACT Inhalation Aerosol (Symbicort)Indicatio ns:COVID-19 Inhale 2 Puffs by mouth 2 times a day. 10.2 g 12 11/19/2021 Active Spiriva Respimat 2.5 MCG/ACT Inhalation Aerosol Solution (Tiotropium [place] Monohydrate)Indicati ons:COPD (chronic obstructive pulmonary disease) with [...] as of this encounter (statuses as of 08/29/2023) Active Problems Problem Noted Date Diagnosed Date [...] as of this encounter (statuses as of 08/29/2023) Resolved Problems Problem Noted Date Diagnosed Date [...] as of this encounter (statuses as of 08/29/2023) Immunizations Name Administration Dates Next Due Pneumococcal [...] encounter Miscellaneous Notes * Telephone Encounter - Janett Choudhury OSA [...] Caceres [facility] Industrial Electrician III Centralized Clinical Pharmacy Services (CCPS) (Formerly Telepharmacy) 08/26/2023, 5:24 PM * Addendum Note - Nereida Hardy DO - 08/26/2023 2:06 PM EDTAddended by: NEREIDA HARDY on: 08/26/2023 02:06 PM Modules accepted: Orders * Telephone Encounter - Nereida Hardy DO - 08/26/2023 2:06 PM EDT Refill baclofen sent to pharmacy * Telephone Encounter - Edwige Mcgill CPhT - 08/26/2023 1:09 PM EDT pt calling to check on status of muscle relaxer medication . Thank you, Edwige Mcgill CPhT II Industrial Electrician Centralized Clinical Pharmacy Services (CCPS) (Formerly Telepharmacy) [...] back Please advise Thank you, Esther Mcginnis CphT Industrial Electrician III Centralized Clinical Pharmacy Services(CCPS) (formerly Telepharmacy) 08/25/2023,5:50 PM * Telephone Encounter - Vanessa Viveros CPhT - 08/25/2023 1:40 PM EDT Pt calling with complaints of and is requesting a medication be prescribed. Pt did want to schedulean appointment at this time. Call details was completed, please refer to this for further information. Thank you, Vanessa Viveros Fundraising Assistant Centralized Clinical Pharmacy Services (CCPS) (Formerly Telepharmacy) 08/25/2023,1:44 PM documented in this encounter Plan of Treatment Upcoming Encounters Date Type Department Care Team (Late st Contact Info) Description 10/07/2023 2:00 PM EST Office Visit Family Practice [place] [facility], [place] [address] [place] [address] Nereida Hardy, [address] [facility] [place] [facility] [place] [address] 05/21/2024 1:00 PM EDT Office Visit Neurology [facility] [place] [address] [place] [address] Santo Christian, DO [address] [place] [address] Scheduled Procedures Name Priority Associated Diagnoses Date/Ti me COLONOSCOPY FLEXIBLE PROXIMA L DIAGNOSTIC Recall Special screening for malignant neoplasms, colon Health Maintenance Due Date Last Done Comments DISCUSS TOBACCO CESSATION (REFER TO SMARTSET #9452) 1965 COVID-19 Vaccine (#1) 1965 Alpha-1 Antitrypsin [...] exists LUNG CANCER SCREENING - USE SMARTSET 73006 Completed 06/30/2020 GARDASIL-HPV IMMUNIZATION SERIES Aged Out No longer eligible based on patient's age to complete this topic Hepatitis B Aged Out No longer eligi ble based on patient's age to complete this topic MENINGOCOCCAL (MENACTRA/MENVEO) Aged Out No longer eligible based on patient's age to complete this topic documented as of this encounter Medical Devices Implanted Type Area Vertical Contour Band Saw Operator Device Identifier Shelf Expiration Date Model / Serial / Lot [place] W/Screw - [id number] Implanted:Qty : 1 on 01/19/2016 by Burke Vazquez DO at OR [facility] [place] N/A: Spine Cervical DANIEL : SPINE [id number] / / Description:From set documented as of [...] the patient have Health Care Power of Cylinder Sander Operator? No Code Status History Code Status Date Activated Date Inactivated Comments Full Code 01/19/2016 6:12 AM 01/19/2016 11:06 AM This order reflects the patients wishes and were consensually agreed upon. Question Answer Comments Discussion of Advance Directives occurred with: Family Does the patient have a Living Will? No Does the patient have Health Care Power of Cylinder Sander Operator? No Care Teams Outboard Motor Mechanic Relationship Specialty Start Date End Date Nereida Hardy DO [address] [facility] [place] [address] PCP - General Family Medicine 07/21/23 documented as of this encounter
--- OUTSIDE RECORDS SUMMARY | 2024-01-20 14:54 | External Medical Summary | Summary of Care ---
Author Name Unknown Organization [facility] Address [address] [place] [address] Phone [phone] Care Team Providers Care Air Traffic Systems Technician Name Role Phone Nereida Hardy DO Primary Care Provider +1- [phone] Reason for Visit * Reason Onset Date Comments Med Request 08/25/2023 Advice 08/25/2023 Encounter Details Date Type Department Care Team (Late st Contact Info) Description 08/25/2023 Telephone [facility] Practice [facility], [place] [address] [place] [address] Nereida Hardy DO [address] [place] [address] Med Request; Advice Allergies Active [...] Respimat 2.5 MCG/ACT Inhalation Aerosol Solution (Tiotropium [place] Monohydrate)Indicati ons:COPD (chronic obstructive pulmonary disease) with [...] encounter Miscellaneous Notes * Telephone Encounter - Nereida Hardy DO - 08/29/2023 1:46 PM EDT [...] regarding this medication. Thank You, Anastasia Caceres [facility] Esters And Emulsifiers Supervisor III Centralized Clinical Pharmacy Services (CCPS) (Formerly [...] . Thank you, Edwige Mcgill CPhT II Esters And Emulsifiers Supervisor Centralized Clinical Pharmacy Services (CCPS) (Formerly Telepharmacy) [...] Please advise Thank you, Esther Mcginnis CphT Esters And Emulsifiers Supervisor III Centralized Clinical Pharmacy Services(CCPS) (formerly [employer]) 08/25/2023,5:50 PM * Telephone Encounter - Vanessa Viveros CPhT - 08/25/2023 1:40 PM EDT Pt calling with complaints of and is requesting a medication be prescribed. Pt did want to schedulean appointment at this time. Call details was completed, please refer to this for further information. Thank you, Vanessa Viveros Hammer Operator Centralized Clinical Pharmacy Services (CCPS) (Formerly Telepharmacy) 08/25/2023,1:44 PM documented in this encounter Plan of Treatment Upcoming Encounters Date Type Department Care Team (Late st Contact Info) Description 10/07/2023 2:00 PM EST Office Visit Family Practice [address] [place] [address] [place] [address] [facility]ida [facility] [address] [facility] [address] 05/21/2024 1:00 PM EDT Office Visit Neurology [facility] [address] [place] [address] Santo Christian, DO [address] [place] [address] Scheduled Procedures Name Priority Associated Diagnoses Date/Ti me COLONOSCOPY FLEXIBLE PROXIMA L DIAGNOSTIC Recall Special screening for malignant neoplasms, colon Health Maintenance Due Date Last Done Comments DISCUSS TOBACCO CESSATION (REFER TO SMARTSET #5375) 1965 COVID-19 Vaccine (#1) 1965 Alpha-1 Antitrypsin [...] exists LUNG CANCER SCREENING - USE SMARTSET 71728 Completed 06/30/2020 GARDASIL-HPV IMMUNIZATION SERIES Aged Out No longer eligible based on patient's age to complete this topic Hepatitis B Aged Out No longer eligi ble based on patient's age to complete this topic MENINGOCOCCAL (MENACTRA/MENVEO) Aged Out No longer eligible based on patient's age to complete this topic documented as of this encounter Medical Devices Implanted Type Area Transit Mixer Operator Device Identifier Shelf Expiration Date Model / Serial / Lot [place] W/Screw - [id number] Implanted:Qty : 1 on 01/19/2016 by Burke Vazquez DO at OR [facility] N/A: Spine Cervical DANIEL : SPINE [id number] / / Description:From set documented as of [...] the patient have Health Care Power of Children'S Ministries Director? No Code Status History Code Status Date Activated Date Inactivated Comments Full Code 01/19/2016 6:12 AM 01/19/2016 11:06 AM This order reflects the patients wishes and were consensually agreed upon. Question Answer Comments Discussion of Advance Directives occurred with: Family Does the patient have a Living Will? No Does the patient have Health Care Power of Children'S Ministries Director? No Care Teams Air Traffic Systems Technician Relationship Specialty Start Date End Date Nereida Hardy DO [address] [facility] [place] [address] PCP - General Family Medicine 07/21/23 documented as of this encounter
--- OUTSIDE RECORDS SUMMARY | 2024-01-20 14:54 | External Medical Summary | Summary of Care ---
Author Name Unknown Organization [facility] Address [address] [place] [address] Phone [phone] Care Team Providers Care Director Of Primary Name Role Phone Nereida Hardy DO Primary Care Provider +1- [phone] Reason for Visit * Reason Onset Date Comments Med Request 08/25/2023 Advice 08/25/2023 Encounter Details Date Type Department Care Team (Late st Contact Info) Description 08/25/2023 Telephone [facility] [place] [address] [place] [address] Nereida Hardy DO [address] [place] [address] Med Request; Advice Allergies Active [...] Respimat 2.5 MCG/ACT Inhalation Aerosol Solution (Tiotropium [place] Monohydrate)Indicati ons:COPD (chronic obstructive pulmonary disease) with [...] regarding this medication. Thank You, Anastasia Caceres [facility] Barrel Polisher III Centralized Clinical Pharmacy Services (CCPS) (Formerly [...] . Thank you, Edwige Mcgill CPhT II Barrel Polisher Centralized Clinical Pharmacy Services (CCPS) (Formerly Telepharmacy) [...] Please advise Thank you, Esther Mcginnis CphT Barrel Polisher III Centralized Clinical Pharmacy Services(CCPS) (formerly Telepharmacy) 08/25/2023,5:50 PM * Telephone Encounter - Vanessa Viveros CPhT - 08/25/2023 1:40 PM EDT Pt calling with complaints of and is requesting a medication be prescribed. Pt did want to schedulean appointment at this time. Call details was completed, please refer to this for further information. Thank you, Vanessa Viveros Algology Teacher Centralized Clinical Pharmacy Services (CCPS) (Formerly Telepharmacy) 08/25/2023,1:44 PM documented in this encounter Plan of Treatment Upcoming Encounters Date Type Department Care Team (Late st Contact Info) Description 10/07/2023 2:00 PM EST Office Visit Family Practice [place] [facility], [place] [address] [place] [address] Nereida Hardy, [address] [place] [facility] [address] 05/21/2024 1:00 PM EDT Office Visit Neurology Ileana Garcia [place] [address] [place] [address] Santo Christian, DO [address] [place] [address] Scheduled Procedures Name Priority Associated Diagnoses Date/Ti me COLONOSCOPY FLEXIBLE PROXIMA L DIAGNOSTIC Recall Special screening for malignant neoplasms, colon Health Maintenance Due Date Last Done Comments DISCUSS TOBACCO CESSATION (REFER TO SMARTSET #8133) 1965 COVID-19 Vaccine (#1) 1965 Alpha-1 Antitrypsin [...] exists LUNG CANCER SCREENING - USE SMARTSET 22671 Completed 06/30/2020 GARDASIL-HPV IMMUNIZATION SERIES Aged Out No longer eligible based on patient's age to complete this topic Hepatitis B Aged Out No longer eligi ble based on patient's age to complete this topic MENINGOCOCCAL (MENACTRA/MENVEO) Aged Out No longer eligible based on patient's age to complete this topic documented as of this encounter Medical Devices Implanted Type Area Onboarding Specialist Device Identifier Shelf Expiration Date Model / Serial / Lot [place] W/Screw - [id number] Implanted:Qty : 1 on 01/19/2016 by Burke Vazquez DO at [place] [facility] [place] N/A: Spine Cervical DANIEL : SPINE [id number] / / Description:From set documented as of [...] the patient have Health Care Power of Operator Ground Based Air Defence? No Code Status History Code Status Date Activated Date Inactivated Comments Full Code 01/19/2016 6:12 AM 01/19/2016 11:06 AM This order reflects the patients wishes and were consensually agreed upon. Question Answer Comments Discussion of Advance Directives occurred with: Family Does the patient have a Living Will? No Does the patient have Health Care Power of Operator Ground Based Air Defence? No Care Teams Director Of Primary Relationship Specialty Start Date End Date Nereida Hardy DO [address] [facility] [place] [address] PCP - General Family Medicine 07/21/23 documented as of this encounter
--- OUTSIDE RECORDS SUMMARY | 2024-01-20 14:54 | External Medical Summary | Summary of Care ---
Author Name Unknown Organization [facility] Address [address] [place] [address] Phone [phone] Care Team Providers Care Pathology Laboratory Technologist Name Role Phone Krupa Hardy Primary Care Provider +1- [phone] Encounter Details Date Type Department Care Team (Late st Contact Info) Description 09/02/2023 Result Scan Unspecified Department <No scans attached> Allergies Active Allergy Reactions Criticality Noted Date [...] as of this encounter (statuses as of 09/03/2023) Medications Medication Sig Dispensed Refills Start Date End Date Status Budesonide-Formoterol Fumarate 160-4.5 MCG/ACT Inhalation Aerosol (Symbicort)Indications :COVID-19 Inhale 2 Puffs by mouth 2 times a day. 10.2 g 12 11/19/2021 Active Spiriva Respimat 2.5 MCG/ACT Inhalation Aerosol Solution (Tiotropium [place] Monohydrate)Indication s:COPD (chronic obstructive pulmonary disease) with [...] as of this encounter (statuses as of 09/03/2023) Active Problems Problem Noted Date Diagnosed Date [...] as of this encounter (statuses as of 09/03/2023) Resolved Problems Problem Noted Date Diagnosed Date [...] as of this encounter (statuses as of 09/03/2023) Immunizations Name Administration Dates Next Due Pneumococcal [...] Office Visit Family Practice [address] [place] [address] Krupa Hardy DO [address] [place] [address] 05/21/2024 1:00 PM EDT Office Visit Neurology Ileana Garcia [place] [address] [place] [facility] [place] [address] Santo Christian, DO [address] [facility] [address] Scheduled Procedures Name Priority Associated Diagnoses Date/Ti me COLONOSCOPY FLEXIBLE PROXIMA L DIAGNOSTIC Recall Special screening for malignant neoplasms, colon Health Maintenance Due Date Last Done Comments DISCUSS TOBACCO CESSATION (REFER TO SMARTSET #5227) 1965 COVID-19 Vaccine (#1) 1965 Alpha-1 Antitrypsin [...] exists LUNG CANCER SCREENING - USE SMARTSET 96100 Completed 06/30/2020 GARDASIL-HPV IMMUNIZATION SERIES Aged Out No longer eligible based on patient's age to complete this topic Hepatitis B Aged Out No longer eligi ble based on patient's age to complete this topic MENINGOCOCCAL (MENACTRA/MENVEO) Aged Out No longer eligible based on patient's age to complete this topic documented as of this encounter Medical Devices Implanted Type Area Air Dispatcher Device Identifier Shelf Expiration Date Model / Serial / Lot [place] W/Screw - [id number] Implanted:Qty : 1 on 01/19/2016 by Burke Vazquez DO [place] [facility] [place]: Spine Cervical DANIEL : SPINE [id number] / / Description:From set documented as of this encounter Procedures Procedure Name Priority Date/Time Associated Diagnosis Comments RADIOLOGY SCANNED RESULT 09/02/2023 documented in this encounter Results * RADIOLOGY SCANNED RESULT (09/02/2023) 09/02/2023 No Physician Data Unknown DIAGNOSTIC RAD IOLOGY SERVICES documented in this encounter Advance Directives Latest Code Status on File Code Status Date Activated Date Inactivated Comments Full Code 01/19/2016 11:06 AM 01/21/2016 4:21 PM This order reflects the patients wishes and were consensually agreed upon. Question Answer Comments Discussion of Advance Directives occurred with: Patient Does the patient have a Living Will? No Does the patient have Health Care Power of Cracking Still Operator? No Code Status History Code Status Date Activated Date Inactivated Comments Full Code 01/19/2016 6:12 AM 01/19/2016 11:06 AM This order reflects the patients wishes and were consensually agreed upon. Question Answer Comments Discussion of Advance Directives occurred with: Family Does the patient have a Living Will? No Does the patient have Health Care Power of Cracking Still Operator? No Care Teams Pathology Laboratory Technologist Relationship Specialty Start Date End Date Krupa Hardy DO [address] [facility] [address] [place] [id number] PCP - General Family Medicine 07/21/23 documented as of this encounter
--- OUTSIDE RECORDS SUMMARY | 2024-01-20 14:54 | External Medical Summary | Summary of Care ---
Author Name Unknown Organization [facility] Address [address] [place] [address] Phone [phone] Care Team Providers Care Client Account Assistant Name Role Phone Krupa Hardy DO Primary Care Provider +1- [phone] Reason for Visit * Reason Comments eRx-Medication Refill Encounter Details Date Type Department Care Team (Late st Contact Info) Description 08/31/2023 Refill Family Practice [facility], [place] [address] [place], [place] [id number] Krupa Hardy DO [address] [place], [place] [id number] Intractable migraine with aura without status migrainosus; Restless legs syndrome Allergies Active Allergy Reactions Criticality Noted Date [...] Dispensed Refills Start Date End Date Status Budesonide-Formoter ol Fumarate 160-4.5 MCG/ACT Inhalation Aerosol (Symbicort)Indicati ons:COVID-19 Inhale 2 Puffs by mouth 2 times a day. 10.2 g 12 11/19/2021 Active Spiriva Respimat 2.5 MCG/ACT Inhalation Aerosol Solution (Tiotropium [place] Monohydrate)Indicat ions:COPD (chronic obstructive pulmonary disease) with chronic bronchitis inhale 2 puffs by mouth and INTO THE LUNGS once daily 4 g 5 06/05/2022 Active Albuterol Sulfate HFA 108 (90 Base) MCG/ACT Inhalation Aerosol SolutionIndications :Complicated acute bronchitis inhale 2 puffs by mouth four times a day if needed for wheezing 54 g 1 10/31/2022 Active Doxycycline Hyclate 100 MG Oral Capsule take 1 capsule by mouth twice a day for 7 days 0 04/14/2023 Active DULoxetine HCl 60 MG Oral Capsule Delayed Release Particles (Cymbalta)Indicatio ns:Recurrent major depressive disorder, in partial remission (HCC),DHIRAJ (generalized anxiety disorder) Take 1 Capsule by mouth in the morning and 1 Capsule before bedtime. 60 Capsule 5 04/16/2023 Active Montelukast Sodium 10 MG Oral Tablet (Singulair)Indicati ons:Allergic rhinitis,Asthma, mild persistent take 1 tablet by mouth every morning 90 Tablet 3 04/26/2023 Active diazePAM 5 MG Oral Tablet (Valium)Indications :DHIRAJ (generalized anxiety disorder),Recurrent major depressive disorder, in partial remission (HCC) take 1 tablet by mouth every 12 hours if needed for anxiety 60 Tablet 0 08/05/2023 Active Ondansetron 4 MG Oral Tablet Disintegrating (Zofran)Indications :Irritable bowel syndrome with diarrhea,Intractabl e migraine with aura without status migrainosus dissolve 1 tablet ON TONGUE every 8 hours if needed for nausea OR vomiting 30 Tablet 1 08/15/2023 Active Baclofen 10 MG Oral Tablet (Lioresal) take 1 tablet by mouth every morning and BEFORE BEDTIME 30 Tablet 0 08/26/2023 Active Topiramate 200 MG Oral Tablet (topAMAX)Indication s:Intractable migraine with aura without status migrainosus take 1 tablet by mouth twice a day 180 Tablet 1 09/01/2023 Active rOPINIRole HCl 2 MG Oral Tablet (Requip)Indications :Restless legs syndrome take 1 tablet by mouth twice a day 180 Tablet 1 09/01/2023 Active Topiramate 200 MG Oral Tablet (topAMAX)Indication s:Intractable migraine with aura without status migrainosus take 1 tablet by mouth twice a day 180 Tablet 1 02/18/2023 3 Discontinued rOPINIRole HCl 2 MG Oral Tablet (Requip)Indications :Restless legs syndrome take 1 tablet by mouth twice a day 60 Tablet 4 03/25/2023 3 Discontinued Hospital, Clinic, or Other Facility Administered Medication [...] Telephone Encounter - Krupa Hardy DO - 09/01/2023 5:44 PM ESTSigned Prescriptions: Disp Refills Topiramate 200 MG Oral Tablet (topAMAX) 180 Ta*1 Sig: take 1 tablet by mouth twice a day Authorizing Provider: KRUPA HARDY rOPINIRole HCl 2 MG Oral Tablet (Requip) 180 Ta*1 Sig: take 1 tablet by mouth twice a day Authorizing Provider: KRUPA HARDY * Telephone Encounter - Marla Peres RP - 09/01/2023 2:37 PM EST Pending Prescriptions: Disp Refills Topiramate 200 MG Oral Tablet (topAMAX) 180 Ta*1 Sig: take 1 tablet by mouth twice a day rOPINIRole HCl 2 MG Oral Tablet (Requip) 180 Ta*1 Sig: take 1 tablet by mouth twice a day * Telephone Encounter - Marla Peres RP - 09/01/2023 2:37 PM EST [facility] is currently not authorized to approve refills for the pended medication(s) per refill protocol. Please approve if appropriate. Thanks, Marla Peres [facility] Clinical Pharmacist [facility] ([facility]) ([facility]) [phone] documented in this encounter Plan of Treatment Upcoming Encounters Date Type Department Care Team (Late st Contact Info) Description 10/07/2023 2:00 PM EST Office Visit Family Practice [place] [facility] [place] [address] [facility] [address] Krupa [facility] [address] [facility] [address] 05/21/2024 1:00 PM EDT Office Visit Neurology [facility] [address] [place] [address] Santo Christian, DO [address] [place] [address] Scheduled Procedures Name Priority Associated Diagnoses Date/Ti me COLONOSCOPY FLEXIBLE PROXIMA L DIAGNOSTIC Recall Special screening for malignant neoplasms, colon Health Maintenance Due Date Last Done Comments DISCUSS TOBACCO CESSATION (REFER TO SMARTSET #1591) 1965 COVID-19 Vaccine (#1) 1965 Alpha-1 Antitrypsin [...] exists LUNG CANCER SCREENING - USE SMARTSET 94569 Completed 06/30/2020 GARDASIL-HPV IMMUNIZATION SERIES Aged Out No longer eligible based on patient's age to complete this topic Hepatitis B Aged Out No longer eligi ble based on patient's age to complete this topic MENINGOCOCCAL (MENACTRA/MENVEO) Aged Out No longer eligible based on patient's age to complete this topic documented as of this encounter Medical Devices Implanted Type Area Jet Blade Polisher Device Identifier Shelf Expiration Date Model / Serial / Lot [place] W/Screw - [id number] Implanted:Qty : 1 on 01/19/2016 by Burke Vazquez DO [place] [facility] [place]: Spine Cervical DANIEL : SPINE [id number] / / Description:From set documented as of this encounter Visit Diagnoses Diagnosis Intractable migraine with aura without status migrainosus Migraine with aura, with intractable migraine, so stated, without mention of status migrainosus Restless legs syndrome Restless legs syndrome (RLS) documented in this encounter Advance Directives Latest Code Status on File Code Status Date Activated Date Inactivated Comments Full Code 01/19/2016 11:06 AM 01/21/2016 4:21 PM This order reflects the patients wishes and were consensually agreed upon. Question Answer Comments Discussion of Advance Directives occurred with: Patient Does the patient have a Living Will? No Does the patient have Health Care Power of Hardboard Coating Machine Operator? No Code Status History Code Status Date Activated Date Inactivated Comments Full Code 01/19/2016 6:12 AM 01/19/2016 11:06 AM This order reflects the patients wishes and were consensually agreed upon. Question Answer Comments Discussion of Advance Directives occurred with: Family Does the patient have a Living Will? No Does the patient have Health Care Power of Hardboard Coating Machine Operator? No Care Teams Client Account Assistant Relationship Specialty Start Date End Date Krupa Hardy DO [address] [facility] [place] [address] PCP - General Family Medicine 07/21/23 documented as of this encounter
--- OUTSIDE RECORDS SUMMARY | 2024-01-20 14:54 | External Medical Summary | Summary of Care ---
Author Name Unknown Organization [facility] Address [address] [place] [address] Phone [phone] Care Team Providers Care Stock Digger Name Role Phone Krupa Hardy DO Primary Care Provider +1- [phone] Reason for Visit * Reason Onset Date Comments Test Results 09/03/2023 Encounter Details Date Type Department Care Team (Late st Contact Info) Description 09/03/2023 Telephone Family Practice [facility] [place] [address] [place] [address] Krupa Hardy DO [address] [place] [address] Test Results Allergies Active Allergy [...] Respimat 2.5 MCG/ACT Inhalation Aerosol Solution (Tiotropium [place] Monohydrate)Indication s:COPD (chronic obstructive pulmonary disease) with [...] Telephone Encounter - Carolina Sales LPN - 09/04/2023 2:15 PM EST Attempted to call pt but has calling restrictions preventing completion of call. Message sent * Telephone Encounter - Krupa Hardy DO [...] of Test : 09/02/23 Location of Test: [place] Ordering Provider: Dr. Shubham Hardy Callback Number: [phone] Patient has been made aware that the [...] Description 10/07/2023 2:00 PM EST Office Visit [facility] [address] [place] [address] Krupa Hardy DO [address] [facility] [address] 05/21/2024 1:00 PM EDT Office Visit Neurology Ileana Garcia [place] [address] [place] [address] Santo Christian Lara, DO [address] [place] [address] Scheduled Procedures Name Priority Associated Diagnoses Date/Ti me COLONOSCOPY FLEXIBLE PROXIMA L DIAGNOSTIC Recall Special screening for malignant neoplasms, colon Health Maintenance Due Date Last Done Comments DISCUSS TOBACCO CESSATION (REFER TO SMARTSET #1145) 1965 COVID-19 Vaccine (#1) 1965 Alpha-1 Antitrypsin [...] exists LUNG CANCER SCREENING - USE SMARTSET 13814 Completed 06/30/2020 GARDASIL-HPV IMMUNIZATION SERIES Aged Out No longer eligible based on patient's age to complete this topic Hepatitis B Aged Out No longer eligi ble based on patient's age to complete this topic MENINGOCOCCAL (MENACTRA/MENVEO) Aged Out No longer eligible based on patient's age to complete this topic documented as of this encounter Medical Devices Implanted Type Area Stave Grader Device Identifier Shelf Expiration Date Model / Serial / Lot [place] W/Screw - [id number] Implanted:Qty : 1 on 01/19/2016 by Burke Vazquez DO [place] [facility] [place]: Spine Cervical DANIEL : SPINE [id number] / / Description:From set documented as of [...] the patient have Health Care Power of Interior Design Program Chair? No Code Status History Code Status Date Activated Date Inactivated Comments Full Code 01/19/2016 6:12 AM 01/19/2016 11:06 AM This order reflects the patients wishes and were consensually agreed upon. Question Answer Comments Discussion of Advance Directives occurred with: Family Does the patient have a Living Will? No Does the patient have Health Care Power of Interior Design Program Chair? No Care Teams Stock Digger Relationship Specialty Start Date End Date Krupa Hardy DO [address] [facility] [place] [address] PCP - General Family Medicine 07/21/23 documented as of this encounter
--- OUTSIDE RECORDS SUMMARY | 2024-01-20 14:55 | External Medical Summary | Summary of Care ---
Author Name Unknown Organization [facility] Address [address] [place] [address] Phone [phone] Care Team Providers Care Discharge Coordinator Name Role Phone Krupa Hardy DO Primary Care Provider +1- [phone] Reason for Visit * Reason Onset Date Comments Med Request 08/25/2023 Encounter Details Date Type Department Care Team (Late st Contact Info) Description 08/25/2023 Telephone Family Practice [facility], [place] [address] [place] [address] Krupa Hardy DO [address] [place] [address] Med Request Allergies Active Allergy Reactions Criticality Noted Date [...] as of this encounter (statuses as of 08/26/2023) Medications Medication Sig Dispensed Refills Start Date End Date Status Budesonide-Formoterol Fumarate 160-4.5 MCG/ACT Inhalation Aerosol (Symbicort)Indications :COVID-19 Inhale 2 Puffs by mouth 2 times a day. 10.2 g 12 11/19/2021 Active Spiriva Respimat 2.5 MCG/ACT Inhalation Aerosol Solution (Tiotropium [place] Monohydrate)Indication s:COPD (chronic obstructive pulmonary disease) with chronic bronchitis inhale 2 puffs by mouth and INTO THE LUNGS once daily 4 g 5 06/05/2022 Active Albuterol Sulfate HFA 108 (90 Base) MCG/ACT Inhalation Aerosol SolutionIndications:Co mplicated acute bronchitis inhale 2 puffs by mouth four times a day if needed for wheezing 54 g 1 10/31/2022 Active Topiramate 200 MG Oral Tablet (topAMAX)Indications:I [...] and BEFORE BEDTIME 30 Tablet 0 05/09/2023 Active diazePAM 5 MG Oral Tablet (Valium)Indications:GA [...] OR vomiting 30 Tablet 1 08/15/2023 Active Hospital, Clinic, or Other Facility Administered Medication Ordered Dose Route Frequency Start Date End Date Status lidocaine 2 % inj 40 mgIndications:Primary osteoarthritis of both knees 40 mg IJ TWICE PER PROTOCOL 01/07/2023 Active documented as of this encounter (statuses as of 08/26/2023) Active Problems Problem Noted Date Diagnosed Date [...] as of this encounter (statuses as of 08/26/2023) Resolved Problems Problem Noted Date Diagnosed Date [...] as of this encounter (statuses as of 08/26/2023) Immunizations Name Administration Dates Next Due Pneumococcal [...] encounter Miscellaneous Notes * Telephone Encounter - Edwige Mcgill CPhT - 08/26/2023 1:09 PM EDT pt calling to check on status of muscle relaxer medication . Thank you, Edwige Mcgill CPhT II Ship Steward [facility] ([facility]) (Formerly [facility]) 08/26/2023, 1:09 PM * Telephone [...] Please advise Thank you, Esther Mcginnis CphT Ship Steward III [facility]) (formerly Telepharm[facility]) 08/25/2023,5:50 PM * Telephone Encounter - Vanessa Viveros CPhT - 08/25/2023 1:40 PM EDT Pt calling with complaints of and is requesting a medication be prescribed. Pt did want to schedulean appointment at this time. Call details was completed, please refer to this for further information. Thank you, Vanessa Viveros Greenhouse Technician [facility] ([facility]) (Formerly [facility]) 08/25/2023,1:44 PM documented in this encounter Plan of Treatment Upcoming Encounters Date Type Department Care Team (Late st Contact Info) Description 10/07/2023 2:00 PM EST Office Visit Family Practice [address], [place] [address] [place] [address] Krupa Hardy, [address] [place] [address] 05/21/2024 1:00 PM EDT Office Visit Neurology [facility] [place] [address] [place] [address] Santo Christian, DO [address] [place] [address] Scheduled Procedures Name Priority Associated Diagnoses Date/Ti me COLONOSCOPY FLEXIBLE PROXIMA L DIAGNOSTIC Recall Special screening for malignant neoplasms, colon Health Maintenance Due Date Last Done Comments DISCUSS TOBACCO CESSATION (REFER TO SMARTSET #3396) 1965 COVID-19 Vaccine (#1) 1965 Alpha-1 Antitrypsin [...] exists LUNG CANCER SCREENING - USE SMARTSET 51475 Completed 06/30/2020 GARDASIL-HPV IMMUNIZATION SERIES Aged Out No longer eligible based on patient's age to complete this topic Hepatitis B Aged Out No longer eligi ble based on patient's age to complete this topic MENINGOCOCCAL (MENACTRA/MENVEO) Aged Out No longer eligible based on patient's age to complete this topic documented as of this encounter Medical Devices Implanted Type Area Application Security Specialist Device Identifier Shelf Expiration Date Model / Serial / Lot [place] W/Screw - [id number] Implanted:Qty : 1 on 01/19/2016 [place] V[place] [facility] [place] Spine Cervical DANIEL : SPINE [id number] / / Description:From set documented as of [...] patient have Health Care Power of Animal Husbandman? No Code Status History Code Status Date Activated Date Inactivated Comments Full Code 01/19/2016 6:12 AM 01/19/2016 11:06 AM This order reflects the patients wishes and were consensually agreed upon. Question Answer Comments Discussion of Advance Directives occurred with: Family Does the patient have a Living Will? No Does the patient have Health Care Power of Animal Husbandman? No Care Teams Discharge Coordinator Relationship Specialty Start Date End Date Krupa Hardy DO [address] [facility] [place] [address] PCP - General Family Medicine 07/21/23 documented as of this encounter
--- OUTSIDE RECORDS SUMMARY | 2024-01-20 14:55 | External Medical Summary | Summary of Care ---
Author Name Unknown Organization [facility] Address [address] [place] [address] Phone [phone] Care Team Providers Care Gift Manager Name Role Phone Krupa Hardy DO Primary Care Provider +1- [phone] Reason for Visit * Reason Onset Date Comments Med Request 08/25/2023 Encounter Details Date Type Department Care Team (Late st Contact Info) Description 08/25/2023 Telephone Family Practice [facility] [place] [address] [place] [address] Krupa Hardy DO [address] [place] [address] Med Request Allergies Active Allergy [...] Respimat 2.5 MCG/ACT Inhalation Aerosol Solution (Tiotropium [place] Monohydrate)Indicati ons:COPD (chronic obstructive pulmonary disease) with [...] as of this encounter Miscellaneous Notes * Addendum Note - Krupa Hardy DO [...] . Thank you, Edwige Mcgill CPhT II Manufacturing Director [facility] ([facility]) (Formerly [facility]) [...] back Please advise Thank you, Esther Mcginnis [facility] Manufacturing Director III Centralized Clinical Pharmacy Services([facility]) (formerly Telepharmacy) 08/25/2023,5:50 PM * Telephone Encounter - Vanessa Viveros CPhT - 08/25/2023 1:40 PM EDT Pt calling with complaints of and is requesting a medication be prescribed. Pt did want to schedulean appointment at this time. Call details was completed, please refer to this for further information. Thank you, Vanessa Viveros Solar Sales [facility] ([facility]) (Formerly [facility]) 08/25/2023,1:44 PM documented in this encounter Plan of Treatment Upcoming Encounters Date Type Department Care Team (Late st Contact Info) Description 10/07/2023 2:00 PM EST Office Visit Family Practice [facility] [address] [place] [address] Krupa Hardy [address] [place] [address] 05/21/2024 1:00 PM EDT Office Visit Neurology [facility] [address] [place] [address] Santo Christian, [address] [place], [place] [id number] Scheduled Procedures Name Priority Associated Diagnoses Date/Ti me COLONOSCOPY FLEXIBLE PROXIMA L DIAGNOSTIC Recall Special screening for malignant neoplasms, colon Health Maintenance Due Date Last Done Comments DISCUSS TOBACCO CESSATION (REFER TO SMARTSET #3938) 1965 COVID-19 Vaccine (#1) 1965 Alpha-1 Antitrypsin [...] exists LUNG CANCER SCREENING - USE SMARTSET 85163 Completed 06/30/2020 GARDASIL-HPV IMMUNIZATION SERIES Aged Out No longer eligible based on patient's age to complete this topic Hepatitis B Aged Out No longer eligi ble based on patient's age to complete this topic MENINGOCOCCAL (MENACTRA/MENVEO) Aged Out No longer eligible based on patient's age to complete this topic documented as of this encounter Medical Devices Implanted Type Area Wood Ski Maker Device Identifier Shelf Expiration Date Model / Serial / Lot [place] W/Screw - [id number] Implanted:Qty : 1 on 01/19/2016 by Burke Vazquez DO at [place] [facility] [place]A: Spine Cervical DANIEL : SPINE [id number] / / Description:From set documented as of [...] the patient have Health Care Power of Generating Plant Superintendent? No Code Status History Code Status Date Activated Date Inactivated Comments Full Code 01/19/2016 6:12 AM 01/19/2016 11:06 AM This order reflects the patients wishes and were consensually agreed upon. Question Answer Comments Discussion of Advance Directives occurred with: Family Does the patient have a Living Will? No Does the patient have Health Care Power of Generating Plant Superintendent? No Care Teams Gift Manager Relationship Specialty Start Date End Date Krupa Hardy DO [address] [facility] [place] [address] PCP - General Family Medicine 07/21/23 documented as of this encounter
--- OUTSIDE RECORDS SUMMARY | 2024-01-20 14:55 | External Medical Summary | Summary of Care ---
Author Name Unknown Organization [facility] Address [address] [place] [address] Phone [phone] Care Team Providers Care Examination Supervisor Name Role Phone Nereida Hardy DO Primary Care Provider +1- [phone] Reason for Visit * Reason Onset Date Comments Med Request 08/25/2023 Encounter Details Date Type Department Care Team (Late st Contact Info) Description 08/25/2023 Telephone Family Practice [facility], [place] [address] [place] [address] [place] [address] [place] [address] Med Request Allergies Active Allergy [...] Respimat 2.5 MCG/ACT Inhalation Aerosol Solution (Tiotropium [place] Monohydrate)Indicati ons:COPD (chronic obstructive pulmonary disease) with [...] encounter Miscellaneous Notes * Telephone Encounter - Anastasia Caceres PHARM Tech - 08/26/2023 5:24 PM EDT Pt calling to request baclofen. Informed pt that RX is available at their pharmacy. Pt verbalized understanding and stated they will check with their pharmacy regarding this medication. Thank You, Anastasia Caceres [facility] Family Intervention Specialist III Centralized Clinical Pharmacy Services (CCPS) (Formerly [...] . Thank you, Edwige Mcgill CPhT II Family Intervention Specialist [facility] Pharmacy Services (CCPS) (Formerly Telepharmacy) 08/26/2023, 1:09 PM * Telephone Encounter - Betito John CMA - 08/26/2023 11:50 AM EDT Call Details Pain and/or Headache Pain Level: 7/10 Describe the Pain: Dull ache,Shooting Location of [...] back Please advise Thank you, Esther Mcginnis [facility] Family Intervention Specialist III Centralized Clinical Pharmacy Services(CCPS) (formerly Telepharmacy) 08/25/2023,5:50 PM * Telephone Encounter - Vanessa Vievros CPhT - 08/25/2023 1:40 PM EDT Pt calling with complaints of and is requesting a medication be prescribed. Pt did want to schedulean appointment at this time. Call details was completed, please refer to this for further information. Thank you, Vanessa Viveros Knife Finisher [facility] Services (CCPS) (Formerly Telepharmacy) 08/25/2023,1:44 PM documented in this encounter Plan of Treatment Upcoming Encounters Date Type Department Care Team (Late st Contact Info) Description 10/07/2023 2:00 PM EST Office Visit Family [facility] Denia Mckeon [address] [place] [address] Nereida Hardy DO [address] [facility] [place] [address] 05/21/2024 1:00 PM EDT Office Visit Neurology Ileana Garcia [place] [address] [facility], [place] [address] Santo Christian DO [address] [place] [address] Scheduled Procedures Name Priority Associated Diagnoses Date/Ti me COLONOSCOPY FLEXIBLE PROXIMA L DIAGNOSTIC Recall Special screening for malignant neoplasms, colon Health Maintenance Due Date Last Done Comments DISCUSS TOBACCO CESSATION (REFER TO SMARTSET #2176) 1965 COVID-19 Vaccine (#1) 1965 Alpha-1 Antitrypsin [...] exists LUNG CANCER SCREENING - USE SMARTSET 42849 Completed 06/30/2020 GARDASIL-HPV IMMUNIZATION SERIES Aged Out No longer eligible based on patient's age to complete this topic Hepatitis B Aged Out No longer eligi ble based on patient's age to complete this topic MENINGOCOCCAL (MENACTRA/MENVEO) Aged Out No longer eligible based on patient's age to complete this topic documented as of this encounter Medical Devices Implanted Type Area Medical Accountant Device Identifier Shelf Expiration Date Model / Serial / Lot [place] W/Screw - [id number] Implanted:Qty : 1 on 01/19/2016 [place] Vazquez [place] [facility] [place] Spine Cervical DANIEL : SPINE [id number] / / Description:From set documented as of [...] the patient have Health Care Power of Aco Coordinator? No Code Status History Code Status Date Activated Date Inactivated Comments Full Code 01/19/2016 6:12 AM 01/19/2016 11:06 AM This order reflects the patients wishes and were consensually agreed upon. Question Answer Comments Discussion of Advance Directives occurred with: Family Does the patient have a Living Will? No Does the patient have Health Care Power of Aco Coordinator? No Care Teams Examination Supervisor Relationship Specialty Start Date End Date Nereida Hardy DO [address] [facility] [place] [address] PCP - General Family Medicine 07/21/23 documented as of this encounter
--- OUTSIDE RECORDS SUMMARY | 2024-01-20 14:55 | External Medical Summary | Summary of Care ---
Author Name Unknown Organization [facility] Address [address] [place] [address] Phone [phone] Care Team Providers Care Protection Officer Name Role Phone Nereida Hardy DO Primary Care Provider +1- [phone] Reason for Visit * Reason Onset Date Comments Med Request 08/25/2023 Encounter Details Date Type Department Care Team (Late st Contact Info) Description 08/25/2023 Telephone Family Practice [facility], [place] [address] [place] [address] Nereida Hardy DO [address] [place] [address] Med Request Allergies Active Allergy [...] as of this encounter (statuses as of 08/27/2023) Medications Medication Sig Dispensed Refills Start Date End Date Status Budesonide-Formotero l Fumarate 160-4.5 MCG/ACT Inhalation Aerosol (Symbicort)Indicatio ns:COVID-19 Inhale 2 Puffs by mouth 2 times a day. 10.2 g 12 11/19/2021 Active Spiriva Respimat 2.5 MCG/ACT Inhalation Aerosol Solution (Tiotropium [place] Monohydrate)Indicati ons:COPD (chronic obstructive pulmonary disease) with [...] as of this encounter (statuses as of 08/27/2023) Active Problems Problem Noted Date Diagnosed Date [...] as of this encounter (statuses as of 08/27/2023) Resolved Problems Problem Noted Date Diagnosed Date [...] as of this encounter (statuses as of 08/27/2023) Immunizations Name Administration Dates Next Due Pneumococcal [...] regarding this medication. Thank You, Anastasia Caceres [facility] General Office Worker III Centralized Clinical Pharmacy Services (CCPS) (Formerly [...] . Thank you, Edwige Mcgill CPhT II General Office Worker Centralized Clinical Pharmacy Services (CCPS) (Formerly Telepharmacy) [...] back Please advise Thank you, Esther Mcginnis [facility] General Office Worker III Centralized Clinical Pharmacy Services(CCPS) (formerly Telepharmacy) 08/25/2023,5:50 PM * Telephone Encounter - Vanessa Viveros CPhT - 08/25/2023 1:40 PM EDT Pt calling with complaints of and is requesting a medication be prescribed. Pt did want to schedulean appointment at this time. Call details was completed, please refer to this for further information. Thank you, Vanessa Viveros Silo Painter [facility] Pharmacy Services (CCPS) (Formerly Telepharmacy) 08/25/2023,1:44 PM documented in this encounter Plan of Treatment Upcoming Encounters Date Type Department Care Team (Late st Contact Info) Description 10/07/2023 2:00 PM EST [facility] Denia Mckeon [address] [place] [address] Nereida Hardy DO [address] [facility] [place] [address] 05/21/2024 1:00 PM EDT Office Visit Neurology Ileana Garcia [place] [address] [facility], [place] [address] Santo Christian DO [address] [place] [address] Scheduled Procedures Name Priority Associated Diagnoses Date/Ti me COLONOSCOPY FLEXIBLE PROXIMA L DIAGNOSTIC Recall Special screening for malignant neoplasms, colon Health Maintenance Due Date Last Done Comments DISCUSS TOBACCO CESSATION (REFER TO SMARTSET #3044) 1965 COVID-19 Vaccine (#1) 1965 Alpha-1 Antitrypsin [...] exists LUNG CANCER SCREENING - USE SMARTSET 47333 Completed 06/30/2020 GARDASIL-HPV IMMUNIZATION SERIES Aged Out No longer eligible based on patient's age to complete this topic Hepatitis B Aged Out No longer eligi ble based on patient's age to complete this topic MENINGOCOCCAL (MENACTRA/MENVEO) Aged Out No longer eligible based on patient's age to complete this topic documented as of this encounter Medical Devices Implanted Type Area Service Aide Device Identifier Shelf Expiration Date Model / Serial / Lot [place] W/Screw - [id number] Implanted:Qty : 1 on 01/19/2016 by Burke Vazquez DO [place] [facility] [place] Spine Cervical DANIEL : SPINE [id number] / / Description:From set documented as of [...] the patient have Health Care Power of Production Operations Manager? No Code Status History Code Status Date Activated Date Inactivated Comments Full Code 01/19/2016 6:12 AM 01/19/2016 11:06 AM This order reflects the patients wishes and were consensually agreed upon. Question Answer Comments Discussion of Advance Directives occurred with: Family Does the patient have a Living Will? No Does the patient have Health Care Power of Production Operations Manager? No Care Teams Protection Officer Relationship Specialty Start Date End Date Nereida Hardy DO [address] [place] [address] PCP - General Family Medicine 07/21/23 documented as of this encounter
--- OUTSIDE RECORDS SUMMARY | 2024-01-20 14:55 | External Medical Summary | Summary of Care ---
Author Name Unknown Organization [facility] Address [address] [place] [address] Phone [phone] Care Team Providers Care Host Hostess Name Role Phone Krupa Hardy DO Primary Care Provider +1- [phone] Reason for Visit * Reason Comments eRx-Medication Refill Encounter Details Date Type Department Care Team (Late st Contact Info) Description 08/15/2023 Refill Family Practice [facility], [place] [address] [place] [address] Krupa Hardy DO [address] [place] [address] Irritable bowel syndrome with diarrhea; Intractable migraine [...] as of this encounter (statuses as of 08/18/2023) Medications Medication Sig Dispensed Refills Start Date End Date Status Budesonide-Formoter ol Fumarate 160-4.5 MCG/ACT Inhalation Aerosol (Symbicort)Indicati ons:COVID-19 Inhale 2 Puffs by mouth 2 times a day. 10.2 g 12 11/19/2021 Active Spiriva Respimat 2.5 MCG/ACT Inhalation Aerosol Solution (Tiotropium [place] Monohydrate)Indicat ions:COPD (chronic obstructive pulmonary disease) with chronic bronchitis inhale 2 puffs by mouth and INTO THE LUNGS once daily 4 g 5 06/05/2022 Active Albuterol Sulfate HFA 108 (90 Base) MCG/ACT Inhalation Aerosol SolutionIndications :Complicated acute bronchitis inhale 2 puffs by mouth four times a day if needed for wheezing 54 g 1 10/31/2022 Active Topiramate 200 MG Oral Tablet (topAMAX)Indication [...] 05/09/2023 Active diazePAM 5 MG Oral Tablet (Valium)Indications [...] OR vomiting 30 Tablet 1 08/15/2023 Active Ondansetron 4 MG Oral Tablet Disintegrating (Zofran)Indications :Irritable bowel syndrome with diarrhea,Intractabl e migraine with aura without status migrainosus Place 1 Tablet on tongue every 8 hours as needed for Nausea. dissolve on tongue. 30 Tablet 1 06/27/2023 3 Discontinued Hospital, Clinic, or Other Facility Administered Medication Ordered Dose Route Frequency Start Date End Date Status lidocaine 2 % inj 40 mgIndications:Primary osteoarthritis of both knees 40 mg IJ TWICE PER PROTOCOL 01/07/2023 Active documented as of this encounter (statuses as of 08/18/2023) Active Problems Problem Noted Date Diagnosed Date [...] as of this encounter (statuses as of 08/18/2023) Resolved Problems Problem Noted Date Diagnosed Date [...] as of this encounter (statuses as of 08/18/2023) Immunizations Name Administration Dates Next Due Pneumococcal [...] = 0.6 oz pur e alcohol) rarely Sex and Gender Information Value Date Recorded Sex Assigned at Not on file Gender Identity Not on file Sexual Orientation Not on file Job Start Date Occupation Industry Not on file Not on file Not on file documented as of this encounter Miscellaneous Notes * Telephone Encounter - Nallely Garcia CPhT - 08/18/2023 1:08 PM EDT Pt calling to request Zofran. Informed pt that RX is available at their pharmacy. Pt verbalized understanding and stated they will check with their pharmacy regarding this medication. Thank you, Nallely Garcia CPhT Pad Machine Operator Centralized Clinical Pharmacy Services (CCPS)(formerly telepharmacy) 08/18/2023,1:08 PM * Telephone Encounter - Deshaun Espinoza [facility] - 08/15/2023 4:04 PM EDTSigned Prescriptions: Disp Refills Ondansetron 4 MG Oral Tablet Disintegratin*30 Tab*1 Sig: dissolve 1 tablet ON TONGUE every 8 hours if needed for nausea OR vomitingAuthorizing Provider: KRUPA HARDY User: DESHAUN ESPINOZA documented in this encounter Plan of Treatment Upcoming Encounters Date Type Department Care Team (Late st Contact Info) Description 10/07/2023 2:00 PM EST Office Visit Family [facility] Denia Mckeon [address] [place] [address] Krupa Hardy DO [address] [place] [address] 05/21/2024 1:00 PM EDT Office Visit Neurology Ileana Garcia [place] [address] [facility], [place] [id number] Santo Christian DO [address] [place] [address] Scheduled Procedures Name Priority Associated Diagnoses Date/Ti me COLONOSCOPY FLEXIBLE PROXIMA L DIAGNOSTIC Recall Special screening for malignant neoplasms, colon Health Maintenance Due Date Last Done Comments DISCUSS TOBACCO CESSATION (REFER TO SMARTSET #8926) 1965 COVID-19 Vaccine (#1) 1965 Alpha-1 Antitrypsin [...] exists LUNG CANCER SCREENING - USE SMARTSET 84048 Completed 06/30/2020 GARDASIL-HPV IMMUNIZATION SERIES Aged Out No longer eligible based on patient's age to complete this topic Hepatitis B Aged Out No longer eligi ble based on patient's age to complete this topic MENINGOCOCCAL (MENACTRA/MENVEO) Aged Out No longer eligible based on patient's age to complete this topic documented as of this encounter Medical Devices Implanted Type Area Sammying Machine Operator Device Identifier Shelf Expiration Date Model / Serial / Lot [place] W/Screw - [id number] Implanted:Qty : 1 on 01/19/2016 by Burke Vazquez, DO at [place] [facility] [place]/A: Spine Cervical DANIEL : SPINE [id number] / / Description:From set documented as of [...] the patient have Health Care Power of Partnership Development Manager? No Code Status History Code Status Date Activated Date Inactivated Comments Full Code 01/19/2016 6:12 AM 01/19/2016 11:06 AM This order reflects the patients wishes and were consensually agreed upon. Question Answer Comments Discussion of Advance Directives occurred with: Family Does the patient have a Living Will? No Does the patient have Health Care Power of Partnership Development Manager? No Care Teams Host Hostess Relationship Specialty Start Date End Date Krupa Hardy DO [address] [facility] [place] [id number] PCP - General Family Medicine 07/21/23 documented as of this encounter
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
--- OUTSIDE RECORDS SUMMARY | 2024-01-20 14:55 | External Medical Summary | Summary of Care ---
Author Name Unknown Organization [facility] Address [address] [place] [address] Phone [phone] Care Team Providers Care Electric Power Machine Operator Name Role Phone Krupa Hardy DO Primary Care Provider +1- [phone] Reason for Visit * Reason Onset Date Comments Med Request 08/25/2023 Encounter Details Date Type Department Care Team (Late st Contact Info) Description 08/25/2023 Telephone Family Practice [facility], [place] [address] [place] [address] Krupa Hardy DO [address] [place] [address] Med Request Allergies Active Allergy [...] Respimat 2.5 MCG/ACT Inhalation Aerosol Solution (Tiotropium [place] Monohydrate)Indication s:COPD (chronic obstructive pulmonary disease) with [...] encounter Miscellaneous Notes * Telephone Encounter - Betito John CMA [...] Please advise Thank you, Esther Mcginnis CphT Hollow Handle Bench Worker III [facility]) (formerly Telepharmacy) 08/25/2023,5:50 PM * Telephone Encounter - Vanessa Viveros CPhT - 08/25/2023 1:40 PM EDT Pt calling with complaints of and is requesting a medication be prescribed. Pt did want to schedulean appointment at this time. Call details was completed, please refer to this for further information. Thank you, Vanessa Viveros Oil Truck Driver [facility] ([facility]) (Formerly Telepharmacy) 08/25/2023,1:44 PM documented in this encounter Plan of Treatment Upcoming Encounters Date Type Department Care Team (Late st Contact Info) Description 10/07/2023 2:00 PM EST Office Visit Family Practice [address] [place] [id number] Krupa Hardy DO [address] [place] [address] 05/21/2024 1:00 PM EDT Office Visit Neurology Ileana Garcia [place] [address] [facility] [place] [address] Santo Christian, DO [address] [facility] [address] Scheduled Procedures Name Priority Associated Diagnoses Date/Ti me COLONOSCOPY FLEXIBLE PROXIMA L DIAGNOSTIC Recall Special screening for malignant neoplasms, colon Health Maintenance Due Date Last Done Comments DISCUSS TOBACCO CESSATION (REFER TO SMARTSET #4261) 1965 COVID-19 Vaccine (#1) 1965 Alpha-1 Antitrypsin [...] exists LUNG CANCER SCREENING - USE SMARTSET 46213 Completed 06/30/2020 GARDASIL-HPV IMMUNIZATION SERIES Aged Out No longer eligible based on patient's age to complete this topic Hepatitis B Aged Out No longer eligi ble based on patient's age to complete this topic MENINGOCOCCAL (MENACTRA/MENVEO) Aged Out No longer eligible based on patient's age to complete this topic documented as of this encounter Medical Devices Implanted Type Area Ambulance Attendant Device Identifier Shelf Expiration Date Model / Serial / Lot Hickman W/Screw - [id number] Implanted:Qty : 1 on 01/19/2016 by Burke Vazquez DO [place] [facility] [place] Spine Cervical DANIEL : SPINE [id number] / / Description:From set documented as of [...] the patient have Health Care Power of Nursery School Teacher? No Code Status History Code Status Date Activated Date Inactivated Comments Full Code 01/19/2016 6:12 AM 01/19/2016 11:06 AM This order reflects the patients wishes and were consensually agreed upon. Question Answer Comments Discussion of Advance Directives occurred with: Family Does the patient have a Living Will? No Does the patient have Health Care Power of Nursery School Teacher? No Care Teams Electric Power Machine Operator Relationship Specialty Start Date End Date Krupa Hardy DO [address] [facility] [place] [address] PCP - General Family Medicine 07/21/23 documented as of this encounter
--- OUTSIDE RECORDS SUMMARY | 2024-01-20 14:55 | External Medical Summary | Summary of Care ---
Author Name Unknown Organization [facility] Address [address] [place] [address] Phone [phone] Care Team Providers Care Mortgage Professional Name Role Phone Antony Krupamiguelina Sanabria DO Primary Care Provider +1- [phone] Reason for Visit * Reason Onset Date Comments Medication Refill 06/26/2023 Encounter Details Date Type Department Care Team Description 06/26/2023 Refill [facility], [place] [address] [place] [address] Deborah Camara DO [address] [place] [address] Irritable bowel syndrome with diarrhea; [...] as of this encounter (statuses as of 08/14/2023) Medications Medication Sig Dispensed Refills Start Date End Date Status Budesonide-Formotero l Fumarate 160-4.5 MCG/ACT Inhalation Aerosol (Symbicort)Indicatio ns:COVID-19 Inhale 2 Puffs by mouth 2 times a day. 10.2 g 12 11/19/2021 Active Spiriva Respimat 2.5 MCG/ACT Inhalation Aerosol Solution (Tiotropium [place] Monohydrate)Indicati ons:COPD (chronic obstructive pulmonary disease) with [...] BEFORE BEDTIME 30 Tablet 0 05/09/2023 Active Ondansetron 4 MG Oral Tablet Disintegrating (Zofran)Indications: Irritable bowel syndrome with diarrhea,Intractable migraine with aura without status migrainosus Place 1 Tablet on tongue every 8 hours as needed for Nausea. dissolve on tongue. 30 Tablet 1 06/27/2023 Active diazePAM 5 MG Oral Tablet (Valium)Indications: Recurrent major depressive disorder, in partial remission (HCC),DHIRAJ (generalized anxiety disorder) Take 1 Tablet by mouth every 12 hours as needed for Anxiety. 60 Tablet 0 06/05/2023 3 Discontinue d(Refill) Ondansetron 4 MG Oral Tablet Disintegrating (Zofran)Indications: Intractable migraine with aura without status migrainosus,Irritabl e bowel syndrome with diarrhea Place 1 Tablet on tongue every 8 hours as needed for Nausea. dissolve on tongue. 30 Tablet 1 06/05/2023 3 Discontinue d(Refill) Hospital, Clinic, or Other Facility Administered Medication Ordered Dose Route Frequency Start Date End Date Status lidocaine 2 % inj 40 mgIndications:Primary osteoarthritis of both knees 40 mg IJ TWICE PER PROTOCOL 01/07/2023 Active documented as of this encounter (statuses as of 08/14/2023) Active Problems Problem Noted Date History of [...] as of this encounter (statuses as of 08/14/2023) Resolved Problems Problem Noted Date Resolved Date [...] as of this encounter (statuses as of 08/14/2023) Immunizations Name Administration Dates Next Due Pneumococcal [...] encounter Miscellaneous Notes * Telephone Encounter - Dulce Berg formerly [facility] - 06/27/2023 9:25 AM EDTSigned Prescriptions: Disp Refills Ondansetron 4 MG Oral Tablet Disintegratin*30 Tab*1 Sig: Place 1 Tablet on tongue every 8 hours as needed for Nausea. dissolve on tongue. Authorizing Provider: KRUPA HARDY Ordering User: DULCE BERG * Telephone Encounter - Patricio Finnegan, battery checker - 06/26/2023 2:46 PM EDT Did you pend patient's preferred pharmacy and medication before forwarding?yes Pharmacy: [facility] #[id number] [facility] Pending Prescriptions: Disp Refills Ondansetron 4 MG Oral Tablet Disintegrati*30 Tab*1 Sig: Place 1 Tablet on tongue every 8 hours as needed for Nausea. dissolve on tongue. Last Visit: 04/16/2023 (in office), 02/18/2020 (telemedicine) Next Visit: 10/07/2023 If no future appointments scheduled, and last appointment is greater than a year ago, please schedule patient for a follow-up appointment Last date the medication was ordered: 06/05/2023 Is this request for a controlled substance?No Urine Drug Screen:No results found. However, due [...] 10/07/2023 Office Visit Family Medicine Krupa Hardy, DO [address] [place] [address] 05/21/2024 Office Visit Neurology Santo Christian, DO [address] [place] [address] Scheduled Procedures Name Priority Associated Diagnoses Date/Ti me COLONOSCOPY FLEXIBLE PROXIMA L DIAGNOSTIC Recall Special screening for malignant neoplasms, colon Health Maintenance Due Date Last Done Comments DISCUSS TOBACCO CESSATION (REFER TO SMARTSET #7030) 1965 COVID-19 Vaccine (#1) 1965 Alpha-1 Antitrypsin [...] exists LUNG CANCER SCREENING - USE SMARTSET 65641 Completed 06/30/2020 GARDASIL-HPV IMMUNIZATION SERIES Aged Out No longer eligible based on patient's age to complete this topic Hepatitis B Aged Out No longer eligi ble based on patient's age to complete this topic MENINGOCOCCAL (MENACTRA/MENVEO) Aged Out No longer eligible based on patient's age to complete this topic documented as of this encounter Medical Devices Implanted Type Area Trading Analyst Device Identifier Shelf Expiration Date Model / Serial / Lot Woodward W/Screw - [id number] Implanted:Qty : 1 on 01/19/2016 by Burke Vazquez DO at [place] [facility] [place] N/A: Spine Cervical DANIEL : SPINE [id number] / / Description:From set documented as of [...] the patient have Health Care Power of Aluminum Sheet Cutter? No Code Status History Code Status Date Activated Date Inactivated Comments Full Code 01/19/2016 6:12 AM 01/19/2016 11:06 AM This order reflects the patients wishes and were consensually agreed upon. Question Answer Comments Discussion of Advance Directives occurred with: Family Does the patient have a Living Will? No Does the patient have Health Care Power of Aluminum Sheet Cutter? No Care Teams Mortgage Professional Relationship Specialty Start Date End Date Krupa Hardy DO [address] [facility] [place] [address] PCP - General Family Medicine 07/21/23 documented as of this encounter
--- OUTSIDE RECORDS SUMMARY | 2024-01-20 14:56 | External Medical Summary | Summary of Care ---
Author Name Unknown Organization [facility] Address [address] [place] [address] Phone [phone] Care Team Providers Care Junior Programmer Analyst Name Role Phone Antony Krupamiguelina Sanabria DO Primary Care Provider +1- [phone] Reason for Visit * Reason Comments eRx-Medication Refill Encounter Details Date Type Department Care Team Description 08/04/2023 Refill Family Practice [facility] [address] [place] [address] Deborah Camara DO [address] [place] [address] DHIRAJ (generalized anxiety disorder); Recurrent major depressive disorder, in partial remission (HCC) Allergies Active Allergy Reactions Severity Noted Date [...] as of this encounter (statuses as of 08/05/2023) Medications Medication Sig Dispensed Refills Start Date End Date Status Budesonide-Formoter ol Fumarate 160-4.5 MCG/ACT Inhalation Aerosol (Symbicort)Indicati ons:COVID-19 Inhale 2 Puffs by mouth 2 times a day. 10.2 g 12 11/19/2021 Active Spiriva Respimat 2.5 MCG/ACT Inhalation Aerosol Solution (Tiotropium [place] Monohydrate)Indicat ions:COPD (chronic obstructive pulmonary disease) with [...] 06/27/2023 Active diazePAM 5 MG Oral Tablet (Valium)Indications :DHIRAJ (generalized anxiety disorder),Recurrent major depressive disorder, in partial remission (HCC) take 1 tablet by mouth every 12 hours if needed for anxiety 60 Tablet 0 08/05/2023 Active diazePAM 5 MG Oral Tablet (Valium)Indications :DHIRAJ (generalized anxiety disorder),Recurrent major depressive disorder, in partial remission (HCC) Take 1 Tablet by mouth every 12 hours as needed for Anxiety. 60 Tablet 0 07/03/2023 3 Discontinued Hospital, Clinic, or Other Facility Administered Medication Ordered Dose Route Frequency Start Date End Date Status lidocaine 2 % inj 40 mgIndications:Primary osteoarthritis of both knees 40 mg IJ TWICE PER PROTOCOL 01/07/2023 Active documented as of this encounter (statuses as of 08/05/2023) Active Problems Problem Noted Date History of [...] as of this encounter (statuses as of 08/05/2023) Resolved Problems Problem Noted Date Resolved Date [...] as of this encounter (statuses as of 08/05/2023) Immunizations Name Administration Dates Next Due Pneumococcal [...] Telephone Encounter - Krupa Hardy DO - 08/05/2023 8:00 AM EDTSigned Prescriptions: Disp Refills diazePAM 5 MG Oral Tablet (Valium) 60 Tab*0 Sig: take 1 tablet by mouth every 12 hours if needed for anxiety Authorizing Provider: KRUPA HARDY * Telephone Encounter - Ayesha Shah [facility] - 08/04/2023 2:40 PM EDTPending Prescriptions: Disp Refills diazePAM 5 MG Oral Tablet [Pharmacy Med Na*60 Tab* Sig: take 1 tablet by mouth every 12 hours if needed for anxiety * Telephone Encounter - Ayesha Shah [facility] - 08/04/2023 2:39 PM EDT I have reviewed the patients controlled substance dispensing history in the Prescription Drug Monitoring Program in compliance with the [facility] regulations before prescribing a controlled substance. PDMP checked on 08/04/2023. Pending Prescriptions: Disp Refills diazePAM 5 MG Oral Tablet (Valium) [Pharm*60 Tab* Sig: take 1 tablet by mouth every 12 hours if needed for anxiety Last Visit: 04/16/2023 (in office), 02/18/2020 (telemedicine) Next Visit: 10/07/2023 Date medication was last filled: 07/03/23 Date medication is due for refill: 08/01/23 Pharmacy: [facility] #[id number] [address] [facility] Is this request for a controlled substance? Yes and Urine Drug Screen Not completed Toxicology results: No results found. However, due to the size of the patient record, not all encounters were searched.Please check Results Review for a complete set of results. Please approve if appropriate. Thanks, Ayesha Shah PharmD Clinical Pharmacist [facility] ([facility]) (formerly [facility]). [phone] 08/04/2023, 2:40 PM * Telephone Encounter - Ailyn [facility] - 08/04/2023 2:07 PM EDT Patient is requesting high priority Did you pend patient's preferred pharmacy and medication before forwarding?yes Pharmacy: [facility] #[id number] [address] [facility] Pending Prescriptions: Disp Refills diazePAM 5 MG Oral Tablet (Valium) [Pharm*60 Tab* Sig: take 1 tablet by mouth every 12 hours if needed for anxiety Last Visit: 04/16/2023 (in office), 02/18/2020 (telemedicine) Next Visit: 10/07/2023 If no future appointments scheduled, and last appointment is greater than a year ago, please schedule patient for a follow-up appointment Last date the medication was ordered: 07/03/23 Is this request for a controlled substance?Yes, What was the last refill date 07/03/23 w/ quantity 60 and dosage 5 mg [...] Office Visit Family Medicine Krupa Hardy, DO [address] [facility] [place] [address] 05/21/2024 Office Visit Neurology Santo Christian, DO [address] [facility] [place] [id number] Scheduled Procedures Name Priority Associated Diagnoses Date/Ti me COLONOSCOPY FLEXIBLE PROXIMA L DIAGNOSTIC Recall Special screening for malignant neoplasms, colon Health Maintenance Due Date Last Done Comments DISCUSS TOBACCO CESSATION (REFER TO SMARTSET #3251) 1965 COVID-19 Vaccine (#1) 1965 Alpha-1 Antitrypsin [...] exists LUNG CANCER SCREENING - USE SMARTSET 76959 Completed 06/30/2020 GARDASIL-HPV IMMUNIZATION SERIES Aged Out No longer eligible based on patient's age to complete this topic Hepatitis B Aged Out No longer eligi ble based on patient's age to complete this topic MENINGOCOCCAL (MENACTRA/MENVEO) Aged Out No longer eligible based on patient's age to complete this topic documented as of this encounter Medical Devices Implanted Type Area Panelboard Operator Device Identifier Shelf Expiration Date Model / Serial / Lot Woodrow W/Screw - [id number] Implanted:Qty : 1 on 01/19/2016 by Burke Vazquez DO at OR [facility] N/A: Spine Cervical DANIEL : SPINE [id number] / / Description:From set documented as of [...] the patient have Health Care Power of Pcb Designer? No Code Status History Code Status Date Activated Date Inactivated Comments Full Code 01/19/2016 6:12 AM 01/19/2016 11:06 AM This order reflects the patients wishes and were consensually agreed upon. Question Answer Comments Discussion of Advance Directives occurred with: Family Does the patient have a Living Will? No Does the patient have Health Care Power of Pcb Designer? No Care Teams Junior Programmer Analyst Relationship Specialty Start Date End Date Krupa Hardy DO [address] [place] [address] PCP - General Family Medicine 07/21/23 documented as of this encounter
[2024-01-20] MEDS: HYDROCODONE/ACETAMOPHEN 5/325MG TAB PO PRN (17:46)
[2024-01-20 21:41] LABS: Amphetamines+Metham, Urine Neg (Neg); Barbiturates, Urine Neg (Neg); Benzodiazepine, Urine Pos (Neg); Cocaine, Urine Neg (Neg); MDMA (Ecstacy), Urine Neg (Neg); Marijuana, Urine Pos (Neg); Methadone, Urine Neg (Neg); Opiate, Urine Pos (Neg); Phencyclidine, Urine Neg (Neg)
[2024-01-20] MEDS: diazePAM 5 MG TABLET PO PRN (21:51)
[2024-01-20] MEDS: TOPIRAMATE 100 MG TAB PO SCH (21:51)
[2024-01-20] MEDS: PROMETHAZINE HCL 6.25 MG in SODIUM CHLORIDE 0.9% 50 ML IV PRN (23:57)
[2024-01-21] MEDS: ACETAMINOPHEN 500 MG TAB PO PRN (00:01)
--- OUTSIDE RECORDS SUMMARY | 2024-01-21 05:02 | External Medical Summary | Summary of Care ---
Author Name Unknown Organization [facility] Address [address] [place] [address] Phone [phone] Care Team Providers Care Photograph Tinter Name Role Phone Krupa Hardy DO Primary Care Provider +1- [phone] Encounter Details Date Type Department Care Team (Late st Contact Info) Description 01/15/2024 Telephone Family Practice [facility] [address] [place] [address] Krupa Hardy DO [address] [place] [address] Allergies Active Allergy Reactions Criticality [...] as of this encounter (statuses as of 01/20/2024) Medications Medication Sig Dispensed Refills Start Date End Date Status Budesonide-Formoterol Fumarate 160-4.5 MCG/ACT Inhalation Aerosol (Symbicort)Indication s:COVID-19 Inhale 2 Puffs by mouth 2 times a day. 10.2 g 12 11/19/2021 Active Spiriva Respimat 2.5 MCG/ACT Inhalation Aerosol Solution (Tiotropium [place] Monohydrate)Indicatio ns:COPD (chronic obstructive pulmonary disease) with chronic bronchitis (HCC) inhale 2 puffs by mouth and INTO [...] as of this encounter (statuses as of 01/20/2024) Active Problems Problem Noted Date Diagnosed Date [...] as of this encounter (statuses as of 01/20/2024) Resolved Problems Problem Noted Date Diagnosed Date [...] as of this encounter (statuses as of 01/20/2024) Immunizations Name Administration Dates Next Due Pneumococcal Conjugate Vacci ne, 20-valent (Uraglcp05) 09/19/2023 Pneumococcal Polysaccharide PPV23 (Pneumovax) 12/17/2013 Seasonal [...] Telephone Encounter - Lidia Pan LPN - 01/20/2024 10:22 AM EDT NOHEMI, Spoke with patients sister and patient was seen at [facility] ER last evening. Patients sister reports that patient said that they were going to admit her. Patients sister is unsure of admitting diagnosis. * Telephone Encounter - Krupa aHrdy DO - 01/16/2024 3:38 PM EDT Can [...] supposed to do. Please advise pt at [phone] or pt's sister-Lizzy Wick as alternate phone at [phone]. documented in this encounter Plan of Treatment Upcoming Encounters Date Type Department Care Team (Late st Contact Info) Description 01/28/2024 10:30 AM EDT NeuroDiagnostic Study Neurophysiology [facility] [address] [facility] [place] [address] Sp, Neurophys Tech [address] [facility] [place] [address] 03/24/2024 10:40 AM EDT Office Visit Neurology [facility] [address] [facility] [place] [address] Soila Redding MD [address] [facility] [place] [address] 05/12/2024 1:20 PM EDT Office Visit Family Practice [place] Denia Mc[address]on [address] [place] [address] Krupa Hardy DO [address] [place] [address] 05/21/2024 1:00 PM EDT Office Visit Neurology [employer] [address] [facility] [place], [place] [address] Santo Christian, DO [address] [place] [address] Scheduled Procedures Name Priority Associated Diagnoses Date/Ti me COLONOSCOPY FLEXIBLE PROXIMA L DIAGNOSTIC Recall Special screening for malignant neoplasms, colon Health Maintenance Due Date Last Done Comments DISCUSS TOBACCO CESSATION (REFER TO SMARTSET #8127) 1965 Alpha-1 Antitrypsin 1981 HPV/Co-Test 1993 Cologuard [...] 04/11/2011 LUNG CANCER SCREENING - USE SMARTSET 41898 Completed 06/30/2020 Influenza Vaccine (FLU shot) Completed [...] this encounter Medical Devices Implanted Type Area Bag Worker Device Identifier Shelf Expiration Date Model / Serial / Lot Vitoss Bimodal Foam Pack 1.2cc - [id number] Implanted:Qty : 1 on 01/19/2016 by Burke Vazquez DO [place] [facility] [place]A: Spine Cervical DANIEL : SPINE 11/26/2016 [id number] / / [id number] 4.0 X 8mm Self Drilling Screw Implanted:Qty : 1 on 01/19/2016 by Burke Vazquez DO [place] [facility] [place]/A: Spine Cervical [id number] / / Description:From set Cage Avs [id number] - [id number] Implanted:Qty : 1 on 01/19/2016 by Burke Vazquez DO [place] [facility] [place]/A: Spine Cervical DANIEL : SPINE [id number] / / Description:From set [place] W/Screw - [id number] Implanted:Qty : 1 on 01/19/2016 by Burke Vazquez DO at [place] [facility] [place]/A: Spine Cervical DANIEL : SPINE [id number] / / Description:From set documented as of [...] the patient have Health Care Power of Practice Nurse? No Code Status History Code Status Date Activated Date Inactivated Comments Full Code 01/19/2016 6:12 AM 01/19/2016 11:06 AM This order reflects the patients wishes and were consensually agreed upon. Question Answer Comments Discussion of Advance Directives occurred with: Family Does the patient have a Living Will? No Does the patient have Health Care Power of Practice Nurse? No Care Teams Photograph Tinter Relationship Specialty Start Date End Date Krupa Hardy DO [address] [facility] [place] [address] PCP - General Family Medicine 07/21/23 documented as of this encounter
[2024-01-21 06:21] LABS: Hemoglobin 12.2 g/dl (12.0-16.0); Mean Corpuscular Hemoglobin 32.2 pg (25.0-34.0); Mean Corpuscular Hgb Conc 33.9 g/dL (32.0-36.0); Mean Platelet Volume 9.2 fL (9.4-12.4); Platelet Count 301 K/uL (130-400); RDW Coefficient of Variation 12.6 % (11.5-14.5); RDW Standard Deviation 44.2 fL (36.4-46.3); Red Blood Count 3.79 M/uL (4.20-5.40); White Blood Count 9.13 K/ul (4.8-10.8)
[2024-01-21 06:41] LABS: BUN Creatinine Ratio 16.1 (10-20); Calcium 8.4 mg/dl (8.6-10.3); Creatinine Clr Calc Pharmacy 83.1 ml/min; Est GFR (African American) 117.5 ml/min; Est GFR (Non-African American) 101.3 ml/min; Magnesium 2.1 mg/dl (1.7-2.4); Potassium 3.2 mmol/L (3.5-5.1)
--- NOTE | 2024-01-21 09:38 | Hospitalist Progress Note ---
Date of Service January 21, 2024 Assessment & Plan (1) Atypical chest pain: Plan: Possibly from situational hypertension and anxiety due to uncontrolled back pain History traumatic lumbar compression fractures Rule out PE given decreased mobility the last few weeks, CT chest PE study if D- dimer abnormal-> D-dimer normal History traumatic lumbar compression fractures LS MRI worsening back pain, Orthopedics spine consult MRI L-spine - IMPRESSION: 1. No evidence of cord compression or significant neuroforaminal narrowing. No evidence of acute fracture. 2. Old loss of height as above. Pt seen by ortho-spine today - no plan for surgery - recommend PT/OT, pain management Per PT/OT - ok to return home Pain management consulted however pt prefers to go home. Analgesia Anxiolytic as needed Clonidine as needed SBP > 160 Hypokalemia secondary to emesis Replace potassium COPD, not in acute exacerbation hyperlipidemia, not on statin Rx hx fibromyalgia history of cerebral concussion anxiety/mood disorder, patient anxious and somewhat distractible during exam UDS pending Ongoing tobacco abuse, Nicotine patch Admission and Anticipated Discharge Date Admission Date: January 20, 2024 Subjective Pt seen in follow up of back pain laying in bed in NAD Reports chronic issues with back pain, hx of multiple surgeries in the past Seen by ortho-spine this AM - recommend no surgery at this time, and recommend pain management Pt says she would like to go home later today. Will have her seen by PT/OT No fever, chills, CP, shortness of breath Review of Systems Review of Systems: All systems reviewed & are unremarkable except as noted in Subjective Physical Exam Physical Exam: GENERAL: slim F in NAD HEENT: NC/AT NECK : Supple, no tenderness CHEST : CTAB HEART : RRR, no obvious murmurs ABDOMEN: no distention, nontender BACK : Low back tenderness EXTREMITIES : No LE swelling/tenderness, moves extremities NEUROLOGIC : alert, oriented, answers appropriately, no facial asymmetry, moves extremities SKIN: Normal color, warm Results & Data Results & Data Vital Signs (Past 12 Hours) Vital Signs Temp Pulse Pulse Resp BP Pulse Ox O2 Del Method 01/21/24 07:15 36.5 C 67 18 147/78 H 95 Room Air 01/21/24 07:05 62 01/21/24 02:54 36.9 C 72 16 111/79 98 Room Air 01/21/24 01:16 63 01/20/24 23:22 36.9 C 74 18 150/96 H 97 Room Air Laboratory Results 01/21/24 01/20/24 Range/Units 05:46 Unknown WBC 9.13 (4.8-10.8) K/ul RBC 3.79 L (4.20-5.40) M/uL Hgb 12.2 (12.0-16.0) g/dl Hct 36.0 L (37.0-47.0) % MCV 95.0 (80.0-100.0) fL MCH 32.2 (25.0-34.0) pg MCHC 33.9 (32.0-36.0) g/dL RDW Std Deviation 44.2 (36.4-46.3) fL RDW Coeff of Scarlet 12.6 (11.5-14.5) % Plt Count 301 (130-400) K/uL MPV 9.2 L (9.4-12.4) fL Sodium 135 L (136-145) mmol/L Potassium 3.2 L (3.5-5.1) mmol/L Chloride 110 H (98-107) mmol/L Carbon Dioxide 18 L (21-32) mmol/L Anion Gap 7 (3-11) BUN 9 (6-23) mg/dl Creatinine 0.56 L (0.6-1.2) mg/dl Est Cr Clr Drug Dosing 83.1 ml/min Est GFR ( Amer) 117.5 ml/min Est GFR (Non-Af Amer) 101.3 ml/min BUN/Creatinine Ratio 16.1 (10-20) Glucose 69 L (70-99(Fasting)) mg/dl Calcium 8.4 L (8.6-10.3) mg/dl Phosphorus 3.0 (2.5-4.9) mg/dl Magnesium 2.1 (1.7-2.4) mg/dl Urine Opiates Screen Pos H (Neg) U Codeine Confrm GC/MS Pending Ur Morphine (GC/MS) Pending Ur Hydrocodone (GC/MS) Pending Ur Norhydrocodone Pending Ur Noroxycodone Pending Urine Oxycodone (GC/MS) Pending U Oxymorphone GC/MS Pending Ur Methadone, Qual Neg (Neg) Ur Hydromorphone (GC/MS) Pending Urine Barbiturates Neg (Neg) Ur Phencyclidine (PCP) Neg (Neg) U Amphetamin/Meth Scrn Neg (Neg) MDMA (Ecstasy) Screen Neg (Neg) U OH-Alprazolam Confrm Pending U Benzodiazepines Scrn Pos H (Neg) 7-Amino Clonazepam Pending Ur Nordiazepam Confirm Pending U OH-ethylflurazepam Pending U Lorazepam Cnf GC/MS Pending U Oxazepam Confm GC/MS Pending Ur Temazepam Confirm Pending U OH-Triazolam Confirm Pending U OH-Midazolam Confirm Pending Ur Cocaine Metabolite Neg (Neg) U Marijuana (THC) Screen Pos H (Neg) U Marijuana THC Carboxy Pending Drug Screen Comment Pending Medications Administered Current Inpatient Medications Acetaminophen (Acetaminophen 500 Mg Tab) 500 mg PO Q6H PRN PRN Reason: fever/pain Stop: 02/19/24 05:01 Last Admin: 01/21/24 00:01 Dose: 500 mg Hydrocodone Bitart/Acetaminophen (Hydrocodone/Acetamophen 5/325mg Tab) 1 tab PO QID PRN PRN Reason: Pain Stop: 02/03/24 07:54 Last Admin: 01/20/24 17:46 Dose: 1 tab Diazepam (Diazepam 5 Mg Tablet) 5 mg PO BID PRN PRN Reason: Anxiety/Insomnia Stop: 02/19/24 20:52 Last Admin: 01/21/24 09:08 Dose: 5 mg Duloxetine HCl (Duloxetine Hcl 60 Mg Cap) 60 mg PO BID TOMY Stop: 02/19/24 09:29 Last Admin: 01/21/24 08:09 Dose: 60 mg Fluticasone/Vilanterol (Fluticasone/Vilanterol 100/25mcg 14 Puffs/Inhaler) 1 puffs INH DAILY TOMY Stop: 02/19/24 09:29 Last Admin: 01/20/24 10:15 Dose: 1 puffs Hydromorphone HCl (Hydromorphone Inj 0.5 Mg/0.5 Ml Syr) 0.25 mg IV Q4H PRN PRN Reason: Pain Stop: 02/03/24 06:00 Promethazine HCl 6.25 mg/ (Sodium Chloride) 50.25 mls @ 201 mls/hr IV Q6H PRN PRN Reason: Nausea And Vomiting Stop: 02/19/24 05:01 Last Infusion: 01/21/24 00:14 Dose: Infused Potassium Chloride (K Oneil / Wtr) 10 meq in 100 mls @ 100 mls/hr IV ONE ONE Stop: 01/21/24 10:37 Miscellaneous (Remove Nicoderm Patch) 1 each N/A DAILY@0859 [facility] Stop: 02/19/24 08:58 Last Admin: 01/20/24 11:54 Dose: 1 each Montelukast Sodium (Montelukast Sodium 10 Mg Tablet) 10 mg PO DAILY TOMY Stop: 02/19/24 09:29 Last Admin: 01/21/24 08:07 Dose: 10 mg Nicotine (Nicotine 21 Mg/24 Hr Tdsy) 21 mg TD QAM [facility] Stop: 02/19/24 05:59 Last Admin: 01/20/24 06:48 Dose: 21 mg Potassium Chloride (Potassium Chloride Crtab 20 Meq Tabcr) 20 meq PO NOW STA Stop: 01/21/24 09:38 Ropinirole HCl (Ropinirole Hcl 2 Mg Tablet) 2 mg PO BID TOMY Stop: 02/19/24 09:29 Last Admin: 01/20/24 20:27 Dose: 2 mg Tizanidine HCl (Tizanidine Hcl 4 Mg Tablet) 2 mg PO TID PRN PRN Reason: spasm Stop: 02/19/24 08:59 Topiramate (Topiramate 100 Mg Tab) 200 mg PO BID TOMY Stop: 02/19/24 20:59 Last Admin: 01/21/24 08:06 Dose: 200 mg
--- NOTE | 2024-01-21 09:53 | Consultation ---
Date of Consultation January 21, 2024 Assessment & Plan (1) Low back pain: Shereen has acute on chronic lower back pain. Dr. Olmstead has reviewed imaging. There are no acute surgical indications. MRI is pretty clean. There is no evidence of significant stenosis or disc herniations. Facet issues at the L4-5 level at most. Would recommend outpatient physical therapy. If pain is refractory to this would suggest pain management consult. Again this can be performed as an outpatient. She can follow-up with Dr. Raymond, her established spine surgeon in [place], for any future cervical or lumbar issues. Will sign off. History of Present Illness Reason for Consultation: back pain Attending Physician: Maynor Taylor MD History of Present Illness Shereen Is a pleasant 58-year-old female who presents to the ER with acute on chronic lower back pain. She reports her pain has been constant since a fall in April 2023. Nothing exacerbates or alleviates it. She has no radicular pain, paresthesia, numbness or weakness. ambulates independently. She states her family physician has given her muscle relaxant that she takes at night. Denies bowel or bladder dysfunction. She has not had any treatment as an outpatient. She has had 3 prior cervical surgeries 1 in [place] and 1 in [place] and most recently by Dr. Raymond in [place]. Allergies Allergy/AdvReac Type Severity Reaction Status Date / Time codeine Allergy Intermediate HIVES Verified 01/20/24 00:49 meperidine AdvReac Intermediate RAPID Verified 01/20/24 00:49 HEARTRATE oxycodone AdvReac Intermediate VOMITING Verified 01/20/24 00:49 propoxyphene AdvReac Intermediate FAINTED Verified 01/20/24 00:49 lactose AdvReac Verified 01/20/24 14:34 STEROID INJECTION Allergy Intermediate HIVES Uncoded 01/20/24 00:49 Home Medications Medication Instructions Recorded Confirmed Type albuterol sulfate 2.5 mg/3 mL 2.5 mg inhalation DIRECTED PRN 01/20/24 01/20/24 History (0.083 %) solution for nebulization Shortness Of Breath Or Wheezing albuterol sulfate 90 mcg/actuation 1 puff inhalation DIRECTED PRN 01/20/24 01/20/24 History aerosol inhaler Shortness Of Breath Or Wheezing baclofen 10 mg tablet 10 mg PO BID 01/20/24 01/20/24 History budesonide-formoterol HFA 160 1 puff inhalation BID 01/20/24 01/20/24 History mcg-4.5 mcg/actuation aerosol inhaler (Symbicort) diazepam 5 mg tablet 5 mg PO Q12H PRN Anxiety 01/20/24 01/20/24 History duloxetine 60 mg capsule,delayed 60 mg PO BID 01/20/24 01/20/24 History release montelukast 10 mg tablet 10 mg PO DAILY 01/20/24 01/20/24 History ondansetron 4 mg disintegrating 4 mg PO Q8H PRN NAUSEA/VOMITING 01/20/24 01/20/24 History tablet ropinirole 2 mg tablet 2 mg PO BID 01/20/24 01/20/24 History Patient History Social History Smoking Status: Current every day smoker Tobacco Type: Cigarettes Hx Alcohol Use: No Hx Substance Use: Yes Substance Use Type Other:: medical marijuana Preferred Language: Luxembourgish Communication Ability: Effective Tractor Operator Required: No Beliefs That Will Affect Care: None Current Living Situation: Alone Feels Safe at Home: Yes Safety Concerns: Feels Safe At This Time Assistive Devices: Glasses Physical Exam Physical Exam: She is lying in bed in no acute distress Cooperative with exam Alert and oriented x 3 She rolls over in bed with ease for examining No palpable step-offs thoracic and lumbar I am unable to reproduce pain to palpation throughout the midline thoracic and lumbar spine and paravertebral musculature Nontender over the sciatic notct regions bilaterally Strength is 5 5 bilateral lower extremities Results & Data Vital Signs (Past 12 Hours) Vital Signs Temp Pulse Pulse Resp BP Pulse Ox O2 Del Method 01/21/24 07:15 36.5 C 67 18 147/78 H 95 Room Air 01/21/24 07:05 62 01/21/24 02:54 36.9 C 72 16 111/79 98 Room Air 01/21/24 01:16 63 01/20/24 23:22 36.9 C 74 18 150/96 H 97 Room Air Diagnostic Findings [facility], [place] [phone] Magnetic Resonance Report Patient: SHEREEN LADD Admit Date: 01/20/24 MR#: [id number] Address1: [address] Acct ID:[id number] Address2: [address] Date: 1965 [facility] Zip: [place] [address] Age: 58 Location: [facility] Sex: F Room/Bed: [facility] 1-1 Att Phy: Christina Metz MD Diagnosis: CP, BACK PAIN Ida Phy: Krupa Hardy DO Service Date: 01/20/24 Fam Phy: Interpreting Phy: Gene Olmstead MDAdmit Phy: Bart Tyler MD Ordering Phy: Bart Tyler MD cc: ~ MR lumbar spine wo con CLINICAL HISTORY: worsening back pain TECHNIQUE: Multiplanar sequences through the lumbar spine were obtained, without intravenous contrast. Comparison: Comparison is made to MRI lumbar spine 05/29/[address] lumbar spine 01/20/2024 FINDINGS: Redemonstration of minimal loss of height in the superior endplate of L3 as well as the superior endplate of L1-L2. L1-L2: No significant abnormality. L2-L3: No significant abnormality. L3-L4: No significant abnormality. L4-L5: No significant abnormality. L5-S1: No significant abnormality. The spinal ligaments are intact, without evidence of disruption or abnormal sig nal intensity. The spinal cord is normal in signal intensity and there is no evidence of cord contusion. There is no evidence of an extradural, intradural, extramedullary or intramedullary lesion. Visualized soft tissues are normal. IMPRESSION: 1. No evidence of cord compression or significant neuroforaminal narrowing. No evidence of acute fracture. 2. Old loss of height as above. ACT 112: Negative or not required by law. Electronically signed by: Gene Olmstead M.D. 01/20/2024 11:42 AM Dictated: 01/20/24 1140 Transcribed: 01/20/24 1140
[2024-01-21] MEDS: POTASSIUM CHLORIDE / WTR 10 MEQ/100 ML PLCT IV ONE (11:20)
[2024-01-21] MEDS: POTASSIUM CHLORIDE CRTAB 20 MEQ TABCR PO STA (11:20)
--- NOTE | 2024-01-21 14:55 | Discharge Summary ---
Date of Service January 21, 2024 Admission HPI Per Admitting Provider History obtained from patient and records. Medical history significant for COPD, hyperlipidemia, chronic back pain, fibromyalgia, migraine, history of cerebral concussion, IBS, anxiety/mood disorder, RLS, ongoing tobacco abuse. Patient has had low back pain for about about 2 years following a fall. Outpatient lumbar MRI April 2023 showed Mild chronic superior endplate compression fracture L3. No acute osseous ab normality. Mild multilevel degenerative changes lumbar spine. Likely active facet atrophy L4-L5. Conservative management recommended by [facility] orthopedics spine surgeon on evaluation last May 2023. Worsening back pain noted in the last 3 weeks worse on ambulation. Some radiation to the legs. No incontinence symptoms. No fever, no chills. Unquantified weight loss from the pain as per patient. Patient seen at PCPs office 3 weeks ago. Outpatient plain LS XR done at [facility] showed no acute osseous abnormality. Stable mild chronic compression deformities involving L2 and L3. No evidence of acute vertebral body compression fracture. Mild multilevel degenerative spondylosis. Patient called EMS last night due to worsening symptoms. Unable to move as much as per patient. Transient substernal pain with some SOB prior to EMS arrival which patient attributes to anxiety. Nausea, emesis at home without abdominal pain. No cough symptoms. Denies headache symptoms. Highest SBP of 180s documented at the ER. Medical History as above Surgical History : Cholecystectomy, BTL, D&C, neck surgery Family History : Breast cancer, dementia, heart disease, lung cancer, stroke, parkinsonism Personal/Social history : 2 packs daily, rare EtOH intake, disabled Admission Exam Per Admitting Provider GENERAL: uncomfortable, anxious, underweight, no respiratory distress SKIN: Normal color, warm HEENT: [place] palpebral conjunctivae, no ptosis, dry buccal mucosa NECK : Supple, no tenderness CHEST : Decreased breath sounds, no tenderness HEART : RRR, no obvious murmurs ABDOMEN: no distention, nontender BACK : Low back tenderness, negative straight leg raise test EXTREMITIES : No LE swelling/tenderness, no other conspicuous deformities noted NEUROLOGIC : Coherent, no facial asymmetry, no other gross focality Principal Diagnosis Acute on chronic back pain Discharge Exam GENERAL: slim F in NAD HEENT: NC/AT NECK : Supple, no tenderness CHEST : CTAB HEART : RRR, no obvious murmurs ABDOMEN: no distention, nontender BACK : Low back tenderness EXTREMITIES : No LE swelling/tenderness, moves extremities NEUROLOGIC : alert, oriented, answers appropriately, no facial asymmetry, moves extremities SKIN: Normal color, warm Discharge Data Allergies Allergy/AdvReac Type Severity Reaction Status Date / Time codeine Allergy Intermediate HIVES Verified 01/20/24 00:49 meperidine AdvReac Intermediate RAPID Verified 01/20/24 00:49 HEARTRATE oxycodone AdvReac Intermediate VOMITING Verified 01/20/24 00:49 propoxyphene AdvReac Intermediate FAINTED Verified 01/20/24 00:49 lactose AdvReac Verified 01/20/24 14:34 STEROID INJECTION Allergy Intermediate HIVES Uncoded 01/20/24 00:49 Consultations 01/20/24 05:00 ED Decision to Admit Stat 01/20/24 06:00 Consult Orthopedic Spine Surgery Routine 01/21/24 09:43 Consult Pain Management Routine Ordered Studies 01/19/24 23:52 CT lumbar spine wo con Stat FINDINGS: Vertebrae: There is chronic loss of height involving the left lateral superior endplate at L3 level. There is a mild concave appearance of the superior endplates at L1 and L2 levels. No acute vertebral body fracture identified. No anterolisthesis or retrolisthesis. The pedicles, facet joints, spinous processes and transverse processes are intact. Discs/spinal canal/neural foramina: Evaluation of the central canal is limited without intrathecal contrast. However, there appears to be disc space narrowing at all levels of the lumbar spine with annular bulge at L3-L4 and L4-L5 levels. No obvious posterior disc protrusion. Facet hypertrophic changes most notable at L4-L5 and L5-S1 levels. No significant osseous neural foraminal encroachment. Soft tissues: No acute traumatic paraspinal soft tissue abnormality identified. IMPRESSION: 1. No acute osseous traumatic injury or significant abnormal alignment involving the lumbar spine. Chronic loss of height involving the left lateral superior endplate at L3 and minimally involving the superior endplates at L1 and L2 levels. 2. Diffuse and disc bulge with disc space narrowing at L3-L4 and L4-L5. No osseous central canal stenosis or significant osseous neural foraminal encroachment. 01/20/24 07:58 MRI Lumbar Spine [MR lumbar spine wo con] Stat FINDINGS: Redemonstration of minimal loss of height in the superior endplate of L3 as well as the superior endplate of L1-L2. L1-L2: No significant abnormality. L2-L3: No significant abnormality. L3-L4: No significant abnormality. L4-L5: No significant abnormality. L5-S1: No significant abnormality. The spinal ligaments are intact, without evidence of disruption or abnormal signal intensity. The spinal cord is normal in signal intensity and there is no evidence of cord contusion. There is no evidence of an extradural, intradural, extramedullary or intramedullary lesion. Visualized soft tissues are normal. IMPRESSION: 1. No evidence of cord compression or significant neuroforaminal narrowing. No evidence of acute fracture. 2. Old loss of height as above. Hospital Course (1) Atypical chest pain: Possibly from situational hypertension and anxiety due to uncontrolled back pain History traumatic lumbar compression fractures Rule out PE given decreased mobility the last few weeks, CT chest PE study if D- dimer abnormal-> D-dimer normal History traumatic lumbar compression fractures LS MRI worsening back pain, Orthopedics spine consult MRI L-spine - IMPRESSION: 1. No evidence of cord compression or significant neuroforaminal narrowing. No evidence of acute fracture. 2. Old loss of height as above. Pt seen by ortho-spine today - no plan for surgery - recommend PT/OT, pain management Per PT/OT - ok to return home Pain management consulted however pt prefers to go home. Analgesia Anxiolytic as needed Clonidine as needed SBP > 160 Hypokalemia secondary to emesis Replace potassium COPD, not in acute exacerbation hyperlipidemia, not on statin Rx hx fibromyalgia history of cerebral concussion anxiety/mood disorder, patient anxious and somewhat distractible during exam UDS pending Ongoing tobacco abuse, Nicotine patch Total Time Total Time Spent Total Time Spent (In Minutes): 40 Discharge Plan Discharge Items Patient Disposition: Home - Self-Care Reason For Visit: CP, BACK PAIN Discharge Diagnosis: Acute on chronic back pain Condition on Discharge: Good Activity: Per Instructions section Non-emergency contact: Primary Care Provider Call non-emergency contact if: you have any medication questions and your symptoms worsen Follow-up/Referrals: Krupa Hardy DO [Primary Care Provider] - Diet: Regular Addtl Attending Provider Instructions: Follow up with your primary care physician within 1 week. If your pain is not controlled, you may need a referral to pain management clinic. Recommend to take potassium supplement and discuss with your physician if/ when you should have your potassium level re-checked. Pending Studies at Discharge: Yes Studies:: UDS Stand-Alone Forms: My [facility] [employer], Smoking Cessation Medications and DC Order Prescriptions: New potassium chloride 20 mEq tablet extended release 20 meq PO DAILY Qty: 14 0RF Continued albuterol sulfate 2.5 mg /3 mL (0.083 %) Solution For Nebulization 2.5 mg INHALATION DIRECTED PRN (Reason: Shortness Of Breath Or Wheezing) baclofen 10 mg tablet 10 mg PO BID ropinirole 2 mg tablet 2 mg PO BID montelukast 10 mg tablet 10 mg PO DAILY albuterol sulfate 90 mcg/actuation Hfa Aerosol Inhaler 1 puff INHALATION DIRECTED PRN (Reason: Shortness Of Breath Or Wheezing) ondansetron 4 mg tablet,disintegrating 4 mg PO Q8H PRN (Reason: NAUSEA/VOMITING) diazepam 5 mg tablet 5 mg PO Q12H PRN (Reason: Anxiety) duloxetine 60 mg capsule,delayed release(DR/EC) 60 mg PO BID budesonide-formoterol [Symbicort] 160-4.5 mcg/actuation Hfa Aerosol Inhaler 1 puff INHALATION BID Discharge Orders: Discharge Order (Routine); Ordered 01/21/24 Ordered By: Maynor Taylor Admission Data Admit Date/Time: 01/20/24 05:58 Attending Provider: Maynor Taylor Admit Provider: Bart Tyler Primary Care Provider: Krupa Hardy Other Providers: Bart Tyler; Samy Olmstead Upendra
[2024-01-23 13:02] LABS: 7-Aminoclonaz, Confirm NEGATIVE ng/mL (<25); Codeine Urine NEGATIVE ng/mL (<50); Hydro-Alp Ur, GC/MS NEGATIVE ng/mL (<25); Hydrocodone Urine 432 ng/mL (<50); Hydromor Urine 67 ng/mL (<50); Hydroxyethylflurazepam, Conf NEGATIVE ng/mL (<50); Hydroxymidazolam Ur, GC/MS NEGATIVE ng/mL (<50); Hydroxytriazolam NEGATIVE ng/mL (<50); Lorazepam, Ur GC/MS NEGATIVE ng/mL (<50); Marijuana Quant, GCMS Urine 2437 ng/mL (<5); Morphine Urine NEGATIVE ng/mL (<50); Nordiazepam, Confirm 635 ng/mL (<50); Norhydrocodone Conf Ur 932 ng/mL (<50); Noroxycodone Urine NEGATIVE ng/mL (<50); Oxazepam Ur, GC/MS >2000 ng/mL (<50); Oxycodone Urine NEGATIVE ng/mL (<50); Oxymorph Urine NEGATIVE ng/mL (<50); Temazepam, Confirm 1600 ng/mL (<50)
== END 2024-01-21 17:10 | disposition home or self-care (01) ==
LOC: EDINP 21:48 → ED 21:48 → SUATTDRO 01-20 05:58 → 2E 01-20 14:46
DX: Z87.820 Personal history of traumatic brain injury; Z79.899 Other long term (current) drug therapy; E87.6 Hypokalemia; M54.16 Radiculopathy, lumbar region; Z79.51 Long term (current) use of inhaled steroids; G25.81 Restless legs syndrome; F17.210 Nicotine dependence, cigarettes, uncomplicated; G89.29 Other chronic pain; Z87.81 Personal history of (healed) traumatic fracture; F41.9 Anxiety disorder, unspecified; R11.10 Vomiting, unspecified; Z88.8 Allergy status to other drugs, medicaments and biological substances; F39 Unspecified mood [affective] disorder; G43.909 Migraine, unspecified, not intractable, without status migrainosus; M79.7 Fibromyalgia; J44.9 Chronic obstructive pulmonary disease, unspecified; E78.5 Hyperlipidemia, unspecified; Z88.6 Allergy status to analgesic agent; R07.89 Other chest pain